=== PATIENT | female | born 1940 | race Caucasian/White ===

== ENCOUNTER → 2017-02-25 | Outpatient (CLI) | payer MEDICARE, OTHER ==
[~2017-02-25] MED LIST: ALBU0.08 NEB; DIAZ10 PO; HYDR25TA5 PO; LEVO50TA4 PO; MUCI30TA2 PO; NITR0.4S SL; POLY17S PO; PREV30CA11 PO; REGL10TA5 PO; THEO300T4 PO
[2017-02-25 09:03] LABS: AUTOMATED NEUTROPHIL # 5.3 TH/MM3 (1.8-7.7); BASOPHIL # 0.1 TH/MM3 (0-0.2); BASOPHIL % 0.9 % (0.0-2.0); EOSINOPHIL # 0.3 TH/MM3 (0-0.4); EOSINOPHIL % 4.3 % (0.0-4.0); HEMATOCRIT 33.6 % (35.0-46.0); HEMO FLAGS DIFF FINAL; LYMPH % 18.1 % (9.0-44.0); LYMPHOCYTE # 1.4 TH/MM3 (1.0-4.8); MEAN CELL VOLUME 78.2 FL (80.0-100.0); MONO % 9.4 % (0.0-8.0); NEUT % 67.3 % (16.0-70.0); PLATELET COUNT 321 TH/MM3 (150-450); RED BLOOD COUNT 4.29 MIL/MM3 (4.00-5.30); RED CELL DISTRIBUTION WIDTH 14.1 % (11.6-17.2); WHITE BLOOD COUNT 7.9 TH/MM3 (4.0-11.0)
[2017-02-25 09:06] LABS: BLOOD, URINE NEG (NEG); GLUCOSE,URINE NEG (NEG); KETONE, URINE NEG (NEG); MUCUS URINE FEW /lpf (OCC); NITRITE,URINE NEG (NEG); SQUAMOUS EPITHELIAL CELL URINE 1 /hpf (0-5); URINE COLOR YELLOW (YELLW/STRAW)
[2017-02-25 09:29] LABS: ALKALINE PHOSPHATASE 121 U/L (45-117); ALT (GPT) 20 U/L (10-53); ANION GAP 5 MEQ/L (5-15); AST (GOT) 18 U/L (15-37); BICARBONATE 30.1 MEQ/L (21.0-32.0); BLOOD UREA NITROGEN 13 MG/DL (7-18); CHLORIDE 97 MEQ/L (98-107); GLOMERULAR FILTRATION RATE 86 ML/MIN (>89); GLUCOSE,FASTING 85 MG/DL (74-99); POTASSIUM 4.2 MEQ/L (3.5-5.1); SODIUM (NA) 132 MEQ/L (136-145); TOTAL BILIRUBIN ADULT 0.2 MG/DL (0.2-1.0)
== END ==
LOC: CLAB 08:29
PROVIDERS: ATTEND Allergy & Immunology
DX: M32.13 Lung involvement in systemic lupus erythematosus (principal)
CPT/HCPCS: 36415; 80053; 81001; 85025; 86140

== ENCOUNTER → 2017-02-27 | Outpatient (CLI) | payer MEDICARE ==
[2017-02-27 14:11] LABS: HEMATOCRIT 32.8 % (35.0-46.0); REVIEW FLAG FINAL
[2017-02-27 14:36] LABS: FERRITIN 15 NG/ML (8-252); TRANSFERRIN IRON PROFILE 352 MG/DL (200-360)
== END ==
LOC: CLAB 13:48
PROVIDERS: ATTEND Allergy & Immunology
DX: E61.1 Iron deficiency (principal); Z79.899 Other long term (current) drug therapy
CPT/HCPCS: 36415; 82728; 83540; 83550; 85014; 85018

== ENCOUNTER → 2017-03-02 | Outpatient (CLI) | payer MEDICARE | LOC: CLAB 08:59 | PROVIDERS: ATTEND Allergy & Immunology | DX: E61.1 Iron deficiency (principal); Z79.899 Other long term (current) drug therapy | CPT/HCPCS: 82272 ==

== ENCOUNTER → 2017-05-29 | Outpatient (CLI) | payer MEDICARE ==
[2017-05-29 07:46] LABS: AUTOMATED NEUTROPHIL # 5.5 TH/MM3 (1.8-7.7); BASOPHIL # 0.1 TH/MM3 (0-0.2); BASOPHIL % 0.8 % (0.0-2.0); EOSINOPHIL # 0.8 TH/MM3 (0-0.4); EOSINOPHIL % 8.9 % (0.0-4.0); HEMATOCRIT 40.8 % (35.0-46.0); HEMO FLAGS DIFF FINAL; LYMPH % 19.5 % (9.0-44.0); LYMPHOCYTE # 1.7 TH/MM3 (1.0-4.8); MEAN CELL VOLUME 84.8 FL (80.0-100.0); MEAN CORPUSCULAR HEMOGLOBIN 27.5 PG (27.0-34.0); MEAN CORPUSCULAR HGB CONC 32.4 % (32.0-36.0); MONO % 6.8 % (0.0-8.0); PLATELET COUNT 275 TH/MM3 (150-450); RED BLOOD COUNT 4.81 MIL/MM3 (4.00-5.30); WHITE BLOOD COUNT 8.6 TH/MM3 (4.0-11.0)
[2017-05-29 08:05] LABS: BACTERIA, URINE FEW /hpf; BLOOD, URINE TRACE (NEG); GLUCOSE,URINE NEG (NEG); HYALINE CAST, URINE 4 /lpf (RARE); KETONE, URINE NEG (NEG); MUCUS URINE FEW /lpf (OCC); NITRITE,URINE NEG (NEG); PH, URINE 6.5 (5.0-8.5); SQUAMOUS EPITHELIAL CELL URINE 4 /hpf (0-5); URINE COLOR YELLOW (YELLW/STRAW)
[2017-05-29 08:08] LABS: WESTERGREN SEDIMENTATION RATE 9 mm/hr (0-30)
[2017-05-29 08:12] LABS: ALT (GPT) 24 U/L (10-53); ANION GAP 8 MEQ/L (5-15); AST (GOT) 17 U/L (15-37); BICARBONATE 28.4 MEQ/L (21.0-32.0); BLOOD UREA NITROGEN 12 MG/DL (7-18); CHLORIDE 99 MEQ/L (98-107); GLOMERULAR FILTRATION RATE 72 ML/MIN (>89); GLUCOSE,FASTING 130 MG/DL (74-99); SODIUM (NA) 135 MEQ/L (136-145)
[2017-05-29 08:15] LABS: ALKALINE PHOSPHATASE 132 U/L (45-117); TOTAL BILIRUBIN ADULT 0.3 MG/DL (0.2-1.0)
[2017-05-31 07:53] LABS: RHEUMATOID FACTOR 11 IU/mL (<14)
[2017-06-01 15:51] LABS: ANA SER QL POSITIVE (NEGATIVE); SJOGRENS AB SSA <1.0 NEG AI (<1.0 NEGATIVE); SJOGRENS AB SSB <1.0 NEG AI (<1.0 NEGATIVE)
[2017-06-02 13:52] LABS: ANA IFA PATTERN HOMOGENEOUS (())
[2017-06-04 03:49] LABS: DS DNA AB(CRITHIDIA) NEGATIVE (NEGATIVE); DS DNA AB(CRITHIDIA)TITER ND (<1:10)
== END ==
LOC: CLAB 07:13
PROVIDERS: ATTEND Allergy & Immunology
DX: M32.13 Lung involvement in systemic lupus erythematosus (principal)
CPT/HCPCS: 36415; 80053; 81001; 85025; 85652; 86038; 86039; 86140; 86225; 86235; 86255; 86256; 86431

== ENCOUNTER → 2017-08-24 | Outpatient (CLI) | payer MEDICARE ==
[~2017-08-24] MED LIST changes: +INFL1INJ56 IM
[2017-08-24 08:39] LABS: BACTERIA, URINE RARE /hpf; BLOOD, URINE NEG (NEG); GLUCOSE,URINE NEG (NEG); HYALINE CAST, URINE 1 /lpf (RARE); KETONE, URINE NEG (NEG); NITRITE,URINE NEG (NEG); PH, URINE 6.5 (5.0-8.5); SQUAMOUS EPITHELIAL CELL URINE 1 /hpf (0-5); TRANSITIONAL EPI CELLS, URINE <1 /hpf; URINE COLOR YELLOW (YELLW/STRAW)
[2017-08-24 08:41] LABS: AUTOMATED NEUTROPHIL # 5.2 TH/MM3 (1.8-7.7); BASOPHIL % 0.6 % (0.0-2.0); EOSINOPHIL # 0.2 TH/MM3 (0-0.4); EOSINOPHIL % 2.5 % (0.0-4.0); HEMATOCRIT 38.5 % (35.0-46.0); HEMO FLAGS DIFF FINAL; LYMPH % 16.6 % (9.0-44.0); LYMPHOCYTE # 1.2 TH/MM3 (1.0-4.8); MEAN CELL VOLUME 87.5 FL (80.0-100.0); MEAN CORPUSCULAR HEMOGLOBIN 28.5 PG (27.0-34.0); MEAN CORPUSCULAR HGB CONC 32.5 % (32.0-36.0); MONO % 9.8 % (0.0-8.0); NEUT % 70.5 % (16.0-70.0); PLATELET COUNT 306 TH/MM3 (150-450); RED CELL DISTRIBUTION WIDTH 13.2 % (11.6-17.2); WHITE BLOOD COUNT 7.4 TH/MM3 (4.0-11.0)
[2017-08-24 08:58] LABS: ANION GAP 8 MEQ/L (5-15); AST (GOT) 16 U/L (15-37); BICARBONATE 25.7 MEQ/L (21.0-32.0); BLOOD UREA NITROGEN 14 MG/DL (7-18); CHLORIDE 100 MEQ/L (98-107); GLOMERULAR FILTRATION RATE 98 ML/MIN (>89); GLUCOSE,FASTING 96 MG/DL (74-99); POTASSIUM 3.6 MEQ/L (3.5-5.1); SODIUM (NA) 134 MEQ/L (136-145)
[2017-08-24 08:59] LABS: ALT (GPT) 21 U/L (10-53)
[2017-08-24 09:09] LABS: ALKALINE PHOSPHATASE 141 U/L (45-117); TOTAL BILIRUBIN ADULT 0.3 MG/DL (0.2-1.0)
[2017-08-26 23:54] LABS: THYROGLOB ABS 32 IU/mL (< OR = 1)
== END ==
LOC: CLAB 07:55
PROVIDERS: ATTEND Internal Medicine Endocrinology, Diabetes & Metabolism
DX: M81.0 Age-related osteoporosis without current pathological fracture (principal); E04.1 Nontoxic single thyroid nodule; M06.9 Rheumatoid arthritis, unspecified; G03.9 Meningitis, unspecified; D89.89 Other specified disorders involving the immune mechanism, not elsewhere classified; E66.3 Overweight; E03.9 Hypothyroidism, unspecified
CPT/HCPCS: 36415; 80053; 81001; 84439; 84443; 84480; 85025; 86225; 86376; 86800

== ENCOUNTER 2017-11-14 12:34 | Inpatient (IN) | payer MEDICARE, OTHER ==
[~2017-11-14] VITALS: Ht 149.9 cm; Wt 47.8 kg
[~2017-11-14 12:34] MED LIST changes: +HUMIBIDDM PO; -INFL1INJ56 IM; -MUCI30TA2 PO; -PREV30CA11 PO; +PREV30CA36 PO
[2017-11-14 12:36] VITALS: BP 196/76; PULSE 84; RESP 16; TEMP 98.7; O2SAT 99
[2017-11-14] MEDS ORDERED: SODIUM CHLORIDE 0.9% FLUSH 10 ML FLUSH IVF PRN ×2 (13:00→17:15)
[2017-11-14 13:10] VITALS: BP 176/77; PULSE 88; RESP 18; O2SAT 99
--- NOTE | 2017-11-14 13:14 | PD ---
HPI Chief Complaint: Chest Pain Time Seen by Provider: 12:43 Travel History International Travel<30 days: No Contact w/Intl Traveler<30days: No Traveled to known affect area: No History of Present Illness HPI 77-year-old female states she's been having a couple week history of pain to her back and chest with chills and productive sputum. She states she went to the urgent care and was given a dose of steroids and a prescription for antibiotics but she is not feeling better. She states that the symptoms still persist. She denies any other concurrent complaints. Quality of pain is sharp. Severity is moderate. Pain is worse with deep breaths and movement. She denies other modifying factors. She states she feels similar to when she had bronchiectasis and had to have part of her lobe removed. PFSH Past Medical History Narrative Medical Past history confirmed from records and patient Hx Anticoagulant Therapy: No Anemia: Yes Asthma: Yes Heart Rhythm Problems: No Cancer: Yes (laura cell cancer) Cardiac Catheterization: Yes Cardiovascular Problems: Yes High Cholesterol: Yes Chemotherapy: No COPD: Yes Cerebrovascular Accident: No Diabetes: No Diminished Hearing: No Gastrointestinal Disorders: Yes (GASTROPARESIS) GERD: Yes (errosive gastritis) Hypertension: Yes Immune Disorder: Yes (LUPUS) Musculoskeletal: Yes (LUPUS) Respiratory: Yes (COPD) Pneumonia: Yes Renal Failure: Yes (RENAL INSUFFICENCY) Seizures: Yes PNEUMOCCOCAL Vaccine (Year): 2009 Menopausal: Yes Past Surgical History Narrative Surgical Past history confirmed from records and patient Abdominal Surgery: Yes (colectomy) Appendectomy: Yes Cholecystectomy: Yes Coronary Artery Bypass Graft: No Genitourinary Surgery: Yes (COLOECTOMY) Gynecologic Surgery: Yes Hysterectomy: Yes Thoracic Surgery: Yes (LL LUNG LOBECTOMY ) Tonsillectomy: Yes Other Surgery: Yes (left leg sx) Social History Alcohol Use: No Tobacco Use: No Substance Use: No Allergies-Medications (Allergen,Severity, Reaction): Coded Allergies: Sulfa (Sulfonamide Antibiotics) (Unverified Allergy, Severe, 11/14/17) celecoxib (Unverified Allergy, Severe, 11/14/17) cyclobenzaprine (Unverified Allergy, Severe, 11/14/17) meperidine (Unverified Allergy, Severe, 11/14/17) morphine (Unverified Allergy, Severe, 11/14/17) penicillin G (Unverified Allergy, Severe, 11/14/17) codeine (Unverified Allergy, Mild, 11/14/17) Reported Meds & Prescriptions Reported Meds & Active Scripts Active Reported Plaquenil (Hydroxychloroquine Sulfate) 200 Mg Tab 100 Mg PO Q48H Take with food Levothyroxine (Levothyroxine Sodium) 50 Mcg Tab 50 Mcg PO DAILY Valium (Diazepam) 10 Mg Tab 10 Mg PO TID PRN Albuterol Neb (Albuterol Sulfate) 2.5 Mg/3 Ml Neb 2.5 Mg NEB Q8HR Reglan (Metoclopramide HCl) 10 Mg Tab 10 Mg PO DAILY Prevacid (Lansoprazole) 30 Mg Capdr 30 Mg PO DAILY Nitrostat SL (Nitroglycerin) 0.4 Mg Subl 0.4 Mg SL DIRECTED PRN ONE TABLET UNDER THE TONGUE NEEDED FOR CHEST PAIN, MAY REPEAT EVERY FIVE MINUTES FOR A TOTAL OF 3 DOSES OR CALL 911 IF NO RELIEF Polyethylene Glycol 3350 Powder (Polyethylene Glycol) 17 Gm Pow 17 Gm PO DAILY Mucinex DM (Dextromethorphan-Guaifenesin) 30-600 Mg Tab 1 Tab PO DAILY PRN Review of Systems Except as stated in HPI: all other systems reviewed are Neg Physical Exam Exam Limitations: Other: (pain) Narrative GENERAL: Well-nourished, well-developed patient. Well-appearing SKIN: Warm and dry. HEAD: Normocephalic and atraumatic. EYES: No injection or drainage. ENT: No nasal drainage noted. NECK: Supple, trachea midline. CARDIOVASCULAR: Regular rate and rhythm RESPIRATORY: Breath sounds equal bilaterally. No accessory muscle use. GASTROINTESTINAL: Abdomen nondistended. EXTREMITIES: No edema. NEUROLOGICAL: Awake and alert. Moves all extremities and sensory grossly within normal limits. Normal speech. Data Data Last Documented VS Vital Signs Date Time Temp Pulse Resp B/P (MAP) Pulse Ox O2 Delivery O2 Flow Rate FiO2 11/14/17 13:10 88 18 176/77 (110) 99 Room Air 11/14/17 12:36 98.7 Orders Orders Electrocardiogram (11/14/17 12:50) Complete Blood Count With Diff (11/14/17 12:50) Comprehensive Metabolic Panel (11/14/17 12:50) Lactic Acid Sepsis Protocol (12/16/17 12:50) Blood Culture (11/14/17 12:50) Chest, Pa & Lat (11/14/17 12:50) Sodium Chloride 0.9% Flush (Ns Flush) (11/14/17 13:00) Ckmb (Isoenzyme) Profile (11/14/17 12:50) Magnesium (Mg) (11/14/17 12:50) Troponin I (11/14/17 12:50) Prothrombin Time / Inr (Pt) (11/14/17 12:50) Act Partial Throm Time (Ptt) (11/14/17 12:50) Ct Pulmonary Angiogram (11/14/17 ) Iohexol 350 Inj (Omnipaque 350 Inj) (11/14/17 16:30) Sodium Chloride 0.9% Flush (Ns Flush) (11/14/17 17:15) Aztreonam Inj (Azactam Inj) (11/14/17 17:45) Levofloxacin 750 Mg Premix Inj (Levaquin (11/14/17 17:15) Admit Order (Ed Use Only) (11/14/17 17:30) Labs Laboratory Tests Test 11/14/17 13:12 11/14/17 13:15 Lactic Acid Level 1.7 mmol/L White Blood Count 10.2 TH/MM3 Red Blood Count 4.32 MIL/MM3 Hemoglobin 12.4 GM/DL Hematocrit 36.7 % Mean Corpuscular Volume 85.0 FL Mean Corpuscular Hemoglobin 28.8 PG Mean Corpuscular Hemoglobin Concent 33.8 % Red Cell Distribution Width 13.6 % Platelet Count 256 TH/MM3 Mean Platelet Volume 7.5 FL Neutrophils (%) (Auto) 68.7 % Lymphocytes (%) (Auto) 16.8 % Monocytes (%) (Auto) 12.5 % Eosinophils (%) (Auto) 1.5 % Basophils (%) (Auto) 0.5 % Neutrophils # (Auto) 7.0 TH/MM3 Lymphocytes # (Auto) 1.7 TH/MM3 Monocytes # (Auto) 1.3 TH/MM3 Eosinophils # (Auto) 0.2 TH/MM3 Basophils # (Auto) 0.1 TH/MM3 CBC Comment DIFF FINAL Differential Comment Prothrombin Time 10.9 SEC Prothromb Time International Ratio 1.1 RATIO Activated Partial Thromboplast Time 31.5 SEC Blood Urea Nitrogen 14 MG/DL Creatinine 0.64 MG/DL Random Glucose 98 MG/DL Total Protein 7.6 GM/DL Albumin 3.6 GM/DL Calcium Level 9.4 MG/DL Magnesium Level 2.0 MG/DL Alkaline Phosphatase 163 U/L Aspartate Amino Transf (AST/SGOT) 17 U/L Alanine Aminotransferase (ALT/SGPT) 22 U/L Total Bilirubin 0.3 MG/DL Sodium Level 133 MEQ/L Potassium Level 3.7 MEQ/L Chloride Level 99 MEQ/L Carbon Dioxide Level 26.5 MEQ/L Anion Gap 8 MEQ/L Estimat Glomerular Filtration Rate 90 ML/MIN Total Creatine Kinase 77 U/L Troponin I LESS THAN 0.02 NG/ML MDM Medical Decision Making Medical Screen Exam Complete: Yes Emergency Medical Condition: Yes Medical Record Reviewed: Yes (past history confirmed) Interpretation(s) CBC & BMP Diagram 11/14/17 13:15 Total Protein 7.6, Albumin 3.6, Calcium Level 9.4, Magnesium Level 2.0, Alkaline Phosphatase 163 H, Aspartate Amino Transf (AST/SGOT) 17, Alanine Aminotransferase (ALT/SGPT) 22, Total Bilirubin 0.3 Last 24 hours Impressions Chest X-Ray 11/14/17 1250 Signed Impressions: Service Date/Time: Tuesday, November 14, 2017 13:40 - CONCLUSION: 1. Stable chronic changes without acute abnormality or significant interval change. Zachary Johnson MD CT Angiography 11/14/17 0000 Signed Impressions: Service Date/Time: Tuesday, November 14, 2017 16:09 - CONCLUSION: 1. Negative for pulmonary embolic disease. 2. 5.2 x 3.2 cm the wall cavitary lesion in the left lung apex. There is some associated bronchiectasis and peribronchial thickening. This is probably infectious in nature. There is also patchy left lower lobe bronchopneumonia. Keon Arriaga MD Differential Diagnosis Pneumonia, URI, pneumothorax, musculoskeletal, ulcer, PE Narrative Course Will check blood work, chest x-ray, EKG and monitor ED workup shows large lesion in left upper lobe and area of infection to left base of her remaining lung despite outpatient treatment. Discussed with resident team for admission. Patient agrees to plan, given antibiotics and culture sent. Physician Communication Physician Communication resident team agree to admit Diagnosis Primary Impression: Cavitary lesion of lung Additional Impressions: Shortness of breath Systemic lupus erythematosus Admitting Information Admitting Physician Requests: Observation Kina Burris MD Nov 14, 2017 13:14
[2017-11-14 13:55] LABS: BASOPHIL # 0.1 TH/MM3 (0-0.2); BASOPHIL % 0.5 % (0.0-2.0); EOSINOPHIL # 0.2 TH/MM3 (0-0.4); EOSINOPHIL % 1.5 % (0.0-4.0); HEMATOCRIT 36.7 % (35.0-46.0); HEMO FLAGS DIFF FINAL; LYMPH % 16.8 % (9.0-44.0); LYMPHOCYTE # 1.7 TH/MM3 (1.0-4.8); MEAN CORPUSCULAR HEMOGLOBIN 28.8 PG (27.0-34.0); MEAN CORPUSCULAR HGB CONC 33.8 % (32.0-36.0); MONO % 12.5 % (0.0-8.0); NEUT % 68.7 % (16.0-70.0); PLATELET COUNT 256 TH/MM3 (150-450); RED BLOOD COUNT 4.32 MIL/MM3 (4.00-5.30); RED CELL DISTRIBUTION WIDTH 13.6 % (11.6-17.2); WHITE BLOOD COUNT 10.2 TH/MM3 (4.0-11.0)
--- NOTE | 2017-11-14 13:55 | RADRPT ---
EXAM DATE/TIME: 11/14/2017 13:40 [facility] COMPARISON: CHEST SINGLE AP, June 03, 2016, 12:49. INDICATIONS : Chest pain. MEDICAL HISTORY : Lupus. Chronic obstructive pulmonary disease. Hypercholesterolemia. SURGICAL HISTORY : Lobectomy. Cholecystectomy. Hysterectomy. ENCOUNTER: Initial ACUITY: 1 day PAIN SCORE: 8/10 LOCATION: Bilateral chest FINDINGS: Redemonstration of chronic pleural-parenchymal scarring at the left lung base. Redemonstration of sca rring in the left lung apex. No new focal pleural or parenchymal opacities. Cardiomediastinal contour s are within normal limits. Bony thorax is intact. CONCLUSION: 1. Stable chronic changes without acute abnormality or significant interval change. Zachary Johnson MD on November 14, 2017 at 13:52 Board Certified Radiologist. This report was verified electronically.
[2017-11-14 14:07] LABS: ALT (GPT) 22 U/L (10-53); ANION GAP 8 MEQ/L (5-15); AST (GOT) 17 U/L (15-37); BICARBONATE 26.5 MEQ/L (21.0-32.0); BLOOD UREA NITROGEN 14 MG/DL (7-18); CHLORIDE 99 MEQ/L (98-107); GLOMERULAR FILTRATION RATE 90 ML/MIN (>89); POTASSIUM 3.7 MEQ/L (3.5-5.1); SODIUM (NA) 133 MEQ/L (136-145)
[2017-11-14 14:11] LABS: ALKALINE PHOSPHATASE 163 U/L (45-117); TOTAL BILIRUBIN ADULT 0.3 MG/DL (0.2-1.0)
[2017-11-14 14:12] LABS: APTT (PATIENT) 31.5 SEC (24.3-30.1); CREATINE KINASE 77 U/L (26-192); INTERNATIONAL NORMALIZED RATIO 1.1 RATIO; PROTHROMBIN TIME - PATIENT 10.9 SEC (9.8-11.6)
[2017-11-14] MEDS ORDERED: IOHEXOL 350 MG/ML 10 ML VIAL (for RAD DIAG) IVCONTRAST ONE (16:30)
--- NOTE | 2017-11-14 16:53 | RADRPT ---
EXAM DATE/TIME: 11/14/2017 16:09 [facility] COMPARISON: No previous studies available for comparison. INDICATIONS : Right sided chest pain and shortness of breath for three weeks. IV CONTRAST: 50 cc Omnipaque 350 (iohexol) IV RADIATION DOSE: 3.21 CTDIvol (mGy) MEDICAL HISTORY : Hypertension. Seizures. Cardiovascular diseasemerkle cell cancer SURGICAL HISTORY : Hysterectomy. Cholecystectomy. ENCOUNTER: Initial ACUITY: 3 weeks PAIN SCALE: 8/10 LOCATION: Right chest TECHNIQUE: Volumetric scanning of the chest was performed using a pulmonary embolism protocol MIP images were re constructed. Using automated exposure control and adjustment of the mA and/or kV according to patien t size, radiation dose was kept as low as reasonably achievable to obtain optimal diagnostic quality images. DICOM format image data is available electronically for review and comparison. Follow-up recommendations for detected pulmonary nodules are based at a minimum on nodule size and pa tient risk factors according to Fleischner Society Guidelines. FINDINGS: There is a thickwalled cavitary lesion of the left lung apex measuring up to 5.2 x 3.2 cm. There is p atchy airspace disease in the lower left lung. There is scattered scarring in the right lung without significant consolidation. There is right apical scarring. No pleural or pericardial effusion. There is no hilar, mediastinal or axillary adenopathy. No filling defects the pulmonary suggestive of embolic disease. Calcified left thyroid nodule. CONCLUSION: 1. Negative for pulmonary embolic disease. 2. 5.2 x 3.2 cm the wall cavitary lesion in the left lung apex. There is some associated bronchiectas is and peribronchial thickening. This is probably infectious in nature. There is also patchy left low er lobe bronchopneumonia. Keon Arriaga MD on November 14, 2017 at 16:42 Board Certified Radiologist. This report was verified electronically.
[2017-11-14] MEDS ORDERED: LEVOFLOXACIN 750 MG PREMIX INJ 150 ML IV ONE (17:15)
[2017-11-14] MEDS ORDERED: AZTREONAM INJ 2,000 MG in SODIUM CHLORIDE 0.9% INJ 100 ML IV ONE (17:45)
[2017-11-14] MEDS ORDERED: PLAQ200T PO (17:57)
[2017-11-14 17:58] VITALS: BP 178/74; PULSE 80; RESP 21; O2SAT 99
--- NOTE | 2017-11-14 19:17 | HHI.HP ---
[facility] Service Family Medicine Primary Care Physician Devang Mendenhall MD Admission Diagnosis cavitary lung lesion, chortness of breath Diagnoses: International Travel<30 Days: No Contact w/Intl Traveler<30days: No Known Affected Area: No History of Present Illness Mrs. Vega is a 77 y/o F presenting to the ED with R sided chest pain. She states that for the last 3 months she has had R sided anterior chest pain as well as right-sided flank pain. This pain has dramatically increased over the last 2 weeks and is currently 10/10. She describes the pain as "sharp" that is exasperated with certain movements and deep breathing. She states nothing is able to alleviate her pain at this time. She also endorses shortness of breath is increased from exertion to now at rest, subjective fevers, night sweats, episodes of dizziness, and a productive green cough. She denies any hemoptysis or weight loss at this time. She reports that she was recently seen in urgent care facility and given a prescription for steroids in a unknown antibiotic which did not alleviate any of her symptoms. She does have a history of bronchiectasis that has resulted in removal of her left lower lobe, and she does state that this episode is very similar to when she had to have her lobectomy. Review of Systems Constitutional: COMPLAINS OF: Fever, Chills Eyes: COMPLAINS OF: Blurred vision, DENIES: Double Vision Ears, nose, mouth, throat: COMPLAINS OF: Throat pain, Running Nose Respiratory: COMPLAINS OF: Cough, Sputum production, Shortness of breath, DENIES: Wheezing Cardiovascular: COMPLAINS OF: Syncope, Dyspnea on Exertion, DENIES: Chest pain Gastrointestinal: COMPLAINS OF: Abdominal pain, Nausea, DENIES: Diarrhea, Vomiting Genitourinary: COMPLAINS OF: Dysuria Musculoskeletal: COMPLAINS OF: Joint pain, Stiffness Integumentary: DENIES: Rash Hematologic/lymphatic: DENIES: Lymphadenopathy Immunologic/allergic: DENIES: Urticaria Neurologic: COMPLAINS OF: Headache Psychiatric: DENIES: Mood changes Past Family Social History Past Medical History Brittle blood glucose control- avoid sugary foods. 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 SLE * on Plaquenil 200mg every other day for past 5 years. 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 Sjgren syndrome allergic rhinitis chronic GI ulcer (severe), followed by GI Dr. Dias. [id number] vaginal Preventative care: No longer needs pap smears due to total hysterectomy. Mammogram last done in October 17, 2013, normal. * patient declines further mammograms. Colonoscopy - followed by GI. Past Surgical History Past surgical history: colectomy (only 6 inches of colon left), 2000 Lobectomy for bronchiectasis as a child total bilateral oophorectomy and hysterectomy 40yrs ago due to ectopic due to failed tubal ligation. No longer needs pap smears. cholecystectomy appendectomy multiple sinus surgeries, polypectomies Allergies: Coded Allergies: Sulfa (Sulfonamide Antibiotics) (Unverified Allergy, Severe, 11/14/17) celecoxib (Unverified Allergy, Severe, 11/14/17) cyclobenzaprine (Unverified Allergy, Severe, 11/14/17) meperidine (Unverified Allergy, Severe, 11/14/17) morphine (Unverified Allergy, Severe, 11/14/17) penicillin G (Unverified Allergy, Severe, 11/14/17) codeine (Unverified Allergy, Mild, 11/14/17) Family History Family Hx: born in [place], grew up in [place], came from a family of brick- layers brother of gall bladder cancer, and DM at 69 Father of leukemia Althea (sister) had breast cancer (in [place]) Rhonda is alive and well (borderline DM) mom had DM type II Ozzy at 60 of glioblastoma of brain Alejandro prostate cancer 83 yrs old (radiation) Strong family history of hypercholesterolemia. Son zachary is 42 and has asthma daughter Aurelia is 44 and healthy. Social History Social history: lives in a [address] yr old house in [place], [place], with her son for the last year Tobacco - No history reported Alcohol - No history reported Illicit - No history reported Physical Exam Vital Signs Vital Signs Date Time Temp Pulse Resp B/P (MAP) Pulse Ox O2 Delivery O2 Flow Rate FiO2 11/14/17 17:58 80 21 178/74 (108) 99 Room Air 11/14/17 13:10 88 18 176/77 (110) 99 Room Air 11/14/17 13:06 88 26 99 Room Air 11/14/17 12:36 98.7 84 16 196/76 (848) 99 Physical Exam GENERAL: Well-nourished, well-developed elderly female lying in bed in no acute distress. SKIN: Warm and dry. No rash. Fair skinned. HEENT: Atraumatic, normocephalic with EOMI. PERRLA. MMM. Oropharynx clear without erythema or exudate. No rhinorrhea. No LAD, JVD, or thyroid abnormality appreciated. CARDIOVASCULAR: Regular rate and rhythm without obvious murmurs, gallops, or rubs. RESPIRATORY: Distant lung sounds throughout upper to middle left lung benavides. Right lung benavides clear to auscultation with no CRW appreciated. No increased work of breathing. Patient unable to communicate in full sentences. GASTROINTESTINAL: Abdomen soft, non-tender, nondistended with positive bowel sounds. No masses appreciated. MUSCULOSKELETAL: No cyanosis or edema. Strength grossly WNL. NEURO/PSYCH: Afocal. AAO 3. Normal speech and judgment. Laboratory Laboratory Tests Test 11/14/17 13:12 11/14/17 13:15 Lactic Acid Level 1.7 White Blood Count 10.2 Red Blood Count 4.32 Hemoglobin 12.4 Hematocrit 36.7 Mean Corpuscular Volume 85.0 Mean Corpuscular Hemoglobin 28.8 Mean Corpuscular Hemoglobin Concent 33.8 Red Cell Distribution Width 13.6 Platelet Count 256 Mean Platelet Volume 7.5 Neutrophils (%) (Auto) 68.7 Lymphocytes (%) (Auto) 16.8 Monocytes (%) (Auto) 12.5 Eosinophils (%) (Auto) 1.5 Basophils (%) (Auto) 0.5 Neutrophils # (Auto) 7.0 Lymphocytes # (Auto) 1.7 Monocytes # (Auto) 1.3 Eosinophils # (Auto) 0.2 Basophils # (Auto) 0.1 CBC Comment DIFF FINAL Differential Comment Prothrombin Time 10.9 Prothromb Time International Ratio 1.1 Activated Partial Thromboplast Time 31.5 Blood Urea Nitrogen 14 Creatinine 0.64 Random Glucose 98 Total Protein 7.6 Albumin 3.6 Calcium Level 9.4 Magnesium Level 2.0 Alkaline Phosphatase 163 Aspartate Amino Transf (AST/SGOT) 17 Alanine Aminotransferase (ALT/SGPT) 22 Total Bilirubin 0.3 Sodium Level 133 Potassium Level 3.7 Chloride Level 99 Carbon Dioxide Level 26.5 Anion Gap 8 Estimat Glomerular Filtration Rate 90 Total Creatine Kinase 77 Troponin I LESS THAN 0.02 Date/Time Source Procedure Growth Status 11/14/17 13:11 Blood Peripheral Aerobic Blood Culture Pending Received 11/14/17 13:11 Blood Peripheral Anaerobic Blood Culture Pending Received Result Diagram: 11/14/17 1315 11/14/17 1315 Caprini VTE Risk Assessment Caprini VTE Risk Assessment: Mod/High Risk (score >= 2) Caprini Risk Assessment Model Point Value = 1 Point Value = 2 Point Value = 3 Point Value = 5 Age 41-60 Minor surgery BMI > 25 kg/m2 Swollen legs Varicose veins or History of unexplained or recurrent spontaneous Oral contraceptives or hormone replacement Sepsis (< 1 month) Serious lung disease, including pneumonia (< 1 month) Abnormal pulmonary function Acute myocardial infarction Congestive heart failure (< 1 month) History of inflammatory bowel disease Medical patient at bed rest Age 61-74 Arthroscopic surgery Major open surgery (> 45 min) Laparoscopic surgery (> 45 min) Malignancy Confined to bed (> 72 hours) Immobilizing plaster cast Central venous access Age >= 75 History of VTE Family history of VTE Factor V Leiden Prothrombin [id number] Lupus anticoagulant Anticardiolipin antibodies Elevated serum homocysteine Heparin-induced thrombocytopenia Other congenital or acquired thrombophilia Stroke (< 1 month) Elective arthroplasty Hip, pelvis, or leg fracture Acute spinal cord injury (< 1 month) Prophylaxis Regimen Total Risk Factor Score Risk Level Prophylaxis Regimen 0-1 Low Early ambulation 2 Moderate Order ONE of the following: *Sequential Compression Device (SCD) *Heparin 5000 units SQ BID 3-4 Higher Order ONE of the following medications: *Heparin 5000 units SQ TID *Enoxaparin/Lovenox 40 mg SQ daily (WT < 150 kg, CrCl > 30 mL/min) *Enoxaparin/Lovenox 30 mg SQ daily (WT < 150 kg, CrCl > 10-29 mL/min) *Enoxaparin/Lovenox 30 mg SQ BID (WT < 150 kg, CrCl > 30 mL/min) AND/OR *Sequential Compression Device (SCD) 5 or more Highest Order ONE of the following medications: *Heparin 5000 units SQ TID (Preferred with Epidurals) *Enoxaparin/Lovenox 40 mg SQ daily (WT < 150 kg, CrCl > 30 mL/min) *Enoxaparin/Lovenox 30 mg SQ daily (WT < 150 kg, CrCl > 10-29 mL/min) *Enoxaparin/Lovenox 30 mg SQ BID (WT < 150 kg, CrCl > 30 mL/min) AND *Sequential Compression Device (SCD) Assessment and Plan Assessment and Plan Mrs. Vega is a 77 y/o F presenting to the ED with R sided chest pain likely due to new cavitary lesion found on imaging. Code Status Full Code Discussed Condition With Dr. Burris, Problem List: (1) Cavitary lesion of lung ICD Codes: J98.4 - Other disorders of lung Status: Acute Plan: Patient presenting with chest pain found to have new cavitary lesion on imaging -Chest x-ray: Stable chronic changes without acute abnormality or significant interval change -CTA: Negative for pulmonary embolic disease. 5.2 x 3.2 cm cavitary lesion in the left lung apex. There is some associated bronchiectasis and peribronchial thickening. This is probably infectious in nature. There is also patchy left lower lobe bronchopneumonia. -CBC and CMP within normal limits -Lactic acid 1.7 -Blood cultures, sputum cultures, Legionella antigen, and pneumococcal antigen -Influenza pending -PPD tests: Pending -Patient received levofloxacin and a history in a.m. and ED, transition to aztreonam with azithromycin per up-to-date for cavitary lung lesion -Continue home Mucinex -Pulse oximetry, incentive spirometry, and a cappella ordered -Consult pulmonology, appreciate recommendations (2) Atypical chest pain ICD Codes: R07.89 - Other chest pain Status: Acute Plan: Patient with right side dominant chest pain -Please see plan as above (3) Bronchiectasis ICD Codes: J47.9 - Bronchiectasis Status: Acute Plan: Patient with history of bronchiectasis leading to lobectomy -Please see plan as above (4) Stable angina ICD Codes: I20.8 - Other forms of angina pectoris Status: Chronic Plan: Patient with reported stable angina -Continue nitroglycerin as needed for chest pain -Continue carvedilol -Troponin less than 0.02, trending 2 -EKG: Normal sinus rhythm with no acute ST elevation or depression per medical team read. (5) Lupus ICD Codes: M32.9 - Systemic lupus erythematosus, unspecified Status: Acute Plan: Patient with history of lupus, currently managed by Dr. Lama -Continue Plaquenil every other day -Continue phenobarbital for seizures related to lupus per patient (6) Anxiety ICD Codes: F41.9 - Anxiety disorder, unspecified Status: Chronic Plan: Patient with chronic anxiety -Hold Valium -Continue to monitor (7) Hypothyroid ICD Codes: E03.9 - Hypothyroidism, unspecified Status: Chronic Plan: Patient with history of hypothyroidism -Continue levothyroxine 25 g daily (8) Abdominal pain ICD Codes: R10.9 - Unspecified abdominal pain Plan: Patient with chronic abdominal pain due to prior procedures versus chronic gastritis/ulcers -Continue Reglan and lansoprazole daily -Continue MiraLAX daily -Zofran when necessary for nausea/vomiting (9) Nutrition, metabolism, and development symptoms ICD Codes: R63.8 - Other symptoms and signs concerning food and fluid intake Status: Acute Plan: -Diet: Regular diet as tolerated -Fluids: Tolerating oral fluids well and does not appear dehydrated -Electrolytes: Within normal limits, continue to monitor (10) No contraindication to deep vein thrombosis (DVT) prophylaxis ICD Codes: Z78.9 - Other specified health status Status: Acute Plan: -Heparin 5000 units every 8 hours -Gilberto Boles MD R2 Nov 14, 2017 19:17
[2017-11-14] MEDS ORDERED: LEVO50TA4 PO (19:24)
[2017-11-14] MEDS ORDERED: NON-FORMULARY DRUG (Dextromethorphan-Guaifenesin (Mucinex DM) 1 TAB) PO PRN (19:30)
[2017-11-14] MEDS: METOCLOPRAMIDE HCL 10 MG TAB PO SCH (19:30)
[2017-11-14] MEDS ORDERED: CARVEDILOL 3.125 MG TAB PO ONE (19:30)
[2017-11-14] MEDS ORDERED: NITROGLYCERIN 0.4 MG SL 25 TABS/BTL SL PRN (19:30)
[2017-11-14] MEDS ORDERED: PT:MUCINEX DM PO PRN (19:45)
[2017-11-14] MEDS: HYDROXYCHLOROQUINE SULFATE 200 MG TAB PO SCH (20:00)
[2017-11-14] MEDS ORDERED: TUBERCULIN, PPD 5 UNITS/0.1 ML SYRINGE I-DERMAL ONE ×2 (20:00→23:00)
[2017-11-14] MEDS ORDERED: CANDIDA ALBICANS 0.1 ML SYRINGE I-DERMAL ONE ×2 (20:00→23:00)
[2017-11-14] MEDS ORDERED: RESP: ALBUTEROL 2.5 MG/IPRATROPIUM 0.5 MG NEB (PRN) INH (20:00)
[2017-11-14] MEDS ORDERED: ONDANSETRON HCL 4 MG/2 ML VIAL IV PUSH PRN (20:00)
[2017-11-14] MEDS ORDERED: SODIUM CHLORIDE 0.9% FLUSH 10 ML FLUSH IV FLUSH PRN (20:00)
[2017-11-14 21:00] VITALS: BP 177/71; PULSE 79; RESP 20; TEMP 98.1; O2SAT 97
[2017-11-14] MEDS: hydrOXYzine PAMOATE 25 MG CAP PO SCH (21:00)
--- NOTE | 2017-11-14 21:11 | EKG ---
Date Performed: 11/14/2017 Time Performed: 13:04:26 PTAGE: 77 years EKG: Sinus rhythm NONSPECIFIC ST & T-WAVE ABNORMALITY ABNORMAL ECG PREVIOUS TRACING : 07/23/2016 07.09 Compared to previous tracing, inferior ST/T changes are now more pronounced. DOCTOR: Eliud Tijerina Interpretating Date/Time 11/14/2017 21:10:38
[2017-11-14 21:20] VITALS: O2SAT 95
[2017-11-14] MEDS: HEPARIN SODIUM - SQ 10,000 UNITS/ML VIAL SQ SCH (22:00)
[2017-11-14 22:04] VITALS: PULSE 75
[2017-11-14 22:51] LABS: CREATINE KINASE 58 U/L (26-192)
[2017-11-14] MEDS: AZTREONAM INJ 2,000 MG in SODIUM CHLORIDE 0.9% INJ 100 ML IV SCH (22:54)
[2017-11-14] MEDS: SODIUM CHLORIDE 0.9% FLUSH 10 ML FLUSH IV FLUSH SCH (22:55)
[2017-11-14] MEDS: POLYETHYLENE GLYCOL 17 GM PKG PO SCH (23:03)
[2017-11-14] MEDS: PANTOPRAZOLE SOD 40 MG DELAYED RELEASE TAB PO SCH (23:04)
[2017-11-14] MEDS: PHENobarbital ELIX 20 MG/5 ML CUP PO SCH (23:12)
[2017-11-15] VITALS (11 sets, daily range): BP systolic 118–158; BP diastolic 56–70; PULSE 64–77; RESP 18–22; TEMP 97.6–98.2; O2SAT 95–98
[2017-11-15] MEDS: ACETAMINOPHEN 325 MG TAB PO PRN ×3 (00:49→17:23)
[2017-11-15] MEDS: AZITHROMYCIN INJ 500 MG in SODIUM CHLOR 0.9% 250 ML INJ 250 ML IV SCH ×2 (00:58→20:08)
[2017-11-15] MEDS ORDERED: DIFL500T PO (02:34)
[2017-11-15] MEDS ORDERED: ESTR.3 PO (02:34)
[2017-11-15 04:01] LABS: AUTOMATED NEUTROPHIL # 5.7 TH/MM3 (1.8-7.7); BASOPHIL % 0.4 % (0.0-2.0); EOSINOPHIL # 0.3 TH/MM3 (0-0.4); HEMO FLAGS DIFF FINAL; LYMPH % 20.8 % (9.0-44.0); MEAN CELL VOLUME 84.9 FL (80.0-100.0); MEAN CORPUSCULAR HEMOGLOBIN 28.7 PG (27.0-34.0); MEAN CORPUSCULAR HGB CONC 33.8 % (32.0-36.0); MONO % 15.7 % (0.0-8.0); NEUT % 60.1 % (16.0-70.0); PLATELET COUNT 227 TH/MM3 (150-450); RED BLOOD COUNT 4.12 MIL/MM3 (4.00-5.30); RED CELL DISTRIBUTION WIDTH 13.5 % (11.6-17.2); WHITE BLOOD COUNT 9.5 TH/MM3 (4.0-11.0)
[2017-11-15 04:27] LABS: BICARBONATE 25.7 MEQ/L (21.0-32.0); POTASSIUM 3.9 MEQ/L (3.5-5.1)
[2017-11-15 04:35] LABS: CREATINE KINASE 53 U/L (26-192)
[2017-11-15] MEDS: HEPARIN SODIUM - SQ 10,000 UNITS/ML VIAL SQ SCH ×3 (04:59→22:00)
[2017-11-15] MEDS: LEVOTHYROXINE SODIUM 25 MCG TAB PO SCH (05:03)
[2017-11-15] MEDS: AZTREONAM INJ 2,000 MG in SODIUM CHLORIDE 0.9% INJ 100 ML IV SCH ×3 (05:58→22:39)
[2017-11-15] MEDS: METOCLOPRAMIDE HCL 10 MG TAB PO SCH (09:00)
[2017-11-15] MEDS: SODIUM CHLORIDE 0.9% FLUSH 10 ML FLUSH IV FLUSH SCH ×2 (09:00→21:29)
[2017-11-15] MEDS: POLYETHYLENE GLYCOL 17 GM PKG PO SCH (09:53)
[2017-11-15] MEDS: PHENobarbital ELIX 20 MG/5 ML CUP PO SCH ×2 (09:53→09:57)
[2017-11-15] MEDS: PANTOPRAZOLE SOD 40 MG DELAYED RELEASE TAB PO SCH (09:54)
--- NOTE | 2017-11-15 10:40 | EKG ---
Date Performed: 11/15/2017 Time Performed: 01:26:09 PTAGE: 77 years EKG: Sinus rhythm BORDERLINE RIGHT AXIS DEVIATION SEPTAL MYOCARDIAL INFARCTION ABNORMAL ECG PREVIOUS TRACING : 11/14/2017 13.04 No significant change from previous tracing noted. DOCTOR: Eliud Tijerina Interpretating Date/Time 11/15/2017 10:40:02
--- NOTE | 2017-11-15 10:54 | EKG ---
Date Performed: 11/14/2017 Time Performed: 21:58:04 PTAGE: 77 years EKG: Sinus rhythm , BORDERLINE RIGHT AXIS DEVIATION, SEPTAL MYOCARDIAL INFARCTION ABNORMAL ECG NO PREVIOUS TRACING DOCTOR: Eliud Tijerina Interpretating Date/Time 11/15/2017 10:52:53
--- NOTE | 2017-11-15 11:10 | HHI.FPPN ---
Subjective Remarks Patient seen and examined this morning. Temperature 98.2, pulse 64, respiratory 20, blood pressure 119/56, pulse ox 95 on room air. She reports that her chest pain is still persistent and that the Tylenol is only helping some. She states that in the past she has used tramadol for pain and that has worked well for her. Her renal function is within normal limits and so will provide some tramadol. She denies any knowledge of ever receiving the tuberculosis vaccine. She is unaware of any rapid weight loss. She does admit to night sweats. She has noticed some hemoptysis. Has been about 2 weeks that she has been coughing up sputum. She feels like she occasionally notices some swollen lymph nodes. She reports feeling bone pain throughout her entire body at times. Currently denying any chest pain or shortness of breath. (Luis Cox MD, R3) Objective Vitals Vital Signs Date Time Temp Pulse Resp B/P (MAP) Pulse Ox O2 Delivery O2 Flow Rate FiO2 11/15/17 08:22 98.2 64 20 119/56 (77) 95 11/15/17 04:03 65 11/15/17 03:50 97.8 65 20 118/56 (76) 97 11/15/17 00:03 77 11/15/17 00:00 97.8 75 20 158/69 (98) 96 11/14/17 22:04 75 11/14/17 21:20 95 11/14/17 21:00 98.1 79 20 177/71 (106) 97 11/14/17 20:51 11/14/17 17:58 80 21 178/74 (108) 99 Room Air 11/14/17 13:10 88 18 176/77 (110) 99 Room Air 11/14/17 13:06 88 26 99 Room Air 11/14/17 12:36 98.7 84 16 196/76 (116) 99 I/O 11/14/17 11/14/17 11/14/17 11/15/17 11/15/17 11/15/17 07:00 15:00 23:00 07:00 15:00 23:00 Intake Total 150 ml 500 ml Balance 150 ml 500 ml Intake Oral 500 ml IV Total 150 ml # Voids 3 (Luis Cox MD, R3) Result Diagram: 11/15/17 0339 11/15/17 0339 Imaging Last Impressions Chest X-Ray 11/14/17 1250 Signed Impressions: Service Date/Time: Tuesday, November 14, 2017 13:40 - CONCLUSION: 1. Stable chronic changes without acute abnormality or significant interval change. Zachary Johnson MD CT Angiography 11/14/17 0000 Signed Impressions: Service Date/Time: Tuesday, November 14, 2017 16:09 - CONCLUSION: 1. Negative for pulmonary embolic disease. 2. 5.2 x 3.2 cm the wall cavitary lesion in the left lung apex. There is some associated bronchiectasis and peribronchial thickening. This is probably infectious in nature. There is also patchy left lower lobe bronchopneumonia. Keon Arriaga MD Objective Remarks GENERAL: Well-nourished, well-developed elderly female lying in bed in no acute distress. SKIN: Warm and dry. No rash. Fair skinned. HEENT: Atraumatic, normocephalic with EOMI. PERRLA. MMM. Oropharynx clear without erythema or exudate. No rhinorrhea. No LAD, JVD, or thyroid abnormality appreciated. CARDIOVASCULAR: Regular rate and rhythm without obvious murmurs, gallops, or rubs. RESPIRATORY: Distant lung sounds throughout upper to middle left lung benavides. Right lung benavides clear to auscultation with no CRW appreciated. No increased work of breathing. Patient unable to communicate in full sentences. GASTROINTESTINAL: Abdomen soft, non-tender, nondistended with positive bowel sounds. No masses appreciated. MUSCULOSKELETAL: No cyanosis or edema. Strength grossly WNL. NEURO/PSYCH: Afocal. AAO 3. Normal speech and judgment. Medications and IVs Current Medications Medications (Trade) Dose Ordered Sig/Kelly Route Start Time Stop Time Status Last Admin (Plaquenil) 100 mg Q48H PO 11/14/17 20:00 (Reglan) 10 mg DAILY PO 11/14/17 19:30 (Nitrostat Sl) 0.4 mg TID PRN SL 11/14/17 19:30 (Miralax) 17 gm DAILY PO 11/14/17 19:30 11/15/17 09:53 (Protonix) 40 mg DAILY PO 11/14/17 20:00 11/15/17 09:54 (Synthroid) 25 mcg DAILY@0600 PO 11/15/17 06:00 11/15/17 05:03 Patient Own Medication PT OWN MED: 1 TAB PO DAILY PRN CH... DAILY PRN PO 11/14/17 19:45 Future Hold (NS Flush) 2 ml UNSCH PRN IV FLUSH 11/14/17 20:00 (NS Flush) 2 ml BID IV FLUSH 11/14/17 21:00 11/14/17 22:55 Aztreonam 2000 mg/ Sodium Chloride 100 ml @ 200 mls/hr Q8H IV 11/14/17 21:00 11/15/17 05:58 Azithromycin 500 mg/Sodium Chloride 250 ml @ 250 mls/hr Q24H IV 11/14/17 20:00 11/15/17 00:58 (Skin Test Result) 1 Q24H OTHER 11/15/17 23:00 11/18/17 22:59 (Duoneb Neb) 1 ampule Q4HR NEB PRN INH 11/14/17 20:00 (Tylenol) 650 mg Q4H PRN PO 11/14/17 20:00 11/15/17 05:04 (Zofran Inj) 4 mg Q6H PRN IV PUSH 11/14/17 20:00 (Heparin Inj) 5,000 units Q8H SQ 11/14/17 22:00 (Vistaril) 25 mg HS PRN PO 11/14/17 23:30 (PHENobarbital) 16.2 mg HS PO 11/16/17 21:00 (Luis Cox MD, R3) A/P Assessment and Plan Mrs. Vega is a 77 y/o F presenting to the ED with R sided chest pain likely due to cavitary lesion found on imaging. Discharge Planning Continuing current medical workup (Luis Cox MD, R3) Attending Attestation THIS CASE WAS DISCUSSED WITH THE RESIDENT PHYSICIAN,DR COX. I HAVE REVIEWED THE RECORD,PATIENT SEEN AND EXAMINED AND AGREE WITH THE ABOVE NOTE AND PLAN OF CARE WAS DISCUSSED. I HAVE AUTHORIZED THE ORDERS. (Amaury Wilson MD) Problem List: (1) Cavitary lesion of lung ICD Codes: J98.4 - Other disorders of lung Status: Acute Plan: Patient presenting with chest pain found to have cavitary lesion on imaging -Admitted to inpatient -Chest x-ray: Stable chronic changes without acute abnormality or significant interval change -CTA: Negative for pulmonary embolic disease. 5.2 x 3.2 cm cavitary lesion in the left lung apex. There is some associated bronchiectasis and peribronchial thickening. This is probably infectious in nature. There is also patchy left lower lobe bronchopneumonia. -CBC and CMP within normal limits -Lactic acid 1.7 -Blood cultures, sputum cultures, Legionella antigen, and pneumococcal antigen -Influenza pending -PPD tests: Pending -Patient received levofloxacin and a aztreonam in the ED, transition to aztreonam with azithromycin per up-to-date for cavitary lung lesion -Continue home Mucinex -Pulse oximetry, incentive spirometry, and a cappella ordered -Consult pulmonology, appreciate recommendations (2) Atypical chest pain ICD Codes: R07.89 - Other chest pain Status: Acute Plan: Patient with right side dominant chest pain -Please see plan as above -Troponins within normal limits (3) Bronchiectasis ICD Codes: J47.9 - Bronchiectasis Status: Acute Plan: Patient with history of bronchiectasis leading to lobectomy -Please see plan as above (4) Stable angina ICD Codes: I20.8 - Other forms of angina pectoris Status: Chronic Plan: Patient with reported stable angina -Continue nitroglycerin as needed for chest pain -Continue carvedilol -Troponin less than 0.02, trending 2 -EKG: Normal sinus rhythm with no acute ST elevation or depression per medical team read. (5) Lupus ICD Codes: M32.9 - Systemic lupus erythematosus, unspecified Status: Chronic Plan: Patient with history of lupus, currently managed by Dr. Lama -Continue Plaquenil every other day -Continue phenobarbital for seizures related to lupus per patient (6) Anxiety ICD Codes: F41.9 - Anxiety disorder, unspecified Status: Chronic Plan: Patient with chronic anxiety -Continue Valium -Continue to monitor (7) Hypothyroid ICD Codes: E03.9 - Hypothyroidism, unspecified Status: Chronic Plan: Patient with history of hypothyroidism -Continue levothyroxine 25 g daily (8) Abdominal pain ICD Codes: R10.9 - Unspecified abdominal pain Status: Chronic Plan: Patient with chronic abdominal pain due to prior procedures versus chronic gastritis/ulcers -Continue Reglan and lansoprazole daily -Continue MiraLAX daily -Zofran when necessary for nausea/vomiting (9) Nutrition, metabolism, and development symptoms ICD Codes: R63.8 - Other symptoms and signs concerning food and fluid intake Status: Acute Plan: -Diet: Regular diet as tolerated -Fluids: Tolerating oral fluids well and does not appear dehydrated -Electrolytes: Within normal limits, continue to monitor (10) No contraindication to deep vein thrombosis (DVT) prophylaxis ICD Codes: Z78.9 - Other specified health status Status: Acute Plan: -Heparin 5000 units every 8 hours -SCDs (Luis Cox MD, R3) Luis Cox MD, R3 Nov 15, 2017 11:10 Amaury Wilson MD Nov 17, 2017 21:15
[2017-11-15] MEDS ORDERED: DIAZEPAM 10 MG TAB PO PRN (11:15)
[2017-11-15] MEDS: traMADol HCL 50 MG TAB PO PRN (12:01)
--- NOTE | 2017-11-15 14:45 | MB ---
cc: XIN LAUREN M.D. DATE OF CONSULTATION: 11/15/2017. REASON FOR CONSULTATION: Cavitary pneumonia. HISTORY OF PRESENT ILLNESS: The patient is a 77-year-old female with known history of bronchiectasis of longstanding since her teenage years. The patient did have a left lower lobectomy for bronchiectasis at around age 20 because of severe destruction of that lobe. The patient has since been followed and given antibiotics as needed as well as nebulized albuterol. She had developed systemic lupus erythematosus for which she is followed by Dr. Devang Mendenhall. The patient upon presentation had severe left-sided chest pain with fever and chills and cough with yellowish mucoid secretions without hemoptysis, night sweats. Her shortness of breath had become much worse and a CT scan was done revealing a cavitation in the left upper lung. PAST MEDICAL HISTORY: Her past medical history is that of: 1. Bronchiectasis. 2. Systemic lupus erythematosus. 3. Previous left lower lobectomy age 20. 4. Colectomy in 2000. 5. Salpingo-oophorectomy in the 30s at that time. 6. Previous appendectomy. 7. Sinus surgeries. ALLERGIES: 1. SULFA. 2. CELECOXIB. 3. CYCLOBENZAPRINE. 4. MEPERIDINE. 5. MORPHINE. 6. PENICILLIN. 7. CODEINE. FAMILY HISTORY: Noncontributory. REVIEW OF SYSTEMS: A twelve-point review of systems is as per the history of present illness and past history, otherwise negative. PHYSICAL EXAMINATION: GENERAL: On exam, the patient is alert. VITAL SIGNS: Temperature 98.6, respirations 20, blood pressure 176/74, oxygen saturation 99% on room air. HEAD, EYES, EARS, NOSE, THROAT: Unremarkable. Eyes without icterus. NECK: Without adenopathy, thyroid enlargement. CHEST: Scattered rhonchi at bases. CARDIAC: PMI not appreciated. S1-S2 audible. No murmur, no rub. ABDOMEN: Lax. Bowel sounds audible. EXTREMITIES: No cyanosis, clubbing or edema. SKIN: Normal. LYMPHATIC: No lymphadenopathy. LABORATORY DATA: White count 10,000, hemoglobin 12, hematocrit 36, BUN 14, creatinine 0.6, sodium 133, potassium 3.7. IMAGING STUDIES: CT scan: Cavitation left upper lung 2 x 3 cm. Bronchiectatic change noted. IMPRESSION: 1. Cavitary lesion left upper lung. 2. Bronchiectasis. PLAN: The patient's cavitation is likely infectious in nature and antibiotic therapy would be appropriate and has already been initiated. Bronchodilator therapy and pulmonary toilet has been given as well. Once the patient is able to change to oral therapy and she is with a better appetite and overall condition, she can be discharged to be followed as an outpatient to assess resolution. If this stabilizes or improves, well and good; if not, she will need further workup including bronchoscopic examination. This has been discussed in full detail with her and the likelihood of benefits from pneumatic vest at home was discussed as well. I do thank you for asking me to partake in Mrs. Vega's care. Xin Lauren MD WWW/Natalia /2:22 PM /2:29 PM
[2017-11-15] MEDS: hydrOXYzine PAMOATE 25 MG CAP PO PRN (21:29)
[2017-11-15] MEDS: SKIN TEST RESULT OTHER SCH (23:00)
[2017-11-16] VITALS (11 sets, daily range): BP systolic 114–168; BP diastolic 59–76; PULSE 68–79; RESP 16–20; TEMP 98–98.4; O2SAT 94–98
[2017-11-16] MEDS: AZTREONAM INJ 2,000 MG in SODIUM CHLORIDE 0.9% INJ 100 ML IV SCH ×3 (05:34→21:23)
[2017-11-16] MEDS: LEVOTHYROXINE SODIUM 25 MCG TAB PO SCH (05:34)
[2017-11-16] MEDS: HEPARIN SODIUM - SQ 10,000 UNITS/ML VIAL SQ SCH ×3 (05:34→21:21)
[2017-11-16] MEDS: POLYETHYLENE GLYCOL 17 GM PKG PO SCH (09:00)
[2017-11-16] MEDS: METOCLOPRAMIDE HCL 10 MG TAB PO SCH (09:12)
[2017-11-16] MEDS: PANTOPRAZOLE SOD 40 MG DELAYED RELEASE TAB PO SCH (09:14)
[2017-11-16] MEDS: SODIUM CHLORIDE 0.9% FLUSH 10 ML FLUSH IV FLUSH SCH ×2 (09:14→21:20)
[2017-11-16] MEDS: ACETAMINOPHEN 325 MG TAB PO PRN (12:32)
--- NOTE | 2017-11-16 14:23 | HHI.FPPN ---
Subjective Remarks Sitting up in bed in no acute distress. She states, "I am feeling 70% back to normal". She continues to have a cough with thick green sputum. She reports no fevers overnight. Her vital signs have been stable. She is maintaining normal oxygen saturation on room air. She has no respiratory distress. Her white count has remained normal. PPD skin test is 2 mm this morning. (Devang Orona MD R3) Objective Vitals Vital Signs Date Time Temp Pulse Resp B/P (MAP) Pulse Ox O2 Delivery O2 Flow Rate FiO2 11/16/17 12:05 98.0 73 20 114/62 (79) 97 11/16/17 08:05 98.1 77 20 156/76 (102) 94 11/16/17 08:00 76 11/16/17 08:00 Room Air 11/16/17 03:44 68 11/16/17 00:47 73 11/16/17 00:47 73 11/16/17 00:00 98.4 77 18 168/70 (102) 98 11/16/17 00:00 Room Air 11/15/17 23:56 97.6 74 22 141/65 (90) 97 11/15/17 22:51 98 21 11/15/17 19:50 98.1 77 22 157/70 (99) 97 11/15/17 18:23 20 11/15/17 15:52 98.2 64 18 130/60 (83) 96 I/O 11/15/17 11/15/17 11/15/17 11/16/17 11/16/17 11/16/17 07:00 15:00 23:00 07:00 15:00 23:00 Intake Total 500 ml 100 ml 480 ml Balance 500 ml 100 ml 480 ml Intake Oral 500 ml 480 ml IV Total 100 ml # Voids 3 3 (Devang Orona MD R3) Result Diagram: 11/15/1733811/15/17338 Objective Remarks General: Sitting up in bed, no distress, breathing comfortable, has occasional productive cough Skin: No rashes or lesions HEENT: Normocephalic, no nasal discharge, no conjunctivitis or scleral icterus Neck: No JVD CV: RRR, no murmurs, rubs, or gallops Lungs: Left upper and middle lobes with coarse breath sounds, worse with inspiration. No wheezing. Has productive sounding cough. No respiratory distress , breathing comfortably on room air. Abdomen: Soft, nontender, nondistended, normal bowel sounds Ext: No swelling or pain (Devang Orona MD R3) A/P Assessment and Plan 77 y/o F presented to the ED with righ sided chest pain likely due to cavitary lesion found on imaging. Discharge Planning 70% back to normal, possibly in the next day or two can be discharged home. Will need close follow up with pulmonology for further workup and treatment. Has chronic bronchiectasis that will need to be followed closely. Will also need to follow up with her primary care physician. (Devang Orona MD R3) Attending Attestation Medical rounds performed with Dr Orona,Case reviewed in detail, patient seen and examined, Agree with above documentation, See Orders (Amaury Wilson MD) Problem List: (1) Cavitary lesion of lung ICD Codes: J98.4 - Other disorders of lung Status: Acute Plan: Patient presenting with chest pain found to have cavitary lesion on imaging. CTA: Negative for pulmonary embolic disease. 5.2 x 3.2 cm cavitary lesion in the left lung apex. There is some associated bronchiectasis and peribronchial thickening. This is probably infectious in nature. There is also patchy left lower lobe bronchopneumonia. Legionella and pneumococcal antigens negative. Influenza negative. PPD test with 2 mm of induration, likely negative , although response can be diminished with immunosuppression (she is on Plaquenil) and active TB infection. - Follow sputum and blood cultures. - Continue aztreonam and azithromycin (see drug allergies) - Pulse oximetry, incentive spirometry, and a cappella - Bronchodilators as needed. - Pulmonology on board, appreciate recommendations (2) Bronchiectasis ICD Codes: J47.9 - Bronchiectasis Status: Acute Plan: Patient with history of bronchiectasis leading to lobectomy -Please see plan as above - Will need to follow closely with pulmonology at discharge (3) Stable angina ICD Codes: I20.8 - Other forms of angina pectoris Status: Chronic Plan: Patient with reported stable angina. EKG's and troponins reassuring. -Continue nitroglycerin as needed for chest pain -Continue carvedilol (4) Lupus ICD Codes: M32.9 - Systemic lupus erythematosus, unspecified Status: Chronic Plan: Patient with history of lupus, currently managed by Dr. Lama -Continue Plaquenil every other day -Continue phenobarbital for seizures related to lupus per patient (5) Anxiety ICD Codes: F41.9 - Anxiety disorder, unspecified Status: Chronic Plan: Patient with chronic anxiety -Continue Valium -Continue to monitor (6) Hypothyroid ICD Codes: E03.9 - Hypothyroidism, unspecified Status: Chronic Plan: Patient with history of hypothyroidism -Continue levothyroxine 25 g daily (7) Abdominal pain ICD Codes: R10.9 - Unspecified abdominal pain Status: Chronic Plan: Patient with chronic abdominal pain due to prior procedures versus chronic gastritis/ulcers -Continue Reglan and lansoprazole daily -Continue MiraLAX daily -Zofran when necessary for nausea/vomiting (8) Nutrition, metabolism, and development symptoms ICD Codes: R63.8 - Other symptoms and signs concerning food and fluid intake Status: Acute Plan: -Diet: Regular diet as tolerated -Fluids: Tolerating oral fluids well -Electrolytes: Within normal limits, continue to monitor (9) No contraindication to deep vein thrombosis (DVT) prophylaxis ICD Codes: Z78.9 - Other specified health status Status: Acute Plan: -Heparin 5000 units every 8 hours -SCDs (Devang Orona MD R3) Devang Orona MD R3 Nov 16, 2017 14:23 Amaury Wilson MD Nov 17, 2017 21:32
--- NOTE | 2017-11-16 15:51 | HHI.PR ---
Subjective Remarks ALERT APPETITE BETTER Objective Vital Signs Date Time Temp Pulse Resp B/P (MAP) Pulse Ox O2 Delivery O2 Flow Rate FiO2 11/16/17 12:05 98.0 73 20 114/62 (79) 97 11/16/17 08:05 98.1 77 20 156/76 (102) 94 11/16/17 08:00 76 11/16/17 08:00 Room Air 11/16/17 03:44 68 11/16/17 00:47 73 11/16/17 00:47 73 11/16/17 00:00 98.4 77 18 168/70 (102) 98 11/16/17 00:00 Room Air 11/15/17 23:56 97.6 74 22 141/65 (90) 97 11/15/17 22:51 98 21 11/15/17 19:50 98.1 77 22 157/70 (99) 97 11/15/17 18:23 20 11/15/17 15:52 98.2 64 18 130/60 (83) 96 I/O 11/15/17 11/15/17 11/15/17 11/16/17 11/16/17 11/16/17 07:00 15:00 23:00 07:00 15:00 23:00 Intake Total 500 ml 100 ml 480 ml Balance 500 ml 100 ml 480 ml Intake Oral 500 ml 480 ml IV Total 100 ml # Voids 3 3 Result Diagram: 11/15/1733811/15/17338 Objective Remarks GENERAL: SKIN: Warm and dry. HEAD: Atraumatic. Normocephalic. EYES: Pupils equal and round. No scleral icterus. No injection or drainage. ENT: No nasal bleeding or discharge. Mucous membranes pink and moist. NECK: Trachea midline. No JVD. CARDIOVASCULAR: Regular rate and rhythm. RESPIRATORY: No accessory muscle use. Clear to auscultation. Breath sounds equal bilaterally. GASTROINTESTINAL: Abdomen soft, non-tender, nondistended. Hepatic and splenic margins not palpable. MUSCULOSKELETAL: Extremities without clubbing, cyanosis, or edema. No obvious deformities. NEUROLOGICAL: Awake and alert. No obvious cranial nerve deficits. Motor grossly within normal limits. Five out of 5 muscle strength in the arms and legs. Normal speech. PSYCHIATRIC: Appropriate mood and affect; insight and judgment normal. Assessment and Plan Assessment and Plan PORTILLO CAVITARY LESION BRONCHIECTASIS IMPROVING PLAN ANTIBIOTICS PULM TOILET BRONCHOSCOPY Xin Lauren MD Nov 16, 2017 15:51
[2017-11-16] MEDS: traMADol HCL 50 MG TAB PO PRN (16:31)
[2017-11-16] MEDS ORDERED: RESP: LIDOCAINE HCL 4% PF 5 ML NEB NEB SCH (17:15)
[2017-11-16] MEDS: AZITHROMYCIN INJ 500 MG in SODIUM CHLOR 0.9% 250 ML INJ 250 ML IV SCH (21:19)
[2017-11-16] MEDS: hydrOXYzine PAMOATE 25 MG CAP PO PRN (21:19)
[2017-11-16] MEDS: HYDROXYCHLOROQUINE SULFATE 200 MG TAB PO SCH (21:19)
[2017-11-16] MEDS: SKIN TEST RESULT OTHER SCH (21:21)
[2017-11-17] VITALS (12 sets, daily range): BP systolic 110–149; BP diastolic 55–66; PULSE 71–95; RESP 16–18; TEMP 97.6–98.8; O2SAT 94–97
[2017-11-17] MEDS ORDERED: LACTATED RINGER'S 1000 ML IV PRN (00:15)
[2017-11-17] MEDS ORDERED: CHLORHEXIDINE GLUCONATE 2 % 1 PACK (2 CLOTHS) TOPICAL PRN (00:15)
[2017-11-17] MEDS ORDERED: POVIDONE IODINE 5% (ANTISEPSIS KIT) 4 APPLICATIONS EACH NARE PRN (00:15)
[2017-11-17] MEDS: AZTREONAM INJ 2,000 MG in SODIUM CHLORIDE 0.9% INJ 100 ML IV SCH ×3 (05:22→21:48)
[2017-11-17] MEDS: HEPARIN SODIUM - SQ 10,000 UNITS/ML VIAL SQ SCH ×3 (05:22→21:18)
[2017-11-17] MEDS: LEVOTHYROXINE SODIUM 25 MCG TAB PO SCH (05:22)
[2017-11-17] MEDS ORDERED: DO NOT ADM ANY ANTICOAGULANT DRUGS PRN (08:38)
[2017-11-17] MEDS: SODIUM CHLORIDE 0.9% FLUSH 10 ML FLUSH IV FLUSH SCH ×2 (09:00→20:21)
[2017-11-17] MEDS: METOCLOPRAMIDE HCL 10 MG TAB PO SCH (09:43)
[2017-11-17] MEDS: PANTOPRAZOLE SOD 40 MG DELAYED RELEASE TAB PO SCH (09:43)
[2017-11-17] MEDS: POLYETHYLENE GLYCOL 17 GM PKG PO SCH (09:43)
--- NOTE | 2017-11-17 10:26 | HHI.FPPN ---
Subjective Remarks Sitting up in bed, no distress. Just got back from bronchoscopy this morning. She continues to have cough but it is improving. Continues to have thick green sputum. Continues to have some bloody streaking in sputum. No fevers or night sweats overnight. She reports normal bowel movements and urination. Has continuous chest pain since admission, especially with deep inspirations. No shortness of breath. (Devang Orona MD R3) Objective Vitals Vital Signs Date Time Temp Pulse Resp B/P (MAP) Pulse Ox O2 Delivery O2 Flow Rate FiO2 11/17/17 09:15 72 19 127/62 (83) 97 Room Air 11/17/17 09:00 74 25 124/60 (81) 99 Room Air 11/17/17 08:40 99.0 79 25 138/83 (101) 100 Nasal Cannula 3 11/17/17 05:00 98.0 93 16 133/65 (87) 96 11/17/17 04:00 75 11/17/17 00:05 98.0 74 16 110/60 (77) 97 11/17/17 00:00 74 11/16/17 22:00 Room Air 11/16/17 21:03 98.2 75 16 119/67 (84) 97 11/16/17 20:00 79 11/16/17 16:04 98.1 73 20 126/59 (81) 98 11/16/17 16:00 74 11/16/17 12:05 98.0 73 20 114/62 (79) 97 11/16/17 12:00 73 I/O 11/16/17 11/16/17 11/16/17 11/17/17 11/17/17 11/17/17 07:00 15:00 23:00 07:00 15:00 23:00 Intake Total 480 ml 600 ml 200 ml Output Total 650 ml Balance 480 ml 600 ml -450 ml Intake Oral 480 ml 600 ml 200 ml Output Urine Total 650 ml # Voids 3 17 # Bowel Movements 0 2 (Devang Orona MD R3) Result Diagram: 11/15/1733811/15/17338 Objective Remarks General: Sitting up in bed, no distress, pleasant demeanor Skin: No rashes or lesions HEENT: Normocephalic, no nasal discharge, no conjunctivitis or scleral icterus Neck: No JVD CV: RRR, no murmurs, rubs, or gallops Lungs: Left upper and middle lobes with coarse breath sounds, worse with inspiration. No wheezing. Has productive sounding cough. No respiratory distress , breathing comfortably on room air. Abdomen: Soft, nontender, nondistended, normal bowel sounds Ext: No swelling or pain (Devang Orona MD R3) A/P Assessment and Plan 77 y/o F presented to the ED with right sided chest pain likely due to cavitary lesion found on imaging. Discharge Planning 70% back to normal, possibly in the next day or two can be discharged home. Will need close follow up with pulmonology for further workup and treatment. Has chronic bronchiectasis that will need to be followed closely. Will also need to follow up with her primary care physician. (Devang Orona MD R3) Attending Attestation THIS CASE WAS DISCUSSED WITH THE RESIDENT PHYSICIANS. I HAVE REVIEWED THE RECORD , PATIENT SEEN AND EXAMINED< AND AGREE WITH THE ABOVE NOTE AND PLAN OF CARE WAS DISCUSSED. I HAVE AUTHORIZED THE ORDERS (Amaury Wilson MD) Problem List: (1) Cavitary lesion of lung ICD Codes: J98.4 - Other disorders of lung Status: Acute Plan: Patient presenting with chest pain found to have cavitary lesion on imaging. CTA: Negative for pulmonary embolic disease. 5.2 x 3.2 cm cavitary lesion in the left lung apex. There is some associated bronchiectasis and peribronchial thickening. This is probably infectious in nature. There is also patchy left lower lobe bronchopneumonia. Legionella and pneumococcal antigens negative. Influenza negative. PPD test with 2 mm of induration, likely negative , although response can be diminished with immunosuppression (she is on Plaquenil) and active TB infection. She is s/p bronchoscopy on 11/17/17. Sputum cultures negative. Blood cultures negative. - Follow bronchial washings - Continue aztreonam and azithromycin (see drug allergies) - Incentive spirometry, and a cappella - Bronchodilators as needed. - Pulmonology on board, appreciate recommendations (2) Bronchiectasis ICD Codes: J47.9 - Bronchiectasis Status: Acute Plan: Patient with history of bronchiectasis leading to lobectomy - Please see plan as above - Will need to follow closely with pulmonology at discharge (3) Lupus ICD Codes: M32.9 - Systemic lupus erythematosus, unspecified Status: Chronic Plan: Patient with history of lupus, currently managed by Dr. Lama -Continue Plaquenil every other day -Continue phenobarbital for seizures related to lupus per patient (4) Anxiety ICD Codes: F41.9 - Anxiety disorder, unspecified Status: Chronic Plan: Patient with chronic anxiety -Continue Valium -Continue to monitor (5) Hypothyroid ICD Codes: E03.9 - Hypothyroidism, unspecified Status: Chronic Plan: Patient with history of hypothyroidism -Continue levothyroxine 25 g daily (6) Abdominal pain ICD Codes: R10.9 - Unspecified abdominal pain Status: Chronic Plan: Patient with chronic abdominal pain due to prior procedures versus chronic gastritis/ulcers -Continue Reglan and lansoprazole daily -Continue MiraLAX daily -Zofran when necessary for nausea/vomiting (7) Nutrition, metabolism, and development symptoms ICD Codes: R63.8 - Other symptoms and signs concerning food and fluid intake Status: Acute Plan: -Diet: Regular diet as tolerated -Fluids: Tolerating oral fluids well -Electrolytes: Within normal limits, continue to monitor (8) No contraindication to deep vein thrombosis (DVT) prophylaxis ICD Codes: Z78.9 - Other specified health status Status: Acute Plan: -Heparin 5000 units every 8 hours -SCDs (Devang Orona MD R3) Devang Orona MD R3 Nov 17, 2017 10:26 Amaury Wilson MD Nov 18, 2017 10:23
[2017-11-17] MEDS: traMADol HCL 50 MG TAB PO PRN (14:15)
[2017-11-17 17:47] LABS: MEAN CELL VOLUME 84.9 FL (80.0-100.0); MEAN CORPUSCULAR HEMOGLOBIN 28.4 PG (27.0-34.0); MEAN CORPUSCULAR HGB CONC 33.4 % (32.0-36.0); PLATELET COUNT 282 TH/MM3 (150-450); RED BLOOD COUNT 4.13 MIL/MM3 (4.00-5.30); RED CELL DISTRIBUTION WIDTH 13.7 % (11.6-17.2); REVIEW FLAG FINAL; WHITE BLOOD COUNT 9.5 TH/MM3 (4.0-11.0)
[2017-11-17 18:11] LABS: BICARBONATE 24.3 MEQ/L (21.0-32.0); POTASSIUM 3.8 MEQ/L (3.5-5.1)
--- NOTE | 2017-11-17 18:17 | HHI.PR ---
Subjective Remarks ALERT APPETITE BETTER Objective Vital Signs Date Time Temp Pulse Resp B/P (MAP) Pulse Ox O2 Delivery O2 Flow Rate FiO2 11/17/17 16:06 97.9 81 18 136/62 (86) 97 11/17/17 12:06 98.8 89 18 116/55 (75) 94 11/17/17 11:26 97 21 11/17/17 09:15 72 19 127/62 (83) 97 Room Air 11/17/17 09:00 74 25 124/60 (81) 99 Room Air 11/17/17 08:40 99.0 79 25 138/83 (101) 100 Nasal Cannula 3 11/17/17 08:05 98.1 78 18 128/66 (86) 97 11/17/17 05:00 98.0 93 16 133/65 (87) 96 11/17/17 04:00 75 11/17/17 00:05 98.0 74 16 110/60 (77) 97 11/17/17 00:00 74 11/16/17 22:00 Room Air 11/16/17 21:03 98.2 75 16 119/67 (84) 97 11/16/17 20:00 79 I/O 11/16/17 11/16/17 11/16/17 11/17/17 11/17/17 11/17/17 07:00 15:00 23:00 07:00 15:00 23:00 Intake Total 480 ml 600 ml 200 ml Output Total 650 ml Balance 480 ml 600 ml -450 ml Intake Oral 480 ml 600 ml 200 ml Output Urine Total 650 ml # Voids 3 17 # Bowel Movements 0 2 Result Diagram: 11/17/17171411/17/171714 Objective Remarks GENERAL: SKIN: Warm and dry. HEAD: Atraumatic. Normocephalic. EYES: Pupils equal and round. No scleral icterus. No injection or drainage. ENT: No nasal bleeding or discharge. Mucous membranes pink and moist. NECK: Trachea midline. No JVD. CARDIOVASCULAR: Regular rate and rhythm. RESPIRATORY: No accessory muscle use. Clear to auscultation. Breath sounds equal bilaterally. GASTROINTESTINAL: Abdomen soft, non-tender, nondistended. Hepatic and splenic margins not palpable. MUSCULOSKELETAL: Extremities without clubbing, cyanosis, or edema. No obvious deformities. NEUROLOGICAL: Awake and alert. No obvious cranial nerve deficits. Motor grossly within normal limits. Five out of 5 muscle strength in the arms and legs. Normal speech. PSYCHIATRIC: Appropriate mood and affect; insight and judgment normal. Assessment and Plan Assessment and Plan [facility] CAVITARY LESION BRONCHIECTASIS IMPROVING PLAN ANTIBIOTICS PULM TOILET BRONCHOSCOPY today Xin Lauren MD Nov 17, 2017 18:17
--- NOTE | 2017-11-17 18:39 | MR ---
cc: JANKI SHEARER DATE 11/17/17 PROCEDURE Fiberoptic bronchoscopy flexible REASON FOR BRONCHOSCOPY Cavitary mass left upper lung lobe, rule out underlying malignancy, rule out chronic inflammatory process. PROCEDURE IN DETAIL Fiberoptic bronchoscopy performed via LMA. Vocal cords visualized, appeared intact. Trachea moderately hyperemic. Sandrine sharp. Right main stem bronchus, right upper, mid lower lobe no obstruction or mass lesion. Left main stem bronchus, left upper and lower lobes inspected. No obstructive pathology or mass lesion seen. Moderate amount of whitish mucoid secretion aspirated. Washings obtained from the left upper lung lobe for routine TB, fungal cultures and cytological exam. Cytologic brush biopsy obtained for cytologic exam. Brushing for microbiology were obtained as well using a cast brush. Procedure well tolerated. The patient transferred to recovery stable condition. IMPRESSION 1. Mild tracheobronchitis 2. No obstruction, no mass lesion. 3. Samples obtained as above 4. Procedure well tolerated. The patient transferred to recovery in stable condition. MD TORIBIO Knowles/ /6:14 PM /6:27 PM
[2017-11-17] MEDS: AZITHROMYCIN INJ 500 MG in SODIUM CHLOR 0.9% 250 ML INJ 250 ML IV SCH (19:47)
[2017-11-17] MEDS: hydrOXYzine PAMOATE 25 MG CAP PO PRN (21:17)
[2017-11-17] MEDS: SKIN TEST RESULT OTHER SCH (21:18)
[2017-11-18 00:20] VITALS: BP 115/62; PULSE 59; RESP 18; TEMP 98; O2SAT 99
[2017-11-18 03:35] VITALS: BP 121/56; PULSE 60; RESP 16; TEMP 97.9; O2SAT 98
[2017-11-18 04:00] VITALS: PULSE 67
[2017-11-18] MEDS: AZTREONAM INJ 2,000 MG in SODIUM CHLORIDE 0.9% INJ 100 ML IV SCH ×2 (05:24→13:45)
[2017-11-18] MEDS: HEPARIN SODIUM - SQ 10,000 UNITS/ML VIAL SQ SCH (05:26)
[2017-11-18] MEDS: LEVOTHYROXINE SODIUM 25 MCG TAB PO SCH (05:26)
[2017-11-18 08:00] VITALS: BP 141/63; PULSE 69; PULSE 75; RESP 20; TEMP 97.8; O2SAT 98
--- NOTE | 2017-11-18 09:13 | RADRPT ---
EXAM DATE/TIME: 11/18/2017 08:06 [facility] COMPARISON: CT PULMONARY ANGIOGRAM, November 14, 2017, 16:09. CHEST SINGLE AP, June 03, 2016, 12:49. INDICATIONS : Cough. MEDICAL HISTORY : Venous insufficiency. Hypertension. Seizures. Cardiovascular diseasemerkle cell cancer SURGICAL HISTORY : Hysterectomy. Cholecystectomy. ENCOUNTER: Subsequent ACUITY: 4 - 6 days PAIN SCORE: 7/10 LOCATION: Bilateral chest FINDINGS: No thick wall cavitary lesion is again seen involving the left apex. This is unchanged from the prior CT scan. Hyperinflation suggesting COPD. Pleural scarring blunts the left costophrenic angle. No inf iltrates or effusions observed. The heart is normal in size. CONCLUSION: 1. Hyperinflation consistent with COPD. 2. Stable thickwalled cavitary lesion involving the left apex. 3. No acute infiltrate or effusion. Kale Sweet Jr., MD on November 18, 2017 at 9:05 Board Certified Radiologist. This report was verified electronically.
[2017-11-18] MEDS: METOCLOPRAMIDE HCL 10 MG TAB PO SCH (09:24)
[2017-11-18] MEDS: PANTOPRAZOLE SOD 40 MG DELAYED RELEASE TAB PO SCH (09:24)
[2017-11-18] MEDS: POLYETHYLENE GLYCOL 17 GM PKG PO SCH (09:25)
[2017-11-18] MEDS: SODIUM CHLORIDE 0.9% FLUSH 10 ML FLUSH IV FLUSH SCH (09:25)
[2017-11-18 10:40] LABS: HEMATOCRIT 38.1 % (35.0-46.0); MEAN CELL VOLUME 85.7 FL (80.0-100.0); MEAN CORPUSCULAR HGB CONC 33.8 % (32.0-36.0); PLATELET COUNT 328 TH/MM3 (150-450); RED BLOOD COUNT 4.44 MIL/MM3 (4.00-5.30); RED CELL DISTRIBUTION WIDTH 13.4 % (11.6-17.2); REVIEW FLAG FINAL; WHITE BLOOD COUNT 14.5 TH/MM3 (4.0-11.0)
--- NOTE | 2017-11-18 10:47 | HHI.FPPN ---
Subjective Remarks Patient sitting up in bed, no distress. Not currently on oxygen. Continuing to have cough in the director religious education with thick green foul smelling sputum. Some blood streaking in sputum. Overall feels much better than admission. Continuing to have the same chest pain as described at admission, especially with deep inhalation. Has been walking up and down the halls without significant respiratory difficulty. (Devang Orona MD R3) Objective Vitals Vital Signs Date Time Temp Pulse Resp B/P (MAP) Pulse Ox O2 Delivery O2 Flow Rate FiO2 11/18/17 08:00 69 11/18/17 08:00 97.8 75 20 141/63 (89) 98 11/18/17 04:00 67 11/18/17 03:35 97.9 60 16 121/56 (77) 98 11/18/17 00:20 98.0 59 18 115/62 (79) 99 11/17/17 21:25 97.6 76 18 149/66 (93) 97 11/17/17 20:00 71 11/17/17 16:06 97.9 81 18 136/62 (86) 97 11/17/17 15:59 78 11/17/17 12:06 98.8 89 18 116/55 (75) 94 11/17/17 11:39 95 11/17/17 11:26 97 21 I/O 11/17/17 11/17/17 11/17/17 11/18/17 11/18/17 11/18/17 07:00 15:00 23:00 07:00 15:00 23:00 Intake Total 200 ml 610 ml 440 ml Output Total 650 ml Balance -450 ml 610 ml 440 ml Intake Oral 200 ml 360 ml 240 ml IV Total 250 ml 200 ml Output Urine Total 650 ml # Voids 3 4 # Bowel Movements 2 1 0 (Devang Orona MD R3) Result Diagram: 11/17/17171411/17/171714 Objective Remarks General: Sitting up in bed, no distress, pleasant demeanor Skin: No rashes or lesions HEENT: Normocephalic, no nasal discharge, no conjunctivitis or scleral icterus Neck: No JVD CV: RRR, no murmurs, rubs, or gallops Lungs: Left upper and middle lobes with coarse breath sounds, worse with inspiration. This is unchanged from before. No wheezing. No respiratory distress , breathing comfortably on room air. Intermittently productive cough. Abdomen: Soft, nontender, nondistended, normal bowel sounds Ext: No swelling or pain Procedures Bronchoscopy 11/17/17 (Devang Orona MD R3) A/P Assessment and Plan 77 y/o F presented to the ED with right sided chest pain likely due to cavitary lesion found on imaging. Discharge Planning Possibly will be discharged later today, pending recommendations from mechanical planner. Will need close follow up with pulmonology for further workup and treatment. Has chronic bronchiectasis that will need to be followed closely. Will also need to follow up with her primary care physician and body engineer for her rheumatoid arthritis. (Devang Orona MD R3) Attending Attestation ... Medical rounds were performed this morning with Dr Bimal Orona, case discussed in detail, patient seen and examined,agree with above documentation and assessment, see Orders (Amaury Wilson MD) Problem List: (1) Cavitary lesion of lung ICD Codes: J98.4 - Other disorders of lung Status: Acute Plan: Patient presented with chest pain found to have cavitary lesion on imaging. CTA: Negative for pulmonary embolic disease. 5.2 x 3.2 cm cavitary lesion in the left lung apex. There is some associated bronchiectasis and peribronchial thickening. This is probably infectious in nature. There is also patchy left lower lobe bronchopneumonia. Legionella and pneumococcal antigens negative. Influenza negative. PPD test with 2 mm of induration, likely negative , although response can be diminished with immunosuppression (she is on Plaquenil) and active TB infection. She is s/p bronchoscopy on 11/17/17. Sputum cultures negative. Blood cultures negative. - Follow bronchial washings, negative to date - Continue aztreonam and azithromycin (see drug allergies). May consider switching to Levaquin at discharge as that worked well for her in the past. 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 Will defer duration of treatment to mechanical planner. - Incentive spirometry, and a cappella - Bronchodilators as needed. - Pulmonology on board, appreciate recommendations (2) Bronchiectasis ICD Codes: J47.9 - Bronchiectasis Status: Acute Plan: Patient with history of bronchiectasis leading to lobectomy - Please see plan as above - Will need to follow closely with pulmonology at discharge (3) Lupus ICD Codes: M32.9 - Systemic lupus erythematosus, unspecified Status: Chronic Plan: Patient with history of lupus, currently managed by Dr. Lama -Continue Plaquenil every other day -Continue phenobarbital for seizures related to lupus per patient (4) Anxiety ICD Codes: F41.9 - Anxiety disorder, unspecified Status: Chronic Plan: Patient with chronic anxiety -Continue Valium -Continue to monitor (5) Hypothyroid ICD Codes: E03.9 - Hypothyroidism, unspecified Status: Chronic Plan: Patient with history of hypothyroidism -Continue levothyroxine 25 g daily (6) Abdominal pain ICD Codes: R10.9 - Unspecified abdominal pain Status: Chronic Plan: Patient with chronic abdominal pain due to prior procedures versus chronic gastritis/ulcers -Continue Reglan and lansoprazole daily -Continue MiraLAX daily -Zofran when necessary for nausea/vomiting (7) Nutrition, metabolism, and development symptoms ICD Codes: R63.8 - Other symptoms and signs concerning food and fluid intake Status: Acute Plan: -Diet: Regular diet as tolerated -Fluids: Tolerating oral fluids well -Electrolytes: Within normal limits, continue to monitor (8) No contraindication to deep vein thrombosis (DVT) prophylaxis ICD Codes: Z78.9 - Other specified health status Status: Acute Plan: -Heparin 5000 units every 8 hours -SCDs (Devang Orona MD R3) Devang Orona MD R3 Nov 18, 2017 10:47 Amaury Wilson MD Nov 19, 2017 09:19
[2017-11-18 11:07] LABS: BICARBONATE 25.8 MEQ/L (21.0-32.0); POTASSIUM 3.2 MEQ/L (3.5-5.1)
[2017-11-18 12:00] VITALS: BP 140/58; PULSE 83; RESP 18; TEMP 97.7; O2SAT 98
[2017-11-18] MEDS ORDERED: HYDR1CAP30 PO (12:02)
[2017-11-18] MEDS ORDERED: DOXY100C PO (12:02)
--- NOTE | 2017-11-18 12:03 | HHI.DCPOC ---
Discharge Care Plan Diagnosis: (1) Cavitary lesion of lung (2) Bronchiectasis (3) Systemic lupus erythematosus (4) Abdominal pain Goals to Promote Your Health * To prevent worsening of your condition and complications * To maintain your health at the optimal level Directions to Meet Your Goals Take your medications as prescribed Follow your dietary instruction Follow activity as directed Keep your appointments as scheduled Take your immunizations and boosters as scheduled If your symptoms worsen call your PCP, if no PCP go to Urgent Care Center or Emergency Room Smoking is Dangerous to Your Health. Avoid second hand smoke Call the 24-hour hour crisis hotline for domestic abuse at Devang Orona MD R3 Nov 18, 2017 12:03
--- NOTE | 2017-11-18 12:07 | HHI.FF ---
Face to Face Verification Diagnosis: (1) Cavitary lesion of lung (2) Abdominal pain (3) Atypical chest pain (4) Chest tightness (5) Systemic lupus erythematosus (6) Bronchiectasis Physical Therapy Order: Evaluate and Treat Home Health Nursing Order: Medical education Signs/symptoms of disease process I have seen patient Ronda Vega on 11/18/17. My clinical findings support the need for the requested home health care services because: Patient has SOB Deconditioned w/ increased weakness I certify that my clinical findings support that this patient is homebound because: Hx COPD- exertion dyspnea/weakness eDvang Orona MD R3 Nov 18, 2017 12:07
--- NOTE | 2017-11-18 12:16 | HHI.DS ---
Discharge Summary Admission Date Nov 15, 2017 at 10:58 Discharge Date: Nov 18, 2017 Admitting Diagnosis cavitary lung lesion, chortness of breath (1) Cavitary lesion of lung Diagnosis: Principal Plan: Patient presented with chest pain found to have cavitary lesion on imaging. CTA: Negative for pulmonary embolic disease. 5.2 x 3.2 cm cavitary lesion in the left lung apex. There is some associated bronchiectasis and peribronchial thickening. This is probably infectious in nature. There is also patchy left lower lobe bronchopneumonia. Legionella and pneumococcal antigens negative. Influenza negative. PPD test with 2 mm of induration, likely negative , although response can be diminished with immunosuppression (she is on Plaquenil) and active TB infection. She is s/p bronchoscopy on 11/17/17. Sputum cultures negative. Blood cultures negative. - Follow bronchial washings, negative to date - Continue aztreonam and azithromycin (see drug allergies). May consider switching to Levaquin at discharge as that worked well for her in the past. Will likely need long-term antibiotics, at least until lung findings are improved on imaging and symptoms improved. Will defer duration of treatment to licensed veterinary technician. - Incentive spirometry, and a cappella - Bronchodilators as needed. - Pulmonology on board, appreciate recommendations ICD Codes: J98.4 - Other disorders of lung Status: Acute (2) Bronchiectasis Diagnosis: Principal Plan: Patient with history of bronchiectasis leading to lobectomy - Please see plan as above - Will need to follow closely with pulmonology at discharge ICD Codes: J47.9 - Bronchiectasis Status: Acute (3) Lupus Diagnosis: Secondary Plan: Patient with history of lupus, currently managed by Dr. Lama -Continue Plaquenil every other day -Continue phenobarbital for seizures related to lupus per patient ICD Codes: M32.9 - Systemic lupus erythematosus, unspecified Status: Chronic (4) Anxiety Diagnosis: Secondary Plan: Patient with chronic anxiety -Continue Valium -Continue to monitor ICD Codes: F41.9 - Anxiety disorder, unspecified Status: Chronic (5) Hypothyroid Diagnosis: Secondary Plan: Patient with history of hypothyroidism -Continue levothyroxine 25 g daily ICD Codes: E03.9 - Hypothyroidism, unspecified Status: Chronic (6) Abdominal pain Diagnosis: Secondary Plan: Patient with chronic abdominal pain due to prior procedures versus chronic gastritis/ulcers -Continue Reglan and lansoprazole daily -Continue MiraLAX daily -Zofran when necessary for nausea/vomiting ICD Codes: R10.9 - Unspecified abdominal pain Status: Chronic (7) Nutrition, metabolism, and development symptoms Diagnosis: Secondary Plan: -Diet: Regular diet as tolerated -Fluids: Tolerating oral fluids well -Electrolytes: Within normal limits, continue to monitor ICD Codes: R63.8 - Other symptoms and signs concerning food and fluid intake Status: Acute (8) No contraindication to deep vein thrombosis (DVT) prophylaxis Diagnosis: Secondary Plan: -Heparin 5000 units every 8 hours -SCDs ICD Codes: Z78.9 - Other specified health status Status: Acute Consultants Pulmonology Procedures Bronchoscopy 11/17/17 Brief History Mrs. Vega is a 77 y/o F presenting to the ED with R sided chest pain. She states that for the last 3 months she has had R sided anterior chest pain as well as right-sided flank pain. This pain has dramatically increased over the last 2 weeks and is currently 10/10. She describes the pain as "sharp" that is exasperated with certain movements and deep breathing. She states nothing is able to alleviate her pain at this time. She also endorses shortness of breath is increased from exertion to now at rest, subjective fevers, night sweats, episodes of dizziness, and a productive green cough. She denies any hemoptysis or weight loss at this time. She reports that she was recently seen in urgent care facility and given a prescription for steroids in a unknown antibiotic which did not alleviate any of her symptoms. She does have a history of bronchiectasis that has resulted in removal of her left lower lobe, and she does state that this episode is very similar to when she had to have her lobectomy. CBC/BMP: 11/18/17 1002 11/18/17 1002 Significant Findings Laboratory Tests Test 11/17/17 17:15 11/18/17 10:02 Random Glucose 144 MG/DL (74-106) Sodium Level 134 MEQ/L (136-145) White Blood Count 14.5 TH/MM3 (4.0-11.0) Potassium Level 3.2 MEQ/L (3.5-5.1) Estimat Glomerular Filtration Rate 87 ML/MIN (>89) PE at Discharge General: Sitting up in bed, no distress, pleasant demeanor Skin: No rashes or lesions HEENT: Normocephalic, no nasal discharge, no conjunctivitis or scleral icterus Neck: No JVD CV: RRR, no murmurs, rubs, or gallops Lungs: Left upper and middle lobes with coarse breath sounds, worse with inspiration. This is unchanged from before. No wheezing. No respiratory distress , breathing comfortably on room air. Intermittently productive cough. Abdomen: Soft, nontender, nondistended, normal bowel sounds Ext: No swelling or pain Hospital Course 77 year old female presented on 11/15 with right sided chest pain that was present for the past 3 months and right sided flank pain. The pain was described as sharp and exasperated by deep inhalation. She also presented with shortness of breath, subjective fevers, night sweats, and a thick green sputum with blood streaks. She has a known history of bronchiectasis and left lower lung lobectomy. Initial workup showed a chest x-ray with stable chronic changes , CTA with a 5.2 x 3.2 cm cavitary lesion of her left lung apex, stable bronchiectasis, and patchy left lower lobe pneumonia. PPD test was given with 2 mm induration. She was treated with aztreonam and Azithromycin during her hospital stay (see antibiotic allergies). She was given bronchodilators, incentive spirometer, and a cappella. By the time of discharge, she feels 70% better. She continues to have an intermittent cough productive of thick green sputum. Night sweats are resolved. She's remained afebrile throughout the course of her stay. She is not requiring any oxygen and is walking the halls without much difficulty. Pulmonology followed her throughout her course. Bronchoscopy was performed on 11/17/17. Sputum and blood cultures have remained negative. Bronchial washings gram stain are negative, with cultures pending. The plan will be to send her home with a 10 day course of Doxycycline and have her follow up with Dr. Lauren (licensed veterinary technician) in his clinic in 3 weeks. She will also need to follow up with Dr. Lama, branch service associate, for her SLE. She also needs to follow up in the [facility] for management of her chronic health problems. If she worsens rather than improves, she should call her doctor right away or return to the hospital. Pt Condition on Discharge: Fair Discharge Disposition: Disch w/ Home Health Serv Discharge Instructions DIET: Follow Instructions for: As Tolerated, No Restrictions Activities you can perform: Regular-No Restrictions Follow up Referrals: PCP Follow-up - 1 Week Pulmonology - 3 Weeks with Xin Lauren MD Rheumatology - 1 Week New Medications: Doxycycline Hyclate (Doxycycline Hyclate) 100 Mg Cap 100 MG PO BID for Infection, #20 CAP 0 Refills Hydroxyzine Pamoate (Hydroxyzine Pamoate) 25 Mg Cap 25 MG PO HS PRN for INSOMNIA, #7 CAP Continued Medications: Albuterol Neb (Albuterol Neb) 2.5 Mg/3 Ml Neb 2.5 MG NEB Q8HR for Shortness Of Breath, #1 NEBULE 0 Refills Dextromethorphan-Guaifenesin (Mucinex DM) 30-600 Mg Tab 1 TAB PO DAILY PRN for CHEST CONGESTION AND/OR COUGH, #30 TAB 0 Refills Diazepam (Valium) 10 Mg Tab 10 MG PO TID PRN for ANXIETY AND/OR INSOMNIA, #90 TAB 0 Refills Diflunisal (Diflunisal) 500 Mg Tab 500 MG PO DAILY for Pain Management, #60 TAB 0 Refills Estrogens, Conjugated (Premarin) 0.3 Mg Tab 0.3 MG PO DAILY for Estrogen Supplements, #30 TAB 0 Refills Hydroxychloroquine (Plaquenil) 200 Mg Tab 100 MG PO Q48H, #30 TAB 0 Refills Take with food Lansoprazole (Prevacid) 30 Mg Capdr 30 MG PO DAILY, #30 CAP 0 Refills Levothyroxine (Levothyroxine) 50 Mcg Tab 25 MCG PO DAILY for Thyroid, #30 TAB 0 Refills Metoclopramide (Reglan) 10 Mg Tab 10 MG PO DAILY, #30 TAB 0 Refills Nitroglycerin SL (Nitrostat SL) 0.4 Mg Subl 0.4 MG SL DIRECTED PRN for CHEST PAIN, #100 TAB.SL 0 Refills ONE TABLET UNDER THE TONGUE NEEDED FOR CHEST PAIN, MAY REPEAT EVERY FIVE MINUTES FOR A TOTAL OF 3 DOSES OR CALL 911 IF NO RELIEF Polyethylene Glycol 3350 Powder (Polyethylene Glycol 3350 Powder) 17 Gm Pow 17 GM PO DAILY for Constipation, #1 BOTTLE 0 Refills Devang Orona MD R3 Nov 18, 2017 12:16
[2017-11-18] MEDS: ACETAMINOPHEN 325 MG TAB PO PRN (13:45)
== END 2017-11-18 15:36 | disposition home health service (06) | DRG 191 ==
LOC: NEPC 12:34 → NEDA 17:33 → NEPGCP 20:47 → OBSVTOIN 11-15 10:58 → N04B 11-16 00:14
PROVIDERS: ADMIT Family Medicine; ATTEND Family Medicine
PROC: 0BC88ZZ Extirpation of Matter from Left Upper Lobe Bronchus, Via Natural or Artificial Opening Endoscopic (ICD-10-PCS; principal; 2017-11-17)
PROC: 0BDG8ZX Extraction of Left Upper Lung Lobe, Via Natural or Artificial Opening Endoscopic, Diagnostic (ICD-10-PCS; 2017-11-17)
DX: J47.1 Bronchiectasis with (acute) exacerbation (principal); R04.2 Hemoptysis; J18.0 Bronchopneumonia, unspecified organism; M32.9 Systemic lupus erythematosus, unspecified; R56.9 Unspecified convulsions; K31.84 Gastroparesis; J98.4 Other disorders of lung; J47.0 Bronchiectasis with acute lower respiratory infection; R91.1 Solitary pulmonary nodule; I20.8 Other forms of angina pectoris; F41.9 Anxiety disorder, unspecified; J40 Bronchitis, not specified as acute or chronic; E03.9 Hypothyroidism, unspecified; G89.29 Other chronic pain; K21.9 Gastro-esophageal reflux disease without esophagitis; I10 Essential (primary) hypertension; M06.9 Rheumatoid arthritis, unspecified; Z90.2 Acquired absence of lung [part of]; Z88.0 Allergy status to penicillin; Z88.2 Allergy status to sulfonamides; Z88.5 Allergy status to narcotic agent
CPT/HCPCS: 31622; 31623; 71010; 71020; 71275; 80048; 80053; 82550; 83605; 83735; 84484; 85025; 85027; 85610; 85730; 87015; 87040; 87070; 87102; 87116; 87205; 87206; 87449; 87804; 88112; 88305; 93005; 94150; 94667; 94668; 96365; 96366; 96367; G0378; G8987-GP; G8988-GP; J0456; J1956; J2405; J3010; J7050; Q0177; Q9967

== ENCOUNTER → 2017-11-27 | Outpatient (CLI) | payer MEDICARE, OTHER ==
[~2017-11-27] MED LIST changes: +CARV3.12 PO; +DIFL500T PO; +DOXY100C PO; +ESTR.3 PO; +HYDR1CAP30 PO; -HYDR25TA5 PO; +PLAQ200T PO; -THEO300T4 PO
[2017-11-27 08:20] LABS: AUTOMATED NEUTROPHIL # 6.5 TH/MM3 (1.8-7.7); BASOPHIL # 0.1 TH/MM3 (0-0.2); BASOPHIL % 0.9 % (0.0-2.0); EOSINOPHIL # 0.4 TH/MM3 (0-0.4); EOSINOPHIL % 3.6 % (0.0-4.0); HEMOGLOBIN 13.1 GM/DL (11.6-15.3); LYMPH % 19.4 % (9.0-44.0); LYMPHOCYTE # 1.9 TH/MM3 (1.0-4.8); MEAN CELL VOLUME 85.1 FL (80.0-100.0); MEAN CORPUSCULAR HEMOGLOBIN 28.5 PG (27.0-34.0); MEAN CORPUSCULAR HGB CONC 33.5 % (32.0-36.0); MEAN PLATELET VOLUME 7.1 FL (7.0-11.0); MONO % 9.6 % (0.0-8.0); MONOCYTE # 0.9 TH/MM3 (0-0.9); NEUT % 66.5 % (16.0-70.0); PLATELET COUNT 445 TH/MM3 (150-450); RED BLOOD COUNT 4.59 MIL/MM3 (4.00-5.30); RED CELL DISTRIBUTION WIDTH 13.4 % (11.6-17.2); WHITE BLOOD COUNT 9.9 TH/MM3 (4.0-11.0)
[2017-11-27 08:46] LABS: ALBUMIN 3.7 GM/DL (3.4-5.0); ALT (GPT) 20 U/L (10-53); AST (GOT) 14 U/L (15-37); BLOOD UREA NITROGEN 11 MG/DL (7-18); CALCIUM 10.1 MG/DL (8.5-10.1); CHLORIDE 99 MEQ/L (98-107); CREATININE 0.62 MG/DL (0.50-1.00); GLOMERULAR FILTRATION RATE 94 ML/MIN (>89); GLUCOSE,FASTING 96 MG/DL (74-99); SODIUM (NA) 134 MEQ/L (136-145)
[2017-11-27 08:49] LABS: ALKALINE PHOSPHATASE 168 U/L (45-117); TOTAL BILIRUBIN ADULT 0.4 MG/DL (0.2-1.0)
== END ==
LOC: CLAB 07:12
PROVIDERS: ATTEND Allergy & Immunology
DX: M32.19 Other organ or system involvement in systemic lupus erythematosus (principal); Z79.899 Other long term (current) drug therapy
CPT/HCPCS: 36415; 80053; 85025; 86225

== ENCOUNTER 2018-01-28 09:18 | Inpatient (IN) | payer MEDICARE, OTHER ==
[~2018-01-28] VITALS: Ht 149.9 cm; Wt 50.0 kg
[2018-01-28] VITALS (12 sets, daily range): BP systolic 150–202; BP diastolic 66–84; PULSE 74–101; RESP 14–20; TEMP 97.5–98.5; O2SAT 92–100
[~2018-01-28 09:18] MED LIST changes: -DOXY100C PO; -HYDR1CAP30 PO
--- NOTE | 2018-01-28 10:25 | RADRPT ---
EXAM DATE/TIME: 01/28/2018 10:10 [facility] COMPARISON: CT PULMONARY ANGIOGRAM, November 14, 2017, 16:09. CHEST SINGLE AP, November 18, 2017, 8:06. INDICATIONS : Short of breath, coughing, chest pain for over 2 months MEDICAL HISTORY : Hypertension. Cardiovascular disease. SURGICAL HISTORY : Hysterectomy. Cholecystectomy. ENCOUNTER: Initial ACUITY: 2 months PAIN SCORE: 3/10 LOCATION: Bilateral chest FINDINGS: Cavitary process in the left apex is unchanged. There is some infiltrate or atelectasis developing at a slightly lower level in the left upper lobe. Patchy mild reticular parenchymal opacities present e lsewhere in both lungs. Small left effusion is again noted. Cardiac contours are grossly stable. CONCLUSION: Slight interval worsening in aeration. Larry Angeles MD on January 28, 2018 at 10:23 Board Certified Radiologist. This report was verified electronically.
[2018-01-28 10:45] LABS: AUTOMATED NEUTROPHIL # 6.4 TH/MM3 (1.8-7.7); BASOPHIL # 0.1 TH/MM3 (0-0.2); BASOPHIL % 0.7 % (0.0-2.0); EOSINOPHIL # 0.2 TH/MM3 (0-0.4); EOSINOPHIL % 2.1 % (0.0-4.0); HEMATOCRIT 38.6 % (35.0-46.0); HEMOGLOBIN 13.3 GM/DL (11.6-15.3); LYMPH % 16.4 % (9.0-44.0); LYMPHOCYTE # 1.6 TH/MM3 (1.0-4.8); MEAN CELL VOLUME 84.7 FL (80.0-100.0); MEAN CORPUSCULAR HEMOGLOBIN 29.2 PG (27.0-34.0); MEAN CORPUSCULAR HGB CONC 34.5 % (32.0-36.0); MEAN PLATELET VOLUME 7.2 FL (7.0-11.0); MONO % 14.7 % (0.0-8.0); MONOCYTE # 1.4 TH/MM3 (0-0.9); NEUT % 66.1 % (16.0-70.0); PLATELET COUNT 305 TH/MM3 (150-450); RED BLOOD COUNT 4.56 MIL/MM3 (4.00-5.30); RED CELL DISTRIBUTION WIDTH 13.9 % (11.6-17.2); WHITE BLOOD COUNT 9.7 TH/MM3 (4.0-11.0)
[2018-01-28 11:06] LABS: BICARBONATE 25.5 MEQ/L (21.0-32.0); CALCIUM 9.7 MG/DL (8.5-10.1); CREATININE 0.54 MG/DL (0.50-1.00)
--- NOTE | 2018-01-28 11:20 | PD ---
HPI Chief Complaint: Respiratory Symptoms Time Seen by Provider: 11:05 Travel History International Travel<30 days: No Contact w/Intl Traveler<30days: No Traveled to known affect area: No History of Present Illness HPI 77-year-old female presents to the emergency department stating that she is having "crushing chest pain" that started on Thursday. Patient was admitted on November 15, 2017 for cavitary lung lesion, shortness of breath. She states that she finished her antibiotics from this on Thursday. She states she was on Levaquin and doxycycline. She states that her symptoms started Thursday. She has associated shortness of breath and diaphoresis. She currently rates the pain 6/10 in her bilateral anterior chest that radiates to the left arm and states that her left arm feels "heavy". Patient states that she has been off her aspirin since Thursday due to an upcoming biopsy which has not yet been scheduled by her draw machine operator, Dr. Lauren. Patient denies any fevers. She denies any abdominal pain. She reports nausea, but no vomiting. No diarrhea. She also reports burning with urination that started on Thursday as well. Patient has history of bronchial stasis, left lower lung lobectomy, lupus, anxiety, hypothyroidism, hypertension. Patient states that chest pain is worse with exertion, coughing. Moderate severity. 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) Heparin Induced Thrombocytopen: No Hypertension: Yes Immune Disorder: Yes (LUPUS) Implanted Vascular Access Dvce: No Musculoskeletal: Yes Neurologic: No Psychiatric: No Reproductive: No Respiratory: Yes Pneumonia: Yes Radiation Therapy: No Renal Failure: Yes (RENAL INSUFFICENCY) Seizures: Yes Sleep Apnea: No Thyroid Disease: Yes PNEUMOCCOCAL Vaccine (Year): 2009 Menopausal: Yes Past Surgical History Abdominal Surgery: Yes (colectomy) Appendectomy: Yes Cholecystectomy: Yes Coronary Artery Bypass Graft: No Genitourinary Surgery: Yes (COLOECTOMY) Gynecologic Surgery: Yes (TOTAL HYSTERECTOMY) Hysterectomy: Yes Thoracic Surgery: Yes (LL LUNG LOBECTOMY ) Tonsillectomy: Yes Other Surgery: Yes (left leg sx) Family History Family Myocardial Infarction: No Social History Alcohol Use: No Tobacco Use: No Substance Use: No Allergies-Medications (Allergen,Severity, Reaction): Coded Allergies: Sulfa (Sulfonamide Antibiotics) (Unverified Allergy, Severe, 01/28/18) celecoxib (Unverified Allergy, Severe, 01/28/18) cyclobenzaprine (Unverified Allergy, Severe, 01/28/18) meperidine (Unverified Allergy, Severe, 01/28/18) morphine (Unverified Allergy, Severe, 01/28/18) penicillin G (Unverified Allergy, Severe, 01/28/18) codeine (Unverified Allergy, Mild, 01/28/18) Reported Meds & Prescriptions Reported Meds & Active Scripts Active Carvedilol 3.125 Mg Tab 3.125 Mg PO BID Premarin (Estrogens Conjugated) 0.3 Mg Tab 0.3 Mg PO EVERY OTHER DAY Valium (Diazepam) 10 Mg Tab 10 Mg PO DAILY PRN Levothyroxine (Levothyroxine Sodium) 50 Mcg Tab 25 Mcg PO DAILY Reported Diflunisal 500 Mg Tab 500 Mg PO DAILY Plaquenil (Hydroxychloroquine Sulfate) 200 Mg Tab 100 Mg PO Q48H Take with food Albuterol Neb (Albuterol Sulfate) 2.5 Mg/3 Ml Neb 2.5 Mg NEB Q8HR Reglan (Metoclopramide HCl) 10 Mg Tab 10 Mg PO DAILY Prevacid (Lansoprazole) 30 Mg Capdr 30 Mg PO DAILY Nitrostat SL (Nitroglycerin) 0.4 Mg Subl 0.4 Mg SL DIRECTED PRN ONE TABLET UNDER THE TONGUE NEEDED FOR CHEST PAIN, MAY REPEAT EVERY FIVE MINUTES FOR A TOTAL OF 3 DOSES OR CALL 911 IF NO RELIEF Polyethylene Glycol 3350 Powder (Polyethylene Glycol) 17 Gm Pow 17 Gm PO DAILY Mucinex DM (Dextromethorphan-Guaifenesin) 30-600 Mg Tab 1 Tab PO DAILY PRN Review of Systems Except as stated in HPI: all other systems reviewed are Neg Physical Exam Narrative GENERAL: Well-nourished, well-developed female patient, afebrile. SKIN: Focused skin assessment warm/dry. HEAD: Normocephalic. Atraumatic. ENT: Mucosa pink and moist. No erythema or exudates. No uvular edema. No uvular , palatal, or tonsillar deviation. Airway patent. Nasal turbinates appear normal without nasal blood, purulent drainage or septal hematoma. Bilateral tympanic membranes are clear without erythema or perforation. EYES: No scleral icterus. No injection or drainage. NECK: Supple, trachea midline. No JVD or lymphadenopathy. CARDIOVASCULAR: Regular rate and rhythm without murmurs, gallops, or rubs. Bilateral radial and pedal pulses 2+. RESPIRATORY: Breath sounds equal bilaterally. No accessory muscle use. GASTROINTESTINAL: Abdomen soft, non-tender, nondistended. MUSCULOSKELETAL: No cyanosis, or edema. BACK: Nontender without obvious deformity. No CVA tenderness. Data Data Last Documented VS Vital Signs Date Time Temp Pulse Resp B/P (MAP) Pulse Ox O2 Delivery O2 Flow Rate FiO2 01/28/18 11:49 98 Room Air 01/28/18 11:03 80 17 01/28/18 09:45 98.5 Orders Orders Complete Blood Count With Diff (01/28/18 09:55) Basic Metabolic Panel (Bmp) (01/28/18 09:55) Chest, Pa & Lat (01/28/18 09:55) Blood Culture (01/28/18 09:55) Lactic Acid (01/28/18 09:55) Electrocardiogram (01/28/18 ) Creatine Kinase (Cpk) (01/28/18 11:16) Magnesium (Mg) (01/28/18 11:16) Prothrombin Time / Inr (Pt) (01/28/18 11:16) Act Partial Throm Time (Ptt) (01/28/18 11:16) Troponin I (01/28/18 11:16) Ecg Monitoring (01/28/18 11:16) Bilateral Bp Monitoring (01/28/18 11:16) Iv Access Insert/Monitor (01/28/18 11:16) Oximetry (01/28/18 11:16) Oxygen Administration (01/28/18 11:16) Aspirin Chew (Aspirin Chew) (01/28/18 11:30) Sodium Chloride 0.9% Flush (Ns Flush) (01/28/18 11:30) Ct Pulmonary Angiogram (01/28/18 11:16) Influenzae A/B Antigen (01/28/18 11:16) Sodium Chlorid 0.9% 500 Ml Inj (Ns 500 M (01/28/18 11:30) Urinalysis - C+S If Indicated (01/28/18 11:21) Iohexol 350 Inj (Omnipaque 350 Inj) (01/28/18 12:57) Admit Order (Ed Use Only) (01/28/18 13:44) Labs Laboratory Tests Test 01/28/18 10:05 01/28/18 11:45 01/28/18 12:10 White Blood Count 9.7 TH/MM3 Red Blood Count 4.56 MIL/MM3 Hemoglobin 13.3 GM/DL Hematocrit 38.6 % Mean Corpuscular Volume 84.7 FL Mean Corpuscular Hemoglobin 29.2 PG Mean Corpuscular Hemoglobin Concent 34.5 % Red Cell Distribution Width 13.9 % Platelet Count 305 TH/MM3 Mean Platelet Volume 7.2 FL Neutrophils (%) (Auto) 66.1 % Lymphocytes (%) (Auto) 16.4 % Monocytes (%) (Auto) 14.7 % Eosinophils (%) (Auto) 2.1 % Basophils (%) (Auto) 0.7 % Neutrophils # (Auto) 6.4 TH/MM3 Lymphocytes # (Auto) 1.6 TH/MM3 Monocytes # (Auto) 1.4 TH/MM3 Eosinophils # (Auto) 0.2 TH/MM3 Basophils # (Auto) 0.1 TH/MM3 CBC Comment DIFF FINAL Differential Comment Blood Urea Nitrogen 10 MG/DL Creatinine 0.54 MG/DL Random Glucose 93 MG/DL Calcium Level 9.7 MG/DL Sodium Level 130 MEQ/L Potassium Level 4.6 MEQ/L Chloride Level 98 MEQ/L Carbon Dioxide Level 25.5 MEQ/L Anion Gap 7 MEQ/L Estimat Glomerular Filtration Rate 110 ML/MIN Lactic Acid Level 0.7 mmol/L Prothrombin Time 10.9 SEC Prothromb Time International Ratio 1.1 RATIO Activated Partial Thromboplast Time 31.5 SEC Magnesium Level 2.3 MG/DL Total Creatine Kinase 90 U/L Troponin I LESS THAN 0.02 NG/ML Urine Color LIGHT-YELLOW Urine Turbidity CLEAR Urine pH 6.5 Urine Specific [place] 1.004 Urine Protein NEG mg/dL Urine Glucose (UA) NEG mg/dL Urine Ketones NEG mg/dL Urine Occult Blood NEG Urine Nitrite NEG Urine Bilirubin NEG Urine Urobilinogen LESS THAN 2.0 MG/DL Urine Leukocyte Esterase NEG Urine RBC 1 /hpf Urine WBC 1 /hpf Urine Squamous Epithelial Cells 4 /hpf Urine Bacteria RARE /hpf Microscopic Urinalysis Comment CULT NOT INDICATED MDM Medical Decision Making Medical Screen Exam Complete: Yes Emergency Medical Condition: Yes Medical Record Reviewed: Yes Interpretation(s) Last Impressions CT Angiography 01/28/18 1116 Signed Impressions: Service Date/Time: January 12:47 - CONCLUSION: 1. 6 cm cavitary lesion in the left apex with increasing airspace disease or mass along its inferior margin. 2. New pleural-parenchymal disease in the left lung base medially. 3. Decreasing size of left lower lobe nodule 4. COPD. 5. No evidence of acute PE. 6. Intrahepatic gas which is likely in the biliary system. Venkata Mcwilliams MD Chest X-Ray 01/28/18 0955 Signed Impressions: Service Date/Time: January 10:10 - CONCLUSION: Slight interval worsening in aeration. Larry Angeles MD Differential Diagnosis Pneumonia versus cavitary lung lesion versus ACS versus electrolyte abnormality versus chest wall pain versus UTI versus dysuria Narrative Course 77-year-old female presents to the emergency department for evaluation of "crushing chest pain", burning with urination, shortness of breath. Patient just recently finished antibiotics for a cavitary lung lesion on Thursday and symptoms started on Thursday. EKG shows sinus rhythm, heart rate 84, no acute ST changes. CBC, BMP, CK, troponin, magnesium, lactic acid, PTT, PT/INR, UA are ordered and pending. Influenza is ordered and pending. Chest x-ray is ordered and pending. CT pulmonary angiogram is ordered and pending. Patient is given normal saline 500 mL bolus, aspirin 162 mg by mouth. CBC shows no acute abnormality. BMP shows hyponatremia 130. CK is 90. Troponin is less than 0.02. Magnesium is 2.3. Lactic acid is 0.7. Coags show no acute abnormality. UA is negative for acute infection. Influenza is negative. Chest x-ray shows slight interval worsening and irrigation. CT pulmonary angiogram shows 6 cm cavitary lesion in the left apex with increasing airspace disease or mass along its inferior margin, new pleural parenchymal disease the left lung base medially, decrease in size left lower lobe nodule, COPD, no evidence of acute PE. Residents accepted admission. Diagnosis Primary Impression: Chest pain Qualified Codes: R07.9 - Chest pain, unspecified Additional Impression: Cavitary lesion of lung Admitting Information Admitting Physician Requests: Krystal Peters Jan 28, 2018 11:20
[2018-01-28] MEDS ORDERED: SODIUM CHLORID 0.9% 500 ML INJ 500 ML IV ONE (11:30)
[2018-01-28] MEDS ORDERED: SODIUM CHLORIDE 0.9% FLUSH 10 ML FLUSH IVF PRN (11:30)
[2018-01-28] MEDS ORDERED: ASPIRIN 81 MG CHEW TAB PO ONE (11:30)
[2018-01-28 12:23] LABS: INTERNATIONAL NORMALIZED RATIO 1.1 RATIO; PROTHROMBIN TIME - PATIENT 10.9 SEC (9.8-11.6)
[2018-01-28 12:32] LABS: MAGNESIUM 2.3 MG/DL (1.5-2.5)
[2018-01-28 12:34] LABS: TROPONIN I LESS THAN 0.02 NG/ML (0.02-0.05)
[2018-01-28] MEDS ORDERED: IOHEXOL 350 MG/ML 10 ML VIAL (for RAD DIAG) IVCONTRAST ONE (12:57)
[2018-01-28 13:05] LABS: BACTERIA, URINE RARE /hpf; BILIRUBIN, URINE NEG (NEG); BLOOD, URINE NEG (NEG); GLUCOSE,URINE NEG (NEG); KETONE, URINE NEG (NEG); NITRITE,URINE NEG (NEG); PH, URINE 6.5 (5.0-8.5); SQUAMOUS EPITHELIAL CELL URINE 4 /hpf (0-5); URINE COLOR LIGHT-YELLOW (YELLW/STRAW); URINE LEUKOCYTE ESTERASE NEG (NEG)
--- NOTE | 2018-01-28 13:11 | RADRPT ---
EXAM DATE/TIME: 01/28/2018 12:47 [facility] COMPARISON: CT PULMONARY ANGIOGRAM, November 14, 2017, 16:09. INDICATIONS : Chest pain IV CONTRAST: 74 cc Omnipaque 350 (iohexol) IV RADIATION DOSE: 7.82 CTDIvol (mGy) MEDICAL HISTORY : Cardiovascular disease. Hypertension. Chronic obstructive pulmonary disease. SURGICAL HISTORY : Hysterectomy. ENCOUNTER: Initial ACUITY: 1 day PAIN SCALE: 6/10 LOCATION: chest TECHNIQUE: Volumetric scanning of the chest was performed using a pulmonary embolism protocol MIP images were re constructed. Using automated exposure control and adjustment of the mA and/or kV according to patien t size, radiation dose was kept as low as reasonably achievable to obtain optimal diagnostic quality images. DICOM format image data is available electronically for review and comparison. Follow-up recommendations for detected pulmonary nodules are based at a minimum on nodule size and pa tient risk factors according to Fleischner Society Guidelines. FINDINGS: PULMONARY ARTERIES: No filling defects are seen in the pulmonary arteries through the segmental level. LUNGS: A 6 cm cavitary lesion with surrounding loss of the line remains evident in the left apex. The cavity has a thickened lobulated wall. Increasing air space disease is developed along the inferior margin of the lesion. A nodular density in the left lower lobe has decreased in size and now measures 7 mm. Left basilar airspace disease with posterior pleural thickening has developed since the previous stud y. PLEURAE: Pleural changes as described above. MEDIASTINUM: There is good visualization of the great vessels of the middle mediastinum. No evidence of mediastin al or hilar adenopathy/mass. MUSCULOSKELETAL: Within normal limits for patient age. MISCELLANEOUS: Scattered gas is identified in the liver which presumably is within the biliary tree. CONCLUSION: 1. 6 cm cavitary lesion in the left apex with increasing airspace disease or mass along its inferior margin. 2. New pleural-parenchymal disease in the left lung base medially. 3. Decreasing size of left lower lobe nodule 4. COPD. 5. No evidence of acute PE. 6. Intrahepatic gas which is likely in the biliary system. Venkata Mcwilliams MD on January 28, 2018 at 13:04 Board Certified Radiologist. This report was verified electronically.
[2018-01-28] MEDS ORDERED: SODIUM CHLORIDE 0.9% FLUSH 10 ML FLUSH IV FLUSH PRN (14:00)
[2018-01-28] MEDS ORDERED: BISACODYL 10 MG SUPP RECTAL PRN (14:00)
[2018-01-28] MEDS ORDERED: MAGNESIUM HYDROXIDE SUSP 30 ML CUP PO PRN (14:00)
[2018-01-28] MEDS ORDERED: NALOXONE HCL 0.4 MG/ML AMP IV PUSH PRN (14:00)
[2018-01-28] MEDS ORDERED: hydrALAZINE HCL 20 MG/ML VIAL IV PUSH PRN (14:00)
[2018-01-28] MEDS ORDERED: ZOLPIDEM TARTRATE 5 MG TAB PO PRN (14:00)
[2018-01-28] MEDS ORDERED: LACTULOSE SYRUP 20 GM/30 ML CUP PO PRN (14:00)
[2018-01-28] MEDS: HEPARIN SODIUM - SQ 10,000 UNITS/ML VIAL SQ SCH ×2 (14:00→21:37)
[2018-01-28] MEDS ORDERED: SENNOSIDES 8.6 MG TAB PO PRN (14:00)
--- NOTE | 2018-01-28 14:12 | HHI.HP ---
HPI Service Family Medicine Primary Care Physician Unknown Admission Diagnosis chest pain, cavitary lung lesion Diagnoses: International Travel<30 Days: No Contact w/Intl Traveler<30days: No Known Affected Area: No History of Present Illness This is a 77-year-old female with an extensive past medical history significant for lupus, hypertension hypothyroidism, colectomy, cholecystectomy, and lobectomy as a child. Previous hospitalization she was found to have a cavitary lesion with pneumonia in October. She is following with [facility] operations [facility] [employer] Dr. Lauren for this lesion. She is presenting to [facility] ED at this time due to worsening chest pain. On Thursday she started to develop an upper respiratory infection consisting of worsening cough, sputum production, mild shortness of breath, and some mild chest pain. She thought that she could wait it out and would return to baseline. However her chest pain continued to worsen over the next few days and today was at its max. She also felt very dizzy today and thought that she would pass out and hit her head if her son had not caught her. She is also noticing night sweats throughout this last week or so as well. She has been having to use her albuterol inhaler more frequently and it has been helping her less. She describes the chest pain as a pressure in the center of her chest that radiates down her left arm, she calls it a heavy feeling. The chest pain is worse with any exertion as well as coughing, she feels better lying in the bed and not moving. She denies feeling feverish, denies any abdominal pain, nausea or vomiting, or diarrhea. Review of Systems Constitutional: COMPLAINS OF: Fatigue, Dizziness, Change in appetite (Decreased ), Night Sweats, DENIES: Fever, Weight gain, Weight loss, Chills Eyes: DENIES: Blurred vision, Eye pain, Double Vision Ears, nose, mouth, throat: COMPLAINS OF: Nasal discharge, Running Nose, DENIES : Tinnitus, Throat pain, Hoarseness, Sinus Pain, Toothache, Odynophagia Respiratory: COMPLAINS OF: Cough, Sputum production, Shortness of breath, DENIES: Snoring, Wheezing Cardiovascular: COMPLAINS OF: Chest pain, DENIES: Syncope, Dyspnea on Exertion , Lower Extremity Edema, Claudication Gastrointestinal: DENIES: Abdominal pain, Diarrhea, Nausea, Vomiting Genitourinary: DENIES: Urinary frequency, Hematuria Musculoskeletal: COMPLAINS OF: Joint pain, Muscle aches, Stiffness, Back pain Integumentary: DENIES: Rash Hematologic/lymphatic: DENIES: Bruising Immunologic/allergic: DENIES: Eczema Neurologic: DENIES: Abnormal gait, Headache, Seizures, Poor Balance Psychiatric: DENIES: Anxiety, Depression Past Family Social History Past Medical History Brittle blood glucose control- avoid sugary foods. 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 SLE * on Plaquenil 200mg every other day for past 5 years. 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 Sjgren syndrome allergic rhinitis chronic GI ulcer (severe), followed by GI Dr. Dias. [id number] vaginal Past Surgical History (only 6 inches of colon left) colectomy (went bad from lupus), 2000 Lobectomy for bronchiectasis as a child total bilateral oophorectomy and hysterectomy 40yrs ago due to ectopic due to failed tubal ligation. No longer needs pap smears. cholecystectomy appendectomy multiple sinus surgeries, polypectomies Reported Medications Reported Meds & Active Scripts Active Carvedilol 3.125 Mg Tab 3.125 Mg PO BID Premarin (Estrogens Conjugated) 0.3 Mg Tab 0.3 Mg PO EVERY OTHER DAY Valium (Diazepam) 10 Mg Tab 10 Mg PO DAILY PRN Levothyroxine (Levothyroxine Sodium) 50 Mcg Tab 25 Mcg PO DAILY Reported Diflunisal 500 Mg Tab 500 Mg PO DAILY Plaquenil (Hydroxychloroquine Sulfate) 200 Mg Tab 100 Mg PO Q48H Take with food Albuterol Neb (Albuterol Sulfate) 2.5 Mg/3 Ml Neb 2.5 Mg NEB Q8HR Reglan (Metoclopramide HCl) 10 Mg Tab 10 Mg PO DAILY Prevacid (Lansoprazole) 30 Mg Capdr 30 Mg PO DAILY Nitrostat SL (Nitroglycerin) 0.4 Mg Subl 0.4 Mg SL DIRECTED PRN ONE TABLET UNDER THE TONGUE NEEDED FOR CHEST PAIN, MAY REPEAT EVERY FIVE MINUTES FOR A TOTAL OF 3 DOSES OR CALL 911 IF NO RELIEF Polyethylene Glycol 3350 Powder (Polyethylene Glycol) 17 Gm Pow 17 Gm PO DAILY Mucinex DM (Dextromethorphan-Guaifenesin) 30-600 Mg Tab 1 Tab PO DAILY PRN Allergies: Coded Allergies: Sulfa (Sulfonamide Antibiotics) (Unverified Allergy, Severe, 01/28/18) celecoxib (Unverified Allergy, Severe, 01/28/18) cyclobenzaprine (Unverified Allergy, Severe, 01/28/18) meperidine (Unverified Allergy, Severe, 01/28/18) morphine (Unverified Allergy, Severe, 01/28/18) penicillin G (Unverified Allergy, Severe, 01/28/18) codeine (Unverified Allergy, Mild, 01/28/18) Active Ordered Medications Current Medications Medications (Trade) Dose Ordered Sig/Kelly Route Start Time Stop Time Status Last Admin (NS Flush) 2 ml UNSCH PRN IVF 01/28/18 11:30 (Apresoline Inj) 10 mg Q6H PRN IV PUSH 01/28/18 14:00 (NS Flush) 2 ml UNSCH PRN IV FLUSH 01/28/18 14:00 (NS Flush) 2 ml BID IV FLUSH 01/28/18 21:00 (Tylenol) 650 mg Q4H PRN PO 01/28/18 14:00 (Zofran Inj) 4 mg Q6H PRN IVP 01/28/18 14:00 (Ambien) 5 mg HS PRN PO 01/28/18 14:00 (Heparin Inj) 5,000 units Q8H SQ 01/28/18 14:00 (Narcan Inj) 0.4 mg UNSCH PRN IV PUSH 01/28/18 14:00 (Chitra-Colace) 1 tab BID PO 01/28/18 21:00 (Milk Of Magnesia Liq) 30 ml Q12H PRN PO 01/28/18 14:00 (Senokot) 17.2 mg Q12H PRN PO 01/28/18 14:00 (Dulcolax Supp) 10 mg DAILY PRN RECTAL 01/28/18 14:00 (Lactulose Liq) 30 ml DAILY PRN PO 01/28/18 14:00 (Aspirin Chew) 162 mg DAILY CHEW 01/29/18 09:00 (Albuterol Neb) 2.5 mg Q8HR NEB NEB 01/28/18 16:00 (Valium) 10 mg DAILY PRN PO 01/28/18 14:15 (Plaquenil) 100 mg Q48H PO 01/28/18 14:15 (Synthroid) 25 mcg DAILY PO 01/29/18 09:00 (Protonix) 40 mg DAILY PO 01/29/18 09:00 (Nitrostat Sl) 0.4 mg Q5M PRN SL 01/28/18 14:15 (Tylenol) 650 mg Q4H PRN PO 01/28/18 14:30 (Ultram) 50 mg Q6H PRN PO 01/28/18 14:30 UNV (Coreg) 3.125 mg BID PO 01/28/18 14:30 Family History born in [place], grew up in [place], came from a family of brick-layers brother of gall bladder cancer, and DM at 69 Father of leukemia Althea (sister) had breast cancer (in [place]) Rhonda is alive and well (borderline DM) mom had DM type II Ozzy at 60 of glioblastoma of brain Alejandro prostate cancer 85 yrs old (radiation) Strong family history of hypercholesterolemia. Son zachary is 42 and has asthma daughter Aurelia is 44 and healthy. Social History lives in a [address] yr old house in [place], [place] Tobacco - No history reported Alcohol - No history reported Illicit - No history reported Physical Exam Vital Signs Vital Signs Date Time Temp Pulse Resp B/P (MAP) Pulse Ox O2 Delivery O2 Flow Rate FiO2 01/28/18 11:49 98 Room Air 01/28/18 11:49 98 Room Air 01/28/18 11:03 98 Room Air 01/28/18 11:03 80 17 174/71 (105) 98 Room Air 01/28/18 09:45 98.5 101 20 202/84 (123) 100 Physical Exam GENERAL: This is a well-nourished, well-developed patient, in no apparent distress. SKIN: No rashes, ecchymoses or lesions. Cool and dry. HEAD: Atraumatic. Normocephalic. No temporal or scalp tenderness. EYES: Pupils equal round and reactive. Extraocular motions intact. No scleral icterus. No injection or drainage. ENT: Nose without bleeding, purulent drainage or septal hematoma. Throat without erythema, tonsillar hypertrophy or exudate. Uvula midline. Airway patent. Tympanic membranes visualized bilaterally, pearly root, nonbulging, nonerythematous, normal borders NECK: Trachea midline. No JVD or lymphadenopathy. Supple, nontender, no meningeal signs. CARDIOVASCULAR: Regular rate and rhythm without murmurs, gallops, or rubs. RESPIRATORY: Clear to auscultation. Breath sounds equal bilaterally. No wheezes , rales, or rhonchi. GASTROINTESTINAL: Abdomen soft, non-tender, nondistended. No hepato-splenomegaly , or palpable masses. No guarding. MUSCULOSKELETAL: Extremities without clubbing, cyanosis, or edema. No joint tenderness, effusion, or edema noted. No calf tenderness. Negative Homans sign bilaterally. No pain to palpation of the chest NEUROLOGICAL: Awake and alert. Cranial nerves II through XII grossly intact. Motor and sensory grossly within normal limits. Normal speech. Laboratory Laboratory Tests Test 01/28/18 10:05 01/28/18 11:45 01/28/18 12:10 White Blood Count 9.7 Red Blood Count 4.56 Hemoglobin 13.3 Hematocrit 38.6 Mean Corpuscular Volume 84.7 Mean Corpuscular Hemoglobin 29.2 Mean Corpuscular Hemoglobin Concent 34.5 Red Cell Distribution Width 13.9 Platelet Count 305 Mean Platelet Volume 7.2 Neutrophils (%) (Auto) 66.1 Lymphocytes (%) (Auto) 16.4 Monocytes (%) (Auto) 14.7 Eosinophils (%) (Auto) 2.1 Basophils (%) (Auto) 0.7 Neutrophils # (Auto) 6.4 Lymphocytes # (Auto) 1.6 Monocytes # (Auto) 1.4 Eosinophils # (Auto) 0.2 Basophils # (Auto) 0.1 CBC Comment DIFF FINAL Differential Comment Blood Urea Nitrogen 10 Creatinine 0.54 Random Glucose 93 Calcium Level 9.7 Sodium Level 130 Potassium Level 4.6 Chloride Level 98 Carbon Dioxide Level 25.5 Anion Gap 7 Estimat Glomerular Filtration Rate 110 Lactic Acid Level 0.7 Prothrombin Time 10.9 Prothromb Time International Ratio 1.1 Activated Partial Thromboplast Time 31.5 Magnesium Level 2.3 Total Creatine Kinase 90 Troponin I LESS THAN 0.02 Urine Color LIGHT-YELLOW Urine Turbidity CLEAR Urine pH 6.5 Urine Specific Burton 1.004 Urine Protein NEG Urine Glucose (UA) NEG Urine Ketones NEG Urine Occult Blood NEG Urine Nitrite NEG Urine Bilirubin NEG Urine Urobilinogen LESS THAN 2.0 Urine Leukocyte Esterase NEG Urine RBC 1 Urine WBC 1 Urine Squamous Epithelial Cells 4 Urine Bacteria RARE Microscopic Urinalysis Comment CULT NOT INDICATED Date/Time Source Procedure Growth Status 01/28/18 10:05 Blood Peripheral Aerobic Blood Culture Pending Received 01/28/18 10:05 Blood Peripheral Anaerobic Blood Culture Pending Received 01/28/18 11:45 Nasal Aspirate Influenza Types A,B Antigen ([place]) - Final NEGATIVE FOR FLU A AND B ANTIGEN.... Complete Result Diagram: 01/28/18 1005 01/28/[address] Angiography 01/28/18 1116 Signed Impressions: Service Date/Time: January 12:47 - CONCLUSION: 1. 6 cm cavitary lesion in the left apex with increasing airspace disease or mass along its inferior margin. 2. New pleural-parenchymal disease in the left lung base medially. 3. Decreasing size of left lower lobe nodule 4. COPD. 5. No evidence of acute PE. 6. Intrahepatic gas which is likely in the biliary system. Venkata Mcwilliams MD Chest X-Ray 01/28/18 0955 Signed Impressions: Service Date/Time: January 10:10 - CONCLUSION: Slight interval worsening in aeration. MD Adrian Steele VTE Risk Assessment Adrian VTE Risk Assessment: Mod/High Risk (score >= 2) Assessment and Plan Assessment and Plan This is a 77-year-old female with an extensive past medical history significant for lupus, hypertension hypothyroidism, colectomy, cholecystectomy, and lobectomy as a child. Being admitted for atypical chest pain with previously seen cavitary lesion on the left lung apex. Code Status Full code Discussed Condition With [facility] Medicine Team Problem List: (1) Atypical chest pain ICD Codes: R07.89 - Other chest pain Status: Acute Plan: Patient is currently being admitted for atypical chest pain. Troponins currently are within normal limits at less than 0.02. EKG showing normal sinus rhythm, no ST depression or elevation. Will admit the patient to rule out ACS. * Admit observation * Trending troponins * Trending EKGs * Pain control with Tylenol and tramadol * Nitroglycerin sublingual as needed chest pain * CBC, BMP ordered for the a.m. (2) Cavitary lesion of lung ICD Codes: J98.4 - Other disorders of lung Plan: Patient previously evaluated and seen for cavitary lesion left lung. At that time had pneumonia which was treated. Biopsy has been held until recovery from that pneumonia. This is a possible source for the patient's atypical chest pain. Currently the cavitary lesion is 6 cm in the left apex. * Consult pulmonology, Dr. Lauren, recommendations appreciated * Pain control as above * Anticipate biopsy (3) Hyponatremia Plan: Patient found to be mildly hyponatremic at time of admission with sodium level of 130 * Attempting rehydration at this time. * Will monitor and fluid restrict if it does not improve. * NS IV at a 4 mL's per hour (4) UTI (urinary tract infection) ICD Codes: N39.0 - Urinary tract infection Status: Acute Plan: Patient reported having some burning pain with urination over the last few days. UA is concerning for urinary tract infection. * Urine cultures pending * Ceftriaxone 1 g daily (5) Hypertension ICD Codes: I10 - Essential (primary) hypertension Plan: Patient with a history of hypertension. On admission she was originally found to be hypertensive at 202/84. After pain control her blood pressure decreased to 174/71. She reports that she has not taken her blood pressure medications today. * Continue patient's carvedilol (6) Hypothyroid ICD Codes: E03.9 - Hypothyroidism, unspecified Status: Chronic Plan: Patient with history of hypothyroidism * Continue Synthroid (7) Lupus ICD Codes: M32.9 - Systemic lupus erythematosus, unspecified Status: Chronic Plan: Patient with history of lupus. * Continue Plaquenil (8) Nutrition, metabolism, and development symptoms ICD Codes: R63.8 - Other symptoms and signs concerning food and fluid intake Status: Acute Plan: Fluids: NS IV at 84 mL's per hour Diet: Regular diet Monitor electrolytes replace accordingly Vitals every 4 Placed on telemetry Bedrest with bathroom privileges DVT prophylaxis with heparin and SCDs CODE STATUS: Full code Disposition: Pending ACS rule out and recommendations by pulmonology Problem Qualifiers (1) UTI (urinary tract infection): Luis Cox MD, R3 Jan 28, 2018 14:12
[2018-01-28] MEDS ORDERED: DIAZEPAM 10 MG TAB PO PRN (14:15)
[2018-01-28] MEDS ORDERED: HYDROXYCHLOROQUINE SULFATE 200 MG TAB PO SCH (14:15)
[2018-01-28] MEDS ORDERED: NITROGLYCERIN 0.4 MG SL 25 TABS/BTL SL PRN (14:15)
[2018-01-28] MEDS ORDERED: ACETAMINOPHEN 325 MG TAB PO PRN (14:30)
[2018-01-28] MEDS ORDERED: traMADol HCL 50 MG TAB PO PRN (14:30)
[2018-01-28] MEDS ORDERED: cefTRIAXone INJ 1,000 MG in SODIUM CHLORIDE 0.9% INJ 100 ML IV SCH (16:00)
[2018-01-28] MEDS: RESP: ALBUTEROL 2.5 MG/3 ML NEB (SCH) NEB ×2 (16:36→23:02)
[2018-01-28] MEDS ORDERED: HYDR-3133 PO (17:12)
[2018-01-28] MEDS ORDERED: PHEN-523 PO (17:12)
[2018-01-28] MEDS: cefTRIAXone INJ 1,000 MG in SODIUM CHLORIDE 0.9% INJ 100 ML IV SCH (17:22)
[2018-01-28] MEDS: CARVEDILOL 3.125 MG TAB PO SCH ×2 (17:22→21:37)
[2018-01-28] MEDS: SODIUM CHLOR 0.9% 1000 ML INJ 1,000 ML IV SCH (17:23)
[2018-01-28] MEDS ORDERED: CARVEDILOL 3.125 MG TAB PO SCH (21:00)
[2018-01-28] MEDS ORDERED: POLYETHYLENE GLYCOL 17 GM PKG PO ONE (21:30)
[2018-01-28] MEDS: DOCUSATE SODIUM 50 MG/SENNA 8.6 MG TAB PO SCH (21:37)
[2018-01-28] MEDS: SODIUM CHLORIDE 0.9% FLUSH 10 ML FLUSH IV FLUSH SCH (21:37)
[2018-01-28] MEDS: hydrOXYzine HCL 25 MG TAB PO SCH (23:16)
[2018-01-29] VITALS (9 sets, daily range): BP systolic 141–162; BP diastolic 62–70; PULSE 73–87; RESP 16–19; TEMP 97.9–98.6; O2SAT 96–99
[2018-01-29] MEDS: HEPARIN SODIUM - SQ 10,000 UNITS/ML VIAL SQ SCH ×3 (06:04→21:32)
[2018-01-29] MEDS: ONDANSETRON HCL 4 MG/2 ML VIAL IVP PRN (06:35)
[2018-01-29] MEDS: SODIUM CHLOR 0.9% 1000 ML INJ 1,000 ML IV SCH ×2 (06:36→08:14)
[2018-01-29 07:23] LABS: AUTOMATED NEUTROPHIL # 6.3 TH/MM3 (1.8-7.7); BASOPHIL # 0.1 TH/MM3 (0-0.2); BASOPHIL % 0.7 % (0.0-2.0); EOSINOPHIL # 0.4 TH/MM3 (0-0.4); EOSINOPHIL % 4.7 % (0.0-4.0); HEMATOCRIT 33.6 % (35.0-46.0); HEMOGLOBIN 11.5 GM/DL (11.6-15.3); LYMPH % 13.9 % (9.0-44.0); LYMPHOCYTE # 1.3 TH/MM3 (1.0-4.8); MEAN CELL VOLUME 84.7 FL (80.0-100.0); MEAN CORPUSCULAR HEMOGLOBIN 29.1 PG (27.0-34.0); MEAN CORPUSCULAR HGB CONC 34.3 % (32.0-36.0); MEAN PLATELET VOLUME 7.3 FL (7.0-11.0); MONO % 12.8 % (0.0-8.0); MONOCYTE # 1.2 TH/MM3 (0-0.9); NEUT % 67.9 % (16.0-70.0); PLATELET COUNT 274 TH/MM3 (150-450); RED BLOOD COUNT 3.97 MIL/MM3 (4.00-5.30); RED CELL DISTRIBUTION WIDTH 13.5 % (11.6-17.2); WHITE BLOOD COUNT 9.3 TH/MM3 (4.0-11.0)
[2018-01-29 07:28] LABS: BICARBONATE 24.4 MEQ/L (21.0-32.0); CALCIUM 9.2 MG/DL (8.5-10.1); CREATININE 0.49 MG/DL (0.50-1.00)
[2018-01-29] MEDS: RESP: ALBUTEROL 2.5 MG/3 ML NEB (SCH) NEB ×3 (07:35→22:53)
[2018-01-29] MEDS: DOCUSATE SODIUM 50 MG/SENNA 8.6 MG TAB PO SCH ×2 (08:09→21:33)
[2018-01-29] MEDS: hydrOXYzine HCL 25 MG TAB PO SCH ×2 (08:11→21:32)
[2018-01-29] MEDS: LEVOTHYROXINE SODIUM 25 MCG TAB PO SCH (08:12)
[2018-01-29] MEDS: CARVEDILOL 3.125 MG TAB PO SCH ×2 (08:13→21:33)
[2018-01-29] MEDS: SODIUM CHLORIDE 0.9% FLUSH 10 ML FLUSH IV FLUSH SCH ×2 (08:14→21:33)
[2018-01-29] MEDS: PANTOPRAZOLE SOD 40 MG DELAYED RELEASE TAB PO SCH (08:14)
[2018-01-29] MEDS: ASPIRIN 81 MG CHEW TAB CHEW SCH (08:14)
[2018-01-29] MEDS ORDERED: hydrOXYzine HCL 25 MG TAB PO SCH (09:00)
[2018-01-29] MEDS ORDERED: PHENobarbital 32.4 MG TAB PO SCH (09:00)
--- NOTE | 2018-01-29 11:57 | EKG ---
Date Performed: 01/28/2018 Time Performed: 19:33:50 PTAGE: 77 years EKG: Sinus rhythm BORDERLINE RIGHT AXIS DEVIATION BORDERLINE ECG PREVIOUS TRACING : 01/28/2018 10.57 Abnormal R-wave progression, consistent with lead misplacem ent vs. anterior myocardial infarction. Repeat EKG requested. DOCTOR: Cristela Shukla Interpretating Date/Time 01/29/2018 11:56:16
--- NOTE | 2018-01-29 11:57 | EKG ---
Date Performed: 01/28/2018 Time Performed: 10:57:01 PTAGE: 77 years EKG: Sinus rhythm NORMAL ECG PREVIOUS TRACING : 11/15/2017 01.26 Since the prior tracing, there has been no significant robles DOCTOR: Cristela Shukla Interpretating Date/Time 01/29/2018 11:55:41
--- NOTE | 2018-01-29 11:59 | EKG ---
Date Performed: 01/28/2018 Time Performed: 23:43:19 PTAGE: 77 years EKG: Normal Sinus rhythm Abnormal R-wave progression, consistent with lead misplacement. Consider repeat EKG ABNORMAL ECG PREVIOUS TRACING : 01/28/2018 19.33 DOCTOR: Cristela Shukla Interpretating Date/Time 01/29/2018 11:57:32
--- NOTE | 2018-01-29 13:16 | HHI.HP ---
[facility] Service Family Medicine Primary Care Physician Unknown Admission Diagnosis chest pain, cavitary lung lesion Diagnoses: (1) Atypical chest pain Diagnosis: Principal (2) Cavitary lesion of lung Diagnosis: Principal (3) Hyponatremia Diagnosis: Principal (4) UTI (urinary tract infection) Diagnosis: Principal (5) Hypertension Diagnosis: Principal (6) Hypothyroid Diagnosis: Principal (7) Lupus Diagnosis: Principal (8) Nutrition, metabolism, and development symptoms Diagnosis: Principal International Travel<30 Days: No Contact w/Intl Traveler<30days: No Known Affected Area: No History of Present Illness Ms Vega is a 77-year-old female with an extensive past medical history significant for lupus, hypertension, hypothyroidism, colectomy, cholecystectomy, and lobectomy of lower left lung for bronchiectasis as a child. Previous hospitalization she was found to have a cavitary lesion with pneumonia in October. She reports taking an extended course of levaquin and doxycycline without improvement. She is following with compress machine operator Dr. Lauren for this lesion. 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 She reports having a PET scan done at [facility] that "lit up all over". She is presenting to [facility] ED at this time due to worsening chest pain. On Thursday she started to develop an upper respiratory infection consisting of worsening cough, sputum production, mild shortness of breath, and some mild chest pain. She thought that she could wait it out and would return to baseline. However her chest pain continued to worsen over the next few days and today was at its max. She also felt very dizzy today and thought that she would pass out and hit her head if her son had not caught her. She is also noticing night sweats throughout this last week or so as well and severe chills for several months. She has been having to use her albuterol inhaler more frequently and it has been helping her less. She describes the chest pain as a pressure in the center of her chest that radiates down her left arm, she calls it a heavy feeling. The chest pain is worse with any exertion as well as coughing, she feels better lying in the bed and not moving. She denies feeling feverish, denies any abdominal pain, nausea or vomiting, or diarrhea. She states she follows with Dr Tijerina for "a leaky valve" once a year. She has had little appetite but is stable on her weight. She states her "bones and ribs hurt ". She has required tramadol for pain. Dr Thornton has advised a biopsy for her and he is consulted as well as ID. Review of Systems Other Constitutional: COMPLAINS OF: Fatigue, Dizziness, Change in appetite (Decreased ), Night Sweats, DENIES: Fever, Weight gain, Weight loss, Chills Eyes: DENIES: Blurred vision, Eye pain, Double Vision Ears, nose, mouth, throat: COMPLAINS OF: Nasal discharge, Running Nose, DENIES : Tinnitus, Throat pain, Hoarseness, Sinus Pain, Toothache, Odynophagia Respiratory: COMPLAINS OF: Cough, Sputum production, Shortness of breath, DENIES: Snoring, Wheezing Cardiovascular: COMPLAINS OF: Chest pain, DENIES: Syncope, Dyspnea on Exertion , Lower Extremity Edema, Claudication Gastrointestinal: DENIES: Abdominal pain, Diarrhea, Nausea, Vomiting Genitourinary: DENIES: Urinary frequency, Hematuria Musculoskeletal: COMPLAINS OF: Joint pain, Muscle aches, Stiffness, Back pain Integumentary: DENIES: Rash Hematologic/lymphatic: DENIES: Bruising Immunologic/allergic: DENIES: Eczema Neurologic: DENIES: Abnormal gait, Headache, Seizures, Poor Balance Psychiatric: DENIES: Anxiety, Depression Past Family Social History Past Medical History Brittle blood glucose control- avoid sugary foods. 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 SLE * on Plaquenil 200mg every other day for past 5 years. 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 Sjgren syndrome allergic rhinitis chronic GI ulcer (severe), followed by GI Dr. Dias. [id number] vaginal Past Surgical History (only 6 inches of colon left) colectomy (went bad from lupus), 2000 Lobectomy for bronchiectasis as a child total bilateral oophorectomy and hysterectomy 40yrs ago due to ectopic due to failed tubal ligation. No longer needs pap smears. cholecystectomy appendectomy multiple sinus surgeries, polypectomies Allergies: Coded Allergies: Sulfa (Sulfonamide Antibiotics) (Unverified Allergy, Severe, 01/28/18) celecoxib (Unverified Allergy, Severe, 01/28/18) cyclobenzaprine (Unverified Allergy, Severe, 01/28/18) meperidine (Unverified Allergy, Severe, 01/28/18) morphine (Unverified Allergy, Severe, 01/28/18) penicillin G (Unverified Allergy, Severe, 01/28/18) codeine (Unverified Allergy, Mild, 01/28/18) Family History born in [place], grew up in [place], came from a family of brick-layers brother of gall bladder cancer, and DM at 69 Father of leukemia Althea (sister) had breast cancer (in [place]) Rhonda is alive and well (borderline DM) mom had DM type II Ozzy at 60 of glioblastoma of brain Alejandro prostate cancer 83 yrs old (radiation) Strong family history of hypercholesterolemia. Son zachary is 42 and has asthma daughter Aurelia is 44 and healthy. Social History lives in a [address] old house in [place], [place] Tobacco - No history reported Alcohol - No history reported Illicit - No history reported Physical Exam Vital Signs Vital Signs Date Time Temp Pulse Resp B/P (MAP) Pulse Ox O2 Delivery O2 Flow Rate FiO2 01/29/18 12:12 98.1 73 18 144/64 (90) 96 01/29/18 07:44 98.4 87 16 141/65 (90) 96 01/29/18 07:36 99 21 01/29/18 04:30 79 01/29/18 03:44 98.6 79 19 162/70 (100) 98 01/28/18 23:48 74 01/28/18 23:46 97.5 76 15 150/66 (94) 98 01/28/18 20:15 78 01/28/18 19:11 98 01/28/18 19:01 97.9 78 14 163/74 (103) 96 01/28/18 16:33 82 18 164/72 (102) 92 01/28/18 16:32 85 18 169/74 (105) 94 01/28/18 16:30 98.0 77 18 189/74 (112) 98 01/28/18 15:27 77 17 176/77 (110) 99 Room Air Physical Exam GENERAL: This is a frail elderly patient, in no apparent distress except for her pain. SKIN: No rashes, ecchymoses or lesions. Cool and dry. HEAD: Atraumatic. Normocephalic. EYES: Pupils equal round and reactive. Extraocular motions intact. No scleral icterus. No injection or drainage. ENT: Nose without bleeding, purulent drainage or septal hematoma. Airway patent. Tympanic membranes visualized bilaterally, pearly root, nonbulging, nonerythematous, normal borders -seen by Dr Cox NECK: Trachea midline. No JVD or lymphadenopathy. Supple, nontender, no meningeal signs. CARDIOVASCULAR: Regular rate and rhythm without murmurs, gallops, or rubs. RESPIRATORY: Clear to auscultation. Breath sounds equal bilaterally. No wheezes , rales, or rhonchi. GASTROINTESTINAL: Abdomen soft, non-tender, nondistended. No hepato-splenomegaly , or palpable masses. No guarding. MUSCULOSKELETAL: Extremities without clubbing, cyanosis, or edema. No joint tenderness, effusion, or edema noted. No calf tenderness. Negative Homans sign bilaterally. No pain to palpation of the chest NEUROLOGICAL: Awake and alert. Cranial nerves II through XII grossly intact. Motor and sensory grossly within normal limits. Normal speech. Laboratory Laboratory Tests Test 01/28/18 20:10 01/28/18 23:57 01/29/18 06:43 Troponin I LESS THAN 0.02 LESS THAN 0.02 White Blood Count 9.3 Red Blood Count 3.97 Hemoglobin 11.5 Hematocrit 33.6 Mean Corpuscular Volume 84.7 Mean Corpuscular Hemoglobin 29.1 Mean Corpuscular Hemoglobin Concent 34.3 Red Cell Distribution Width 13.5 Platelet Count 274 Mean Platelet Volume 7.3 Neutrophils (%) (Auto) 67.9 Lymphocytes (%) (Auto) 13.9 Monocytes (%) (Auto) 12.8 Eosinophils (%) (Auto) 4.7 Basophils (%) (Auto) 0.7 Neutrophils # (Auto) 6.3 Lymphocytes # (Auto) 1.3 Monocytes # (Auto) 1.2 Eosinophils # (Auto) 0.4 Basophils # (Auto) 0.1 CBC Comment DIFF FINAL Differential Comment Blood Urea Nitrogen 7 Creatinine 0.49 Random Glucose 86 Calcium Level 9.2 Sodium Level 134 Potassium Level 3.9 Chloride Level 100 Carbon Dioxide Level 24.4 Anion Gap 10 Estimat Glomerular Filtration Rate 123 Date/Time Source Procedure Growth Status 01/28/18 10:05 Blood Peripheral Aerobic Blood Culture - Preliminary NO GROWTH IN 1 DAY Resulted 01/28/18 10:05 Blood Peripheral Anaerobic Blood Culture - Preliminary NO GROWTH IN 1 DAY Resulted 01/28/18 11:45 Nasal Aspirate Influenza Types A,B Antigen ([place]) - Final NEGATIVE FOR FLU A AND B ANTIGEN.... Complete Result Diagram: 01/29/18 0643 01/29/18 [address] Angiography 01/28/18 1116 Signed Impressions: Service Date/Time: January 12:47 - CONCLUSION: 1. 6 cm cavitary lesion in the left apex with increasing airspace disease or mass along its inferior margin. 2. New pleural-parenchymal disease in the left lung base medially. 3. Decreasing size of left lower lobe nodule 4. COPD. 5. No evidence of acute PE. 6. Intrahepatic gas which is likely in the biliary system. Venkata Mcwilliams MD Chest X-Ray 01/28/18 0992 Signed Impressions: Service Date/Time: January 10:10 - CONCLUSION: Slight interval worsening in aeration. Larry Angeles MD Capjosei VTE Risk Assessment Caprini VTE Risk Assessment: Mod/High Risk (score >= 2) Caprini Risk Assessment Model Point Value = 1 Point Value = 2 Point Value = 3 Point Value = 5 Age 41-60 Minor surgery BMI > 25 kg/m2 Swollen legs Varicose veins or History of unexplained or recurrent spontaneous Oral contraceptives or hormone replacement Sepsis (< 1 month) Serious lung disease, including pneumonia (< 1 month) Abnormal pulmonary function Acute myocardial infarction Congestive heart failure (< 1 month) History of inflammatory bowel disease Medical patient at bed rest Age 61-74 Arthroscopic surgery Major open surgery (> 45 min) Laparoscopic surgery (> 45 min) Malignancy Confined to bed (> 72 hours) Immobilizing plaster cast Central venous access Age >= 75 History of VTE Family history of VTE Factor V Leiden Prothrombin [id number] Lupus anticoagulant Anticardiolipin antibodies Elevated serum homocysteine Heparin-induced thrombocytopenia Other congenital or acquired thrombophilia Stroke (< 1 month) Elective arthroplasty Hip, pelvis, or leg fracture Acute spinal cord injury (< 1 month) Prophylaxis Regimen Total Risk Factor Score Risk Level Prophylaxis Regimen 0-1 Low Early ambulation 2 Moderate Order ONE of the following: *Sequential Compression Device (SCD) *Heparin 5000 units SQ BID 3-4 Higher Order ONE of the following medications: *Heparin 5000 units SQ TID *Enoxaparin/Lovenox 40 mg SQ daily (WT < 150 kg, CrCl > 30 mL/min) *Enoxaparin/Lovenox 30 mg SQ daily (WT < 150 kg, CrCl > 10-29 mL/min) *Enoxaparin/Lovenox 30 mg SQ BID (WT < 150 kg, CrCl > 30 mL/min) AND/OR *Sequential Compression Device (SCD) 5 or more Highest Order ONE of the following medications: *Heparin 5000 units SQ TID (Preferred with Epidurals) *Enoxaparin/Lovenox 40 mg SQ daily (WT < 150 kg, CrCl > 30 mL/min) *Enoxaparin/Lovenox 30 mg SQ daily (WT < 150 kg, CrCl > 10-29 mL/min) *Enoxaparin/Lovenox 30 mg SQ BID (WT < 150 kg, CrCl > 30 mL/min) AND *Sequential Compression Device (SCD) Assessment and Plan Assessment and Plan This is a 77-year-old female with an extensive past medical history significant for lupus, hypertension, hypothyroidism, colectomy, cholecystectomy , and lobectomy as a child. Being admitted for atypical chest pain with previously seen cavitary lesion on the left lung apex. Hopefully she can have a biopsy or another culture taken to confirm her atypical TB and she will need very half-way treatment Problem List: (1) Atypical chest pain ICD Codes: R07.89 - Other chest pain Status: Acute Plan: Patient is currently being admitted for atypical chest pain. Troponins currently are within normal limits at less than 0.02. EKG showing normal sinus rhythm, no ST depression or elevation. Will admit the patient to rule out ACS. * Admit observation * Trending troponins * Trending EKGs * Pain control with Tylenol and tramadol * Nitroglycerin sublingual as needed chest pain * CBC, BMP ordered for the a.m. * suspect her lung infection is giving her the pain (2) Cavitary lesion of lung ICD Codes: J98.4 - Other disorders of lung Plan: Patient previously evaluated and seen for cavitary lesion left lung. At that time had pneumonia which was treated with levaquin and doxy. Biopsy has been held until recovery from that pneumonia but she is worsening. This is a possible source for the patient's atypical chest pain. Currently the cavitary lesion is 6 cm in the left apex. * Consulted pulmonology, Dr. Lauren, recommendations appreciated. Dr Rudd of [place] has spoken to him * Pain control as above * Anticipate biopsy * appreciate help Dr Rudd (3) Hyponatremia Plan: Patient found to be mildly hyponatremic at time of admission with sodium level of 130 * Attempting rehydration at this time. * Will monitor and fluid restrict if it does not improve. * NS IV at a 4 mL's per hour * will see if any meds could be contributing (4) UTI (urinary tract infection) ICD Codes: N39.0 - Urinary tract infection Status: Acute Plan: Patient reported having some burning pain with urination over the last few days. UA is concerning for urinary tract infection. * Urine cultures pending * Ceftriaxone 1 g daily (5) Hypertension ICD Codes: I10 - Essential (primary) hypertension Plan: Patient with a history of hypertension. On admission she was originally found to be hypertensive at 202/84. After pain control her blood pressure decreased to 174/71. She reports that she has not taken her blood pressure medications today. * Continue patient's carvedilol (6) Hypothyroid ICD Codes: E03.9 - Hypothyroidism, unspecified Status: Chronic Plan: Patient with history of hypothyroidism * Continue Synthroid (7) Lupus ICD Codes: M32.9 - Systemic lupus erythematosus, unspecified Status: Chronic Plan: Patient with history of lupus. * Continue Plaquenil (8) Nutrition, metabolism, and development symptoms ICD Codes: R63.8 - Other symptoms and signs concerning food and fluid intake Status: Acute Plan: Fluids: NS IV at 84 mL's per hour Diet: Regular diet Monitor electrolytes replace accordingly Vitals every 4 Placed on telemetry Bedrest with bathroom privileges DVT prophylaxis with heparin and SCDs CODE STATUS: Full code Disposition: Pending ACS rule out and recommendations by pulmonology.she needs a diagnosis or at least the workup as she keeps worsening Problem Qualifiers (1) UTI (urinary tract infection): (2) Hypertension: Qualified Codes: I10 - Essential (primary) hypertension (3) Hypothyroid: Qualified Codes: E03.9 - Hypothyroidism, unspecified (4) Lupus: Qualified Codes: 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
[2018-01-29] MEDS: traMADol HCL 50 MG TAB PO PRN (14:47)
[2018-01-29] MEDS: cefTRIAXone INJ 1,000 MG in SODIUM CHLORIDE 0.9% INJ 100 ML IV SCH (15:44)
--- NOTE | 2018-01-29 17:05 | PD.ID.CON ---
History of Present Illness Service ID Consult Requested By Dr Lawson Reason for Consult pulmonary [facility]NA Primary Care Physician Unknown Diagnoses: History of Present Illness 77 yo female non smoker developped productive cough with purulent sputum She has BAL in october and clx grew M. avium intracellulare She was on Levaquin+ doxycycline for 1 month Pt is c/o of fever, chills, night sweat Her sputum however cleared up No noble hemoptysis, but sees specks of blood She came with sharp chest pain, L sided , radiating to L shoulder and arm She had CTA that showed 6 cm cavitary lesion in the left apex with increasing airspace disease or mass . Last time lesion was 5 cm On presentation pt is afebrile and with normal WBC Review of Systems Constitutional: COMPLAINS OF: Fever, Weight loss (minimal, may be 1 lbs), Chills Respiratory: COMPLAINS OF: Cough, Hemoptysis, Sputum production Cardiovascular: COMPLAINS OF: Chest pain Except as stated in HPI: all other systems reviewed are Neg Past Family Social History Allergies: Coded Allergies: Sulfa (Sulfonamide Antibiotics) (Unverified Allergy, Severe, 01/28/18) celecoxib (Unverified Allergy, Severe, 01/28/18) cyclobenzaprine (Unverified Allergy, Severe, 01/28/18) meperidine (Unverified Allergy, Severe, 01/28/18) morphine (Unverified Allergy, Severe, 01/28/18) penicillin G (Unverified Allergy, Severe, 01/28/18) codeine (Unverified Allergy, Mild, 01/28/18) Past Medical History Brittle blood glucose control- avoid sugary foods. 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 SLE * on Plaquenil 200mg every other day for past 5 years. 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 Sjgren syndrome allergic rhinitis chronic GI ulcer (severe), followed by GI Dr. Dias. [id number] vaginal Past Surgical History (only 6 inches of colon left) colectomy (went bad from lupus), 2000 Lobectomy for bronchiectasis as a child total bilateral oophorectomy and hysterectomy 40yrs ago due to ectopic due to failed tubal ligation. No longer needs pap smears. cholecystectomy appendectomy multiple sinus surgeries, polypectomies Active Ordered Medications Medications where reviewed in EMR Antibiotics Include: CFTX Family History [place], grew up in [place], came from a family of brick-layers brother of gall bladder cancer, and DM at 69 Father of leukemia Althea (sister) had breast cancer (in [place]) Rhonda is alive and well (borderline DM) mom had DM type II at 60 of glioblastoma of brain prostate cancer 83 yrs old (radiation) Strong family history of hypercholesterolemia. Son asthma Social History life time non smoker no ETOH no DOA Physical Exam Vital Signs Vital Signs Date Time Temp Pulse Resp B/P (MAP) Pulse Ox O2 Delivery O2 Flow Rate FiO2 01/29/18 15:44 18 01/29/18 15:35 98.5 80 18 141/63 (89) 98 01/29/18 12:12 98.1 73 18 144/64 (90) 96 01/29/18 07:44 98.4 87 16 141/65 (90) 96 01/29/18 07:36 99 21 01/29/18 04:30 79 01/29/18 03:44 98.6 79 19 162/70 (100) 98 01/28/18 23:48 74 01/28/18 23:46 97.5 76 15 150/66 (94) 98 01/28/18 20:15 78 01/28/18 19:11 98 01/28/18 19:01 97.9 78 14 163/74 (103) 96 01/28/18 16:33 82 18 164/72 (102) 92 Physical Exam CONSTITUTIONAL/GENERAL: This is a frail elderly patient, in no apparent distress. TUBES/LINES/DRAINS: SKIN: No jaundice, rashes, or lesions. Skin temperature appropriate. Not diaphoretic. HEAD: Atraumatic. Normocephalic. EYES: Pupils equal and round and reactive. Extraocular motions intact. No scleral icterus. No injection or drainage. Fundi not examined. ENT: Hearing grossly normal. Nose without bleeding or purulent drainage. Throat without visible erythema, exudates, masses, or lesions. NECK: Trachea midline. Supple, nontender. CARDIOVASCULAR: Regular rate and rhythm without murmurs, gallops, or rubs. No JVD. Peripheral pulses symmetric. RESPIRATORY/CHEST: Symmetric, unlabored respirations. R sided coarse BS to auscultation. GASTROINTESTINAL: Abdomen soft, non-tender, nondistended. No hepato-splenomegaly , or palpable masses. No guarding. Bowel sounds present. GENITOURINARY: Without palpable bladder distension. MUSCULOSKELETAL: Extremities without clubbing, cyanosis, or edema. No joint tenderness or effusion noted. No calf tenderness. No mottling or clubbing. LYMPHATICS: No palpable cervical or supraclavicular adenopathy. NEUROLOGICAL: Awake and alert. Motor and sensory grossly within normal limits. Follows commands. Clear speech Moves all extremities. PSYCHIATRIC: No obvious anxiety/depression. no apparent hallucinations or other psychotic thought process. Laboratory Laboratory Tests Test 01/28/18 20:10 01/28/18 23:57 01/29/18 06:43 Troponin I LESS THAN 0.02 LESS THAN 0.02 White Blood Count 9.3 Red Blood Count 3.97 Hemoglobin 11.5 Hematocrit 33.6 Mean Corpuscular Volume 84.7 Mean Corpuscular Hemoglobin 29.1 Mean Corpuscular Hemoglobin Concent 34.3 Red Cell Distribution Width 13.5 Platelet Count 274 Mean Platelet Volume 7.3 Neutrophils (%) (Auto) 67.9 Lymphocytes (%) (Auto) 13.9 Monocytes (%) (Auto) 12.8 Eosinophils (%) (Auto) 4.7 Basophils (%) (Auto) 0.7 Neutrophils # (Auto) 6.3 Lymphocytes # (Auto) 1.3 Monocytes # (Auto) 1.2 Eosinophils # (Auto) 0.4 Basophils # (Auto) 0.1 CBC Comment DIFF FINAL Differential Comment Blood Urea Nitrogen 7 Creatinine 0.49 Random Glucose 86 Calcium Level 9.2 Sodium Level 134 Potassium Level 3.9 Chloride Level 100 Carbon Dioxide Level 24.4 Anion Gap 10 Estimat Glomerular Filtration Rate 123 Date/Time Source Procedure Growth Status 01/28/18 10:05 Blood Peripheral Aerobic Blood Culture - Preliminary NO GROWTH IN 1 DAY Resulted 01/28/18 10:05 Blood Peripheral Anaerobic Blood Culture - Preliminary NO GROWTH IN 1 DAY Resulted 01/28/18 11:45 Nasal Aspirate Influenza Types A,B Antigen ([place]) - Final NEGATIVE FOR FLU A AND B ANTIGEN.... Complete Result Diagram: 01/29/1843 01/29/18 [address] Angiography 01/28/18 1116 Signed Impressions: Service Date/Time: January 12:47 - CONCLUSION: 1. 6 cm cavitary lesion in the left apex with increasing airspace disease or mass along its inferior margin. 2. New pleural-parenchymal disease in the left lung base medially. 3. Decreasing size of left lower lobe nodule 4. COPD. 5. No evidence of acute PE. 6. Intrahepatic gas which is likely in the biliary system. Venkata Mcwilliams MD Chest X-Ray 01/28/18 0955 Signed Impressions: Service Date/Time: January 10:10 - CONCLUSION: Slight interval worsening in aeration. 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 MD Jan 29, 2018 17:05
--- NOTE | 2018-01-29 20:07 | MB ---
cc: Xin Lauren MD DATE OF CONSULT: 01/29/2018 REASON FOR CONSULTATION: Cavitary pneumonia. HISTORY OF PRESENT ILLNESS: Mrs. Vega is a 77-year-old female, who has a known cavitary lesion in the left upper lung as well as underlying COPD and bronchiectasis. She did have surgery for bronchiectasis of left lower lung years ago, presents to the emergency room with chest pain, persistent cough and congestion for several days. She had been using antibiotic therapy at home for a lung abscess; felt dizzy and weak, at which time, she decided to come to the emergency room. CT angiogram was undertaken revealing the cavitary density in the left upper lung, which measures about 1.6 cm. A pleural parenchymal infiltrate in the left lung base is noted as well and the lesion in the left lower lung seems to be decreasing in size. The patient was hospitalized for same. 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 PAST MEDICAL HISTORY: COPD and bronchiectasis, systemic lupus erythematosus on Raynaud's disease, status post left lower lobectomy for bronchiectasis, Sjogren's syndrome, hypertension, hypothyroidism. FAMILY HISTORY: Noncontributory. SOCIAL HISTORY: Does not smoke, does not drink, does not use drugs. MEDICATIONS: Currently review JAN. ALLERGIES: SULFA DRUGS, CYCLOBENZAPRINE, CELECOXIB, MEPERIDINE, MORPHINE, PENICILLIN, CODEINE. SYSTEMS REVIEW: Twelve-point review of systems as per HPI and past history, otherwise negative. PHYSICAL EXAMINATION: VITAL SIGNS: Temperature 98, pulse 70, respirations 18, blood pressure 146/60. HEENT: Unremarkable. Eyes without icterus. NECK: Without adenopathy or thyroid enlargement. Central trachea. CHEST: Scattered rhonchi bilaterally. CARDIAC: PMI distant. S1, S2 audible. No murmur, no rub. ABDOMEN: Lax, audible bowel sounds. EXTREMITIES: No clubbing, cyanosis, edema. LABORATORY DATA: White count 9000, hemoglobin 11, hematocrit 33, platelets 274,000. Sodium 134, potassium 3.9, BUN 7, creatinine 0.4. IMAGING: CT chest as above. IMPRESSION: 1. Cavitary lesion left lung with other multiple changes as outlined. 2. Chest pain, atypical. 3. Hypertension. 4. Hypothyroidism. 5. Systemic lupus erythematosus. 6. Sjogren's syndrome. 7. Raynaud's disease. PLAN: The patient did have a PET CT with increased uptake in the left upper lung, left lower lung, and multiple other areas, likely infectious malignancy obviously not excluded. 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 At this point, it would be most appropriate to initiate therapy for AMNA and since the cavitary lesion in the left lung seems enlarged proceed with needle biopsy of the left upper lung density as well to assure the absence of underlying malignancy. Meanwhile, continue bronchodilator therapy. I do thank you for asking me to participate in Mrs. Vega's care. Xin Lauren MD WWW/ , 04:02 PM , 08:06 PM
[2018-01-29] MEDS ORDERED: POLYETHYLENE GLYCOL 17 GM PKG PO ONE (21:00)
[2018-01-29] MEDS: HYDROXYCHLOROQUINE SULFATE 200 MG TAB PO SCH (21:32)
[2018-01-30] VITALS (7 sets, daily range): BP systolic 133–166; BP diastolic 60–72; PULSE 71–100; RESP 17–20; TEMP 98–98.4; O2SAT 96–98
[2018-01-30] MEDS: SODIUM CHLOR 0.9% 1000 ML INJ 1,000 ML IV SCH ×2 (02:45→15:38)
[2018-01-30 05:48] LABS: AUTOMATED NEUTROPHIL # 7.4 TH/MM3 (1.8-7.7); BASOPHIL # 0.1 TH/MM3 (0-0.2); BASOPHIL % 0.7 % (0.0-2.0); EOSINOPHIL # 0.5 TH/MM3 (0-0.4); EOSINOPHIL % 4.5 % (0.0-4.0); HEMATOCRIT 36.4 % (35.0-46.0); HEMOGLOBIN 12.3 GM/DL (11.6-15.3); LYMPH % 15.9 % (9.0-44.0); LYMPHOCYTE # 1.8 TH/MM3 (1.0-4.8); MEAN CELL VOLUME 85.7 FL (80.0-100.0); MEAN CORPUSCULAR HEMOGLOBIN 28.9 PG (27.0-34.0); MEAN CORPUSCULAR HGB CONC 33.8 % (32.0-36.0); MEAN PLATELET VOLUME 7.2 FL (7.0-11.0); MONO % 13.2 % (0.0-8.0); MONOCYTE # 1.5 TH/MM3 (0-0.9); NEUT % 65.7 % (16.0-70.0); PLATELET COUNT 296 TH/MM3 (150-450); RED BLOOD COUNT 4.25 MIL/MM3 (4.00-5.30); RED CELL DISTRIBUTION WIDTH 13.6 % (11.6-17.2); WHITE BLOOD COUNT 11.3 TH/MM3 (4.0-11.0)
[2018-01-30 06:08] LABS: BICARBONATE 21.8 MEQ/L (21.0-32.0); CALCIUM 9.2 MG/DL (8.5-10.1); CREATININE 0.5 MG/DL (0.50-1.00)
[2018-01-30] MEDS: HEPARIN SODIUM - SQ 10,000 UNITS/ML VIAL SQ SCH ×3 (06:10→23:55)
[2018-01-30] MEDS: RESP: ALBUTEROL 2.5 MG/3 ML NEB (SCH) NEB ×3 (07:36→23:46)
[2018-01-30] MEDS: DOCUSATE SODIUM 50 MG/SENNA 8.6 MG TAB PO SCH (09:00)
[2018-01-30] MEDS: hydrOXYzine HCL 25 MG TAB PO SCH ×2 (09:00→23:55)
[2018-01-30] MEDS: SODIUM CHLORIDE 0.9% FLUSH 10 ML FLUSH IV FLUSH SCH ×2 (09:00→21:00)
[2018-01-30] MEDS: LEVOTHYROXINE SODIUM 25 MCG TAB PO SCH (09:51)
[2018-01-30] MEDS: ASPIRIN 81 MG CHEW TAB CHEW SCH (09:51)
[2018-01-30] MEDS: PANTOPRAZOLE SOD 40 MG DELAYED RELEASE TAB PO SCH (09:52)
[2018-01-30] MEDS: CARVEDILOL 3.125 MG TAB PO SCH (09:54)
--- NOTE | 2018-01-30 11:44 | HHI.FPPN ---
Subjective Remarks NAEON. Ms Vega complains of left sided CP that is stable and most likely 2/2 her AMNA infection. She is concerned this morning about dosing and interval of several medications and we will correct those. Dr Lauren, pulmonology, has seen and plans lung bx on Thursday; Dr Rudd, ID, plans to begin treating AMNA which will likely be an 18 month treatment course. Denies SOB, N/V/D, DVT pain. (Carmine Jang MD R1) Objective Vitals Vital Signs Date Time Temp Pulse Resp B/P (MAP) Pulse Ox O2 Delivery O2 Flow Rate FiO2 01/30/18 08:39 98.4 100 20 160/72 (101) 96 01/30/18 06:15 83 01/30/18 04:13 98.0 78 17 140/60 (86) 97 01/29/18 23:19 98.1 80 17 141/62 (88) 97 01/29/18 20:34 97.9 82 17 149/69 (95) 97 01/29/18 20:22 96 01/29/18 15:44 18 01/29/18 15:35 98.5 80 18 141/63 (89) 98 01/29/18 12:12 98.1 73 18 144/64 (90) 96 I/O 01/29/18 01/29/18 01/29/18 01/30/18 01/30/18 01/30/18 07:00 15:00 23:00 07:00 15:00 23:00 # Voids 2 2 (Carmine Jang MD R1) Result Diagram: 01/30/18 0515 01/30/18 0515 Objective Remarks GENERAL: This is a thin, elderly female in no apparent distress. SKIN: No rashes, ecchymoses or lesions. Cool and dry. HEAD: Atraumatic. Normocephalic. EYES: Pupils equal round and reactive. Extraocular motions intact. No scleral icterus. No injection or drainage. ENT: Nose without drainage. Uvula midline. Airway patent. NECK: Trachea midline. No JVD or lymphadenopathy. Supple, nontender, no meningeal signs. CARDIOVASCULAR: Regular rate and rhythm without murmurs, gallops, or rubs. RESPIRATORY: Clear to auscultation. Breath sounds equal bilaterally. No wheezes , rales, or rhonchi. GASTROINTESTINAL: Abdomen soft, non-tender, nondistended. No hepato-splenomegaly , or palpable masses. No guarding. MUSCULOSKELETAL: Extremities without clubbing, cyanosis, or edema. No joint tenderness, effusion, or edema noted. No calf tenderness. NEUROLOGICAL: Awake and alert. Cranial nerves II through XII grossly intact. Motor and sensory grossly within normal limits. Normal speech. Medications and IVs Current Medications Medications (Trade) Dose Ordered Sig/Kelly Route Start Time Stop Time Status Last Admin (Apresoline Inj) 10 mg Q6H PRN IV PUSH 01/28/18 14:00 (NS Flush) 2 ml UNSCH PRN IV FLUSH 01/28/18 14:00 01/29/18 06:35 (NS Flush) 2 ml BID IV FLUSH 01/28/18 21:00 (Tylenol) 650 mg Q4H PRN PO 01/28/18 14:00 (Zofran Inj) 4 mg Q6H PRN IVP 01/28/18 14:00 01/29/18 06:35 (Ambien) 5 mg HS PRN PO 01/28/18 14:00 (Heparin Inj) 5,000 units Q8H SQ 01/28/18 14:00 (Narcan Inj) 0.4 mg UNSCH PRN IV PUSH 01/28/18 14:00 (Chitra-Colace) 1 tab BID PO 01/28/18 21:00 (Milk Of Magnesia Liq) 30 ml Q12H PRN PO 01/28/18 14:00 (Senokot) 17.2 mg Q12H PRN PO 01/28/18 14:00 (Dulcolax Supp) 10 mg DAILY PRN RECTAL 01/28/18 14:00 (Lactulose Liq) 30 ml DAILY PRN PO 01/28/18 14:00 (Aspirin Chew) 162 mg DAILY CHEW 01/29/18 09:00 01/30/18 09:51 (Albuterol Neb) 2.5 mg Q8HR NEB NEB 01/28/18 16:00 01/30/18 07:36 (Valium) 10 mg DAILY PRN PO 01/28/18 14:15 (Synthroid) 25 mcg DAILY PO 01/29/18 09:00 01/30/18 09:51 (Protonix) 40 mg DAILY PO 01/29/18 09:00 01/30/18 09:52 (Nitrostat Sl) 0.4 mg Q5M PRN SL 01/28/18 14:15 (Tylenol) 650 mg Q4H PRN PO 01/28/18 14:30 Sodium Chloride 1,000 ml @ 84 mls/hr [id number] IV 01/28/18 15:00 01/30/18 02:45 Ceftriaxone Sodium 1000 mg/ Sodium Chloride 100 ml @ 200 mls/hr Q24H IV 01/28/18 16:00 01/29/18 15:44 (Ultram) 50 mg Q4H PRN PO 01/29/18 13:15 01/29/18 14:47 (Plaquenil) 100 mg Q48H PO 01/29/18 21:00 01/29/18 21:32 (Coreg) 3.125 mg DAILY PO 01/31/18 09:00 (Atarax) 25 mg HS PO 01/30/18 21:00 (PHENobarbital) 30 mg HS PO 01/30/18 21:00 (Carmine Jang MD R1) Urinary Catheter: No (Carmine Jang MD R1) Vascular Central Line Catheter: No (Carmine Jang MD R1) A/P Assessment and Plan This is a 77-year-old female with an extensive past medical history significant for lupus, hypertension, hypothyroidism, colectomy, cholecystectomy , and lobectomy as a child. Being admitted for atypical chest pain with previously seen cavitary lesion on the left lung apex. 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 Case reviewed and discussed with the resident team. Agree with plan of care as discussed with me and documented in the resident note. she has worsened slowly over time and needs to get a definitive diagnosis and get started on treatment (Deb Ryder MD) Problem List: (1) Atypical chest pain ICD Codes: R07.89 - Other chest pain Status: Chronic Plan: Patient is currently being admitted for atypical chest pain. Troponins currently are within normal limits at less than 0.02. EKG showing normal sinus rhythm, no ST depression or elevation. Will admit the patient to rule out ACS. * Admit observation * Trending troponins * Trending EKGs * Pain control with Tylenol and tramadol * Nitroglycerin sublingual as needed chest pain * CBC, BMP ordered for the a.m. * suspect her lung infection is giving her the pain * ACS r/o essentially negative (2) Cavitary lesion of lung ICD Codes: J98.4 - Other disorders of lung Plan: Patient previously evaluated and seen for cavitary lesion left lung. At that time had pneumonia which was treated with levaquin and doxy. Biopsy has been held until recovery from that pneumonia but she is worsening. This is a possible source for the patient's atypical chest pain. Currently the cavitary lesion is 6 cm in the left apex. * Consulted pulmonology, Dr. Lauren, recommendations appreciated. Dr Rudd of ID has spoken to him * Pain control as above * Anticipate biopsy * appreciate help Dr Rudd * ZE/Tobin will plan to start 18 month course of treatment likely as outpt * Dr Lauren plans to perform lung bx on Thursday, 02/02 (3) Hyponatremia Status: Acute Plan: Patient found to be mildly hyponatremic at time of admission with sodium level of 130; today 132 * Attempting rehydration at this time. * Will monitor and fluid restrict if it does not improve. * NS IV at a 4 mL's per hour * will see if any meds could be contributing (4) UTI (urinary tract infection) ICD Codes: N39.0 - Urinary tract infection Status: Resolved Plan: Patient reported having some burning pain with urination over the last few days. UA negative * Ceftriaxone 1 g daily; discontinued 3/3 with UA negative (5) Hypertension ICD Codes: I10 - Essential (primary) hypertension Status: Chronic Plan: Patient with a history of hypertension. On admission she was originally found to be hypertensive at 202/84. After pain control her blood pressure decreased to 174/71. She reports that she has not taken her blood pressure medications today. * Continue patient's carvedilol daily (6) Hypothyroid ICD Codes: E03.9 - Hypothyroidism, unspecified Status: Chronic Plan: Patient with history of hypothyroidism * Continue Synthroid (7) Lupus ICD Codes: M32.9 - Systemic lupus erythematosus, unspecified Status: Chronic Plan: Patient with history of lupus. * Continue Plaquenil (8) Nutrition, metabolism, and development symptoms ICD Codes: R63.8 - Other symptoms and signs concerning food and fluid intake Status: Acute Plan: Fluids: NS IV at 84 mL's per hour Diet: Regular diet Monitor electrolytes replace accordingly Vitals every 4 Placed on telemetry Bedrest with bathroom privileges DVT prophylaxis with heparin and SCDs Sleep: pt home dose phenobarbital and atarax dosed for qhs CODE STATUS: Full code Disposition:admitted for lung bx and ID (Carmine Jang MD R1) Problem Qualifiers (1) UTI (urinary tract infection): (2) Hypertension: Qualified Codes: I10 - Essential (primary) hypertension (3) Hypothyroid: Qualified Codes: E03.9 - Hypothyroidism, unspecified (4) Lupus: Qualified Codes: L93.0 - Discoid lupus erythematosus Carmine Jang MD R1 Jan 30, 2018 11:44 Deb Ryder MD Jan 31, 2018 12:03
--- NOTE | 2018-01-30 16:46 | HHI.PR ---
Subjective Remarks 77 YO female with Lupus, Sjogren synd,raynaud's dis has Cavitary lesion lung Cough, difficult to expactorate No Fever Objective Vital Signs Vital Signs Date Time Temp Pulse Resp B/P (MAP) Pulse Ox O2 Delivery O2 Flow Rate FiO2 01/30/18 16:11 98.2 71 18 166/72 (103) 98 01/30/18 12:21 98.3 74 18 133/61 (85) 96 01/30/18 08:39 98.4 100 20 160/72 (101) 96 01/30/18 06:15 83 01/30/18 04:13 98.0 78 17 140/60 (86) 97 01/29/18 23:19 98.1 80 17 141/62 (88) 97 01/29/18 20:34 97.9 82 17 149/69 (95) 97 01/29/18 20:22 96 I/O 01/29/18 01/29/18 01/29/18 01/30/18 01/30/18 01/30/18 07:00 15:00 23:00 07:00 15:00 23:00 # Voids 2 2 Result Diagram: 01/30/18 0515 01/30/18 0515 Objective Remarks GENERAL: Thin built WF,NAD SKIN: Warm and dry. HEAD: Normocephalic. EYES: No scleral icterus. No injection or drainage. NECK: Supple, trachea midline. No JVD or lymphadenopathy. CARDIOVASCULAR: Regular rate and rhythm without murmurs, gallops, or rubs. RESPIRATORY: Breath sounds equal bilaterally. No accessory muscle use. GASTROINTESTINAL: Abdomen soft, non-tender, nondistended. MUSCULOSKELETAL: No cyanosis, or edema. BACK: Nontender without obvious deformity. No CVA tenderness. A/P Assessment and Plan Bronchiecresis Cavitary lesion lung Lupus Sjogren synd Raynauds dis PLAN: Aerosol nebs Acapella Cont Abx plans for lung bx DW pt and her son NiravGerard MD Jan 30, 2018 16:46
--- NOTE | 2018-01-30 18:18 | HHI.IDPN ---
Subjective Subjective Remarks having cough, not much expectoratinf no fever scheduled for bx EKG reviewed: QTc 378 pt deverlopped new onset diarrhea, had 4 BMs Antibiotics CFTX Allergies: Coded Allergies: Sulfa (Sulfonamide Antibiotics) (Unverified Allergy, Severe, 01/28/18) celecoxib (Unverified Allergy, Severe, 01/28/18) cyclobenzaprine (Unverified Allergy, Severe, 01/28/18) meperidine (Unverified Allergy, Severe, 01/28/18) morphine (Unverified Allergy, Severe, 01/28/18) penicillin G (Unverified Allergy, Severe, 01/28/18) codeine (Unverified Allergy, Mild, 01/28/18) Objective . Vital Signs Date Time Temp Pulse Resp B/P (MAP) Pulse Ox O2 Delivery O2 Flow Rate FiO2 01/30/18 16:11 98.2 71 18 166/72 (103) 98 01/30/18 12:21 98.3 74 18 133/61 (85) 96 01/30/18 08:39 98.4 100 20 160/72 (101) 96 01/30/18 06:15 83 01/30/18 04:13 98.0 78 17 140/60 (86) 97 01/29/18 23:19 98.1 80 17 141/62 (88) 97 01/29/18 20:34 97.9 82 17 149/69 (95) 97 01/29/18 20:22 96 01/30/18 01/30/18 01/31/18 15:00 23:00 07:00 Intake Total 1000 ml Balance 1000 ml Intake IV Total 1000 ml . Laboratory Tests Test 01/29/18 06:43 01/30/18 05:15 White Blood Count 9.3 TH/MM3 11.3 TH/MM3 Red Blood Count 3.97 MIL/MM3 4.25 MIL/MM3 Hemoglobin 11.5 GM/DL 12.3 GM/DL Hematocrit 33.6 % 36.4 % Mean Corpuscular Volume 84.7 FL 85.7 FL Mean Corpuscular Hemoglobin 29.1 PG 28.9 PG Mean Corpuscular Hemoglobin Concent 34.3 % 33.8 % Red Cell Distribution Width 13.5 % 13.6 % Platelet Count 274 TH/MM3 296 TH/MM3 Mean Platelet Volume 7.3 FL 7.2 FL Neutrophils (%) (Auto) 67.9 % 65.7 % Lymphocytes (%) (Auto) 13.9 % 15.9 % Monocytes (%) (Auto) 12.8 % 13.2 % Eosinophils (%) (Auto) 4.7 % 4.5 % Basophils (%) (Auto) 0.7 % 0.7 % Neutrophils # (Auto) 6.3 TH/MM3 7.4 TH/MM3 Lymphocytes # (Auto) 1.3 TH/MM3 1.8 TH/MM3 Monocytes # (Auto) 1.2 TH/MM3 1.5 TH/MM3 Eosinophils # (Auto) 0.4 TH/MM3 0.5 TH/MM3 Basophils # (Auto) 0.1 TH/MM3 0.1 TH/MM3 CBC Comment DIFF FINAL DIFF FINAL Differential Comment Laboratory Tests Test 01/28/18 20:10 01/28/18 23:57 01/29/18 06:43 01/30/18 05:15 Troponin I LESS THAN 0.02 NG/ML LESS THAN 0.02 NG/ML Blood Urea Nitrogen 7 MG/DL 8 MG/DL Creatinine 0.49 MG/DL 0.50 MG/DL Random Glucose 86 MG/DL 98 MG/DL Calcium Level 9.2 MG/DL 9.2 MG/DL Sodium Level 134 MEQ/L 132 MEQ/L Potassium Level 3.9 MEQ/L 3.7 MEQ/L Chloride Level 100 MEQ/L 100 MEQ/L Carbon Dioxide Level 24.4 MEQ/L 21.8 MEQ/L Anion Gap 10 MEQ/L 10 MEQ/L Estimat Glomerular Filtration Rate 123 ML/MIN 120 ML/MIN Microbiology Date/Time Source Procedure Growth Status 01/28/18 10:05 Blood Peripheral Aerobic Blood Culture - Preliminary NO GROWTH IN 2 DAYS Resulted 01/28/18 10:05 Blood Peripheral Anaerobic Blood Culture - Preliminary NO GROWTH IN 2 DAYS Resulted 01/28/18 10:00 Blood Peripheral Aerobic Blood Culture - Preliminary NO GROWTH IN 2 DAYS Resulted 01/28/18 10:00 Blood Peripheral Anaerobic Blood Culture - Preliminary NO GROWTH IN 2 DAYS Resulted 01/28/18 11:45 Nasal Aspirate Influenza Types A,B Antigen ([place]) - Final NEGATIVE FOR FLU A AND B ANTIGEN.... Complete Imaging Last Impressions CT Angiography 01/28/18 1116 Signed Impressions: Service Date/Time: January 12:47 - CONCLUSION: 1. 6 cm cavitary lesion in the left apex with increasing airspace disease or mass along its inferior margin. 2. New pleural-parenchymal disease in the left lung base medially. 3. Decreasing size of left lower lobe nodule 4. COPD. 5. No evidence of acute PE. 6. Intrahepatic gas which is likely in the biliary system. Venkata Mcwilliams MD Chest X-Ray 01/28/18 0955 Signed Impressions: Service Date/Time: January 10:10 - CONCLUSION: Slight interval worsening in aeration. Larry Angeles MD Physical Exam CONSTITUTIONAL/GENERAL: This is a frail elderly patient, in no apparent distress. TUBES/LINES/DRAINS: SKIN: No jaundice, rashes, or lesions. Skin temperature appropriate. Not diaphoretic. EYES: Pupils equal and round and reactive. . No injection or drainage. Fundi not examined. ENT: Hearing grossly normal. Nose without bleeding or purulent drainage. Throat without visible erythema, exudates, masses, or lesions. CARDIOVASCULAR: Regular rate and rhythm without murmurs, gallops, or rubs. No JVD. Peripheral pulses symmetric. RESPIRATORY/CHEST: Symmetric, unlabored respirations. R sided coarse BS to auscultation. GASTROINTESTINAL: Abdomen soft, non-tender, nondistended. No hepato-splenomegaly , or palpable masses. No guarding. Bowel sounds present. MUSCULOSKELETAL: Extremities without clubbing, cyanosis, or edema. No joint tenderness or effusion noted. No calf tenderness. No mottling or clubbing. NEUROLOGICAL: Awake and alert. Motor and sensory grossly within normal limits. Follows commands. Clear speech Moves all extremities. PSYCHIATRIC: No obvious anxiety/depression. no apparent hallucinations or other psychotic thought process. Laboratory Assessment & Plan Remarks A: Pulmonary AMNA infection established by radiografical, microbiological and clinical criteria + clinical and radiological progression Fibrocavitary disaease New prob: abx -associated diarrhea PLAN: Clarithromycin ( 500 mg bid)+Rifampin (600 mg daily)+Ethambutol 15 mg/kg daily MOnitoring parameters: CBC Creatinine LFTs EKGs Avoid QT prlonging agents concommitant use Visual acquity, colour vision baseline and monthly Sputum testing to document conversion dc CFTX r/o c.diff Xiomara Rudd MD Jan 30, 2018 18:18
[2018-01-31] VITALS (11 sets, daily range): BP systolic 126–150; BP diastolic 58–68; PULSE 75–92; RESP 14–20; TEMP 98.3–100; O2SAT 95–98
[2018-01-31] MEDS: SODIUM CHLOR 0.9% 1000 ML INJ 1,000 ML IV SCH ×2 (02:35→14:41)
[2018-01-31] MEDS: HEPARIN SODIUM - SQ 10,000 UNITS/ML VIAL SQ SCH ×3 (06:00→21:42)
[2018-01-31] MEDS: RESP: ALBUTEROL 2.5 MG/3 ML NEB (SCH) NEB ×3 (07:42→23:47)
[2018-01-31] MEDS: ONDANSETRON HCL 4 MG/2 ML VIAL IVP PRN ×3 (07:53→20:00)
[2018-01-31] MEDS: SODIUM CHLORIDE 0.9% FLUSH 10 ML FLUSH IV FLUSH SCH ×2 (08:00→21:00)
[2018-01-31] MEDS: ETHAMBUTOL HCL 400 MG TAB PO SCH (09:22)
[2018-01-31] MEDS: CLARITHROMYCIN 500 MG TAB PO SCH ×2 (09:23→21:40)
[2018-01-31] MEDS: RIFAMPIN 150 MG CAP PO SCH (09:23)
[2018-01-31] MEDS: ASPIRIN 81 MG CHEW TAB CHEW SCH (09:24)
[2018-01-31] MEDS: PANTOPRAZOLE SOD 40 MG DELAYED RELEASE TAB PO SCH (09:25)
[2018-01-31] MEDS: LEVOTHYROXINE SODIUM 25 MCG TAB PO SCH (09:25)
[2018-01-31] MEDS: CARVEDILOL 3.125 MG TAB PO SCH (09:25)
--- NOTE | 2018-01-31 10:20 | HHI.FPPN ---
Subjective Remarks She is doing well this morning. She reports normal bowel movements. She continues to have chest discomfort which is typical for her. She is asking for ibuprofen which she takes at home for this. She denies fever, chills, nausea, vomiting. (Chandler Lawson MD, R3) Objective Vitals Vital Signs Date Time Temp Pulse Resp B/P (MAP) Pulse Ox O2 Delivery O2 Flow Rate FiO2 01/31/18 09:15 98.3 91 20 150/68 (95) 98 01/31/18 07:43 95 21 01/31/18 03:25 98.4 84 17 142/62 (88) 95 01/31/18 00:07 98.8 76 18 143/65 (91) 97 01/30/18 20:45 98 01/30/18 19:25 98.4 79 18 159/68 (98) 98 01/30/18 16:11 98.2 71 18 166/72 (103) 98 01/30/18 12:21 98.3 74 18 133/61 (85) 96 I/O 01/30/18 01/30/18 01/30/18 01/31/18 01/31/18 01/31/18 07:00 15:00 23:00 07:00 15:00 23:00 Intake Total 1000 ml 300 ml Balance 1000 ml 300 ml Intake Oral 300 ml IV Total 1000 ml (Chandler Lawson MD, R3) Result Diagram: 01/30/18 0515 01/30/18 0515 Objective Remarks GENERAL: This is a thin, elderly female in no apparent distress. SKIN: No rashes, ecchymoses or lesions. Cool and dry. HEAD: Atraumatic. Normocephalic. EYES: Pupils equal round and reactive. Extraocular motions intact. No scleral icterus. No injection or drainage. ENT: Nose without drainage. Uvula midline. Airway patent. NECK: Trachea midline. No JVD or lymphadenopathy. Supple, nontender, no meningeal signs. CARDIOVASCULAR: Regular rate and rhythm without murmurs, gallops, or rubs. RESPIRATORY: Clear to auscultation. Breath sounds equal bilaterally. No wheezes , rales, or rhonchi. GASTROINTESTINAL: Abdomen soft, non-tender, nondistended. No hepato-splenomegaly , or palpable masses. No guarding. MUSCULOSKELETAL: Extremities without clubbing, cyanosis, or edema. No joint tenderness, effusion, or edema noted. No calf tenderness. NEUROLOGICAL: Awake and alert. Cranial nerves II through XII grossly intact. Motor and sensory grossly within normal limits. Normal speech. (Chandler Lawson MD, R3) A/P Assessment and Plan This is a 77-year-old female with an extensive past medical history significant for lupus, hypertension, hypothyroidism, colectomy, cholecystectomy , and lobectomy as a child. Patient has a known cavitary lesion. Patient admitted for lung biopsy and infectious disease consultation. Discharge Planning Pending cavitary lesion biopsy (Chandler Lawson MD, R3) Attending Attestation Patient seen and examined. Case reviewed and discussed with the resident team. Agree with plan of care as discussed with me and documented in the resident note. she will be getting her biopsy and then should be able to follow with ID as an outpt (Deb Ryder MD) Problem List: (1) Cavitary lesion of lung ICD Codes: J98.4 - Other disorders of lung Plan: Consulted pulmonology, Dr. Lauren Consult infectious disease. Pain control with tramadol and ibuprofen Dr Lauren plans to perform lung bx on Thursday, 02/02 Continue antibiotics per infectious disease: Clarithromycin 500 mg by mouth every 12 hours, rifampin 600 mg by mouth daily, ethambutol 800 mg daily (2) Atypical chest pain ICD Codes: R07.89 - Other chest pain Status: Chronic Plan: Due to AMNA infection. Tramadol pain 6-10 Ibuprofen when necessary pain 1-5 Chest pain workup on admission negative. (3) Hyponatremia Status: Acute Plan: acute vs chronic Possible medication related versus from cavitary lesion Continue to monitor (4) UTI (urinary tract infection) ICD Codes: N39.0 - Urinary tract infection Status: Resolved Plan: Patient reported having some burning pain with urination over the last few days. UA negative * Ceftriaxone 1 g daily; discontinued 3/3 with UA negative (5) Hypertension ICD Codes: I10 - Essential (primary) hypertension Status: Chronic Plan: Patient with a history of hypertension. * Continue patient's carvedilol daily (6) Hypothyroid ICD Codes: E03.9 - Hypothyroidism, unspecified Status: Chronic Plan: Patient with history of hypothyroidism * Continue Synthroid (7) Lupus ICD Codes: M32.9 - Systemic lupus erythematosus, unspecified Status: Chronic Plan: * Continue Plaquenil (8) Nutrition, metabolism, and development symptoms ICD Codes: R63.8 - Other symptoms and signs concerning food and fluid intake Status: Acute Plan: Fluids: NS IV at 84 mL's per hour Diet: Regular diet Monitor electrolytes replace accordingly Vitals every 4 Placed on telemetry Bedrest with bathroom privileges DVT prophylaxis with heparin and SCDs Sleep: pt home dose phenobarbital and atarax dosed for qhs CODE STATUS: Full code Disposition:admitted for lung bx and ID (Chandler Lawson MD, R3) Problem Qualifiers (1) UTI (urinary tract infection): (2) Hypertension: Qualified Codes: I10 - Essential (primary) hypertension (3) Hypothyroid: Qualified Codes: E03.9 - Hypothyroidism, unspecified (4) Lupus: Qualified Codes: L93.0 - Discoid lupus erythematosus Chandler Lawson MD, R3 Jan 31, 2018 10:20 Deb Ryder MD Jan 31, 2018 12:04
[2018-01-31 14:10] LABS: HEMATOCRIT 32.9 % (35.0-46.0); HEMOGLOBIN 11.2 GM/DL (11.6-15.3); MEAN CELL VOLUME 83.9 FL (80.0-100.0); MEAN CORPUSCULAR HEMOGLOBIN 28.6 PG (27.0-34.0); MEAN CORPUSCULAR HGB CONC 34.1 % (32.0-36.0); MEAN PLATELET VOLUME 7.3 FL (7.0-11.0); PLATELET COUNT 307 TH/MM3 (150-450); RED BLOOD COUNT 3.92 MIL/MM3 (4.00-5.30); RED CELL DISTRIBUTION WIDTH 13.4 % (11.6-17.2); WHITE BLOOD COUNT 9.8 TH/MM3 (4.0-11.0)
[2018-01-31 14:35] LABS: TOTAL BILIRUBIN ADULT 0.6 MG/DL (0.2-1.0); TOTAL PROTEIN 6.6 GM/DL (6.4-8.2)
[2018-01-31 14:42] LABS: ALBUMIN 2.8 GM/DL (3.4-5.0); BICARBONATE 24.1 MEQ/L (21.0-32.0); CALCIUM 8.7 MG/DL (8.5-10.1); CREATININE 0.46 MG/DL (0.50-1.00); DIRECT BILIRUBIN ADULT 0.2 MG/DL (0.0-0.2); INDIRECT BILIRUBIN 0.4 MG/DL (0.0-0.8)
[2018-01-31] MEDS: traMADol HCL 50 MG TAB PO PRN (14:44)
[2018-01-31] MEDS: IBUPROFEN 400 MG TAB PO PRN (15:46)
[2018-01-31] MEDS ORDERED: METOCLOPRAMIDE HCL 10 MG/2 ML VIAL IV PUSH ONE (17:00)
[2018-01-31] MEDS: LOPERAMIDE HCL 2 MG CAP PO PRN (17:08)
--- NOTE | 2018-01-31 18:00 | HHI.PR ---
Subjective Remarks 77 YO female with Lupus, Sjogren synd,raynaud's dis has Cavitary lesion lung Cough, difficult to expactorate No Fever Has N,V and diarrhoea, better now Objective Vital Signs Vital Signs Date Time Temp Pulse Resp B/P (MAP) Pulse Ox O2 Delivery O2 Flow Rate FiO2 01/31/18 15:30 86 01/31/18 12:00 81 01/31/18 10:33 75 18 126/58 (80) 95 01/31/18 09:15 98.3 91 20 150/68 (95) 98 01/31/18 07:43 95 21 01/31/18 07:15 87 01/31/18 03:25 98.4 84 17 142/62 (88) 95 01/31/18 00:07 98.8 76 18 143/65 (91) 97 01/30/18 20:45 98 01/30/18 19:25 98.4 79 18 159/68 (98) 98 I/O 01/30/18 01/30/18 01/30/18 01/31/18 01/31/18 01/31/18 07:00 15:00 23:00 07:00 15:00 23:00 Intake Total 1000 ml 300 ml Balance 1000 ml 300 ml Intake Oral 300 ml IV Total 1000 ml Result Diagram: 01/31/18 1310 01/31/18 1310 Objective Remarks GENERAL: Thin built WF,NAD SKIN: Warm and dry. HEAD: Normocephalic. EYES: No scleral icterus. No injection or drainage. NECK: Supple, trachea midline. No JVD or lymphadenopathy. CARDIOVASCULAR: Regular rate and rhythm without murmurs, gallops, or rubs. RESPIRATORY: Breath sounds equal bilaterally. No accessory muscle use. GASTROINTESTINAL: Abdomen soft, non-tender, nondistended. MUSCULOSKELETAL: No cyanosis, or edema. BACK: Nontender without obvious deformity. No CVA tenderness. A/P Assessment and Plan Bronchiecresis Cavitary lesion lung Lupus Sjogren synd Raynauds dis PLAN: Aerosol nebs Acapella Cont Abx plans for lung bx DW pt and her son will FU in AM. Gerard Gastelum MD Jan 31, 2018 18:00
[2018-01-31] MEDS: hydrOXYzine HCL 25 MG TAB PO SCH (21:40)
[2018-01-31] MEDS: HYDROXYCHLOROQUINE SULFATE 200 MG TAB PO SCH (21:41)
[2018-02-01] MEDS: SODIUM CHLOR 0.9% 1000 ML INJ 1,000 ML IV SCH ×2 (02:25→14:20)
[2018-02-01 03:39] VITALS: BP 158/70; PULSE 92; RESP 17; TEMP 98.7; O2SAT 97
[2018-02-01] MEDS: HEPARIN SODIUM - SQ 10,000 UNITS/ML VIAL SQ SCH ×3 (05:15→22:00)
[2018-02-01] MEDS: LOPERAMIDE HCL 2 MG CAP PO PRN (05:16)
[2018-02-01 05:58] LABS: AUTOMATED NEUTROPHIL # 5.3 TH/MM3 (1.8-7.7); BASOPHIL % 0.5 % (0.0-2.0); EOSINOPHIL % 0.6 % (0.0-4.0); HEMATOCRIT 36.1 % (35.0-46.0); HEMOGLOBIN 12.3 GM/DL (11.6-15.3); LYMPH % 7.4 % (9.0-44.0); LYMPHOCYTE # 0.5 TH/MM3 (1.0-4.8); MEAN CELL VOLUME 84.2 FL (80.0-100.0); MEAN CORPUSCULAR HEMOGLOBIN 28.7 PG (27.0-34.0); MEAN CORPUSCULAR HGB CONC 34.1 % (32.0-36.0); MEAN PLATELET VOLUME 7.1 FL (7.0-11.0); MONO % 10.8 % (0.0-8.0); MONOCYTE # 0.7 TH/MM3 (0-0.9); NEUT % 80.7 % (16.0-70.0); PLATELET COUNT 327 TH/MM3 (150-450); RED BLOOD COUNT 4.28 MIL/MM3 (4.00-5.30); RED CELL DISTRIBUTION WIDTH 13.5 % (11.6-17.2); WHITE BLOOD COUNT 6.5 TH/MM3 (4.0-11.0)
[2018-02-01 06:26] LABS: ALBUMIN 2.7 GM/DL (3.4-5.0); AST (GOT) 35 U/L (15-37); BLOOD UREA NITROGEN 14 MG/DL (7-18); CALCIUM 8.6 MG/DL (8.5-10.1); CHLORIDE 103 MEQ/L (98-107); CREATININE 0.61 MG/DL (0.50-1.00); GLOMERULAR FILTRATION RATE 96 ML/MIN (>89); GLUCOSE,RANDOM 118 MG/DL (74-106); SODIUM (NA) 135 MEQ/L (136-145)
[2018-02-01 06:29] LABS: ALKALINE PHOSPHATASE 309 U/L (45-117); ALT (GPT) 30 U/L (10-53); TOTAL BILIRUBIN ADULT 0.4 MG/DL (0.2-1.0); TOTAL PROTEIN 6.8 GM/DL (6.4-8.2)
[2018-02-01] MEDS: RESP: ALBUTEROL 2.5 MG/3 ML NEB (SCH) NEB (07:06)
[2018-02-01] MEDS ORDERED: POTASSIUM CHLORIDE 10 MEQ CONTROLLED RELEASE TAB PO ONE (08:00)
[2018-02-01] MEDS: SODIUM CHLORIDE 0.9% FLUSH 10 ML FLUSH IV FLUSH SCH ×2 (09:00→22:43)
[2018-02-01] MEDS: CARVEDILOL 3.125 MG TAB PO SCH (09:00)
[2018-02-01] MEDS ORDERED: BISMUTH SUBSALICYLATE 240 ML BTL PO PRN (10:00)
[2018-02-01] MEDS: RIFAMPIN 150 MG CAP PO SCH (10:38)
[2018-02-01] MEDS: PANTOPRAZOLE SOD 40 MG DELAYED RELEASE TAB PO SCH (10:39)
[2018-02-01] MEDS: ETHAMBUTOL HCL 400 MG TAB PO SCH (10:39)
[2018-02-01] MEDS: LEVOTHYROXINE SODIUM 25 MCG TAB PO SCH (10:40)
[2018-02-01] MEDS: CLARITHROMYCIN 500 MG TAB PO SCH ×2 (10:40→22:42)
[2018-02-01] MEDS: ASPIRIN 81 MG CHEW TAB CHEW SCH (10:41)
[2018-02-01] MEDS: METOCLOPRAMIDE HCL 10 MG TAB PO SCH ×2 (12:00→17:00)
--- NOTE | 2018-02-01 12:07 | HHI.FPPN ---
Subjective Remarks Ms Vega had emesis yesterday following start of antibiotics for AMNA infection. She feels nauseous this morning but is tolerating her yogurt. She tells us this morning that she normally takes erythromycin or reglan with meals for gastroparesis but has not been taking during her hospitalization. Still has CP from lung infection, but not SOB. (Carmine Jang MD R1) Objective Vitals Vital Signs Date Time Temp Pulse Resp B/P (MAP) Pulse Ox O2 Delivery O2 Flow Rate FiO2 02/01/18 03:39 98.7 92 17 158/70 (99) 97 01/31/18 23:44 100.0 92 15 127/58 (81) 96 01/31/18 20:01 95 21 01/31/18 19:33 99.1 85 14 149/65 (93) 95 01/31/18 15:30 86 01/31/18 12:00 81 I/O 01/31/18 01/31/18 01/31/18 02/01/18 02/01/18 02/01/18 07:00 15:00 23:00 07:00 15:00 23:00 Intake Total 300 ml Balance 300 ml Intake Oral 300 ml (Carmine Jang MD R1) Result Diagram: 02/01/18 0529 02/01/18 05 Objective Remarks GENERAL: This is a thin, elderly female in no apparent distress. SKIN: No rashes, ecchymoses or lesions. Cool and dry. HEAD: Atraumatic. Normocephalic. EYES: Pupils equal round and reactive. Extraocular motions intact. No scleral icterus. No injection or drainage. ENT: Nose without drainage. Uvula midline. Airway patent. NECK: Trachea midline. No JVD or lymphadenopathy. Supple, nontender, no meningeal signs. CARDIOVASCULAR: Regular rate and rhythm without murmurs, gallops, or rubs. RESPIRATORY: Clear to auscultation. Breath sounds equal bilaterally. No wheezes , rales, or rhonchi. GASTROINTESTINAL: Abdomen soft, non-tender, nondistended. No hepato-splenomegaly , or palpable masses. No guarding. MUSCULOSKELETAL: Extremities without clubbing, cyanosis, or edema. No joint tenderness, effusion, or edema noted. No calf tenderness. NEUROLOGICAL: Awake and alert. Cranial nerves II through XII grossly intact. Motor and sensory grossly within normal limits. Normal speech. Medications and IVs Current Medications Medications (Trade) Dose Ordered Sig/Kelly Route Start Time Stop Time Status Last Admin (Apresoline Inj) 10 mg Q6H PRN IV PUSH 01/28/18 14:00 (NS Flush) 2 ml UNSCH PRN IV FLUSH 01/28/18 14:00 01/29/18 06:35 (NS Flush) 2 ml BID IV FLUSH 01/28/18 21:00 (Tylenol) 650 mg Q4H PRN PO 01/28/18 14:00 (Zofran Inj) 4 mg Q6H PRN IVP 01/28/18 14:00 01/31/18 20:00 (Ambien) 5 mg HS PRN PO 01/28/18 14:00 01/30/18 23:55 (Heparin Inj) 5,000 units Q8H SQ 01/28/18 14:00 01/30/18 23:55 (Narcan Inj) 0.4 mg UNSCH PRN IV PUSH 01/28/18 14:00 (Chitra-Colace) 1 tab BID PO 01/28/18 21:00 Future Hold (Milk Of Magnesia Liq) 30 ml Q12H PRN PO 01/28/18 14:00 Future Hold (Senokot) 17.2 mg Q12H PRN PO 01/28/18 14:00 Future Hold (Dulcolax Supp) 10 mg DAILY PRN RECTAL 01/28/18 14:00 Future Hold (Lactulose Liq) 30 ml DAILY PRN PO 01/28/18 14:00 Future Hold (Aspirin Chew) 162 mg DAILY CHEW 01/29/18 09:00 02/01/18 10:41 (Albuterol Neb) 2.5 mg Q8HR NEB NEB 01/28/18 16:00 02/01/18 07:06 (Valium) 10 mg DAILY PRN PO 01/28/18 14:15 (Synthroid) 25 mcg DAILY PO 01/29/18 09:00 02/01/18 10:40 (Protonix) 40 mg DAILY PO 01/29/18 09:00 02/01/18 10:39 (Nitrostat Sl) 0.4 mg Q5M PRN SL 01/28/18 14:15 Sodium Chloride 1,000 ml @ 84 mls/hr [id number] IV 01/28/18 15:00 01/31/18 14:41 (Ultram) 50 mg Q4H PRN PO 01/29/18 13:15 01/31/18 14:44 (Plaquenil) 100 mg Q48H PO 01/29/18 21:00 01/31/18 21:41 (Coreg) 3.125 mg DAILY PO 01/31/18 09:00 01/31/18 09:25 (Atarax) 25 mg HS PO 01/30/18 21:00 01/31/18 21:40 (PHENobarbital) 30 mg HS PO 01/30/18 21:00 01/31/18 21:41 (Biaxin) 500 mg Q12HR PO 01/31/18 09:00 02/01/18 10:40 (Myambutol) 800 mg DAILY PO 01/31/18 09:00 02/01/18 10:39 (Rifampin) 600 mg DAILY PO 01/31/18 09:00 02/01/18 10:38 (Motrin) 400 mg Q6H PRN PO 01/31/18 10:15 01/31/18 15:46 (Reglan) 5 mg TIDAC PO 02/01/18 12:00 (Pepto-Bismol Liq) 15 ml Q6HR PRN PO 02/01/18 10:00 (Carmine Jang MD R1) Urinary Catheter: No (Carmine Jang MD R1) A/P Assessment and Plan This is a 77-year-old female with an extensive past medical history significant for lupus, hypertension, hypothyroidism, colectomy, cholecystectomy , and lobectomy as a child. Patient has a known cavitary lesion. Patient admitted for lung biopsy and infectious disease consultation for AMNA infection. Dr Lauren plans lung bx tomorrow. Discharge Planning Pending cavitary lesion biopsy (Carmine Jang MD R1) Attending Attestation Patient seen and examined. Case reviewed and discussed with the resident team. Agree with plan of care as discussed with me and documented in the resident note. she has gastroparesis at baseline and has trouble with nausea and vomiting chronically. her biaxin can take the place of her erythromycin (Deb Ryder MD) Problem List: (1) Cavitary lesion of lung ICD Codes: J98.4 - Other disorders of lung Plan: Consulted pulmonology, Dr. Lauren Consult infectious disease. Pain control with tramadol and ibuprofen Dr Lauren plans to perform lung bx on Thursday, 02/02 Continue antibiotics per infectious disease: Clarithromycin 500 mg by mouth every 12 hours, rifampin 600 mg by mouth daily, ethambutol 800 mg daily -Dosing for Clarithromycin changed to q12h after meals to reduce chance of nausea and vomiting (2) Gastroparesis ICD Codes: K31.84 - Gastroparesis Status: Chronic Plan: Pt describes how she takes erythromycin or reglan with meals for gastroparesis; however, this is not in med recs; pt with nausea, vomiting and diarrhea overnight and describes vomiting approx 2 hours after eating; restart reglan to aid in motility and DC anti-motility meds -Start reglan 5mg PO prior to meals for motility -Stop Imodium -Start kaopectate q6h PRN for diarrhea -EKG to check QTc due to pt taking multiple QT prolonging meds (3) Atypical chest pain ICD Codes: R07.89 - Other chest pain Status: Chronic Plan: Due to AMNA infection. Tramadol pain 6-10 Ibuprofen when necessary pain 1-5 Chest pain workup on admission negative. (4) Hyponatremia Status: Acute Plan: acute vs chronic; resolved today at 135 Possible medication related versus from cavitary lesion Continue to monitor (5) UTI (urinary tract infection) ICD Codes: N39.0 - Urinary tract infection Status: Resolved Plan: Patient reported having some burning pain with urination over the last few days. UA negative * Ceftriaxone 1 g daily; discontinued 3/3 with UA negative (6) Hypertension ICD Codes: I10 - Essential (primary) hypertension Status: Chronic Plan: Patient with a history of hypertension. * Continue patient's carvedilol daily (7) Hypothyroid ICD Codes: E03.9 - Hypothyroidism, unspecified Status: Chronic Plan: Patient with history of hypothyroidism * Continue Synthroid (8) Lupus ICD Codes: M32.9 - Systemic lupus erythematosus, unspecified Status: Chronic Plan: * Continue Plaquenil (9) Nutrition, metabolism, and development symptoms ICD Codes: R63.8 - Other symptoms and signs concerning food and fluid intake Status: Acute Plan: Fluids: NS IV at 84 mL's per hour Diet: Regular diet Monitor electrolytes replace accordingly; mild hypokalemia this morning likely 2 /2 emesis; repleting with KCl 30meq PO once Vitals every 4 Placed on telemetry Bedrest with bathroom privileges DVT prophylaxis with heparin and SCDs Sleep: pt home dose phenobarbital and atarax dosed for qhs CODE STATUS: Full code Disposition:admitted for lung bx and ID (Carmine Jang MD R1) Problem Qualifiers (1) UTI (urinary tract infection): (2) Hypertension: Qualified Codes: I10 - Essential (primary) hypertension (3) Hypothyroid: Qualified Codes: E03.9 - Hypothyroidism, unspecified (4) Lupus: Qualified Codes: L93.0 - Discoid lupus erythematosus Carmine Jang MD R1 Feb 01, 2018 12:07 Deb Ryder MD Feb 04, 2018 16:40
[2018-02-01] MEDS: ACETAMINOPHEN 325 MG TAB PO PRN (13:01)
[2018-02-01 13:18] VITALS: BP 151/69; PULSE 90; RESP 18; TEMP 97.8; O2SAT 98
[2018-02-01 15:38] VITALS: BP 151/67; PULSE 88; RESP 16; TEMP 98.7; O2SAT 96
--- NOTE | 2018-02-01 16:59 | HHI.PR ---
Subjective Remarks alert no sob at rest C/O N/V ? MED RELATED Objective Vital Signs Date Time Temp Pulse Resp B/P (MAP) Pulse Ox O2 Delivery O2 Flow Rate FiO2 02/01/18 15:38 98.7 88 16 151/67 (95) 96 02/01/18 13:18 97.8 90 18 151/69 (96) 98 02/01/18 03:39 98.7 92 17 158/70 (99) 97 01/31/18 23:44 100.0 92 15 127/58 (81) 96 01/31/18 20:01 95 21 01/31/18 19:33 99.1 85 14 149/65 (93) 95 I/O 01/31/18 01/31/18 01/31/18 02/01/18 02/01/18 02/01/18 07:00 15:00 23:00 07:00 15:00 23:00 Intake Total 300 ml Balance 300 ml Intake Oral 300 ml Result Diagram: 02/01/18 0529 02/01/18 0529 Assessment and Plan Assessment and Plan COPD AMNA ENLARGING CAVITARY MASS PORTILLO PLAN ANTI TB MEDS PER ID NEEDLE BX PORTILLO MASS O2 NEEDED BRONCHODILATOR THERAPY Xin Lauren MD Feb 01, 2018 16:59
[2018-02-01 19:43] VITALS: BP 151/70; PULSE 84; RESP 20; TEMP 98.8; O2SAT 96
[2018-02-01 20:24] LABS: AUTOMATED NEUTROPHIL # 4.7 TH/MM3 (1.8-7.7); BASOPHIL % 0.7 % (0.0-2.0); EOSINOPHIL # 0.1 TH/MM3 (0-0.4); EOSINOPHIL % 1.9 % (0.0-4.0); HEMATOCRIT 31.7 % (35.0-46.0); LYMPH % 9.5 % (9.0-44.0); LYMPHOCYTE # 0.6 TH/MM3 (1.0-4.8); MEAN CELL VOLUME 83.5 FL (80.0-100.0); MEAN CORPUSCULAR HGB CONC 34.7 % (32.0-36.0); MONO % 9.9 % (0.0-8.0); MONOCYTE # 0.6 TH/MM3 (0-0.9); PLATELET COUNT 297 TH/MM3 (150-450); RED CELL DISTRIBUTION WIDTH 13.1 % (11.6-17.2)
[2018-02-01 20:30] VITALS: BP 158/68; PULSE 85; RESP 20; TEMP 97.8; O2SAT 95
[2018-02-01 21:12] LABS: INTERNATIONAL NORMALIZED RATIO 1.1 RATIO; PROTHROMBIN TIME - PATIENT 11.1 SEC (9.8-11.6)
[2018-02-01] MEDS ORDERED: PHENobarbital 32.4 MG TAB PO SCH (22:30)
[2018-02-01] MEDS: ONDANSETRON HCL 4 MG/2 ML VIAL IVP PRN (22:41)
[2018-02-01] MEDS: hydrOXYzine HCL 25 MG TAB PO SCH (22:42)
[2018-02-01] MEDS: IBUPROFEN 400 MG TAB PO PRN (22:43)
[2018-02-02] VITALS: BP 112/57; PULSE 75; PULSE 77; RESP 20; TEMP 98.6; O2SAT 96
[2018-02-02 03:50] VITALS: BP 121/58; PULSE 71; RESP 18; TEMP 98.2; O2SAT 96
[2018-02-02 04:00] VITALS: PULSE 70
[2018-02-02] MEDS: HEPARIN SODIUM - SQ 10,000 UNITS/ML VIAL SQ SCH ×3 (04:40→13:09)
[2018-02-02] MEDS: SODIUM CHLOR 0.9% 1000 ML INJ 1,000 ML IV SCH (04:40)
[2018-02-02 08:00] VITALS: BP 136/63; PULSE 65; PULSE 69; RESP 18; TEMP 97.2; O2SAT 98
[2018-02-02] MEDS: METOCLOPRAMIDE HCL 10 MG TAB PO SCH ×2 (08:00→11:30)
[2018-02-02] MEDS: ASPIRIN 81 MG CHEW TAB CHEW SCH (09:00)
[2018-02-02] MEDS: SODIUM CHLORIDE 0.9% FLUSH 10 ML FLUSH IV FLUSH SCH (09:00)
[2018-02-02] MEDS: CARVEDILOL 3.125 MG TAB PO SCH (09:00)
[2018-02-02] MEDS: ONDANSETRON HCL 4 MG/2 ML VIAL IVP PRN (09:03)
[2018-02-02] MEDS: PANTOPRAZOLE SOD 40 MG DELAYED RELEASE TAB PO SCH (09:03)
[2018-02-02] MEDS: LEVOTHYROXINE SODIUM 25 MCG TAB PO SCH (09:03)
[2018-02-02] MEDS: CLARITHROMYCIN 500 MG TAB PO SCH (09:03)
[2018-02-02] MEDS: RIFAMPIN 150 MG CAP PO SCH (09:11)
[2018-02-02] MEDS: ACETAMINOPHEN 325 MG TAB PO PRN (09:12)
[2018-02-02] MEDS: ETHAMBUTOL HCL 400 MG TAB PO SCH (09:29)
--- NOTE | 2018-02-02 09:51 | HHI.FPPN ---
Subjective Remarks Patient feeling a little better this morning. She is unsure whether or not she is going for a lung biopsy today. Nursing reports the patient needs to be off aspirin for 5 total days before consideration for biopsy. She continues to have chest discomfort which usual for her. She denies headache, fever, chills. (Chandler Lawson MD, R3) Objective Vitals Vital Signs Date Time Temp Pulse Resp B/P (MAP) Pulse Ox O2 Delivery O2 Flow Rate FiO2 02/02/18 09:39 Room Air 02/02/18 08:00 97.2 69 18 136/63 (87) 98 02/02/18 04:00 70 02/02/18 03:50 98.2 71 18 121/58 (79) 96 02/02/18 00:00 98.6 75 20 112/57 (75) 96 02/02/18 00:00 77 02/01/18 20:30 97.8 85 20 158/68 (98) 95 02/01/18 20:30 Room Air 02/01/18 19:43 98.8 84 20 151/70 (97) 96 02/01/18 15:38 98.7 88 16 151/67 (95) 96 02/01/18 14:01 20 02/01/18 13:18 97.8 90 18 151/69 (96) 98 (Chandler Lawson MD, R3) Result Diagram: 02/01/18195502/01/18528 Objective Remarks GENERAL: This is a thin, elderly female in no apparent distress. SKIN: No rashes, ecchymoses or lesions. Cool and dry. HEAD: Atraumatic. Normocephalic. EYES: Pupils equal round and reactive. Extraocular motions intact. No scleral icterus. No injection or drainage. ENT: Nose without drainage. Uvula midline. Airway patent. NECK: Trachea midline. No JVD or lymphadenopathy. Supple, nontender, no meningeal signs. CARDIOVASCULAR: Regular rate and rhythm without murmurs, gallops, or rubs. RESPIRATORY: Clear to auscultation. Breath sounds equal bilaterally. No wheezes , rales, or rhonchi. GASTROINTESTINAL: Abdomen soft, non-tender, nondistended. No hepato-splenomegaly , or palpable masses. No guarding. MUSCULOSKELETAL: Extremities without clubbing, cyanosis, or edema. No joint tenderness, effusion, or edema noted. No calf tenderness. NEUROLOGICAL: Awake and alert. Cranial nerves II through XII grossly intact. Motor and sensory grossly within normal limits. Normal speech. (Chandler Lawson MD, R3) A/P Assessment and Plan This is a 77-year-old female with an extensive past medical history significant for lupus, hypertension, hypothyroidism, colectomy, cholecystectomy , and lobectomy as a child. Patient has a known cavitary lesion. Patient admitted for lung biopsy and infectious disease consultation for AMNA infection. Discharge Planning Initially, patient hospitalized for lung biopsy. However, patient may need to be off of aspirin for 5 total days in order to have the biopsy. Interventional radiology consulted. If the patient needs to be off aspirin for 5 total days, may consider discharging to have outpatient biopsy. (Chandler Lawson MD, R3) Attending Attestation Patient seen and examined. Case reviewed and discussed with the resident team. Agree with plan of care as discussed with me and documented in the resident note. she prefers to establish with an outpt ID Dr as she will need a very long course of abx (Deb Ryder MD) Problem List: (1) Cavitary lesion of lung ICD Codes: J98.4 - Other disorders of lung Plan: Consulted pulmonology, Dr. Lauren Consult infectious disease. Pain control with tramadol and ibuprofen Initially, Dr Lauren planned to perform lung bx on Thursday, 02/02; however, interventional radiology now consulted for procedure. Patient may need to be off aspirin for 5 total days. Consideration for outpatient procedure at this time Continue antibiotics per infectious disease: Clarithromycin 500 mg by mouth every 12 hours-(Dosing Clarithromycin after meals to reduce chance of nausea and vomiting), rifampin 600 mg by mouth daily, ethambutol 800 mg daily (2) Gastroparesis ICD Codes: K31.84 - Gastroparesis Status: Chronic Plan: Pt describes how she takes erythromycin or reglan with meals for gastroparesis -reglan 5mg PO prior to meals for motility -Stop Imodium -Start kaopectate q6h PRN for diarrhea -EKG to check QTc due to pt taking multiple QT prolonging meds (3) Atypical chest pain ICD Codes: R07.89 - Other chest pain Status: Chronic Plan: Due to AMNA infection. Tramadol pain 6-10 Ibuprofen when necessary pain 1-5 Chest pain workup on admission negative. (4) Hyponatremia Status: Acute Plan: Possible medication related versus from cavitary lesion Continue to monitor (5) UTI (urinary tract infection) ICD Codes: N39.0 - Urinary tract infection Status: Resolved Plan: Patient reported having some burning pain with urination over the last few days. UA negative * Ceftriaxone 1 g daily; discontinued 3/3 with UA negative (6) Hypertension ICD Codes: I10 - Essential (primary) hypertension Status: Chronic Plan: Patient with a history of hypertension. * Continue patient's carvedilol daily (7) Hypothyroid ICD Codes: E03.9 - Hypothyroidism, unspecified Status: Chronic Plan: Patient with history of hypothyroidism * Continue Synthroid (8) Lupus ICD Codes: M32.9 - Systemic lupus erythematosus, unspecified Status: Chronic Plan: * Continue Plaquenil (9) Nutrition, metabolism, and development symptoms ICD Codes: R63.8 - Other symptoms and signs concerning food and fluid intake Status: Acute Plan: Fluids: NS IV at 84 mL's per hour Diet: Regular diet Monitor electrolytes replace accordingly; mild hypokalemia this morning likely 2 /2 emesis; repleting with KCl 30meq PO once Vitals every 4 Placed on telemetry Bedrest with bathroom privileges DVT prophylaxis with heparin and SCDs Sleep: pt home dose phenobarbital and atarax dosed for qhs CODE STATUS: Full code Disposition:admitted for lung bx and ID (Chandler Lawson MD, R3) Problem Qualifiers (1) UTI (urinary tract infection): (2) Hypertension: Qualified Codes: I10 - Essential (primary) hypertension (3) Hypothyroid: Qualified Codes: E03.9 - Hypothyroidism, unspecified (4) Lupus: Qualified Codes: L93.0 - Discoid lupus erythematosus Chandler Lawson MD, R3 Feb 02, 2018 09:51 Deb Ryder MD Feb 04, 2018 16:45
--- NOTE | 2018-02-02 09:57 | HHI.PR ---
Subjective Remarks alert no sob at rest Objective Vital Signs Date Time Temp Pulse Resp B/P (MAP) Pulse Ox O2 Delivery O2 Flow Rate FiO2 02/02/18 09:39 Room Air 02/02/18 08:00 97.2 69 18 136/63 (87) 98 02/02/18 04:00 70 02/02/18 03:50 98.2 71 18 121/58 (79) 96 02/02/18 00:00 98.6 75 20 112/57 (75) 96 02/02/18 00:00 77 02/01/18 20:30 97.8 85 20 158/68 (98) 95 02/01/18 20:30 Room Air 02/01/18 19:43 98.8 84 20 151/70 (97) 96 02/01/18 15:38 98.7 88 16 151/67 (95) 96 02/01/18 14:01 20 02/01/18 13:18 97.8 90 18 151/69 (96) 98 Result Diagram: 02/01/18195502/01/18 0529 Assessment and Plan Assessment and Plan COPD AMNA ENLARGING CAVITARY MASS PORTILLO PLAN ANTI TB MEDS PER ID needle biopsy today BRONCHODILATOR THERAPY increase activity Xin Lauren MD Feb 02, 2018 09:57
[2018-02-02] MEDS ORDERED: Ethambutol PO (10:14)
[2018-02-02] MEDS ORDERED: RIFA150C2 PO (10:16)
[2018-02-02] MEDS ORDERED: CLAR500T PO (10:16)
[2018-02-02 10:49] LABS: AUTOMATED NEUTROPHIL # 3.7 TH/MM3 (1.8-7.7); BASOPHIL # 0.1 TH/MM3 (0-0.2); BASOPHIL % 0.9 % (0.0-2.0); EOSINOPHIL # 0.2 TH/MM3 (0-0.4); EOSINOPHIL % 3.7 % (0.0-4.0); HEMATOCRIT 31.8 % (35.0-46.0); LYMPH % 15.8 % (9.0-44.0); LYMPHOCYTE # 0.9 TH/MM3 (1.0-4.8); MEAN CELL VOLUME 83.7 FL (80.0-100.0); MEAN CORPUSCULAR HGB CONC 34.6 % (32.0-36.0); MEAN PLATELET VOLUME 7.1 FL (7.0-11.0); MONOCYTE # 0.7 TH/MM3 (0-0.9); NEUT % 66.6 % (16.0-70.0); PLATELET COUNT 305 TH/MM3 (150-450); RED CELL DISTRIBUTION WIDTH 13.4 % (11.6-17.2); WHITE BLOOD COUNT 5.6 TH/MM3 (4.0-11.0)
[2018-02-02 11:03] LABS: CALCIUM 8.1 MG/DL (8.5-10.1); CREATININE 0.47 MG/DL (0.50-1.00)
[2018-02-02] MEDS ORDERED: TRAM50TA PO ×3 (11:04→11:19)
[2018-02-02] MEDS ORDERED: METO10TA PO (11:04)
--- NOTE | 2018-02-02 11:05 | HHI.DCPOC ---
Discharge Care Plan Diagnosis: (1) Cavitary lesion of lung (2) Gastroparesis (3) Mycobacteria, atypical Goals to Promote Your Health * To prevent worsening of your condition and complications * To maintain your health at the optimal level Directions to Meet Your Goals Take your medications as prescribed Follow your dietary instruction Follow activity as directed Keep your appointments as scheduled Take your immunizations and boosters as scheduled If your symptoms worsen call your PCP, if no PCP go to Urgent Care Center or Emergency Room Smoking is Dangerous to Your Health. Avoid second hand smoke Call the 24-hour hour crisis hotline for domestic abuse at Chandler Lawson MD, R3 Feb 02, 2018 11:05
[2018-02-02 12:00] VITALS: BP 169/74; PULSE 74; PULSE 82; RESP 20; TEMP 97.7; O2SAT 98
[2018-02-02] MEDS: traMADol HCL 50 MG TAB PO PRN (12:21)
--- NOTE | 2018-02-02 15:23 | HHI.DS ---
Discharge Summary Admission Date Jan 29, 2018 at 13:04 Discharge Date: Feb 02, 2018 Admitting Diagnosis chest pain, cavitary lung lesion (1) Cavitary lesion of lung Diagnosis: Principal Plan: Consulted pulmonology, Dr. Lauren Consult infectious disease. Pain control with tramadol and ibuprofen Initially, Dr Lauren planned to perform lung bx on Thursday, 02/02; however, interventional radiology now consulted for procedure. Patient may need to be off aspirin for 5 total days. Consideration for outpatient procedure at this time Continue antibiotics per infectious disease: Clarithromycin 500 mg by mouth every 12 hours-(Dosing Clarithromycin after meals to reduce chance of nausea and vomiting), rifampin 600 mg by mouth daily, ethambutol 800 mg daily ICD Codes: J98.4 - Other disorders of lung (2) Gastroparesis Diagnosis: Secondary Plan: Pt describes how she takes erythromycin or reglan with meals for gastroparesis -reglan 5mg PO prior to meals for motility -Stop Imodium -Start kaopectate q6h PRN for diarrhea -EKG to check QTc due to pt taking multiple QT prolonging meds ICD Codes: K31.84 - Gastroparesis Status: Chronic (3) Atypical chest pain Diagnosis: Principal Plan: Due to [facility]NA infection. Tramadol pain 6-10 Ibuprofen when necessary pain 1-5 Chest pain workup on admission negative. ICD Codes: R07.89 - Other chest pain Status: Chronic (4) Hyponatremia Diagnosis: Secondary Plan: Possible medication related versus from cavitary lesion Continue to monitor Status: Acute (5) UTI (urinary tract infection) Diagnosis: Secondary Plan: Patient reported having some burning pain with urination over the last few days. UA negative * Ceftriaxone 1 g daily; discontinued / with UA negative ICD Codes: N39.0 - Urinary tract infection Status: Resolved (6) Hypertension Diagnosis: Secondary Plan: Patient with a history of hypertension. * Continue patient's carvedilol daily ICD Codes: I10 - Essential (primary) hypertension Status: Chronic (7) Hypothyroid Diagnosis: Secondary Plan: Patient with history of hypothyroidism * Continue Synthroid ICD Codes: E03.9 - Hypothyroidism, unspecified Status: Chronic (8) Lupus Diagnosis: Secondary Plan: * Continue Plaquenil ICD Codes: M32.9 - Systemic lupus erythematosus, unspecified Status: Chronic (9) Nutrition, metabolism, and development symptoms Plan: Fluids: NS IV at 84 mL's per hour Diet: Regular diet Monitor electrolytes replace accordingly; mild hypokalemia this morning likely 2 /2 emesis; repleting with KCl 30meq PO once Vitals every 4 Placed on telemetry Bedrest with bathroom privileges DVT prophylaxis with heparin and SCDs Sleep: pt home dose phenobarbital and atarax dosed for qhs CODE STATUS: Full code Disposition:admitted for lung bx and ID ICD Codes: R63.8 - Other symptoms and signs concerning food and fluid intake Status: Acute Consultants Pulmonology Infectious disease Brief History Ms Vega is a 77-year-old female with an extensive past medical history significant for lupus, hypertension, hypothyroidism, colectomy, cholecystectomy, and lobectomy of lower left lung for bronchiectasis as a child. Previous hospitalization she was found to have a cavitary lesion with pneumonia in October. She reports taking an extended course of levaquin and doxycycline without improvement. She is following with field checker Dr. Lauren for this lesion. 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 She reports having a PET scan done at [facility] that "lit up all over". She is presenting to [facility] at this time due to worsening chest pain. On Thursday she started to develop an upper respiratory infection consisting of worsening cough, sputum production, mild shortness of breath, and some mild chest pain. She thought that she could wait it out and would return to baseline. However her chest pain continued to worsen over the next few days and today was at its max. She also felt very dizzy today and thought that she would pass out and hit her head if her son had not caught her. She is also noticing night sweats throughout this last week or so as well and severe chills for several months. She has been having to use her albuterol inhaler more frequently and it has been helping her less. She describes the chest pain as a pressure in the center of her chest that radiates down her left arm, she calls it a heavy feeling. The chest pain is worse with any exertion as well as coughing, she feels better lying in the bed and not moving. She denies feeling feverish, denies any abdominal pain, nausea or vomiting, or diarrhea. She states she follows with Dr Tijerina for "a leaky valve" once a year. She has had little appetite but is stable on her weight. She states her "bones and ribs hurt ". She has required tramadol for pain. Dr Thornton has advised a biopsy for her and he is consulted as well as ID. CBC/BMP: 02/02/18 1025 02/02/18 1025 Significant Findings Laboratory Tests Test 01/31/18 11:29 01/31/18 13:10 02/01/18 05:29 02/01/18 19:56 Red Blood Count 3.92 MIL/MM3 (4.00-5.30) 3.80 MIL/MM3 (4.00-5.30) Hemoglobin 11.2 GM/DL (11.6-15.3) 11.0 GM/DL (11.6-15.3) Hematocrit 32.9 % (35.0-46.0) 31.7 % (35.0-46.0) Creatinine 0.46 MG/DL (0.50-1.00) Random Glucose 131 MG/DL (74-106) 118 MG/DL (74-106) Albumin 2.8 GM/DL (3.4-5.0) 2.7 GM/DL (3.4-5.0) Alkaline Phosphatase 287 U/L (45-117) 309 U/L (45-117) Aspartate Amino Transf (AST/SGOT) 43 U/L (15-37) Sodium Level 132 MEQ/L (136-145) 135 MEQ/L (136-145) Neutrophils (%) (Auto) 80.7 % (16.0-70.0) 78.0 % (16.0-70.0) Lymphocytes (%) (Auto) 7.4 % (9.0-44.0) Monocytes (%) (Auto) 10.8 % (0.0-8.0) 9.9 % (0.0-8.0) Lymphocytes # (Auto) 0.5 TH/MM3 (1.0-4.8) 0.6 TH/MM3 (1.0-4.8) Potassium Level 3.4 MEQ/L (3.5-5.1) Test 02/02/18 10:25 Red Blood Count 3.80 MIL/MM3 (4.00-5.30) Hemoglobin 11.0 GM/DL (11.6-15.3) Hematocrit 31.8 % (35.0-46.0) Monocytes (%) (Auto) 13.0 % (0.0-8.0) Lymphocytes # (Auto) 0.9 TH/MM3 (1.0-4.8) Creatinine 0.47 MG/DL (0.50-1.00) Calcium Level 8.1 MG/DL (8.5-10.1) Potassium Level 3.4 MEQ/L (3.5-5.1) Imaging Last Impressions CT Angiography 01/28/18 1116 Signed Impressions: Service Date/Time: January 12:47 - CONCLUSION: 1. 6 cm cavitary lesion in the left apex with increasing airspace disease or mass along its inferior margin. 2. New pleural-parenchymal disease in the left lung base medially. 3. Decreasing size of left lower lobe nodule 4. COPD. 5. No evidence of acute PE. 6. Intrahepatic gas which is likely in the biliary system. Venkata Mcwilliams MD Chest X-Ray 01/28/18 0955 Signed Impressions: Service Date/Time: January 10:10 - CONCLUSION: Slight interval worsening in aeration. Larry Angeles MD PE at Discharge GENERAL: This is a thin, elderly female in no apparent distress. SKIN: No rashes, ecchymoses or lesions. Cool and dry. HEAD: Atraumatic. Normocephalic. EYES: Pupils equal round and reactive. Extraocular motions intact. No scleral icterus. No injection or drainage. ENT: Nose without drainage. Uvula midline. Airway patent. NECK: Trachea midline. No JVD or lymphadenopathy. Supple, nontender, no meningeal signs. CARDIOVASCULAR: Regular rate and rhythm without murmurs, gallops, or rubs. RESPIRATORY: Clear to auscultation. Breath sounds equal bilaterally. No wheezes , rales, or rhonchi. GASTROINTESTINAL: Abdomen soft, non-tender, nondistended. No hepato-splenomegaly , or palpable masses. No guarding. MUSCULOSKELETAL: Extremities without clubbing, cyanosis, or edema. No joint tenderness, effusion, or edema noted. No calf tenderness. NEUROLOGICAL: Awake and alert. Cranial nerves II through XII grossly intact. Motor and sensory grossly within normal limits. Normal speech. Hospital Course ACS was ruled out with troponins and EKGs. Pulmonology and infectious disease were consulted due to the known cavitary lesion on imaging. 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 Infectious disease determined the patient will need to be on long-term antibiotics, and instructions were provided and are in the EMR. Pulmonology was consulted 01/29 for a lung biopsy to rule out underlying malignancy versus other. The plan was for the patient to have a lung biopsy on 02/02. However, 02/02 pulmonology decided interventional radiology was to perform the biopsy and because the patient had been on aspirin the day prior, they would wait for 5 total days without aspirin for proceeding with a biopsy in a nonemergent condition. Therefore, the decision was made to discharge the patient home with follow-up with her infectious disease doctor, Birgit Mccoy MD. if needed, the patient can have an outpatient biopsy of this cavitary lesion. Nursing sent records including this hospital course and previous bronchial washing showing Mycobacterium intracellulare. Pt Condition on Discharge: Stable Discharge Disposition: Discharge Home Discharge Instructions DIET: Follow Instructions for: As Tolerated, No Restrictions Activities you can perform: Regular-No Restrictions Follow up Referrals: Appointment for Follow Up @ [facility] Disease - [address] Birgit Velarde New Medications: Tramadol (Tramadol) 50 Mg Tab 50 MG PO Q8H PRN for PAIN, #30 TAB 0 Refills Clarithromycin (Clarithromycin) 500 Mg Tab 500 MG PO Q12HR for Infection, #62 TAB Metoclopramide (Metoclopramide) 10 Mg Tab 5 MG PO TIDAC, #45 TAB Rifampin (Rifampin) 150 Mg Cap 600 MG PO DAILY for Infection, #31 CAP 0 Refills [Ethambutol] () 400 MG TAB 800 MG PO DAILY for Infection, #31 TAB 0 Refills Continued Medications: Albuterol Neb (Albuterol Neb) 2.5 Mg/3 Ml Neb 2.5 MG NEB Q8HR for Shortness Of Breath, #1 NEBULE 0 Refills Carvedilol (Carvedilol) 3.125 Mg Tab 3.125 MG PO BID, #60 TAB 5 Refills Dextromethorphan-Guaifenesin (Mucinex DM) 30-600 Mg Tab 1 TAB PO DAILY PRN for CHEST CONGESTION AND/OR COUGH, #30 TAB 0 Refills Diazepam (Valium) 10 Mg Tab 10 MG PO DAILY PRN for ANXIETY AND/OR INSOMNIA, #90 TAB 0 Refills Diflunisal (Diflunisal) 500 Mg Tab 500 MG PO DAILY for Pain Management, #60 TAB 0 Refills Estrogens, Conjugated (Premarin) 0.3 Mg Tab 0.3 MG PO EVERY OTHER DAY for Estrogen Supplements, #30 TAB 0 Refills Hydroxychloroquine (Plaquenil) 200 Mg Tab 100 MG PO Q48H, #30 TAB 0 Refills Take with food Hydroxyzine HCl (Hydroxyzine HCl) 25 Mg Tab 25 MG PO DAILY, TAB 0 Refills Lansoprazole (Prevacid) 30 Mg Capdr 30 MG PO DAILY, #30 CAP 0 Refills Levothyroxine (Levothyroxine) 50 Mcg Tab 25 MCG PO DAILY for Thyroid, #30 TAB 0 Refills Nitroglycerin SL (Nitrostat SL) 0.4 Mg Subl 0.4 MG SL DIRECTED PRN for CHEST PAIN, #100 TAB.SL 0 Refills ONE TABLET UNDER THE TONGUE NEEDED FOR CHEST PAIN, MAY REPEAT EVERY FIVE MINUTES FOR A TOTAL OF 3 DOSES OR CALL 911 IF NO RELIEF Phenobarbital (Phenobarbital) 30 Mg Tab 30 MG PO HS for Control Seizures, #30 TAB 0 Refills Polyethylene Glycol 3350 Powder (Polyethylene Glycol 3350 Powder) 17 Gm Pow 17 GM PO DAILY for Constipation, #1 BOTTLE 0 Refills Discontinued Medications: Metoclopramide (Reglan) 10 Mg Tab 10 MG PO DAILY, #30 TAB 0 Refills Chandler Lawson MD, R3 Feb 02, 2018 15:23
[2018-02-02 16:10] VITALS: BP 140/72; PULSE 112; RESP 24; TEMP 97.7; O2SAT 91
--- NOTE | 2018-02-02 18:57 | EKG ---
Date Performed: 02/01/2018 Time Performed: 21:42:22 PTAGE: 77 years EKG: Sinus rhythm NONSPECIFIC T-WAVE ABNORMALITY BORDERLINE ECG Since the prior tracing, there has been no significant change PREVIOUS TRACING : 01/28/2018 23.43 DOCTOR: Luis Robertson Interpretating Date/Time 02/02/2018 18:55:47
== END 2018-02-02 14:07 | disposition home or self-care (01) | DRG 178 ==
LOC: NEPC 09:18 → NEDA 13:45 → NEPHCDU 15:35 → OBSVTOIN 01-29 13:04 → NEPGCP 01-31 02:42 → N04A 02-01 20:15
PROVIDERS: ADMIT Family Medicine; ATTEND Family Medicine
DX: A31.0 Pulmonary mycobacterial infection (principal); J44.0 Chronic obstructive pulmonary disease with (acute) lower respiratory infection; M32.9 Systemic lupus erythematosus, unspecified; J98.4 Other disorders of lung; E87.1 Hypo-osmolality and hyponatremia; N39.0 Urinary tract infection, site not specified; K31.84 Gastroparesis; R91.1 Solitary pulmonary nodule; I10 Essential (primary) hypertension; J98.09 Other diseases of bronchus, not elsewhere classified; E03.9 Hypothyroidism, unspecified; E87.6 Hypokalemia; K21.9 Gastro-esophageal reflux disease without esophagitis; R19.7 Diarrhea, unspecified; E07.9 Disorder of thyroid, unspecified; F41.9 Anxiety disorder, unspecified; M35.00 Sjogren syndrome, unspecified; R42 Dizziness and giddiness; R61 Generalized hyperhidrosis; R63.8 Other symptoms and signs concerning food and fluid intake; E78.00 Pure hypercholesterolemia, unspecified; M19.90 Unspecified osteoarthritis, unspecified site; I73.00 Raynaud's syndrome without gangrene; Z90.2 Acquired absence of lung [part of]
CPT/HCPCS: 71046; 71275; 80048; 80053; 80076; 81001; 82550; 83605; 83735; 84484; 85025; 85027; 85610; 85730; 87040; 87493; 87804; 93005; 94640; 94664; 94667; 94668; 96365; 96366; G0378; G8987-GP; G8988-GP; J0696; J1644; J2405; J2765; J7030; J7040; J7613; Q9967

== ENCOUNTER → 2018-02-08 | Outpatient (CLI) | payer MEDICARE, OTHER ==
[~2018-02-08] MED LIST changes: +CLAR500T PO; +Ethambutol PO; +HYDR-3133 PO; +METO10TA PO; +PHEN-523 PO; -REGL10TA5 PO; +RIFA150C2 PO; +TRAM50TA PO
[2018-02-08 09:41] LABS: FREE T3 2.57 PG/ML (2.18-3.98); FREE T4 1.19 NG/DL (0.76-1.46)
== END ==
LOC: CLAB 08:40
DX: E03.9 Hypothyroidism, unspecified (principal)
CPT/HCPCS: 36415; 84439; 84443; 84481

== ENCOUNTER 2018-02-24 06:33 | Day surgery (SDC) | payer MEDICARE, OTHER ==
[2018-02-24] VITALS (7 sets, daily range): BP systolic 122–156; BP diastolic 67–83; PULSE 68–88; RESP 16–19; TEMP 97.7–98; O2SAT 94–98
[~2018-02-24] VITALS: Ht 149.9 cm; Wt 45.9 kg
[2018-02-24] MEDS ORDERED: THEO400T2 PO (06:57)
[2018-02-24] MEDS ORDERED: SODIUM CHLOR 0.9% 1000 ML INJ 1,000 ML IV SCH (07:00)
[2018-02-24] MEDS ORDERED: LIDOCAINE 1%/EPINEPHrine 1:100,000 SOLN 50 ML VIAL ONE (07:49)
[2018-02-24] MEDS ORDERED: MIDAZOLAM HCL 2 MG/2 ML VIAL ONE ×2 (07:58→08:30)
--- NOTE | 2018-02-24 09:26 | RADRPT ---
EXAM DATE/TIME: 02/24/2018 09:14 [facility] COMPARISON: CHEST PA & LAT, January 28, 2018, 10:10. INDICATIONS : Post left lung biopsy. MEDICAL HISTORY : Cardiovascular disease. Hypertension. Chronic obstructive pulmonary disease. SURGICAL HISTORY : Hysterectomy. ENCOUNTER: Subsequent ACUITY: 1 day PAIN SCORE: 0/10 LOCATION: Left chest FINDINGS: Status post left lung biopsy. No pneumothorax. The right lung remains grossly clear. No significant c hange in the pleural-parenchymal changes in the left upper lung. CONCLUSION: No evidence of pneumothorax. Sharath Okeefe MD on February 24, 2018 at 9:23 Board Certified Radiologist. This report was verified electronically.
--- NOTE | 2018-02-24 10:57 | RADRPT ---
EXAM DATE/TIME: 02/24/2018 08:17 This report includes an Addendum and supersedes previous reports for this exam. [facility] COMPARISON: No previous studies available for comparison. INDICATIONS : Left lung mass. SEDATION TIME: 30 minutes BIOPSY SITE: Left lung MEDICATION(S): 1.) 4 mg midazolam (Versed) IV 2.) 200 mcg fentanyl (Sublimaze) IV DEVICE(S): 1.) 19 gauge 6cm coaxial 2.) 20 gauge Temno core biopsy needle 11cm 3.) 20 gauge 9cm [place] MEDICAL HISTORY : Hypertension. Cardiovascular disease. SURGICAL HISTORY : Appendectomy. Cholecystectomy. Hysterectomy. ENCOUNTER: Initial ACUITY: 1 day PAIN SCORE: 0/10 LOCATION: Left chest A total of two core specimen(s) were obtained and sent to the laboratory for pathologic evaluation. PROCEDURE: 1. CT guided lung biopsy. 2. Conscious sedation with continuous EKG and oximetry monitoring. Prior to the procedure informed consent was obtained. Any appropriate prior imaging studies were rev iewed. Using automated exposure control and adjustment of the mA and/or kV according to patient size, radiation dose was kept as low as reasonably achievable to obtain optimal diagnostic quality images. DICOM format image data is available electronically for review and comparison. The site was prepped in a sterile fashion. Full sterile technique was used, including cap, mask, joselin rile gloves and gown and a large sterile sheet. Hand hygiene and 2% chlorhexidine and/or betadine/al cohol prep was utilized per protocol for cutaneous antisepsis. The skin and subcutaneous tissues wer e infiltrated with local anesthetic solution. With CT guidance the previously identified target was localized. Biopsy was performed using the presc ribed needle as above. Adequate hemostasis was obtained with compression at the puncture site. Follow-up CT scan reveals no pneumothorax. Conscious sedation was performed with the prescribed dosages and duration as above in the presence of an independent trained radiology nurse to assist in the monitoring of the patient. EKG and oximetry remained stable throughout the procedure. The patient tolerated the procedure well and there were no complications. The patient was sent to Radiology Outpatient Unit in stable condition. CONCLUSION: Uncomplicated CT guided biopsy. Specimen sent for both cytology and culture and sensitivity. Venkata Mcwililams MD on February 24, 2018 at 10:55 Board Certified Radiologist. This report was verified electronically. ADDENDUM: CT-guided needle biopsy of pleural thickening in the left apex which was hyper metabolic head CT reve aled fibrosis and mixed chronic and granulomatous inflammation. The CT scan also revealed decreasing parenchymal opacity which is concordant with an inflammatory process. There is no mention of malignancy Venkata Mcwilliams MD on February 26, 2018 at 7:35 Board Certified Radiologist. This report was verified electronically.
== END 2018-02-24 13:43 | disposition home or self-care (01) ==
LOC: HRAD 06:33 → HRIP 06:35 → HRAD 13:43
PROVIDERS: ATTEND Internal Medicine Sleep Medicine
DX: R91.8 Other nonspecific abnormal finding of lung field (principal); I10 Essential (primary) hypertension; I25.10 Atherosclerotic heart disease of native coronary artery without angina pectoris; B96.89 Other specified bacterial agents as the cause of diseases classified elsewhere; J44.9 Chronic obstructive pulmonary disease, unspecified
CPT/HCPCS: 32405; 71045; 77012; 87015; 87070; 87102; 87116; 87205; 87206; 88305; 88312; 99152; 99153; J2250; J3010; J7030

== ENCOUNTER → 2018-03-19 | Outpatient (CLI) | payer MEDICARE, OTHER ==
[~2018-03-19] MED LIST changes: -CARV3.12 PO; -DIAZ10 PO; -DIFL500T PO; -PLAQ200T PO; +THEO400T2 PO
[2018-03-19 09:48] LABS: HEMATOCRIT 36.5 % (35.0-46.0); HEMOGLOBIN 12.3 GM/DL (11.6-15.3); MEAN CELL VOLUME 82.6 FL (80.0-100.0); MEAN CORPUSCULAR HEMOGLOBIN 27.9 PG (27.0-34.0); MEAN CORPUSCULAR HGB CONC 33.8 % (32.0-36.0); MEAN PLATELET VOLUME 6.8 FL (7.0-11.0); PLATELET COUNT 327 TH/MM3 (150-450); RED BLOOD COUNT 4.42 MIL/MM3 (4.00-5.30); WHITE BLOOD COUNT 8.4 TH/MM3 (4.0-11.0)
[2018-03-19 10:18] LABS: ALKALINE PHOSPHATASE 144 U/L (45-117); TOTAL BILIRUBIN ADULT 0.3 MG/DL (0.2-1.0); TOTAL PROTEIN 7.8 GM/DL (6.4-8.2)
[2018-03-19 10:24] LABS: ALBUMIN 3.5 GM/DL (3.4-5.0); ALT (GPT) 21 U/L (10-53); AST (GOT) 32 U/L (15-37); BLOOD UREA NITROGEN 13 MG/DL (7-18); C-REACTIVE PROTEIN 0.99 MG/DL (0.00-0.30); CALCIUM 9.3 MG/DL (8.5-10.1); CHLORIDE 100 MEQ/L (98-107); CREATININE 0.73 MG/DL (0.50-1.00); GLOMERULAR FILTRATION RATE 78 ML/MIN (>89); GLUCOSE,FASTING 86 MG/DL (74-99); SODIUM (NA) 133 MEQ/L (136-145)
[2018-03-19 12:18] LABS: WESTERGREN SEDIMENTATION RATE 17 mm/hr (0-30)
== END ==
LOC: CLAB 09:26
PROVIDERS: ATTEND Allergy & Immunology
DX: M35.3 Polymyalgia rheumatica (principal)
CPT/HCPCS: 36415; 80053; 85027; 85652; 86140

== ENCOUNTER 2018-07-18 08:54 | Inpatient (IN) ==
[2018-07-18] MEDS ORDERED: RESP: Lidocaine 4% 4 ML Neb Kit NEB ONE (09:30)
--- NOTE | 2018-07-18 09:36 | ED ---
HPI General Chief complaint: Respiratory Symptoms Stated complaint: Respiratory Time Seen by Provider: 07/18/18 09:17 Source: patient Mode of arrival: ambulatory Limitations: no limitations History of Present Illness HPI narrative: Patient while she was watching TV last night she thought she was just to cough up a little sputum when she noted relatively good size glob of blood/clot that she coughed up. 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 sp? with family practice. patient states that she was told, she has "tb that is not contagious" and was initially upset that she was placed in negative pressure room. ajit denies noncompliance and has not had any weight loss or night sweats Related Data Home Medications Medication Instructions Recorded Confirmed albuterol sulfate 0.63 mg INHALATION Q4-6H PRN 07/18/18 07/18/18 clarithromycin 500 mg PO Q12H 07/18/18 07/18/18 conjugated estrogens [Premarin] 0.3 mg PO DAILY 07/18/18 07/18/18 diflunisal 500 mg PO DAILY 07/18/18 07/18/18 ethambutol 800 mg PO QPM 07/18/18 07/18/18 hydroxychloroquine [Plaquenil] 100 mg PO EVERY OTHER DAY 07/18/18 07/18/18 hydroxyzine HCl 25 mg PO QPM 07/18/18 07/18/18 phenobarbital 30 mg PO QPM 07/18/18 07/18/18 rifampin 600 mg PO DAILY 07/18/18 07/18/18 theophylline 200 mg PO DAILY 07/18/18 07/18/18 tramadol 50 mg PO QID 07/18/18 07/18/18 Previous Rx's Medication Instructions Recorded clonidine HCl [Catapres] 0.1 mg PO DAILY #30 tab 07/22/18 levothyroxine 25 mcg PO DAILY@0600 tab 07/22/18 nystatin 5 ml SWISH-SWAL QID #120 ml 07/22/18 Allergies Allergy/AdvReac Type Severity Reaction Status Date / Time celecoxib Allergy Severe Hives Verified 07/18/18 12:52 cyclobenzaprine Allergy Severe unknown Verified 07/18/18 12:52 morphine Allergy Severe Cardiac Verified 07/18/18 12:52 Arrest penicillin G Allergy Severe Cardiac Verified 07/18/18 12:52 Arrest Sulfa (Sulfonamide Allergy Severe Swelling Verified 07/18/18 12:52 Antibiotics) of Lip/Tongue/Throat meperidine AdvReac Severe Hallucinati Verified 07/18/18 12:52 ons codeine AdvReac Mild Hallucinati Verified 07/18/18 12:52 ons Review of Systems ROS: all other systems reviewed are negative PMFSH History History Provided By: Patient Social History Social History Substance History: No History of Abuse Second Hand Smoke Exposure: No Smoking Status: Never smoker How Often Do You Have a Drink Containing Alcohol: Never Exam Narrative Exam Narrative: GENERAL: Well-nourished, well-developed patient in no apparent distress. SKIN: Warm and dry. HEAD: Atraumatic. Normocephalic. EYES: Pupils equal and round. No scleral icterus. No injection or drainage. ENT: No nasal bleeding or discharge. Mucous membranes pink and moist. NECK: Trachea midline. No JVD. CARDIOVASCULAR: Regular rate and rhythm. no rubs or gallops RESPIRATORY: No accessory muscle use. Clear to auscultation. Breath sounds equal bilaterally. GASTROINTESTINAL: Abdomen soft, non-tender, nondistended. No rebound or guarding MUSCULOSKELETAL: Extremities without clubbing, cyanosis, or edema. No obvious deformities. NEUROLOGICAL: Awake and alert. No obvious cranial nerve deficits. Motor grossly within normal limits. Five out of 5 muscle strength in the arms and legs. Normal speech. PSYCHIATRIC: Appropriate mood and affect; insight and judgment normal. Course Initial Documented Vital Signs Temperature 98.1 F 07/18/18 08:57 Pulse Rate 93 H 07/18/18 08:57 Respiratory Rate 20 07/18/18 08:57 Blood Pressure 219/97 H 07/18/18 08:57 Pulse Oximetry 99 07/18/18 08:57 Last Documented Vital Signs Temperature 98.1 F 07/22/18 12:00 Pulse Rate 79 07/22/18 12:00 Respiratory Rate 16 07/22/18 09:45 Blood Pressure 157/70 H 07/22/18 12:00 Pulse Oximetry 98 07/22/18 14:35 Medical Decision Making MDM Narrative Medical decision making narrative: CBC shows no leukocytosis slight neutrophilia 75% slight monocytosis of 10% no evidence of any anemia or abnormal platelet count Relation profiles within normal limits First set of cardiac enzymes negative Normal liver and kidney functions Electrolytes are all within normal limits CT chest read by radiologist as no pulmonary embolus identified. Chronic cavitary lesion is present in the left upper lobe demonstrates a new air-fluid level suggesting possible superinfection. Multiple bilateral pulmonary nodules most numerous in the left lower lobe are stable however suggest attention to follow-up imaging. Called to family medicine residents for admission Medical Screen Exam Complete: Yes Emergency Medical Condition: Yes Differential Diagnosis Differential Diagnosis: Pulmonary embolus versus pneumonia versus Mycobacterium tuberculosis versus flare of Mycobacterium avium intracellulare Medical Records Medical records reviewed: Yes I reviewed the patient's medical records. Review of chart showed the patient has been treated for AMNA, as well as having a cavitary lesion that has been treated with Biaxin rifampin and ethambutol onset started back in October no as of January and also patient denies any outside travel since October. 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 Patient also has a history of bronchiectasis, and hypothyroidism. Lab Data Result diagrams: 07/22/18 05:15 07/20/18 06:17 Lab Results 07/18/18 07/18/18 07/18/18 Range/Units 10:00 10:15 10:15 WBC 8.4 (4.0-11.0) th/mm3 RBC 4.71 (4.00-5.30) mil/mm3 Hgb 13.6 (11.6-15.3) gm/dL Hct 40.8 (35.0-46.0) % MCV 86.5 (80.0-100.0) fL MCH 28.9 (27.0-34.0) pg MCHC 33.4 (32.0-36.0) % RDW 14.7 (11.6-17.2) % Plt Count 305 (150-450) th/mm3 MPV 7.2 (7.0-11.0) fL Neut % (Auto) 75.5 H (16.0-70.0) % Lymph % (Auto) 10.8 (9.0-44.0) % [place] % (Auto) 10.0 H (0.0-8.0) % Eos % (Auto) 3.1 (0.0-4.0) % Baso % (Auto) 0.6 (0.0-2.0) % Neut # (Auto) 6.4 (1.8-7.7) th/mm3 Lymph # (Auto) 0.9 L (1.0-4.8) th/mm3 [place] # (Auto) 0.8 (0.0-0.9) th/mm3 Eos # (Auto) 0.3 (0.0-0.4) th/mm3 Baso # (Auto) 0.0 (0.0-0.2) th/mm3 WBC Differential . Differential Comment Auto diff final PT (9.8-11.6) sec INR Ratio APTT (24.3-30.1) sec Sodium (136-145) meq/L Potassium (3.5-5.1) meq/L Chloride (98-107) meq/L Carbon Dioxide (21.0-32.0) meq/L Anion Gap (5-15) meq/L BUN (7-18) mg/dL Creatinine (0.50-1.00) mg/dL Estimated GFR (>89) mL/min POC Glucose (68-110) mg/dl Random Glucose (74-106) mg/dL Calcium (8.5-10.1) mg/dL Magnesium (1.5-2.5) mg/dL Total Bilirubin (0.2-1.0) mg/dL AST (15-37) U/L ALT (10-53) U/L Alkaline Phosphatase (45-117) U/L Total Creatine Kinase (26-192) U/L CK-MB (CK-2) (0.5-3.6) ng/mL Troponin I (0.02-0.05) ng/mL B-Natriuretic Peptide 52 (0-100) pg/mL Total Protein (6.4-8.2) g/dL Albumin (3.4-5.0) g/dL TSH (0.358-3.740) uIU/mL Urine Color (Yellw/Straw) Urine Clarity (Clear) Urine pH (5.0-8.5) Ur Specific [place] (1.002-1.035) Urine Protein (Neg-Trace) mg/dL Urine Glucose (UA) (Negative) mg/dL Urine Ketones (Negative) mg/dL Urine Occult Blood (Negative) Urine Nitrate (Negative) Urine Bilirubin (Negative) Urine Urobilinogen (Less than 2) mg/dL Ur Leukocyte Esterase (Negative) Urine WBC (0-5) /hpf Ur Squamous Epith Cells (0-5) /hpf Micro UA Comment Ur Microscopic Review Urine Culture Comments M.tuberculosis DNA (PCR) Not detected (Not Detect) 07/18/18 07/18/18 07/18/18 Range/Units 10:15 10:15 11:31 WBC (4.0-11.0) th/mm3 RBC (4.00-5.30) mil/mm3 Hgb (11.6-15.3) gm/dL Hct (35.0-46.0) % MCV (80.0-100.0) fL MCH (27.0-34.0) pg MCHC (32.0-36.0) % RDW (11.6-17.2) % Plt Count (150-450) th/mm3 MPV (7.0-11.0) fL Neut % (Auto) (16.0-70.0) % Lymph % (Auto) (9.0-44.0) % [place] % (Auto) (0.0-8.0) % Eos % (Auto) (0.0-4.0) % Baso % (Auto) (0.0-2.0) % Neut # (Auto) (1.8-7.7) th/mm3 Lymph # (Auto) (1.0-4.8) th/mm3 [place] # (Auto) (0.0-0.9) th/mm3 Eos # (Auto) (0.0-0.4) th/mm3 Baso # (Auto) (0.0-0.2) th/mm3 WBC Differential Differential Comment PT 10.6 (9.8-11.6) sec INR 1.0 Ratio APTT 28.2 (24.3-30.1) sec Sodium 133 L (136-145) meq/L Potassium 4.1 (3.5-5.1) meq/L Chloride 100 (98-107) meq/L Carbon Dioxide 26.5 (21.0-32.0) meq/L Anion Gap 7 (5-15) meq/L BUN 15 (7-18) mg/dL Creatinine 0.57 (0.50-1.00) mg/dL Estimated GFR Greater than 89 (>89) mL/min POC Glucose 84 (68-110) mg/dl Random Glucose 73 L (74-106) mg/dL Calcium 9.1 (8.5-10.1) mg/dL Magnesium (1.5-2.5) mg/dL Total Bilirubin 0.3 (0.2-1.0) mg/dL AST 16 (15-37) U/L ALT 22 (10-53) U/L Alkaline Phosphatase 136 H (45-117) U/L Total Creatine Kinase 108 (26-192) U/L CK-MB (CK-2) 1.9 (0.5-3.6) ng/mL Troponin I Less than 0.02 L (0.02-0.05) ng/mL B-Natriuretic Peptide (0-100) pg/mL Total Protein 7.7 D (6.4-8.2) g/dL Albumin 3.8 (3.4-5.0) g/dL TSH (0.358-3.740) uIU/mL Urine Color (Yellw/Straw) Urine Clarity (Clear) Urine pH (5.0-8.5) Ur Specific [place] (1.002-1.035) Urine Protein (Neg-Trace) mg/dL Urine Glucose (UA) (Negative) mg/dL Urine Ketones (Negative) mg/dL Urine Occult Blood (Negative) Urine Nitrate (Negative) Urine Bilirubin (Negative) Urine Urobilinogen (Less than 2) mg/dL Ur Leukocyte Esterase (Negative) Urine WBC (0-5) /hpf Ur Squamous Epith Cells (0-5) /hpf Micro UA Comment Ur Microscopic Review Urine Culture Comments M.tuberculosis DNA (PCR) (Not Detect) 07/19/18 07/19/18 07/19/18 Range/Units 01:13 01:57 01:57 WBC 6.9 (4.0-11.0) th/mm3 RBC 4.36 (4.00-5.30) mil/mm3 Hgb 12.6 (11.6-15.3) gm/dL Hct 37.1 (35.0-46.0) % MCV 85.2 (80.0-100.0) fL MCH 28.8 (27.0-34.0) pg MCHC 33.8 (32.0-36.0) % RDW 14.1 (11.6-17.2) % Plt Count 265 (150-450) th/mm3 MPV 6.9 L (7.0-11.0) fL Neut % (Auto) 58.9 (16.0-70.0) % Lymph % (Auto) 23.6 (9.0-44.0) % [place] % (Auto) 10.0 H (0.0-8.0) % Eos % (Auto) 6.5 H (0.0-4.0) % Baso % (Auto) 1.0 (0.0-2.0) % Neut # (Auto) 4.1 (1.8-7.7) th/mm3 Lymph # (Auto) 1.6 (1.0-4.8) th/mm3 [place] # (Auto) 0.7 (0.0-0.9) th/mm3 Eos # (Auto) 0.4 (0.0-0.4) th/mm3 Baso # (Auto) 0.1 (0.0-0.2) th/mm3 WBC Differential . Differential Comment Auto diff final PT (9.8-11.6) sec INR Ratio APTT (24.3-30.1) sec Sodium 134 L (136-145) meq/L Potassium 3.8 (3.5-5.1) meq/L Chloride 100 (98-107) meq/L Carbon Dioxide 27.2 (21.0-32.0) meq/L Anion Gap 7 (5-15) meq/L BUN 16 (7-18) mg/dL Creatinine 0.71 (0.50-1.00) mg/dL Estimated GFR 80 L (>89) mL/min POC Glucose 123 H (68-110) mg/dl Random Glucose 96 (74-106) mg/dL Calcium 9.2 (8.5-10.1) mg/dL Magnesium (1.5-2.5) mg/dL Total Bilirubin 0.4 (0.2-1.0) mg/dL AST 16 (15-37) U/L ALT 20 (10-53) U/L Alkaline Phosphatase 118 H (45-117) U/L Total Creatine Kinase (26-192) U/L CK-MB (CK-2) (0.5-3.6) ng/mL Troponin I (0.02-0.05) ng/mL B-Natriuretic Peptide (0-100) pg/mL Total Protein 7.0 D (6.4-8.2) g/dL Albumin 3.5 (3.4-5.0) g/dL TSH 3.120 (0.358-3.740) uIU/mL Urine Color (Yellw/Straw) Urine Clarity (Clear) Urine pH (5.0-8.5) Ur Specific [place] (1.002-1.035) Urine Protein (Neg-Trace) mg/dL Urine Glucose (UA) (Negative) mg/dL Urine Ketones (Negative) mg/dL Urine Occult Blood (Negative) Urine Nitrate (Negative) Urine Bilirubin (Negative) Urine Urobilinogen (Less than 2) mg/dL Ur Leukocyte Esterase (Negative) Urine WBC (0-5) /hpf Ur Squamous Epith Cells (0-5) /hpf Micro UA Comment Ur Microscopic Review Urine Culture Comments M.tuberculosis DNA (PCR) (Not Detect) 07/19/18 07/19/18 07/19/18 Range/Units 01:57 01:57 11:20 WBC (4.0-11.0) th/mm3 RBC (4.00-5.30) mil/mm3 Hgb (11.6-15.3) gm/dL Hct (35.0-46.0) % MCV (80.0-100.0) fL MCH (27.0-34.0) pg MCHC (32.0-36.0) % RDW (11.6-17.2) % Plt Count (150-450) th/mm3 MPV (7.0-11.0) fL Neut % (Auto) (16.0-70.0) % Lymph % (Auto) (9.0-44.0) % [place] % (Auto) (0.0-8.0) % Eos % (Auto) (0.0-4.0) % Baso % (Auto) (0.0-2.0) % Neut # (Auto) (1.8-7.7) th/mm3 Lymph # (Auto) (1.0-4.8) th/mm3 [place] # (Auto) (0.0-0.9) th/mm3 Eos # (Auto) (0.0-0.4) th/mm3 Baso # (Auto) (0.0-0.2) th/mm3 WBC Differential Differential Comment PT (9.8-11.6) sec INR Ratio APTT (24.3-30.1) sec Sodium (136-145) meq/L Potassium (3.5-5.1) meq/L Chloride (98-107) meq/L Carbon Dioxide (21.0-32.0) meq/L Anion Gap (5-15) meq/L BUN (7-18) mg/dL Creatinine (0.50-1.00) mg/dL Estimated GFR (>89) mL/min POC Glucose (68-110) mg/dl Random Glucose (74-106) mg/dL Calcium (8.5-10.1) mg/dL Magnesium 2.1 (1.5-2.5) mg/dL Total Bilirubin (0.2-1.0) mg/dL AST (15-37) U/L ALT (10-53) U/L Alkaline Phosphatase (45-117) U/L Total Creatine Kinase (26-192) U/L CK-MB (CK-2) (0.5-3.6) ng/mL Troponin I Less than 0.02 L Less than 0.02 L (0.02-0.05) ng/mL B-Natriuretic Peptide (0-100) pg/mL Total Protein (6.4-8.2) g/dL Albumin (3.4-5.0) g/dL TSH (0.358-3.740) uIU/mL Urine Color (Yellw/Straw) Urine Clarity (Clear) Urine pH (5.0-8.5) Ur Specific [place] (1.002-1.035) Urine Protein (Neg-Trace) mg/dL Urine Glucose (UA) (Negative) mg/dL Urine Ketones (Negative) mg/dL Urine Occult Blood (Negative) Urine Nitrate (Negative) Urine Bilirubin (Negative) Urine Urobilinogen (Less than 2) mg/dL Ur Leukocyte Esterase (Negative) Urine WBC (0-5) /hpf Ur Squamous Epith Cells (0-5) /hpf Micro UA Comment Ur Microscopic Review Urine Culture Comments M.tuberculosis DNA (PCR) (Not Detect) 07/19/18 07/20/18 07/20/18 Range/Units 11:20 06:17 06:17 WBC 5.5 (4.0-11.0) th/mm3 RBC 4.20 (4.00-5.30) mil/mm3 Hgb 12.0 (11.6-15.3) gm/dL Hct 36.0 (35.0-46.0) % MCV 85.8 (80.0-100.0) fL MCH 28.7 (27.0-34.0) pg MCHC 33.4 (32.0-36.0) % RDW 14.4 (11.6-17.2) % Plt Count 251 (150-450) th/mm3 MPV 7.3 (7.0-11.0) fL Neut % (Auto) 60.6 (16.0-70.0) % Lymph % (Auto) 21.3 (9.0-44.0) % [place] % (Auto) 10.5 H (0.0-8.0) % Eos % (Auto) 6.5 H (0.0-4.0) % Baso % (Auto) 1.1 (0.0-2.0) % Neut # (Auto) 3.3 (1.8-7.7) th/mm3 Lymph # (Auto) 1.2 (1.0-4.8) th/mm3 [place] # (Auto) 0.6 (0.0-0.9) th/mm3 Eos # (Auto) 0.4 (0.0-0.4) th/mm3 Baso # (Auto) 0.1 (0.0-0.2) th/mm3 WBC Differential . Differential Comment Auto diff final PT (9.8-11.6) sec INR Ratio APTT (24.3-30.1) sec Sodium 135 L (136-145) meq/L Potassium 3.8 (3.5-5.1) meq/L Chloride 100 (98-107) meq/L Carbon Dioxide 29.6 (21.0-32.0) meq/L Anion Gap 5 (5-15) meq/L BUN 9 (7-18) mg/dL Creatinine 0.52 (0.50-1.00) mg/dL Estimated GFR Greater than 89 (>89) mL/min POC Glucose (68-110) mg/dl Random Glucose 82 (74-106) mg/dL Calcium 8.6 (8.5-10.1) mg/dL Magnesium (1.5-2.5) mg/dL Total Bilirubin (0.2-1.0) mg/dL AST (15-37) U/L ALT (10-53) U/L Alkaline Phosphatase (45-117) U/L Total Creatine Kinase 78 (26-192) U/L CK-MB (CK-2) (0.5-3.6) ng/mL Troponin I (0.02-0.05) ng/mL B-Natriuretic Peptide (0-100) pg/mL Total Protein (6.4-8.2) g/dL Albumin (3.4-5.0) g/dL TSH (0.358-3.740) uIU/mL Urine Color (Yellw/Straw) Urine Clarity (Clear) Urine pH (5.0-8.5) Ur Specific [place] (1.002-1.035) Urine Protein (Neg-Trace) mg/dL Urine Glucose (UA) (Negative) mg/dL Urine Ketones (Negative) mg/dL Urine Occult Blood (Negative) Urine Nitrate (Negative) Urine Bilirubin (Negative) Urine Urobilinogen (Less than 2) mg/dL Ur Leukocyte Esterase (Negative) Urine WBC (0-5) /hpf Ur Squamous Epith Cells (0-5) /hpf Micro UA Comment Ur Microscopic Review Urine Culture Comments M.tuberculosis DNA (PCR) (Not Detect) 07/21/18 07/21/18 07/21/18 Range/Units 05:04 10:34 10:34 WBC 6.7 6.7 (4.0-11.0) th/mm3 RBC 4.16 4.14 (4.00-5.30) mil/mm3 Hgb 12.2 12.1 (11.6-15.3) gm/dL Hct 34.9 L 35.5 (35.0-46.0) % MCV 84.0 85.7 (80.0-100.0) fL MCH 29.3 29.3 (27.0-34.0) pg MCHC 34.9 34.2 (32.0-36.0) % RDW 14.0 14.2 (11.6-17.2) % Plt Count 241 237 (150-450) th/mm3 MPV 7.3 7.0 (7.0-11.0) fL Neut % (Auto) 68.6 (16.0-70.0) % Lymph % (Auto) 15.5 (9.0-44.0) % [place] % (Auto) 9.4 H (0.0-8.0) % Eos % (Auto) 5.7 H (0.0-4.0) % Baso % (Auto) 0.8 (0.0-2.0) % Neut # (Auto) 4.6 (1.8-7.7) th/mm3 Lymph # (Auto) 1.0 (1.0-4.8) th/mm3 [place] # (Auto) 0.6 (0.0-0.9) th/mm3 Eos # (Auto) 0.4 (0.0-0.4) th/mm3 Baso # (Auto) 0.1 (0.0-0.2) th/mm3 WBC Differential . Differential Comment Auto diff final PT 10.9 (9.8-11.6) sec INR 1.1 Ratio APTT (24.3-30.1) sec Sodium (136-145) meq/L Potassium (3.5-5.1) meq/L Chloride (98-107) meq/L Carbon Dioxide (21.0-32.0) meq/L Anion Gap (5-15) meq/L BUN (7-18) mg/dL Creatinine (0.50-1.00) mg/dL Estimated GFR (>89) mL/min POC Glucose (68-110) mg/dl Random Glucose (74-106) mg/dL Calcium (8.5-10.1) mg/dL Magnesium (1.5-2.5) mg/dL Total Bilirubin (0.2-1.0) mg/dL AST (15-37) U/L ALT (10-53) U/L Alkaline Phosphatase (45-117) U/L Total Creatine Kinase (26-192) U/L CK-MB (CK-2) (0.5-3.6) ng/mL Troponin I (0.02-0.05) ng/mL B-Natriuretic Peptide (0-100) pg/mL Total Protein (6.4-8.2) g/dL Albumin (3.4-5.0) g/dL TSH (0.358-3.740) uIU/mL Urine Color (Yellw/Straw) Urine Clarity (Clear) Urine pH (5.0-8.5) Ur Specific [place] (1.002-1.035) Urine Protein (Neg-Trace) mg/dL Urine Glucose (UA) (Negative) mg/dL Urine Ketones (Negative) mg/dL Urine Occult Blood (Negative) Urine Nitrate (Negative) Urine Bilirubin (Negative) Urine Urobilinogen (Less than 2) mg/dL Ur Leukocyte Esterase (Negative) Urine WBC (0-5) /hpf Ur Squamous Epith Cells (0-5) /hpf Micro UA Comment Ur Microscopic Review Urine Culture Comments M.tuberculosis DNA (PCR) (Not Detect) 07/21/18 07/22/18 Range/Units 11:00 05:15 WBC 5.6 (4.0-11.0) th/mm3 RBC 4.08 (4.00-5.30) mil/mm3 Hgb 11.9 (11.6-15.3) gm/dL Hct 34.6 L (35.0-46.0) % MCV 84.8 (80.0-100.0) fL MCH 29.1 (27.0-34.0) pg MCHC 34.3 (32.0-36.0) % RDW 14.2 (11.6-17.2) % Plt Count 237 (150-450) th/mm3 MPV 7.4 (7.0-11.0) fL Neut % (Auto) 61.1 (16.0-70.0) % Lymph % (Auto) 19.8 (9.0-44.0) % [place] % (Auto) 11.2 H (0.0-8.0) % Eos % (Auto) 6.7 H (0.0-4.0) % Baso % (Auto) 1.2 (0.0-2.0) % Neut # (Auto) 3.4 (1.8-7.7) th/mm3 Lymph # (Auto) 1.1 (1.0-4.8) th/mm3 [place] # (Auto) 0.6 (0.0-0.9) th/mm3 Eos # (Auto) 0.4 (0.0-0.4) th/mm3 Baso # (Auto) 0.1 (0.0-0.2) th/mm3 WBC Differential . Differential Comment Auto diff final PT (9.8-11.6) sec INR Ratio APTT (24.3-30.1) sec Sodium (136-145) meq/L Potassium (3.5-5.1) meq/L Chloride (98-107) meq/L Carbon Dioxide (21.0-32.0) meq/L Anion Gap (5-15) meq/L BUN (7-18) mg/dL Creatinine (0.50-1.00) mg/dL Estimated GFR (>89) mL/min POC Glucose (68-110) mg/dl Random Glucose (74-106) mg/dL Calcium (8.5-10.1) mg/dL Magnesium (1.5-2.5) mg/dL Total Bilirubin (0.2-1.0) mg/dL AST (15-37) U/L ALT (10-53) U/L Alkaline Phosphatase (45-117) U/L Total Creatine Kinase (26-192) U/L CK-MB (CK-2) (0.5-3.6) ng/mL Troponin I (0.02-0.05) ng/mL B-Natriuretic Peptide (0-100) pg/mL Total Protein (6.4-8.2) g/dL Albumin (3.4-5.0) g/dL TSH (0.358-3.740) uIU/mL Urine Color [place] (Yellw/Straw) Urine Clarity Clear (Clear) Urine pH 7.0 (5.0-8.5) Ur Specific [place] 1.003 (1.002-1.035) Urine Protein Negative (Neg-Trace) mg/dL Urine Glucose (UA) Negative (Negative) mg/dL Urine Ketones Negative (Negative) mg/dL Urine Occult Blood Negative (Negative) Urine Nitrate Negative (Negative) Urine Bilirubin Negative (Negative) Urine Urobilinogen Less than 2 (Less than 2) mg/dL Ur Leukocyte Esterase Negative (Negative) Urine WBC 1 (0-5) /hpf Ur Squamous Epith Cells <1 (0-5) /hpf Micro UA Comment Culture not ind Ur Microscopic Review Not Reportable Urine Culture Comments Culture not ind M.tuberculosis DNA (PCR) (Not Detect) Imaging Data Radiologist's impression: Chest CTA 07/18/18 09:17 CONCLUSION: 1. No PE is identified. 2. Chronic cavitary lesion is present in the left upper lobe and demonstrates a new air-fluid level suggesting possible superinfection. The adjacent parenchymal changes are stable. 3. The multiple bilateral pulmonary nodules, most numerous in the left lower lobe, are stable. Suggest attention to these at follow-up imaging. Discharge Plan Discharge Disposition Patient Disposition: 30 Still Patient Discharge Condition Condition: Stable Discharge Order Discharge Orders: Discharge Order (Routine); Ordered 07/22/18 Ordered By: Gilberto Benson Discharge Details Anticipated Discharge Date: 07/22/18 Discharge Comment: Patient to follow up with PCP, Pulmonology, and ID within one week. Diagnosis: Pneumonia Physicians Team ED Provider: Fuentes Brower Primary Care Provider: Gisella Meléndez Attending Provider: Sharath Suarez Other Providers: Xiomara Rudd ; Xin Lauren ; Eliud Tijerina Status ED Status: Left Department Discharge Information Discharge Date/Time: 07/18/18 16:33
[2018-07-18 10:56] LABS: Baso % (Auto) 0.6 % (0.0-2.0); Eos # (Auto) 0.3 th/mm3 (0.0-0.4); Eos % (Auto) 3.1 % (0.0-4.0); Hematocrit 40.8 % (35.0-46.0); Hemoglobin 13.6 gm/dL (11.6-15.3); Lymph # (Auto) 0.9 th/mm3 (1.0-4.8); Lymph % (Auto) 10.8 % (9.0-44.0); Mean Corpuscular HGB Conc 33.4 % (32.0-36.0); Mean Corpuscular Hemoglobin 28.9 pg (27.0-34.0); Mean Corpuscular Volume 86.5 fL (80.0-100.0); Mean Platelet Volume 7.2 fL (7.0-11.0); Mono # (Auto) 0.8 th/mm3 (0.0-0.9); Neut # (Auto) 6.4 th/mm3 (1.8-7.7); Neut % (Auto) 75.5 % (16.0-70.0); Platelet Count 305 th/mm3 (150-450); Red Blood Count 4.71 mil/mm3 (4.00-5.30); Red Cell Distribution Width 14.7 % (11.6-17.2); White Blood Count 8.4 th/mm3 (4.0-11.0)
[2018-07-18 11:06] LABS: Activated Partial Thrombo Time 28.2 sec (24.3-30.1); Prothrombin Time 10.6 sec (9.8-11.6)
[2018-07-18 11:15] LABS: Alanine Aminotransferase 22 U/L (10-53); Albumin 3.8 g/dL (3.4-5.0); Anion Gap 7 meq/L (5-15); Aspartate Aminotransferase 16 U/L (15-37); Blood Urea Nitrogen 15 mg/dL (7-18); Calcium 9.1 mg/dL (8.5-10.1); Carbon Dioxide 26.5 meq/L (21.0-32.0); Chloride 100 meq/L (98-107); Glomerular Filtration Rate Greater Than 89 mL/min (>89); Glucose,Random 73 mg/dL (74-106); Potassium 4.1 meq/L (3.5-5.1); Sodium 133 meq/L (136-145)
[2018-07-18 11:19] LABS: Alkaline Phosphatase 136 U/L (45-117); Creatine Kinase 108 U/L (26-192); Total Protein 7.7 g/dL (6.4-8.2)
[2018-07-18 11:31] LABS: Creatine Kinase MB 1.9 ng/mL (0.5-3.6)
[2018-07-18] MEDS ORDERED: Acetaminophen 325 MG Tablet PO ONE (12:33)
--- NOTE | 2018-07-18 12:51 | CT ---
EXAM DATE: 07/18/2018 12:25 PM EDT AGE/SEX: 77 years / Female INDICATIONS: Hemoptysis, burning in throat and chest, history of non infectious Tuberculosis CLINICAL DATA: This is the patient's initial encounter. Patient reports that signs and symptoms have been present for 1 day and indicates a pain score of 7/10. MEDICAL/SURGICAL HISTORY: . non infectious Tuberculosis None. RADIATION DOSE: 4.61 CTDI (mGy) COMPARISON: [facility], CT CHEST W/ CONTRAST, 06/09/2018. . TECHNIQUE: Volumetric scanning was performed using a multi-row detector CT scanner during bolus infu cori of 76ML ml Omnipaque 350 (iohexol) nonionic water-soluble contrast as a single exam dose. The data was post processed with a variety of visualization algorithms including full volume maximum inte nsity projection and sliding thin slab reformation. Using automated exposure control and adjustment of the mA and/or kV according to patient size, radiation dose was kept as low as reasonably achievabl e to obtain optimal diagnostic quality images. DICOM format image data is available electronically f or review and comparison. FINDINGS: Pulmonary Arteries: No filling defect is identified through the segmental and some of the subsegmenta l level pulmonary arteries. Lungs: There is a chronic cavitary lesion at the left lung apex measuring approximately 5.2 x 4.1 cm . There is a new air-fluid level within the lesion. The adjacent pleural thickening and subpleural op acity is stable. Multiple pulmonary nodules are identified in the left lower lobe numbering at least 6 in total with the largest measuring 1.5 cm. A stable 3 mm right upper lobe pulmonary nodule on imag e 26 is also documented. No pneumothorax. There is decreased volume of aerated left lung compared to the right. Mediastinum: The heart and great vessels demonstrate no acute abnormality. No lymphadenopathy is vis ualized. There is a potential lymph node tissue in the left anterior mediastinum that is stable. Athe rosclerotic changes are present within the aorta. Pleurae: There is stable left pleural thickening. No pleural fluid is present. Axillae: No lymphadenopathy. Musculoskeletal: No acute osseous abnormality is identified. There are degenerative changes of the t horacic spine. Other: Visualized upper abdominal structures demonstrate no acute abnormality. Stable pneumobilia. CONCLUSION: 1. No PE is identified. 2. Chronic cavitary lesion is present in the left upper lobe and demonstrates a new air-fluid level suggesting possible superinfection. The adjacent parenchymal changes are stable. 3. The multiple bilateral pulmonary nodules, most numerous in the left lower lobe, are stable. Jenifer alan attention to these at follow-up imaging. Electronically signed by: Larry Pollock MD 07/18/2018 12:49 PM EDT
--- NOTE | 2018-07-18 15:31 | P.HPFP ---
History of Present Illness Primary Care Physician: Gisella Willson MD, R2 History of Present Illness: Pt is a 77 yr old female with a PMH of cavitary lesions on her lung, RLL lobectomy, lupus, HTN, COPD, Prescott skin carcinoma,IBD, GERD, hx of stroke, anemia, presenting to the ED with two episodes of hemoptysis. Pt states Thursday night she was watching tv and had an urge to cough, and a large blood clot w/ fresh blood came up. This morning she had another episode of coughing blood, and decided to come in. Both episodes stopped on their own. Pt is currently being treated by ID outpatient for an atypical mycobacteria infection with Biaxim (clarithromycin), ethambutol, and rifampin. She states during the last few months she has been feeling short of breath, and a lot of pressure, specially in her rib cage. The SOB is worse when laying down sometimes. She had a complete cardiac workup as an outpatient that was negative. She follow up with pulmonology outpatient, her last CT scan this last May showed no progression on the cavitary lesions. PT denies any fevers, but has been having chills, and night sweats (however this is not new to her), she is also having diarrhea since starting TB antibiotics, as well as nausea. She has unintentional weight loss, and chronic headaches. She denies vomiting or CP. - Diagnosis (1) Cough with hemoptysis (2) Cavitary lesion of lung (3) Mycobacterial infection, atypical (4) Hypertension (5) Lupus (systemic lupus erythematosus) (6) COPD (chronic obstructive pulmonary disease) (7) Hypothyroidism (8) Nutrition, metabolism, and development symptoms (9) DVT prophylaxis Inpatient Certification: I certify that the inpatient services were ordered in accordance with Medicare regulations governing the order. This includes certification that hospital inpatient services are reasonable and necessary and in the case of services not specified as inpatient-only under 42 CFR 419.22(n), that they are appropriately provided as inpatient services in accordance to with the 2-midnight benchmark under 43 CFR 412.3(e) Estimated Total Length of Stay (Days): 4 Plans for Post Hospital Care: Home Review of Systems Constitutional: Reports chills, Reports headache(s), Reports malaise, Reports night sweats, Reports weight loss, Denies fever(s) Eyes: Denies blurry vision, Denies change in vision Ears, Nose, Mouth, and Throat: Reports difficulty swallowing, Reports headache(s ) Cardiovascular: Reports shortness of breath with activity, Reports shortness of breath when lying down, Denies chest pain Respiratory: Reports change in phlegm color, Reports coughing up blood Gastrointestinal: Reports abdominal pain, Reports loose stools Neurologic: Reports dizziness, Denies fainting, Denies frequent falls PMFSH - History History Provided By: Patient - Medical History Medical History: Medical History (Last Updated 07/18/18 @ 15:17 by Padma Fish MD, R1) COPD (chronic obstructive pulmonary disease) Chronic headache History of Prescott cell carcinoma Hypertension Hypothyroidism Lupus (systemic lupus erythematosus) Mycobacterial infection, atypical - Surgical History Surgical History: Surgical History (Last Updated 07/18/18 @ 15:19 by Padma Fish MD, R1 ) H/O hysterectomy with oophorectomy H/O nasal polypectomy History of colectomy History of lobectomy of lung Hx of appendectomy Hx of cholecystectomy - Tobacco History Second Hand Smoke Exposure: No Tobacco Use In Past 30 Days: No Smoking Status: Never smoker - Alcohol History How Often Do You Have a Drink Containing Alcohol: Never - Substance Use History Substance History: No History of Abuse - Immunization History Tetanus Immunization: Unable to Assess Hx Influenza Vaccine This Season: Unable to Assess Medications and Allergies Active Medications: Active Medications Acetaminophen (Tylenol) 650 mg PO Q4H PRN PRN Reason: Temp > 100.4 Ondansetron HCl (Zofran Inj) 4 mg IV.PUSH Q6H PRN PRN Reason: NAUSEA OR VOMITING Sodium Chloride (Ns Flush) 2 ml IV.FLUSH UNSCH PRN PRN Reason: FLUSH AFTER USING IV ACCESS Allergies Allergy/AdvReac Type Severity Reaction Status Date / Time celecoxib Allergy Severe Hives Verified 07/18/18 12:52 cyclobenzaprine Allergy Severe unknown Verified 07/18/18 12:52 morphine Allergy Severe Cardiac Verified 07/18/18 12:52 Arrest penicillin G Allergy Severe Cardiac Verified 07/18/18 12:52 Arrest Sulfa (Sulfonamide Allergy Severe Swelling Verified 07/18/18 12:52 Antibiotics) of Lip/Tongue/Throat meperidine AdvReac Severe Hallucinati Verified 07/18/18 12:52 ons codeine AdvReac Mild Hallucinati Verified 07/18/18 12:52 ons Home Medications Medication Instructions Recorded Confirmed Type albuterol sulfate 0.63 mg INHALATION Q4-6H PRN 07/18/18 07/18/18 History carvedilol 3.125 mg PO DAILY 07/18/18 07/18/18 History clarithromycin 500 mg PO Q12H 07/18/18 07/18/18 History conjugated estrogens [Premarin] 0.3 mg PO DAILY 07/18/18 07/18/18 History diflunisal 500 mg PO DAILY 07/18/18 07/18/18 History ethambutol 800 mg PO QPM 07/18/18 07/18/18 History hydroxychloroquine [Plaquenil] 100 mg PO EVERY OTHER DAY 07/18/18 07/18/18 History hydroxyzine HCl 25 mg PO QPM 07/18/18 07/18/18 History phenobarbital 30 mg PO QPM 07/18/18 07/18/18 History rifampin 600 mg PO DAILY 07/18/18 07/18/18 History theophylline 200 mg PO DAILY 07/18/18 07/18/18 History tramadol 50 mg PO QID 07/18/18 07/18/18 History Exam Vital signs: Vital Signs 07/18/18 08:57 07/18/18 09:42 07/18/18 09:56 Temperature 98.1 F Pulse Rate 93 H 83 Respiratory Rate 20 16 Blood Pressure 219/97 H Pulse Oximetry 99 99 99 07/18/18 11:51 07/18/18 13:38 Temperature Pulse Rate 82 76 Respiratory Rate 15 18 Blood Pressure 160/73 H Pulse Oximetry 99 Intake & Output 07/17/18 07/18/18 07/18/18 18:59 06:59 18:59 Weight 44.906 kg Narrative: GENERAL: underweight, older lady, in NAD. SKIN: Warm and dry. HEAD: Normocephalic and atraumatic. EYES: No scleral icterus. No injection or drainage. ENT: No nasal drainage noted. Airway patent. CARDIOVASCULAR: Regular rate and rhythm without murmurs, gallops, or rubs. RESPIRATORY: decreased breath sounds on left side. No accessory muscle use. Old scar below L scapula from lobectomy. ABDOMEN/GI: Abdomen soft, non-tender, bowel sounds present, no rebound, no guarding EXTREMITIES: No cyanosis or edema. 4-5 cm old scar on LLE from Alexis's cancer surgery BACK: Nontender without obvious deformity. No CVA tenderness. NEUROLOGICAL: Awake and alert. Motor and sensory grossly within normal limits. Normal speech. Results - Labs Result diagrams: 07/18/18 10:15 07/18/18 10:15 Abnormal lab results 07/18/18 07/18/18 Range/Units 10:15 10:15 Neut % (Auto) 75.5 H (16.0-70.0) % [place] % (Auto) 10.0 H (0.0-8.0) % Lymph # (Auto) 0.9 L (1.0-4.8) th/mm3 Sodium 133 L (136-145) meq/L Random Glucose 73 L (74-106) mg/dL Alkaline Phosphatase 136 H (45-117) U/L Troponin I Less than 0.02 L (0.02-0.05) ng/mL Short CBC 07/18/18 Range/Units 10:15 WBC 8.4 (4.0-11.0) th/mm3 Hgb 13.6 (11.6-15.3) gm/dL Hct 40.8 (35.0-46.0) % Plt Count 305 (150-450) th/mm3 BMP 07/18/18 10:15 Sodium 133 L Potassium 4.1 Chloride 100 Carbon Dioxide 26.5 BUN 15 Creatinine 0.57 Calcium 9.1 Cardiac Enzymes 07/18/18 Range/Units 10:15 Total Creatine Kinase 108 (26-192) U/L CK-MB (CK-2) 1.9 (0.5-3.6) ng/mL Troponin I Less than 0.02 L (0.02-0.05) ng/mL Liver Function 07/18/18 Range/Units 10:15 Total Bilirubin 0.3 (0.2-1.0) mg/dL AST 16 (15-37) U/L ALT 22 (10-53) U/L Alkaline Phosphatase 136 H (45-117) U/L Albumin 3.8 (3.4-5.0) g/dL - Imaging Impressions Chest CTA 07/18/18 09:17 CONCLUSION: 1. No PE is identified. 2. Chronic cavitary lesion is present in the left upper lobe and demonstrates a new air-fluid level suggesting possible superinfection. The adjacent parenchymal changes are stable. 3. The multiple bilateral pulmonary nodules, most numerous in the left lower lobe, are stable. Suggest attention to these at follow-up imaging. Caprini VTE Risk Assessment Caprini VTE Risk Assessment: Moderate/High Risk (score >= 2) Caprini Risk Assessment Model: Point Value = 1 Point Value = 2 Point Value = 3 Point Value = 5 Age 41-60 Minor surgery BMI > 25 kg/m2 Swollen legs Varicose veins or History of unexplained or recurrent spontaneous Oral contraceptives or hormone replacement Sepsis (< 1 month) Serious lung disease, including pneumonia (< 1 month) Abnormal pulmonary function Acute myocardial infarction Congestive heart failure (< 1 month) History of inflammatory bowel disease Medical patient at bed rest Age 61-74 Arthroscopic surgery Major open surgery (> 45 min) Laparoscopic surgery (> 45 min) Malignancy Confined to bed (> 72 hours) Immobilizing plaster cast Central venous access Age >= 75 History of VTE Family history of VTE Factor V Leiden Prothrombin [id number] Lupus anticoagulant Anticardiolipin antibodies Elevated serum homocysteine Heparin-induced thrombocytopenia Other congenital or acquired thrombophilia Stroke (< 1 month) Elective arthroplasty Hip, pelvis, or leg fracture Acute spinal cord injury (< 1 month) Prophylaxis Regimen: Total Risk Factor Score Risk Level Prophylaxis Regimen 0-1 Low Early ambulation 2 Moderate Order ONE of the following: *Sequential Compression Device (SCD) *Heparin 5000 units SQ BID 3-4 Higher Order ONE of the following medications: *Heparin 5000 units SQ TID *Enoxaparin/Lovenox 40 mg SQ daily (WT < 150 kg, CrCl > 30 mL/min) *Enoxaparin/Lovenox 30 mg SQ daily (WT < 150 kg, CrCl > 10-29 mL/min) *Enoxaparin/Lovenox 30 mg SQ BID (WT < 150 kg, CrCl > 30 mL/min) AND/OR *Sequential Compression Device (SCD) 5 or more Highest Order ONE of the following medications: *Heparin 5000 units SQ TID (Preferred with Epidurals) *Enoxaparin/Lovenox 40 mg SQ daily (WT < 150 kg, CrCl > 30 mL/min) *Enoxaparin/Lovenox 30 mg SQ daily (WT < 150 kg, CrCl > 10-29 mL/min) *Enoxaparin/Lovenox 30 mg SQ BID (WT < 150 kg, CrCl > 30 mL/min) AND *Sequential Compression Device (SCD) Assessment and Plan - Assessment (1) Cough with hemoptysis Code(s): R04.2 - Hemoptysis Status: Acute Plan: Pt with new symptoms of hemoptysis, likely due to possible enlargement of chronic cavitary lesion with superinfection. See plan below. (2) Cavitary lesion of lung Code(s): J98.4 - Other disorders of lung Status: Chronic Plan: Pt with Cavitary lesion of the lung since October 2017. Pt has been admitted a few time for this issue. Last CT scan as outpatient in May was stable. Now with new onset of hemoptysis and CTA scan w/ new air fluid levels suggestive of superinfection. - Continue Ethambutol 800mg po q HS - Continue Rifampin 600 mg po daily - Continue clarithromycin 500mg po q12hrs - ID consulted, will await for recommendations - Pulmonology consulted (Dr. Lauren has been involved in her last two hospitalizations) (3) Mycobacterial infection, atypical Code(s): A31.9 - Mycobacterial infection, unspecified Status: Chronic Plan: See plan above (4) Hypertension Code(s): I10 - Essential (primary) hypertension Status: Chronic Plan: Chronic in nature. Pt had medication adjusted in May by Dr. Willson. - Continue taking Carvedilol 3.125 mg q HS (5) Lupus (systemic lupus erythematosus) Code(s): M32.9 - Systemic lupus erythematosus, unspecified Status: Chronic Plan: Pt follows up with Dr. Lama as an outpatient. Hx of cerebritis - Continue taking hydroxychloroquine 100 mg every other day - Continue taking phenobarbital 30mg po qHS (6) COPD (chronic obstructive pulmonary disease) Code(s): J44.9 - Chronic obstructive pulmonary disease, unspecified Status: Chronic Plan: Chronic. Pt stable on medications. - Duonebs q 6hrs PRN while awake - Continue taking Theophylline ER 200mg po daily (7) Hypothyroidism Code(s): E03.9 - Hypothyroidism, unspecified Status: Acute Plan: Chronic for patient. PCP ordered TSH and T4 as outpatient. - Continue Levothyroxine 25mcg q day (8) Nutrition, metabolism, and development symptoms Code(s): R63.8 - Other symptoms and signs concerning food and fluid intake Status: Acute Plan: - Diet: cardiac - Fluids: none - Electrolytes: monitor and replace as needed - Pain management: Continue home Tramadol 50 PO QID BERTRAM (9) DVT prophylaxis Status: Acute Plan: SCDs bilaterally - Assessment and Plan Ms Vega is a 77 yr old female with a complicated PMH including cavitary lesions of the lung, RLL lobectomy, lupus, HTN, COPD, Alexis skin carcinoma,IBD , GERD, and hypothyroidism, presenting to the ED with two episodes of hemoptysis. On chronic medications for atypical mycoplasma infection, managed outpatient with ID, and pulmonology. Pt stable on exam, will admit to inpatient services.
--- NOTE | 2018-07-18 15:32 | ECG ---
Date Performed: 07/18/2018 Time Performed: 10:44:16 PTAGE: 77 years EKG: Sinus rhythm BORDERLINE RIGHT AXIS DEVIATION BORDERLINE ECG Compared to PREVIOUS TRACING , axis slightly more rightward, ST-T changes have improved. PREVIOUS TRA CIN02/01/2018 21.42 DOCTOR: Shane Nix Interpretating Date/Time 07/18/2018 15:30:39
[2018-07-19] MEDS ORDERED: Atropine Inj 1 MG/10 ML Syringe ONE (01:07)
--- NOTE | 2018-07-19 01:51 | P.PNADD ---
Addendum to Inpatient Note Reason for Addendum: Additional Documentation Additional information: Residents paged at [phone] for a Code Blue. Upon arrival to the patient's room, the code team and Dr. Calhoun were present. Pt was awake and talking. Pt had gotten up to go to the bathroom when she became dizzy. Pt stated that she did not remember what happened after that. Her nurse stated that she came into her room and found her seated on the floor by her bed. She did not fall. Nurse conducted vitals and found her HR to be in the low 40s. They also stated that she seemed to become obtunded so they called the code blue. O: VS upon entering the room: HR 90s, VSS General: elderly white female laying in bed, in no acute distress Cardiac: RRR Extremities: no cyanosis, no edema A&O x 3 BS 120 A/P: Most likely dizziness/bradycardia due to medication. Lowest HR recorded was 14. Pt given 1 amp of atropine at 0108. Pt had taken her HS dose of Coreg at 2154 and later became dizzy. She states that this is usual for her. At her last appt with Dr. Billings her dose was decreased. -Will hold Coreg -Will conduct AM labs at this time per Dr. Calhoun's advice along with a TSH -Will start LR @ maintenance 84 mls/hr (pt states that she has an allergy to NS) -EKG appears relatively unchanged from previous EKG in ED -Troponin pending SDW Dr. Calhoun
[2018-07-19 02:07] LABS: Baso # (Auto) 0.1 th/mm3 (0.0-0.2); Eos # (Auto) 0.4 th/mm3 (0.0-0.4); Eos % (Auto) 6.5 % (0.0-4.0); Hematocrit 37.1 % (35.0-46.0); Hemoglobin 12.6 gm/dL (11.6-15.3); Lymph # (Auto) 1.6 th/mm3 (1.0-4.8); Lymph % (Auto) 23.6 % (9.0-44.0); Mean Corpuscular HGB Conc 33.8 % (32.0-36.0); Mean Corpuscular Hemoglobin 28.8 pg (27.0-34.0); Mean Corpuscular Volume 85.2 fL (80.0-100.0); Mean Platelet Volume 6.9 fL (7.0-11.0); Mono # (Auto) 0.7 th/mm3 (0.0-0.9); Neut # (Auto) 4.1 th/mm3 (1.8-7.7); Neut % (Auto) 58.9 % (16.0-70.0); Platelet Count 265 th/mm3 (150-450); Red Blood Count 4.36 mil/mm3 (4.00-5.30); Red Cell Distribution Width 14.1 % (11.6-17.2); White Blood Count 6.9 th/mm3 (4.0-11.0)
[2018-07-19 02:25] LABS: Albumin 3.5 g/dL (3.4-5.0); Anion Gap 7 meq/L (5-15); Aspartate Aminotransferase 16 U/L (15-37); Blood Urea Nitrogen 16 mg/dL (7-18); Calcium 9.2 mg/dL (8.5-10.1); Carbon Dioxide 27.2 meq/L (21.0-32.0); Chloride 100 meq/L (98-107); Glomerular Filtration Rate 80 mL/min (>89); Glucose,Random 96 mg/dL (74-106); Potassium 3.8 meq/L (3.5-5.1); Sodium 134 meq/L (136-145)
[2018-07-19 02:36] LABS: Alanine Aminotransferase 20 U/L (10-53); Alkaline Phosphatase 118 U/L (45-117)
--- NOTE | 2018-07-19 09:15 | P.PNFP ---
Subjective Interval history: Pt. examined in the afternoon after resident evaluation. She is sitting in bed without complaint at this time. She had a code blue called overnight for bradycardia, however she states that she feels fine at this time. She continues to have some left sided chest discomfort but this has not changed for some time. Her hemoptysis has significantly slowed but she still is coughing up some small clots. She denies fevers or chills, denies palpitations, denies any new episodes of dizziness or lightheadedness today. <Sharath Suarez - 07/19/18 21:03> Patient seen and examined this morning. Overnight DARA DUBOIS called for bradycardia. Patient administer atropine with appropriate response and has maintained a heart rate of greater than 60 bpm since the episode. We briefly discussed her recent history as well as her past medical history. Patient states she has been compliant with her medications since starting them earlier this year. She is on to state that her infectious disease physician, Dr. Mccoy , recommended possible lobectomy however she adamantly refused and states that "she cannot handle another lobectomy, I would ." She continues to have intermittent hemoptysis with one episode over the last 24 hours. She also endorses night sweats, subjective fevers, and continued chest pressure/pain she relates to her cavitary lesion. We also discussed her bradycardic event overnight. Patient states that she was walking back from the bathroom when she became very lightheaded, sweaty, and felt like she was going to "pass out." She states her nurse helped her to the ground and then the next thing that she remembered was "a bunch of people standing around me." She goes on to state that she believes it is her carvedilol as it "makes her feel this way every night." She has been evaluated by cardiology, Dr. Tijerina, as well as her PCP, Dr. Grande, for these episodes. She reports that she was previously on the other blood pressure medications in the past, but were discontinued for reasons she cannot report. Otherwise she has no acute complaints and denies any NVD, abdominal pain, or calf tenderness. <Gilberto Benson - 07/19/18 11:36> Results - Labs Result diagrams: 07/19/18 01:57 07/19/18 01:57 <Sharath Suarez - 07/19/18 21:03> Abnormal lab results 07/19/18 07/19/18 07/19/18 Range/Units 01:13 01:57 01:57 MPV 6.9 L (7.0-11.0) fL [place] % (Auto) 10.0 H (0.0-8.0) % Eos % (Auto) 6.5 H (0.0-4.0) % Sodium 134 L (136-145) meq/L Estimated GFR 80 L (>89) mL/min POC Glucose 123 H (68-110) mg/dl Alkaline Phosphatase 118 H (45-117) U/L Troponin I (0.02-0.05) ng/mL 07/19/18 07/19/18 Range/Units 01:57 11:20 MPV (7.0-11.0) fL [place] % (Auto) (0.0-8.0) % Eos % (Auto) (0.0-4.0) % Sodium (136-145) meq/L Estimated GFR (>89) mL/min POC Glucose (68-110) mg/dl Alkaline Phosphatase (45-117) U/L Troponin I Less than 0.02 L Less than 0.02 L (0.02-0.05) ng/mL Short CBC 07/19/18 Range/Units 01:57 WBC 6.9 (4.0-11.0) th/mm3 Hgb 12.6 (11.6-15.3) gm/dL Hct 37.1 (35.0-46.0) % Plt Count 265 (150-450) th/mm3 BMP 07/19/18 01:57 Sodium 134 L Potassium 3.8 Chloride 100 Carbon Dioxide 27.2 BUN 16 Creatinine 0.71 Calcium 9.2 Cardiac Enzymes 07/19/18 07/19/18 07/19/18 Range/Units 01:57 11:20 11:20 Total Creatine Kinase 78 (26-192) U/L Troponin I Less than 0.02 L Less than 0.02 L (0.02-0.05) ng/mL Liver Function 07/19/18 Range/Units 01:57 Total Bilirubin 0.4 (0.2-1.0) mg/dL AST 16 (15-37) U/L ALT 20 (10-53) U/L Alkaline Phosphatase 118 H (45-117) U/L Albumin 3.5 (3.4-5.0) g/dL <Sharath Suarez - 07/19/18 21:03> Abnormal lab results 07/18/18 07/18/18 07/19/18 Range/Units 10:15 10:15 01:13 MPV (7.0-11.0) fL Neut % (Auto) 75.5 H (16.0-70.0) % [place] % (Auto) 10.0 H (0.0-8.0) % Eos % (Auto) (0.0-4.0) % Lymph # (Auto) 0.9 L (1.0-4.8) th/mm3 Sodium 133 L (136-145) meq/L Estimated GFR (>89) mL/min POC Glucose 123 H (68-110) mg/dl Random Glucose 73 L (74-106) mg/dL Alkaline Phosphatase 136 H (45-117) U/L Troponin I Less than 0.02 L (0.02-0.05) ng/mL 07/19/18 07/19/18 07/19/18 Range/Units 01:57 01:57 01:57 MPV 6.9 L (7.0-11.0) fL Neut % (Auto) (16.0-70.0) % [place] % (Auto) 10.0 H (0.0-8.0) % Eos % (Auto) 6.5 H (0.0-4.0) % Lymph # (Auto) (1.0-4.8) th/mm3 Sodium 134 L (136-145) meq/L Estimated GFR 80 L (>89) mL/min POC Glucose (68-110) mg/dl Random Glucose (74-106) mg/dL Alkaline Phosphatase 118 H (45-117) U/L Troponin I Less than 0.02 L (0.02-0.05) ng/mL Short CBC 07/18/18 07/19/18 Range/Units 10:15 01:57 WBC 8.4 6.9 (4.0-11.0) th/mm3 Hgb 13.6 12.6 (11.6-15.3) gm/dL Hct 40.8 37.1 (35.0-46.0) % Plt Count 305 265 (150-450) th/mm3 BMP 07/18/18 07/19/18 10:15 01:57 Sodium 133 L 134 L Potassium 4.1 3.8 Chloride 100 100 Carbon Dioxide 26.5 27.2 BUN 15 16 Creatinine 0.57 0.71 Calcium 9.1 9.2 Cardiac Enzymes 07/18/18 07/19/18 Range/Units 10:15 01:57 Total Creatine Kinase 108 (26-192) U/L CK-MB (CK-2) 1.9 (0.5-3.6) ng/mL Troponin I Less than 0.02 L Less than 0.02 L (0.02-0.05) ng/mL Liver Function 07/18/18 07/19/18 Range/Units 10:15 01:57 Total Bilirubin 0.3 0.4 (0.2-1.0) mg/dL AST 16 16 (15-37) U/L ALT 22 20 (10-53) U/L Alkaline Phosphatase 136 H 118 H (45-117) U/L Albumin 3.8 3.5 (3.4-5.0) g/dL <Gilberto Benson H - 07/19/18 09:14> - Imaging Impressions Chest CTA 07/18/18 09:17 CONCLUSION: 1. No PE is identified. 2. Chronic cavitary lesion is present in the left upper lobe and demonstrates a new air-fluid level suggesting possible superinfection. The adjacent parenchymal changes are stable. 3. The multiple bilateral pulmonary nodules, most numerous in the left lower lobe, are stable. Suggest attention to these at follow-up imaging. <Gilberto Benson H - 07/19/18 09:14> Physical Exam Vital signs: Vital Signs 07/19/18 00:00 07/19/18 01:22 07/19/18 04:00 Temperature Pulse Rate 84 60 Respiratory Rate 18 Blood Pressure 111/60 Pulse Oximetry 99 99 07/19/18 04:55 07/19/18 05:00 07/19/18 06:00 Temperature Pulse Rate 62 58 L 58 L Respiratory Rate Blood Pressure Pulse Oximetry 07/19/18 07:00 07/19/18 08:00 07/19/18 09:00 Temperature 97.5 F L Pulse Rate 74 75 73 Respiratory Rate 20 Blood Pressure 155/63 H Pulse Oximetry 100 100 07/19/18 10:00 07/19/18 11:00 07/19/18 12:00 Temperature 97.9 F Pulse Rate 69 67 65 Respiratory Rate 18 Blood Pressure 144/69 H Pulse Oximetry 100 07/19/18 13:00 07/19/18 14:00 07/19/18 14:19 Temperature Pulse Rate 69 74 Respiratory Rate Blood Pressure Pulse Oximetry 99 07/19/18 15:00 07/19/18 16:00 07/19/18 17:00 Temperature 98 F Pulse Rate 59 L 52 L 68 Respiratory Rate 18 Blood Pressure 147/55 H Pulse Oximetry 100 07/19/18 18:00 07/19/18 19:54 Temperature Pulse Rate 68 Respiratory Rate Blood Pressure Pulse Oximetry 97 Intake & Output 07/19/18 07/19/18 07/20/18 06:59 18:59 06:59 Intake Total 480 / 480 1720 / 1720 Output Total 1 / 1 500 / 500 Balance 479 / 479 1220 / 1220 Weight 45.1 kg Intake: IV 1000 / 1000 LR 1000 mL Inj 1,000 ML @ 84 1000 / 1000 mls/hr IV.CONT .[id number] [facility] Rx# :[id number] Oral 480 / 480 720 / 720 Output: Urine 1 / 1 500 / 500 Other: # Voids 1 <Sharath Suarez - 07/19/18 21:03> Vital Signs 07/18/18 08:57 07/18/18 09:42 07/18/18 09:56 Temperature 98.1 F Pulse Rate 93 H 83 Respiratory Rate 20 16 Blood Pressure 219/97 H Pulse Oximetry 99 99 99 07/18/18 11:51 07/18/18 13:38 07/18/18 16:28 Temperature Pulse Rate 82 76 77 Respiratory Rate 15 18 16 Blood Pressure 160/73 H 166/71 H Pulse Oximetry 99 100 07/18/18 16:29 07/18/18 17:00 07/18/18 17:02 Temperature 98.4 F Pulse Rate 70 75 Respiratory Rate 18 18 Blood Pressure 178/83 H Pulse Oximetry 99 07/18/18 18:00 07/18/18 20:00 07/19/18 00:00 Temperature 97.7 F Pulse Rate 68 85 84 Respiratory Rate 20 18 Blood Pressure 166/80 H 111/60 Pulse Oximetry 98 99 07/19/18 01:22 07/19/18 04:00 07/19/18 04:55 Temperature Pulse Rate 60 62 Respiratory Rate Blood Pressure Pulse Oximetry 99 07/19/18 05:00 07/19/18 06:00 Temperature Pulse Rate 58 L 58 L Respiratory Rate Blood Pressure Pulse Oximetry Intake & Output 07/18/18 07/19/18 07/19/18 18:59 06:59 18:59 Intake Total 240 / 240 480 / 480 Output Total Balance 240 / 240 479 / 479 Weight 44.906 kg 45.1 kg Intake: Oral 240 / 240 480 / 480 Output: Urine Other: # Voids 1 Date of Last Bowel Movement 07/18/18 <Gilberto Benson - 07/19/18 09:14> Narrative: GEN: thin and elderly appearing female lying in bed comfortably and eating dinner CV: bradycardic but regular rhythm PULM: CTA bilaterally ABD: soft, NT, ND <Sharath Suarez - 07/19/18 21:03> GENERAL: Thin appearing elderly female lying in bed in no acute distress. SKIN: Cool and dry. No rash. Pale appearing. Scar below left scapula from previous lobectomy. HEENT: Atraumatic, normocephalic with extraocular motions intact. No rhinorrhea. Oropharynx clear without visible signs of possible hemorrhage. No visible lymphadenopathy or jugulovenous distension appreciated. CARDIOVASCULAR: Regular rate and rhythm without obvious murmurs, gallops, or rubs. 2+ pulses in all four extremities. RESPIRATORY: Clear to auscultation bilaterally with no crackles, wheezes, or rhonchi. No increased work of breathing. GASTROINTESTINAL: Abdomen soft, non-tender, nondistended with positive bowel sounds. No masses appreciated. MUSCULOSKELETAL: No cyanosis or edema. No calf tenderness. Ambulating well per report. NEURO/PSYCH: Afocal. Awake, alert, and oriented x3. Normal speech and judgement. <Gilberto Benson - 07/19/18 11:36> Assessment and Plan - Assessment (1) Bradycardia Code(s): R00.1 - Bradycardia, unspecified Status: Acute Plan: Hold beta anai from here on out Cardiology consulted and agrees to hold paula blockers - consider pacer if bradycardia persists Troponins negative Monitor on telemetry Atropine for symptomatic bradycardia vs. external pacers. (2) Cough with hemoptysis Code(s): R04.2 - Hemoptysis Status: Acute Plan: Pulmonology and ID consulted ID recommends continued abx with Clarithro/Rifampin/Ethambutol Sputum culture pending AFB sputum pending (3) Cavitary lesion of lung Code(s): J98.4 - Other disorders of lung Status: Chronic (4) Mycobacterial infection, atypical Code(s): A31.9 - Mycobacterial infection, unspecified Status: Chronic (5) Hypertension Code(s): I10 - Essential (primary) hypertension Status: Chronic (6) Lupus (systemic lupus erythematosus) Code(s): M32.9 - Systemic lupus erythematosus, unspecified Status: Chronic (7) COPD (chronic obstructive pulmonary disease) Code(s): J44.9 - Chronic obstructive pulmonary disease, unspecified Status: Chronic (8) Hypothyroidism Code(s): E03.9 - Hypothyroidism, unspecified Status: Chronic (9) Nutrition, metabolism, and development symptoms Code(s): R63.8 - Other symptoms and signs concerning food and fluid intake Status: Acute (10) DVT prophylaxis Status: Acute <Sharath Suarez - 07/19/18 21:03> (1) Bradycardia Code(s): R00.1 - Bradycardia, unspecified Status: Acute Plan: Patient with bradycardic episode on 07/18/18. Patient administered atropine and has maintained heart rate since that time. -EKG overnight with Sinus Rhythm. T wave slurring in leads II, III, avF, V5 and V5. No acute ST abnormality. (Per medical team read) -Troponin negative; repeat ordered with CKMB -CMP without acute abnormality -Mg added to morning labs -DC home Coreg -Clonidine PRN for BP >180/110 -Consult Cardiology, appreciate recommendations (2) Cough with hemoptysis Code(s): R04.2 - Hemoptysis Status: Acute Plan: Pt with new symptoms of hemoptysis, likely due to possible enlargement of chronic cavitary lesion with superinfection. -H/H stable -Continue to monitor (3) Cavitary lesion of lung Code(s): J98.4 - Other disorders of lung Status: Chronic Plan: Pt with Cavitary lesion of the lung since October 2017. Pt has been admitted a few time for this issue. Last CT scan as outpatient in May was stable. Patient with new onset of hemoptysis. - CTA scan w/ new air fluid levels suggestive of superinfection. - TB PCR: Negative - Sputum cultures: Pending - ID consulted, will await for recommendations - Pulmonology consulted, appreciate recommendations Medications: - Continue Ethambutol 800mg po q HS - Continue Rifampin 600 mg po daily - Continue clarithromycin 500mg po q12hrs (4) Mycobacterial infection, atypical Code(s): A31.9 - Mycobacterial infection, unspecified Status: Chronic Plan: See plan above (5) Hypertension Code(s): I10 - Essential (primary) hypertension Status: Chronic Plan: Chronic in nature. Pt had medication adjusted in May by Dr. Grande. Medications: - DC Cavedilol due to bradycardic episode - Clonidine PRN for BP >180/110 (6) Lupus (systemic lupus erythematosus) Code(s): M32.9 - Systemic lupus erythematosus, unspecified Status: Chronic Plan: Pt follows up with Dr. Lama as an outpatient. Medications: - Continue taking hydroxychloroquine 100 mg every other day - Continue taking phenobarbital 30mg po qHS (7) COPD (chronic obstructive pulmonary disease) Code(s): J44.9 - Chronic obstructive pulmonary disease, unspecified Status: Chronic Plan: Chronic. Pt stable on medications. -Incentive spirometry Medications: - Duonebs q 6hrs PRN while awake - Continue taking Theophylline ER 200mg po daily (8) Hypothyroidism Code(s): E03.9 - Hypothyroidism, unspecified Status: Chronic Plan: Chronic for patient. PCP ordered TSH and T4 as outpatient. -TSH WNL at 3.1 Medications: - Continue Levothyroxine 25mcg q day (9) Nutrition, metabolism, and development symptoms Code(s): R63.8 - Other symptoms and signs concerning food and fluid intake Status: Acute Plan: - Diet: Cardiac - Fluids: LR at 84 ml/hr - Electrolytes: Monitor and replace as needed - Pain management: Continue home Tramadol 50 PO QID BERTRAM - Incentive spirometry - Prophylaxis: Zofran PRN for N/V, Clonidine PRN for BP >180/110, Albuterol PRN for SOB, Tylenol PRN for fever, Calcium carbonate PRN for reflux (10) DVT prophylaxis Status: Acute Plan: - SCDs bilaterally - Avoid pharmacological prophylaxis due to hemoptysis <Benson,Gilberto H - 07/19/18 11:30> - Assessment and Plan Ms. Vega is a 77 yr old female with a complicated PMH including cavitary lesions of the lung, RLL lobectomy, lupus, HTN, COPD, [place] skin carcinoma,IBD , GERD, and hypothyroidism, presenting to the ED with two episodes of hemoptysis. On chronic medications for atypical mycoplasma infection, managed outpatient with ID, and pulmonology. Pt stable on exam, will admit to inpatient services. <Gilberto Benson - 07/19/18 09:14> <Gilberto Benson - Last Filed: 07/19/18 11:30> (5) Hypertension Qualifiers: Hypertension type: essential hypertension Qualified Code(s): I10 - Essential (primary) hypertension (6) Lupus (systemic lupus erythematosus) Qualifiers: Systemic lupus erythematosus type: unspecified Systemic lupus erythematosus organ involvement: unspecified Qualified Code(s): M32.9 - Systemic lupus erythematosus, unspecified (7) COPD (chronic obstructive pulmonary disease) Qualifiers: COPD type: unspecified COPD Qualified Code(s): J44.9 - Chronic obstructive pulmonary disease, unspecified (8) Hypothyroidism Qualifiers: Hypothyroidism type: unspecified Qualified Code(s): E03.9 - Hypothyroidism, unspecified <Sharath Suarez - Last Filed: 07/19/18 21:03> (5) Hypertension Qualifiers: Hypertension type: essential hypertension Qualified Code(s): I10 - Essential (primary) hypertension (6) Lupus (systemic lupus erythematosus) Qualifiers: Systemic lupus erythematosus type: unspecified Systemic lupus erythematosus organ involvement: unspecified Qualified Code(s): M32.9 - Systemic lupus erythematosus, unspecified (7) COPD (chronic obstructive pulmonary disease) Qualifiers: COPD type: unspecified COPD Qualified Code(s): J44.9 - Chronic obstructive pulmonary disease, unspecified (8) Hypothyroidism Qualifiers: Hypothyroidism type: unspecified Qualified Code(s): E03.9 - Hypothyroidism, unspecified <Gilberto Benson - Last Filed: 07/19/18 11:30> (5) Hypertension Qualifiers: Hypertension type: essential hypertension Qualified Code(s): I10 - Essential (primary) hypertension (6) Lupus (systemic lupus erythematosus) Qualifiers: Systemic lupus erythematosus type: unspecified Systemic lupus erythematosus organ involvement: unspecified Qualified Code(s): M32.9 - Systemic lupus erythematosus, unspecified (7) COPD (chronic obstructive pulmonary disease) Qualifiers: COPD type: unspecified COPD Qualified Code(s): J44.9 - Chronic obstructive pulmonary disease, unspecified (8) Hypothyroidism Qualifiers: Hypothyroidism type: unspecified Qualified Code(s): E03.9 - Hypothyroidism, unspecified <Sharath Suarez - Last Filed: 07/19/18 21:03> (5) Hypertension Qualifiers: Hypertension type: essential hypertension Qualified Code(s): I10 - Essential (primary) hypertension (6) Lupus (systemic lupus erythematosus) Qualifiers: Systemic lupus erythematosus type: unspecified Systemic lupus erythematosus organ involvement: unspecified Qualified Code(s): M32.9 - Systemic lupus erythematosus, unspecified (7) COPD (chronic obstructive pulmonary disease) Qualifiers: COPD type: unspecified COPD Qualified Code(s): J44.9 - Chronic obstructive pulmonary disease, unspecified (8) Hypothyroidism Qualifiers: Hypothyroidism type: unspecified Qualified Code(s): E03.9 - Hypothyroidism, unspecified
[2018-07-19] MEDS: Theophylline ER 24 HR 200 MG Capsule PO SCH (10:33)
--- NOTE | 2018-07-19 14:16 | P.CONID ---
History of Present Illness Service: ID Consult date: 07/19/18 Requesting Physician: Padma Fish Reason for Consult: AMNA infection Primary Care Provider: Gisella Willson MD, R2 Family Provider: Devang Mendenhall MD History of Present Illness: 77 yo female known to me from previous hospitalisation has culture confirmed pulmonary AMNA witht he following sensitivity profile a sper January 2018 clx: AFB CULTURE Final 05/25/18-1518 CULTURE GROWING MYCOBACTERIUM INTRACELLULARE RIFAMPIN/ETHAMBUTOL DRUG COMBO: DRUG COMBO EFFECT: IN THE COMBINATION OF RIFAMPIN AND ETHAMBUTOL, THE EFFECT IS SYNERGISTIC, AND THE MICS ARE: RIFAMPIN: 0.5 mcg/mL Tentitive Interpretation "SUSCEPTIBLE" ETHAMBUTOL: 2.5 mcg/mL Tentitive Interpretation "SUSCEPTIBLE" Susceptibilities performed by: [facility] RX --------- --- AMIKACIN 8 R CLARITHROMYCIN 2 S CIPROFLOXACIN >16 R MOXIFLOXACIN 4 R LINEZOLID 64 R RIFAMPIN 4 I RIFABUTIN 1 I STREPTOMYCIN 16 R ETHAMBUTOL 20 R CLOFAZIMINE <=0.12 S She has been on treatment with CLA+ ETM+ RIF under supervision of Dr Crespo Apparently Dr. Mccoy, recommended possible lobectomy however she adamantly refused She presented with 1 day of hemoptysis coughin g up large clots of blood CT showed Chronic cavitary lesion is present in the left upper lobe and demonstrates a new air-fluid level suggesting possible superinfection. The CT was dw Dr Peguero. 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 Hypertension Hypothyroidism Lupus (systemic lupus erythematosus) Mycobacterial infection, atypical - Surgical History Surgical History: Surgical History (Last Reviewed 07/19/18 @ 14:22 by Xiomara Rudd MD) H/O hysterectomy with oophorectomy H/O nasal polypectomy History of colectomy History of lobectomy of lung Hx of appendectomy Hx of cholecystectomy - Social History I have reviewed the patient's Social History: Yes - Tobacco History Second Hand Smoke Exposure: No Tobacco Use In Past 30 Days: No Smoking Status: Never smoker - Alcohol History How Often Do You Have a Drink Containing Alcohol: Never - Substance Use History Substance History: No History of Abuse - Immunization History Tetanus Immunization: Unable to Assess Hx Influenza Vaccine This Season: Unable to Assess Medications and Allergies Active Medications: Active Medications Acetaminophen (Tylenol) 650 mg PO Q4H PRN PRN Reason: Temp > 100.4 Albuterol (Duoneb Neb (Prn)) 1 ampul NEB Q6HR NEB PRN PRN Reason: Shortness of breath Clarithromycin (Biaxin) 500 mg PO Q12H [facility] Last Admin: 07/19/18 06:22 Dose: 500 mg Clonidine HCl (Catapres) 0.1 mg PO Q6H PRN PRN Reason: BP > 180/110 Estrogens Conjugated (Premarin) 0.3 mg PO DAILY [facility] Last Admin: 07/19/18 10:33 Dose: 0.3 mg Ethambutol HCl (Myambutol) 800 mg PO QPM [facility] Last Admin: 07/18/18 17:38 Dose: 800 mg Hydroxychloroquine Sulfate (Plaquenil) 100 mg PO EVERY OTHER DAY [facility] Hydroxyzine HCl (Atarax) 25 mg PO QPM [facility] Last Admin: 07/18/18 17:39 Dose: 25 mg Lactated Ringer's (Lr 1000 Ml Inj) 1,000 mls @ 84 mls/hr IV.CONT .[id number] [facility] Last Admin: 07/19/18 13:48 Dose: 84 mls/hr Levothyroxine Sodium (Synthroid) 25 mcg PO DAILY@0600 [facility] Last Admin: 07/19/18 06:22 Dose: 25 mcg Miscellaneous (Pill Splitter) 1 each [facility] Ondansetron HCl (Zofran Inj) 4 mg IV.PUSH Q6H PRN PRN Reason: NAUSEA OR VOMITING Last Admin: 07/19/18 10:37 Dose: 4 mg Phenobarbital (Phenobarbital) 30 mg PO QPM [facility] Last Admin: 07/18/18 17:37 Dose: 30 mg Rifampin (Rifampin) 600 mg PO DAILY [facility] Last Admin: 07/19/18 10:33 Dose: 600 mg Sodium Chloride (Ns Flush) 2 ml IV.FLUSH UNSCH PRN PRN Reason: FLUSH AFTER USING IV ACCESS Theophylline (To-24) 200 mg PO DAILY [facility] Last Admin: 07/19/18 10:33 Dose: 200 mg Tramadol HCl (Ultram) 50 mg PO QID [facility] Last Admin: 07/19/18 13:46 Dose: 50 mg Allergies Allergy/AdvReac Type Severity Reaction Status Date / Time celecoxib Allergy Severe Hives Verified 07/18/18 12:52 cyclobenzaprine Allergy Severe unknown Verified 07/18/18 12:52 morphine Allergy Severe Cardiac Verified 07/18/18 12:52 Arrest penicillin G Allergy Severe Cardiac Verified 07/18/18 12:52 Arrest Sulfa (Sulfonamide Allergy Severe Swelling Verified 07/18/18 12:52 Antibiotics) of Lip/Tongue/Throat meperidine AdvReac Severe Hallucinati Verified 07/18/18 12:52 ons codeine AdvReac Mild Hallucinati Verified 07/18/18 12:52 ons Home Medications Medication Instructions Recorded Confirmed Type albuterol sulfate 0.63 mg INHALATION Q4-6H PRN 07/18/18 07/18/18 History clarithromycin 500 mg PO Q12H 07/18/18 07/18/18 History conjugated estrogens [Premarin] 0.3 mg PO DAILY 07/18/18 07/18/18 History diflunisal 500 mg PO DAILY 07/18/18 07/18/18 History ethambutol 800 mg PO QPM 07/18/18 07/18/18 History hydroxychloroquine [Plaquenil] 100 mg PO EVERY OTHER DAY 07/18/18 07/18/18 History hydroxyzine HCl 25 mg PO QPM 07/18/18 07/18/18 History phenobarbital 30 mg PO QPM 07/18/18 07/18/18 History rifampin 600 mg PO DAILY 07/18/18 07/18/18 History theophylline 200 mg PO DAILY 07/18/18 07/18/18 History tramadol 50 mg PO QID 07/18/18 07/18/18 History Exam Vital signs: Vital Signs 07/18/18 16:28 07/18/18 16:29 07/18/18 17:00 Temperature 98.4 F Pulse Rate 77 70 75 Respiratory Rate 16 18 Blood Pressure 166/71 H 178/83 H Pulse Oximetry 100 99 07/18/18 17:02 07/18/18 18:00 07/18/18 20:00 Temperature 97.7 F Pulse Rate 68 85 Respiratory Rate 18 20 Blood Pressure 166/80 H Pulse Oximetry 98 07/19/18 00:00 07/19/18 01:22 07/19/18 04:00 Temperature Pulse Rate 84 60 Respiratory Rate 18 Blood Pressure 111/60 Pulse Oximetry 99 99 07/19/18 04:55 07/19/18 05:00 07/19/18 06:00 Temperature Pulse Rate 62 58 L 58 L Respiratory Rate Blood Pressure Pulse Oximetry 07/19/18 07:00 07/19/18 08:00 07/19/18 09:00 Temperature 97.5 F L Pulse Rate 74 75 73 Respiratory Rate 20 Blood Pressure 155/63 H Pulse Oximetry 100 100 07/19/18 10:00 07/19/18 11:00 07/19/18 12:00 Temperature 97.9 F Pulse Rate 69 67 65 Respiratory Rate 18 Blood Pressure 144/69 H Pulse Oximetry 100 07/19/18 13:00 Temperature Pulse Rate 69 Respiratory Rate Blood Pressure Pulse Oximetry Intake & Output 07/18/18 07/19/18 07/19/18 18:59 06:59 18:59 Intake Total 240 / 240 480 / 480 1000 / 1000 Output Total Balance 240 / 240 479 / 479 1000 / 1000 Weight 44.906 kg 45.1 kg Intake: IV 1000 / 1000 LR 1000 mL Inj 1,000 ML @ 84 1000 / 1000 mls/hr IV.CONT .[id number] [facility] Rx# :[id number] Oral 240 / 240 480 / 480 Output: Urine Other: # Voids 1 Date of Last Bowel Movement 07/18/18 - Constitutional no acute distress, thin - Routine HEENT Exam Head: Present: normocephalic, atraumatic Eye: Present: EOMI, PERRL ENT: Present: mucous membranes moist Comments: + oral thrush - Routine Neck Exam Present: supple, full ROM - Routine Respiratory Exam Present: rales (L), rhonchi (L ) Comments: good effort - Routine Cardiovascular Exam Present: RRR, S1, S2 Comments: no murmurs rubs gallops - Routine Abdominal Exam Present: soft, normoactive bowel sounds Comments: not tendernt distended no heap[tosplenomegaly or masses - Routine Extremities Exam Comments: no cyanosis no clubbing no edema - Routine Skin Exam Present: intact, dry, warm Comments: no rash - Routine Neurological Exam Present: alert, oriented X3, CN II-XII intact, moving all extremities, vision grossly intact, hearing grossly intact, normal speech - Routine Psychiatric Exam Present: normal affect, normal thought process, cooperative Results - Labs CBC & Chem 7: 07/22/18 05:15 07/20/18 06:17 Labs: Laboratory Results - last 24 hr 07/18/18 07/18/18 07/19/18 10:00 11:31 01:13 WBC RBC Hgb Hct MCV MCH MCHC RDW Plt Count MPV Neut % (Auto) Lymph % (Auto) [place] % (Auto) Eos % (Auto) Baso % (Auto) Neut # (Auto) Lymph # (Auto) Deuel # (Auto) Eos # (Auto) Baso # (Auto) WBC Differential Differential Comment Sodium Potassium Chloride Carbon Dioxide Anion Gap BUN Creatinine Estimated GFR POC Glucose 84 123 H Random Glucose Calcium Magnesium Total Bilirubin AST ALT Alkaline Phosphatase Total Creatine Kinase Troponin I Total Protein Albumin TSH M.tuberculosis DNA (PCR) Not detected 07/19/18 07/19/18 07/19/18 01:57 01:57 01:57 WBC 6.9 RBC 4.36 Hgb 12.6 Hct 37.1 MCV 85.2 MCH 28.8 MCHC 33.8 RDW 14.1 Plt Count 265 MPV 6.9 L Neut % (Auto) 58.9 Lymph % (Auto) 23.6 Deuel % (Auto) 10.0 H Eos % (Auto) 6.5 H Baso % (Auto) 1.0 Neut # (Auto) 4.1 Lymph # (Auto) 1.6 Deuel # (Auto) 0.7 Eos # (Auto) 0.4 Baso # (Auto) 0.1 WBC Differential . Differential Comment Auto diff final Sodium 134 L Potassium 3.8 Chloride 100 Carbon Dioxide 27.2 Anion Gap 7 BUN 16 Creatinine 0.71 Estimated GFR 80 L POC Glucose Random Glucose 96 Calcium 9.2 Magnesium Total Bilirubin 0.4 AST 16 ALT 20 Alkaline Phosphatase 118 H Total Creatine Kinase Troponin I Less than 0.02 L Total Protein 7.0 D Albumin 3.5 TSH 3.120 M.tuberculosis DNA (PCR) 07/19/18 07/19/18 07/19/18 01:57 11:20 11:20 WBC RBC Hgb Hct MCV MCH MCHC RDW Plt Count MPV Neut % (Auto) Lymph % (Auto) Deuel % (Auto) Eos % (Auto) Baso % (Auto) Neut # (Auto) Lymph # (Auto) Deuel # (Auto) Eos # (Auto) Baso # (Auto) WBC Differential Differential Comment Sodium Potassium Chloride Carbon Dioxide Anion Gap BUN Creatinine Estimated GFR POC Glucose Random Glucose Calcium Magnesium 2.1 Total Bilirubin AST ALT Alkaline Phosphatase Total Creatine Kinase 78 Troponin I Less than 0.02 L Total Protein Albumin TSH M.tuberculosis DNA (PCR) - Imaging ITS Impressions Chest CTA 07/18/18 09:17 CONCLUSION: 1. No PE is identified. 2. Chronic cavitary lesion is present in the left upper lobe and demonstrates a new air-fluid level suggesting possible superinfection. The adjacent parenchymal changes are stable. 3. The multiple bilateral pulmonary nodules, most numerous in the left lower lobe, are stable. Suggest attention to these at follow-up imaging. Assessment and Plan - Plan Non tuberculos pulmonary infectio Pulmonary AMNA with limited sensitivities Hemoptysis ? Superinfection + oral thrush Bradycardia ? medication induced cont current abx for NTM SPutum clx routine and AFB Consult pulmonaruy for hemoptysis Consult cardiologuy to w/u life threatening bradicardia Dc TB isolation: pt has confirmed pulmonary AMNA, no TB Rx thrush with l nistatin swishes
--- NOTE | 2018-07-19 15:10 | MB ---
cc: Eliud Tijerina MD DATE: 07/19/2018 REASON FOR THE CONSULTATION: syncope, bradycardia HISTORY OF THE PRESENT ILLNESS: The patient is a 77 year old white female with a history of aortic insufficiency, COPD, gastroparesis, [place] disease, [place] cell carcinoma, mycobacterial lung infection, peptic ulcer disease, systemic lupus erythematosus, who initially was admitted to the hospital with hemoptysis. Last night, shortly after urinating at about 1 a.m., she developed diaphoresis, clamminess, severe lightheadedness to the point of losing consciousness possibly for a few seconds. On the monitor, she demonstrated severe bradycardia, probably sinus bradycardia, with prolonged pauses. The patient does have a long history of intermittent lightheadedness without syncope or near syncope. In the last 6 weeks, she has had a constant, mostly left-sided though diffuse chest pressure, somewhat worse with deep inspiration. She has continued to have episodic hemoptysis. The patient denies palpitations, pedal edema, paroxysmal nocturnal dyspnea, fevers, nausea. Chronically, she has mild to moderate dyspnea with mild exertion. PAST MEDICAL HISTORY: 1. 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 2. Moderate aortic insufficiency demonstrated on echo, 2011, with no change on echo on 04/28/2018. 3. COPD with also a history of left partial lung resection at age 20 for severe bronchiectasis. 4. Gastritis. 5. Gastroparesis. 6. [place] disease. 7. Alexis cell carcinoma. 8. Mycobacterial pulmonary infection. 9. Peptic ulcer disease. 10. Systemic lupus erythematosus. CARDIAC MEDICATIONS: Amlodipine 2.5 mg daily, aspirin 325 mg daily ALLERGIES: SHE HAS NUMEROUS ALLERGIES DOCUMENTED IN THE ELECTRONIC MEDICAL RECORDS. THESE ALLERGIES DO INCLUDE CARVEDILOL AND DIOVAN. FAMILY HISTORY: Noncontributory. SOCIAL HISTORY: The patient denies alcohol or tobacco abuse. REVIEW OF SYSTEMS: As in the history of present illness, otherwise negative or noncontributory. She also denies abdominal pain, melena, dyspepsia, bright red blood per rectum. The patient has noted a mild to moderate constant headache for the last 3 weeks. PHYSICAL EXAMINATION: VITAL SIGNS: Her blood pressure 144/69 with a pulse of 69, respirations 18. GENERAL: She is a well-developed, thin white female in no acute distress. NECK: Jugular venous pressure is normal. Carotid pulses are 2+ bilaterally and without bruits. CHEST: Reveals clear lung benavides. CARDIAC: She has a regular rhythm and rate with a grade 2/6 systolic murmur heard throughout the precordium. The S2 heart sound is normal. No gallop is audible. There is no definite diastolic murmur. ABDOMEN: She has a soft, nontender abdomen. Bowel sounds are present. There is no definite hepatosplenomegaly. EXTREMITIES: Reveals no clubbing, cyanosis or edema. DIAGNOSTIC DATA: EKG from 07/19/2018 at 1:14 a.m. shows normal sinus rhythm, nonspecific ST and T-wave abnormalities. Laboratory data includes normal CBC. Potassium 3.8, BUN 16, creatinine 0.71. Negative cardiac enzymes. Sodium 134. CT angiogram of the chest shows no pulmonary embolism as well as a chronic cavitary lesion in the left upper lobe, although with a new air-fluid level suggesting possible superinfection. IMPRESSION: Severe sinus bradycardia, syncope last night in this 77-year-old white female with a history of multiple medical problems including chronic stable moderate aortic insufficiency, chronic obstructive pulmonary disease, gastroparesis, mycobacterial pulmonary infection, systemic lupus erythematosus. I suspect some of her bradycardic event and syncope were vasovagal mediated. She was diaphoretic and clammy prior to losing consciousness and developing bradycardia. She has demonstrated no other episodes of bradycardia. Administration of carvedilol yesterday evening may have also exacerbated the episode. With respect to her chest discomforts for the past few weeks, they are atypical for myocardial ischemia. Despite prolonged chest discomfort, cardiac enzymes are negative for myocardial infarction. A nuclear stress test in our office earlier this month was normal. Echocardiogram, 04/28/2018, showed normal left ventricular function with unchanged chronic moderate aortic insufficiency. CT angiogram of the chest reportedly shows no evidence for pulmonary embolism. RECOMMENDATIONS: Continue to monitor off AV paula suppressing drugs. Should she have recurrent symptomatic bradycardia, would recommend permanent pacemaker implantation. This has been discussed with the patient and her son, who agree with this approach. MD LIZZIE Hampton/alysia/noé , 01:51 PM , 02:03 PM [facility]
--- NOTE | 2018-07-19 17:18 | ECG ---
Date Performed: 07/19/2018 Time Performed: 11:17:22 PTAGE: 77 years EKG: Sinus rhythm Possible anteroseptal infarct - age undetermined Abnormal ECG PREVIOUS TRACING : 07/19/2018 01.14 Since the previous tracing, no significant change noted DOCTOR: Luis Tarango Interpretating Date/Time 07/19/2018 17:17:21
--- NOTE | 2018-07-19 17:18 | ECG ---
Date Performed: 07/19/2018 Time Performed: 01:14:54 PTAGE: 77 years EKG: Sinus rhythm Rightward axis Possible anterior infarct - age undetermined Inferior/lateral ST-T changes are nonspe cific Abnormal ECG PREVIOUS TRACING : 07/18/2018 10.44 Since the previous tracing, no significant change noted DOCTOR: Luis Tarango Interpretating Date/Time 07/19/2018 17:17:12
[2018-07-19] MEDS: Nystatin Liq 500,000 UNIT/5 ML UDC SWISH-SWAL SCH ×2 (17:56→22:04)
[2018-07-19] MEDS ORDERED: Atropine Inj 1 MG/10 ML Syringe IV.PUSH ONE (18:21)
[2018-07-20] MEDS: Acetaminophen 325 MG Tablet PO PRN (05:03)
--- NOTE | 2018-07-20 07:57 | P.PNCA ---
Subjective Interval history: No dyspnea at rest. No dizziness, near syncope. Unchanged, constant left lower chest pressure, worse with deep inspiration. Physical Exam Vital signs: Vital Signs 07/19/18 08:00 07/19/18 09:00 07/19/18 10:00 Temperature Pulse Rate 75 73 69 Respiratory Rate Blood Pressure Pulse Oximetry 100 07/19/18 11:00 07/19/18 12:00 07/19/18 13:00 Temperature 97.9 F Pulse Rate 67 65 69 Respiratory Rate 18 Blood Pressure 144/69 H Pulse Oximetry 100 07/19/18 14:00 07/19/18 14:19 07/19/18 15:00 Temperature 98 F Pulse Rate 74 59 L Respiratory Rate 18 Blood Pressure 147/55 H Pulse Oximetry 99 100 07/19/18 16:00 07/19/18 17:00 07/19/18 18:00 Temperature Pulse Rate 52 L 68 68 Respiratory Rate Blood Pressure Pulse Oximetry 07/19/18 19:00 07/19/18 19:54 07/19/18 20:00 Temperature 97.9 F Pulse Rate 61 70 Respiratory Rate 20 Blood Pressure 122/56 L Pulse Oximetry 99 97 99 07/19/18 23:00 07/20/18 00:00 07/20/18 03:00 Temperature 98 F 98.8 F Pulse Rate 70 60 58 L Respiratory Rate 20 16 Blood Pressure 129/60 130/59 L Pulse Oximetry 98 98 07/20/18 04:00 07/20/18 05:00 07/20/18 06:00 Temperature Pulse Rate 56 L 68 58 L Respiratory Rate Blood Pressure Pulse Oximetry 07/20/18 07:00 Temperature 97.8 F Pulse Rate 70 Respiratory Rate 16 Blood Pressure 146/58 H Pulse Oximetry 100 Intake & Output 07/19/18 07/20/18 07/20/18 18:59 06:59 18:59 Intake Total 1720 / 1720 1400 / 1400 Output Total 500 / 500 400 / 400 Balance 1220 / 1220 1000 / 1000 Weight 45.7 kg Intake: IV 1000 / 1000 1000 / 1000 LR 1000 mL Inj 1,000 ML @ 84 1000 / 1000 1000 / 1000 mls/hr IV.CONT .[id number] [facility] Rx# :[id number] Oral 720 / 720 400 / 400 Output: Urine 500 / 500 400 / 400 Other: # Voids 1 1 Date of Last Bowel Movement 07/18/18 - Constitutional no acute distress - Routine Neck Exam Absent: JVD - Routine Respiratory Exam Present: CTA bilaterally - Routine Cardiovascular Exam Present: RRR, S1, S2, murmur. Absent: gallop Comments: II/ diffuse systolic murmur, normal S2 - Routine Abdominal Exam Present: soft, normoactive bowel sounds. Absent: tenderness, organomegaly - Routine Extremities Exam Absent: cyanosis, clubbing, edema Assessment and Plan - Assessment (1) Bradycardia Code(s): R00.1 - Bradycardia, unspecified Status: Acute Plan: Stable overnight. No recurrent severe bradycardia. Suspect her episode of severe bradycardia was vasovagal mediated, worsened by administration of carvedilol. Recommend continued monitoring. No pacemaker at this time. (2) Hypertension Code(s): I10 - Essential (primary) hypertension Status: Chronic Plan: Mildly elevated BP. Recommend resume scheduled clonidine 0.1 mg qd. (3) Chest pain Code(s): R07.9 - Chest pain, unspecified Status: Acute Plan: Atypical, constant chest discomfort past few weeks, suspect more pulmonary in origin. Normal nuclear stress test earlier this month in our office. (4) Aortic valve insufficiency Code(s): I35.1 - Nonrheumatic aortic (valve) insufficiency Status: Chronic Plan: Chronic, stable aortic regurgitation, no change on 04/28/18 echo. LV function and size normal. - Plan Code Status: alternative code Discussed Condition With: patient (2) Hypertension Qualifiers: Hypertension type: essential hypertension Qualified Code(s): I10 - Essential (primary) hypertension (3) Chest pain Qualifiers: Chest pain type: unspecified Qualified Code(s): R07.9 - Chest pain, unspecified (4) Aortic valve insufficiency Qualifiers: Cardiac valve disease etiology: etiology unspecified Qualified Code(s): I35.1 - Nonrheumatic aortic (valve) insufficiency
[2018-07-20 08:21] LABS: Baso # (Auto) 0.1 th/mm3 (0.0-0.2); Baso % (Auto) 1.1 % (0.0-2.0); Eos # (Auto) 0.4 th/mm3 (0.0-0.4); Eos % (Auto) 6.5 % (0.0-4.0); Lymph # (Auto) 1.2 th/mm3 (1.0-4.8); Lymph % (Auto) 21.3 % (9.0-44.0); Mean Corpuscular HGB Conc 33.4 % (32.0-36.0); Mean Corpuscular Hemoglobin 28.7 pg (27.0-34.0); Mean Corpuscular Volume 85.8 fL (80.0-100.0); Mean Platelet Volume 7.3 fL (7.0-11.0); Mono # (Auto) 0.6 th/mm3 (0.0-0.9); Mono % (Auto) 10.5 % (0.0-8.0); Neut # (Auto) 3.3 th/mm3 (1.8-7.7); Neut % (Auto) 60.6 % (16.0-70.0); Platelet Count 251 th/mm3 (150-450); Red Cell Distribution Width 14.4 % (11.6-17.2); White Blood Count 5.5 th/mm3 (4.0-11.0)
[2018-07-20 08:36] LABS: Anion Gap 5 meq/L (5-15); Blood Urea Nitrogen 9 mg/dL (7-18); Calcium 8.6 mg/dL (8.5-10.1); Carbon Dioxide 29.6 meq/L (21.0-32.0); Chloride 100 meq/L (98-107); Glomerular Filtration Rate Greater Than 89 mL/min (>89); Glucose,Random 82 mg/dL (74-106); Potassium 3.8 meq/L (3.5-5.1); Sodium 135 meq/L (136-145)
--- NOTE | 2018-07-20 09:53 | P.PNFP ---
Subjective Interval history: Patient seen and examined this morning. No acute events overnight per nursing staff. Patient states that she feels approximately 10% better, but continues to have left-sided chest pain she scores at a 8/10 with a sharp light quality. She also reports 2 episodes of hemoptysis with dark blood that were much smaller than her original episodes. She denies any new episodes of dizziness, chest palpitations, shortness of breath, or diaphoresis. Otherwise she has no complaints. Patient states that her operations research group manager, Dr. Lauren, evaluated her this morning and recommended a bronchoscopy procedure with a possible drain placement, per her report, that is planned for . <Gilberto Benson H - 07/20/18 10:45> Results - Labs Result diagrams: 07/20/18 06:17 07/20/18 06:17 <Sharath Suarez - 07/20/18 21:03> Abnormal lab results 07/20/18 07/20/18 Range/Units 06:17 06:17 [place] % (Auto) 10.5 H (0.0-8.0) % Eos % (Auto) 6.5 H (0.0-4.0) % Sodium 135 L (136-145) meq/L Short CBC 07/20/18 Range/Units 06:17 WBC 5.5 (4.0-11.0) th/mm3 Hgb 12.0 (11.6-15.3) gm/dL Hct 36.0 (35.0-46.0) % Plt Count 251 (150-450) th/mm3 BMP 07/20/18 06:17 Sodium 135 L Potassium 3.8 Chloride 100 Carbon Dioxide 29.6 BUN 9 Creatinine 0.52 Calcium 8.6 <Sharath Suarez - 07/20/18 21:03> Abnormal lab results 07/19/18 07/20/18 07/20/18 Range/Units 11:20 06:17 06:17 [place] % (Auto) 10.5 H (0.0-8.0) % Eos % (Auto) 6.5 H (0.0-4.0) % Sodium 135 L (136-145) meq/L Troponin I Less than 0.02 L (0.02-0.05) ng/mL Short CBC 07/20/18 Range/Units 06:17 WBC 5.5 (4.0-11.0) th/mm3 Hgb 12.0 (11.6-15.3) gm/dL Hct 36.0 (35.0-46.0) % Plt Count 251 (150-450) th/mm3 BMP 07/20/18 06:17 Sodium 135 L Potassium 3.8 Chloride 100 Carbon Dioxide 29.6 BUN 9 Creatinine 0.52 Calcium 8.6 Cardiac Enzymes 07/19/18 07/19/18 Range/Units 11:20 11:20 Total Creatine Kinase 78 (26-192) U/L Troponin I Less than 0.02 L (0.02-0.05) ng/mL <Gilberto Benson H - 07/20/18 09:52> Physical Exam Vital signs: Vital Signs 07/19/18 23:00 07/20/18 00:00 07/20/18 03:00 Temperature 98 F 98.8 F Pulse Rate 70 60 58 L Respiratory Rate 20 16 Blood Pressure 129/60 130/59 L Pulse Oximetry 98 98 07/20/18 04:00 07/20/18 05:00 07/20/18 06:00 Temperature Pulse Rate 56 L 68 58 L Respiratory Rate Blood Pressure Pulse Oximetry 07/20/18 07:00 07/20/18 08:00 07/20/18 09:00 Temperature 97.8 F Pulse Rate 70 94 H 84 Respiratory Rate 16 Blood Pressure 146/58 H Pulse Oximetry 100 99 07/20/18 10:00 07/20/18 11:00 07/20/18 12:00 Temperature 97.5 F L Pulse Rate 88 60 80 Respiratory Rate 18 Blood Pressure 150/67 H Pulse Oximetry 100 07/20/18 13:00 07/20/18 14:00 07/20/18 15:00 Temperature 97.8 F Pulse Rate 90 78 60 Respiratory Rate 18 Blood Pressure 173/70 H Pulse Oximetry 99 07/20/18 16:00 07/20/18 17:00 07/20/18 17:13 Temperature Pulse Rate 92 H 87 Respiratory Rate Blood Pressure Pulse Oximetry 99 07/20/18 18:00 Temperature Pulse Rate 67 Respiratory Rate Blood Pressure Pulse Oximetry Intake & Output 07/20/18 07/20/18 07/21/18 06:59 18:59 06:59 Intake Total 1400 / 1400 1480 / 1480 Output Total 400 / 400 Balance 1000 / 1000 1480 / 1480 Weight 45.7 kg Intake: IV 1000 / 1000 1000 / 1000 LR 1000 mL Inj 1,000 ML @ 84 1000 / 1000 1000 / 1000 mls/hr IV.CONT .[id number] [facility], [facility] Rx# :[id number] Oral 400 / 400 480 / 480 Output: Urine 400 / 400 Other: # Voids 1 3 Date of Last Bowel Movement 07/18/18 07/18/18 <ErickMehnazy - 07/20/18 21:03> Vital Signs 07/19/18 10:00 07/19/18 11:00 07/19/18 12:00 Temperature 97.9 F Pulse Rate 69 67 65 Respiratory Rate 18 Blood Pressure 144/69 H Pulse Oximetry 100 07/19/18 13:00 07/19/18 14:00 07/19/18 14:19 Temperature Pulse Rate 69 74 Respiratory Rate Blood Pressure Pulse Oximetry 99 07/19/18 15:00 07/19/18 16:00 07/19/18 17:00 Temperature 98 F Pulse Rate 59 L 52 L 68 Respiratory Rate 18 Blood Pressure 147/55 H Pulse Oximetry 100 07/19/18 18:00 07/19/18 19:00 07/19/18 19:54 Temperature 97.9 F Pulse Rate 68 61 Respiratory Rate 20 Blood Pressure 122/56 L Pulse Oximetry 99 97 07/19/18 20:00 07/19/18 23:00 07/20/18 00:00 Temperature 98 F Pulse Rate 70 70 60 Respiratory Rate 20 Blood Pressure 129/60 Pulse Oximetry 99 98 07/20/18 03:00 07/20/18 04:00 07/20/18 05:00 Temperature 98.8 F Pulse Rate 58 L 56 L 68 Respiratory Rate 16 Blood Pressure 130/59 L Pulse Oximetry 98 07/20/18 06:00 07/20/18 07:00 Temperature 97.8 F Pulse Rate 58 L 70 Respiratory Rate 16 Blood Pressure 146/58 H Pulse Oximetry 100 Intake & Output 07/19/18 07/20/18 07/20/18 18:59 06:59 18:59 Intake Total 1720 / 1720 1400 / 1400 Output Total 500 / 500 400 / 400 Balance 1220 / 1220 1000 / 1000 Weight 45.7 kg Intake: IV 1000 / 1000 1000 / 1000 LR 1000 mL Inj 1,000 ML @ 84 1000 / 1000 1000 / 1000 mls/hr IV.CONT .[id number] [facility] Rx# :[id number] Oral 720 / 720 400 / 400 Output: Urine 500 / 500 400 / 400 Other: # Voids 1 1 Date of Last Bowel Movement 07/18/18 <Gilberto Benson H - 07/20/18 09:52> Narrative: GENERAL: Thin appearing elderly female lying in bed in no acute distress. SKIN: Cool and dry. No rash. Pale appearing. Scar below left scapula from previous lobectomy. 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 HEENT: Atraumatic, normocephalic with extraocular motions intact. No rhinorrhea. Oropharynx clear without visible signs of possible hemorrhage. No visible lymphadenopathy or jugulovenous distension appreciated. CARDIOVASCULAR: Regular rate and rhythm without obvious murmurs, gallops, or rubs. 2+ pulses in all four extremities. RESPIRATORY: Clear to auscultation bilaterally with no crackles, wheezes, or rhonchi. No increased work of breathing. GASTROINTESTINAL: Abdomen soft, non-tender, nondistended with positive bowel sounds. No masses appreciated. MUSCULOSKELETAL: No cyanosis or edema. No calf tenderness. Ambulating well per report. NEURO/PSYCH: Afocal. Awake, alert, and oriented x3. Normal speech and judgement. <Gilberto Benson H - 07/20/18 10:45> Assessment and Plan - Assessment (1) Cough with hemoptysis Code(s): R04.2 - Hemoptysis Status: Acute (2) Cavitary lesion of lung Code(s): J98.4 - Other disorders of lung Status: Chronic (3) Mycobacterial infection, atypical Code(s): A31.9 - Mycobacterial infection, unspecified Status: Chronic (4) Bradycardia Code(s): R00.1 - Bradycardia, unspecified Status: Acute (5) Hypertension Code(s): I10 - Essential (primary) hypertension Status: Chronic (6) Lupus (systemic lupus erythematosus) Code(s): M32.9 - Systemic lupus erythematosus, unspecified Status: Chronic (7) COPD (chronic obstructive pulmonary disease) Code(s): J44.9 - Chronic obstructive pulmonary disease, unspecified Status: Chronic (8) Hypothyroidism Code(s): E03.9 - Hypothyroidism, unspecified Status: Chronic (9) Hyponatremia Code(s): E87.1 - Hypo-osmolality and hyponatremia Status: Chronic (10) GERD without esophagitis Code(s): K21.9 - Gastro-esophageal reflux disease without esophagitis Status: Chronic (11) Nutrition, metabolism, and development symptoms Code(s): R63.8 - Other symptoms and signs concerning food and fluid intake Status: Acute (12) DVT prophylaxis Status: Acute <ErickSharath - 07/20/18 21:03> (1) Cough with hemoptysis Code(s): R04.2 - Hemoptysis Status: Acute Plan: Pt with new symptoms of hemoptysis, likely due to possible enlargement of chronic cavitary lesion with superinfection. -H/H stable -Continue to monitor (2) Cavitary lesion of lung Code(s): J98.4 - Other disorders of lung Status: Chronic Plan: Pt with Cavitary lesion of the lung since October 2017. Pt has been admitted a few time for this issue. Last CT scan as outpatient in May was stable. Patient with new onset of hemoptysis. - CTA scan w/ new air fluid levels suggestive of superinfection. - TB PCR: Negative - Sputum cultures: Heavy growth normal respiratory memo -AFP: Pending -Mycobacterium culture: Pending - ID consulted, appreciate recommendations -Continue with current regimen - Pulmonology consulted, appreciate recommendations -Per patient, plan for bronchoscopy on Medications: - Continue Ethambutol 800mg po q HS - Continue Rifampin 600 mg po daily - Continue clarithromycin 500mg po q12hrs -Nystatin swish and swallow (3) Mycobacterial infection, atypical Code(s): A31.9 - Mycobacterial infection, unspecified Status: Chronic Plan: See plan above (4) Bradycardia Code(s): R00.1 - Bradycardia, unspecified Status: Acute Plan: Patient with bradycardic episode on 07/18/18. Patient administered atropine and has maintained heart rate since that time. -EKG overnight with Sinus Rhythm. T wave slurring in leads II, III, avF, V5 and V5. No acute ST abnormality. (Per medical team read) -Troponin negative; repeat negative -CMP without acute abnormality -Mg WNL -DC home Coreg -Consult Cardiology, appreciate recommendations (5) Hypertension Code(s): I10 - Essential (primary) hypertension Status: Chronic Plan: Chronic in nature. Pt had medication adjusted in May by Dr. Grande. Medications: - DC Cavedilol due to bradycardic episode - Schedule clonidine 0.1 mg daily for blood pressure control - Clonidine PRN for BP >180/110 (6) Lupus (systemic lupus erythematosus) Code(s): M32.9 - Systemic lupus erythematosus, unspecified Status: Chronic Plan: Pt follows up with Dr. Lama as an outpatient. Medications: - Continue taking hydroxychloroquine 100 mg every other day - Continue taking phenobarbital 30mg po qHS (7) COPD (chronic obstructive pulmonary disease) Code(s): J44.9 - Chronic obstructive pulmonary disease, unspecified Status: Chronic Plan: Chronic. Pt stable on medications. -Incentive spirometry Medications: - Duonebs q 6hrs PRN while awake - Continue taking Theophylline ER 200mg po daily (8) Hypothyroidism Code(s): E03.9 - Hypothyroidism, unspecified Status: Chronic Plan: Chronic for patient. PCP ordered TSH and T4 as outpatient. -TSH WNL at 3.1 Medications: - Continue Levothyroxine 25mcg q day (9) Hyponatremia Code(s): E87.1 - Hypo-osmolality and hyponatremia Status: Chronic Plan: Per chart review, patient with history of hyponatremia. Patient currently asymptomatic. -Continue to monitor (10) GERD without esophagitis Code(s): K21.9 - Gastro-esophageal reflux disease without esophagitis Status: Chronic Plan: Patient with history of GERD without esophagitis. Per patient report, patient on home lansoprazole daily. -Protonix 40mg daily -Calcium carbonate as needed for reflux symptoms (11) Nutrition, metabolism, and development symptoms Code(s): R63.8 - Other symptoms and signs concerning food and fluid intake Status: Acute Plan: - Diet: Cardiac - Fluids: LR at 84 ml/hr - Electrolytes: Monitor and replace as needed - Pain management: Continue home Tramadol 50 PO QID PRN for pain - Incentive spirometry - Prophylaxis: Zofran PRN for N/V, Clonidine PRN for BP >180/110, Albuterol PRN for SOB, Tylenol PRN for fever, Calcium carbonate PRN for reflux (12) DVT prophylaxis Status: Acute Plan: - SCDs bilaterally - Avoid pharmacological prophylaxis due to hemoptysis <Benson,Gilberto H - 07/20/18 10:27> - Assessment and Plan Ms. Vega is a 77 yr old female with a complicated PMH including cavitary lesions of the lung, RLL lobectomy, lupus, HTN, COPD, [place] skin carcinoma,IBD , GERD, and hypothyroidism, presenting to the ED with two episodes of hemoptysis. On chronic medications for atypical mycoplasma infection, managed outpatient with ID, and pulmonology. Pt stable on exam, will admit to inpatient services. <Gilberto Benson - 07/20/18 09:52> - Attending Attestation Pt. examined and case discussed with resident physicians. I have read the above note and agree with the assessment and plan as discussed with me. I was involved in all medical decision making for this patient. Sharath Suarez MD <Sharath Suarez - 07/20/18 21:03> <Gilberto Benson - Last Filed: 07/20/18 10:27> (5) Hypertension Qualifiers: Hypertension type: essential hypertension Qualified Code(s): I10 - Essential (primary) hypertension (6) Lupus (systemic lupus erythematosus) Qualifiers: Systemic lupus erythematosus type: unspecified Systemic lupus erythematosus organ involvement: unspecified Qualified Code(s): M32.9 - Systemic lupus erythematosus, unspecified (7) COPD (chronic obstructive pulmonary disease) Qualifiers: COPD type: unspecified COPD Qualified Code(s): J44.9 - Chronic obstructive pulmonary disease, unspecified (8) Hypothyroidism Qualifiers: Hypothyroidism type: unspecified Qualified Code(s): E03.9 - Hypothyroidism, unspecified <Sharath Suarez - Last Filed: 07/20/18 21:03> (5) Hypertension Qualifiers: Hypertension type: essential hypertension Qualified Code(s): I10 - Essential (primary) hypertension (6) Lupus (systemic lupus erythematosus) Qualifiers: Systemic lupus erythematosus type: unspecified Systemic lupus erythematosus organ involvement: unspecified Qualified Code(s): M32.9 - Systemic lupus erythematosus, unspecified (7) COPD (chronic obstructive pulmonary disease) Qualifiers: COPD type: unspecified COPD Qualified Code(s): J44.9 - Chronic obstructive pulmonary disease, unspecified (8) Hypothyroidism Qualifiers: Hypothyroidism type: unspecified Qualified Code(s): E03.9 - Hypothyroidism, unspecified <Gilberto Benson - Last Filed: 07/20/18 10:27> (5) Hypertension Qualifiers: Hypertension type: essential hypertension Qualified Code(s): I10 - Essential (primary) hypertension (6) Lupus (systemic lupus erythematosus) Qualifiers: Systemic lupus erythematosus type: unspecified Systemic lupus erythematosus organ involvement: unspecified Qualified Code(s): M32.9 - Systemic lupus erythematosus, unspecified (7) COPD (chronic obstructive pulmonary disease) Qualifiers: COPD type: unspecified COPD Qualified Code(s): J44.9 - Chronic obstructive pulmonary disease, unspecified (8) Hypothyroidism Qualifiers: Hypothyroidism type: unspecified Qualified Code(s): E03.9 - Hypothyroidism, unspecified <Sharath Suarez - Last Filed: 07/20/18 21:03> (5) Hypertension Qualifiers: Hypertension type: essential hypertension Qualified Code(s): I10 - Essential (primary) hypertension (6) Lupus (systemic lupus erythematosus) Qualifiers: Systemic lupus erythematosus type: unspecified Systemic lupus erythematosus organ involvement: unspecified Qualified Code(s): M32.9 - Systemic lupus erythematosus, unspecified (7) COPD (chronic obstructive pulmonary disease) Qualifiers: COPD type: unspecified COPD Qualified Code(s): J44.9 - Chronic obstructive pulmonary disease, unspecified (8) Hypothyroidism Qualifiers: Hypothyroidism type: unspecified Qualified Code(s): E03.9 - Hypothyroidism, unspecified
[2018-07-20] MEDS: Nystatin Liq 500,000 UNIT/5 ML UDC SWISH-SWAL SCH ×4 (10:07→21:41)
[2018-07-20] MEDS: Theophylline ER 24 HR 200 MG Capsule PO SCH (10:07)
[2018-07-20] MEDS: Hydroxychloroquine 200 MG Tablet PO SCH (10:07)
--- NOTE | 2018-07-20 19:07 | MB ---
cc: Xin Lauren MD DATE: 07/20/2018 REASON FOR CONSULTATION: Hemoptysis. HISTORY OF PRESENT ILLNESS: Mrs. Vega is a 77-year-old female with a known history of Mycobacterium avium intracellulare infection, who is followed by infectious disease as outpatient. The patient had developed an episode of hemoptysis with bright red blood, which recurred on several occasions. Hemoptysis is minor, about a teaspoon to a tablespoon in size. The patient described the blood as bright red. She denies history of shortness of breath, fever, chills, or hemoptysis. PAST MEDICAL HISTORY: Atypical TB, hypertension, systemic lupus erythematosus, COPD, hypothyroidism. FAMILY HISTORY: Noncontributory. CURRENT MEDICATIONS: Include: 1. Clonidine. 2. Clarithromycin. 3. Estrogen. 4. Ethambutol. 5. HCTZ. 6. Levothyroxine. 7. Nystatin mouthwash. 8. Pantoprazole. 9. Phenobarbital. 10. Rifampin. 11. Theophylline 200 mg p.o. daily. 12. Tramadol p.r.n. ALLERGIES: 1. CYCLOBENZAPRINE 2. MORPHINE. 3. PENICILLIN. 4. CELECOXIB. REVIEW OF SYSTEMS: A 12-point review of systems as per HPI and past history, otherwise negative. PHYSICAL EXAMINATION: GENERAL: The patient is alert. VITAL SIGNS: Temperature 97.8, pulse 62, respiration 18, blood pressure 170/70, oxygen saturation 99% on 2 liters oxygen. HEENT: Unremarkable. Eyes without icterus. NECK: Without adenopathy, thyroid enlargement. Central trachea. CHEST: Few scattered rhonchi at bases. CARDIAC: PMI distant. S1, S2 audible. No murmur. No rub. ABDOMEN: Lax, audible bowel sounds. PSYCHIATRIC: No clubbing, cyanosis, or edema. LABORATORY DATA: White count 5.5, hemoglobin 12, hematocrit 36, platelets 251,000. Sodium 135, potassium 3.8, BUN 9, creatinine 0.5. INR 1.0, MTB PCR nondetected. DIAGNOSTIC DATA: CT angiogram of the chest without evidence of pulmonary embolism, chronic cavitary change in the left upper lung, new air fluid level is identified question superinfection. Bilateral pulmonary nodules are noted mostly left lower lung. IMPRESSION: 1. Hemoptysis. 2. History of Mycobacterium avium intracellulare infection. 3. Air fluid level in the left upper lobe, which is new. 4. Hypothyroidism. 5. Systemic lupus erythematosus. 6. Hypertension. PLAN: The patient is on therapy for AMNA. At present, would treat for community-acquired pneumonia. A new infection may be present at this time. A bronchoscopic examination to identify source of bleeding and absence of underlying malignancy, and obtaining a bronchoscopy would be appropriate. This has been discussed and explained to the patient in detail. I do thank you for asking me to partake in Ms. Vega's care. MD TORIBIO Knowles/dulgas , 06:22 PM , 06:33 PM
[2018-07-21 06:25] LABS: Hematocrit 34.9 % (35.0-46.0); Hemoglobin 12.2 gm/dL (11.6-15.3); Mean Corpuscular HGB Conc 34.9 % (32.0-36.0); Mean Corpuscular Hemoglobin 29.3 pg (27.0-34.0); Mean Platelet Volume 7.3 fL (7.0-11.0); Platelet Count 241 th/mm3 (150-450); Red Blood Count 4.16 mil/mm3 (4.00-5.30); White Blood Count 6.7 th/mm3 (4.0-11.0)
--- NOTE | 2018-07-21 08:25 | P.PNCA ---
Subjective Interval history: Feeling "better". Mild lightheadedness upon standing. No near syncope, recurrent syncope, CP, dyspnea. Hemoptysis improving. Physical Exam Vital signs: Vital Signs 07/20/18 09:00 07/20/18 10:00 07/20/18 11:00 Temperature 97.5 F L Pulse Rate 84 88 60 Respiratory Rate 18 Blood Pressure 150/67 H Pulse Oximetry 100 07/20/18 12:00 07/20/18 13:00 07/20/18 14:00 Temperature Pulse Rate 80 90 78 Respiratory Rate Blood Pressure Pulse Oximetry 07/20/18 15:00 07/20/18 16:00 07/20/18 17:00 Temperature 97.8 F Pulse Rate 60 92 H 87 Respiratory Rate 18 Blood Pressure 173/70 H Pulse Oximetry 99 07/20/18 17:13 07/20/18 18:00 07/20/18 19:00 Temperature 98.5 F Pulse Rate 67 68 Respiratory Rate 16 Blood Pressure 163/70 H Pulse Oximetry 99 98 07/20/18 20:00 07/20/18 21:00 07/20/18 22:00 Temperature Pulse Rate 61 62 76 Respiratory Rate Blood Pressure Pulse Oximetry 07/20/18 23:00 07/21/18 00:00 07/21/18 01:00 Temperature 98.5 F Pulse Rate 62 56 L 58 L Respiratory Rate 18 Blood Pressure 113/55 L Pulse Oximetry 98 07/21/18 02:00 07/21/18 03:00 07/21/18 04:00 Temperature 98.6 F Pulse Rate 56 L 62 56 L Respiratory Rate 16 Blood Pressure 119/51 L Pulse Oximetry 98 07/21/18 04:57 07/21/18 06:00 Temperature Pulse Rate 68 64 Respiratory Rate Blood Pressure Pulse Oximetry Intake & Output 07/20/18 07/21/18 07/21/18 18:59 06:59 18:59 Intake Total 1480 / 1480 1240 / 1240 Output Total 700 / 700 Balance 1480 / 1480 540 / 540 Weight 45.7 kg Intake: IV 1000 / 1000 1000 / 1000 LR 1000 mL Inj 1,000 ML @ 84 1000 / 1000 1000 / 1000 mls/hr IV.CONT .[id number] [facility] Rx# :[id number] Oral 480 / 480 240 / 240 Output: Urine 700 / 700 Other: # Voids 3 Date of Last Bowel Movement 07/18/18 07/20/18 - Constitutional no acute distress - Routine Neck Exam Absent: JVD - Routine Respiratory Exam Present: CTA bilaterally - Routine Cardiovascular Exam Present: RRR, S1, S2, murmur. Absent: gallop Comments: I-II/ diffuse systolic murmur, normal S2 - Routine Abdominal Exam Present: soft, normoactive bowel sounds. Absent: tenderness, organomegaly - Routine Extremities Exam Absent: cyanosis, clubbing, edema Assessment and Plan - Assessment (1) Bradycardia Code(s): R00.1 - Bradycardia, unspecified Status: Acute Plan: Stable overnight. No recurrent severe bradycardia. Suspect her episode of severe bradycardia was vasovagal mediated, worsened by administration of carvedilol. Recommend continued monitoring. No pacemaker at this time. Will f /u as needed. Patient cleared for bronchoscopy from a cardiac standpoint. (2) Hypertension Code(s): I10 - Essential (primary) hypertension Status: Chronic Plan: BP's better. Normotensive today. Continue clonidine 0.1 mg qd. (3) Chest pain Code(s): R07.9 - Chest pain, unspecified Status: Acute Plan: Atypical, constant chest discomfort past few weeks, suspect more pulmonary in origin. Normal nuclear stress test earlier this month in our office. (4) Aortic valve insufficiency Code(s): I35.1 - Nonrheumatic aortic (valve) insufficiency Status: Chronic Plan: Chronic, stable aortic regurgitation, no change on 04/28/18 echo. LV function and size normal. - Plan Code Status: full code Discussed Condition With: patient (2) Hypertension Qualifiers: Hypertension type: essential hypertension Qualified Code(s): I10 - Essential (primary) hypertension (3) Chest pain Qualifiers: Chest pain type: unspecified Qualified Code(s): R07.9 - Chest pain, unspecified (4) Aortic valve insufficiency Qualifiers: Cardiac valve disease etiology: etiology unspecified Qualified Code(s): I35.1 - Nonrheumatic aortic (valve) insufficiency
--- NOTE | 2018-07-21 09:07 | P.PN ---
Subjective Interval history: ALERT SITTING IN BED C/O HEMOPTYSIS,SPECKS OF BLOOD Physical Exam Vital signs: Vital Signs 07/20/18 10:00 07/20/18 11:00 07/20/18 12:00 Temperature 97.5 F L Pulse Rate 88 60 80 Respiratory Rate 18 Blood Pressure 150/67 H Pulse Oximetry 100 07/20/18 13:00 07/20/18 14:00 07/20/18 15:00 Temperature 97.8 F Pulse Rate 90 78 60 Respiratory Rate 18 Blood Pressure 173/70 H Pulse Oximetry 99 07/20/18 16:00 07/20/18 17:00 07/20/18 17:13 Temperature Pulse Rate 92 H 87 Respiratory Rate Blood Pressure Pulse Oximetry 99 07/20/18 18:00 07/20/18 19:00 07/20/18 20:00 Temperature 98.5 F Pulse Rate 67 68 61 Respiratory Rate 16 Blood Pressure 163/70 H Pulse Oximetry 98 07/20/18 21:00 07/20/18 22:00 07/20/18 23:00 Temperature 98.5 F Pulse Rate 62 76 62 Respiratory Rate 18 Blood Pressure 113/55 L Pulse Oximetry 98 07/21/18 00:00 07/21/18 01:00 07/21/18 02:00 Temperature Pulse Rate 56 L 58 L 56 L Respiratory Rate Blood Pressure Pulse Oximetry 07/21/18 03:00 07/21/18 04:00 07/21/18 04:57 Temperature 98.6 F Pulse Rate 62 56 L 68 Respiratory Rate 16 Blood Pressure 119/51 L Pulse Oximetry 98 07/21/18 06:00 07/21/18 07:00 07/21/18 08:00 Temperature 97.6 F Pulse Rate 64 72 Respiratory Rate 18 Blood Pressure 158/64 H Pulse Oximetry 100 100 Intake & Output 07/20/18 07/21/18 07/21/18 18:59 06:59 18:59 Intake Total 1480 / 1480 1240 / 1240 Output Total 700 / 700 Balance 1480 / 1480 540 / 540 Weight 45.7 kg Intake: IV 1000 / 1000 1000 / 1000 LR 1000 mL Inj 1,000 ML @ 84 1000 / 1000 1000 / 1000 mls/hr IV.CONT .[id number] [facility] Rx# :[id number] Oral 480 / 480 240 / 240 Output: Urine 700 / 700 Other: # Voids 3 Date of Last Bowel Movement 07/18/18 07/20/18 07/20/18 Narrative: GENERAL: ALERT,NAD SKIN: Cool and dry. No rash. Pale appearing. Scar below left scapula from previous lobectomy. 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 HEENT: Atraumatic, normocephalic with extraocular motions intact. No rhinorrhea. Oropharynx clear without visible signs of possible hemorrhage. No visible lymphadenopathy or jugulovenous distension appreciated. CARDIOVASCULAR: Regular rate and rhythm without obvious murmurs, gallops, or rubs. 2+ pulses in all four extremities. RESPIRATORY: Clear to auscultation bilaterally with no crackles, wheezes, or rhonchi. No increased work of breathing. GASTROINTESTINAL: Abdomen soft, non-tender, nondistended with positive bowel sounds. No masses appreciated. MUSCULOSKELETAL: No cyanosis or edema. No calf tenderness. Ambulating well per report. NEURO/PSYCH: Afocal. Awake, alert, and oriented x3. Normal speech and judgement. Results - Labs CBC & Chem 7: 07/21/18 05:04 07/20/18 06:17 Laboratory Results - last 24 hr 07/21/18 05:04 WBC 6.7 RBC 4.16 Hgb 12.2 Hct 34.9 L MCV 84.0 MCH 29.3 MCHC 34.9 RDW 14.0 Plt Count 241 MPV 7.3 Microbiology 07/18/18 10:00 Sputum - Expectorated Sputum Gram Stain - Final 07/18/18 10:00 Sputum - Expectorated Sputum Sputum Culture - Final Heavy growth normal respiratory memo Assessment and Plan - Plan AMNA HEMOPTYSIS COPD PLAN O2 ANTIBX BRONCHOSCOPY AM
[2018-07-21] MEDS: Theophylline ER 24 HR 200 MG Capsule PO SCH (09:25)
[2018-07-21] MEDS: Nystatin Liq 500,000 UNIT/5 ML UDC SWISH-SWAL SCH ×4 (09:26→21:59)
[2018-07-21 10:55] LABS: Baso # (Auto) 0.1 th/mm3 (0.0-0.2); Baso % (Auto) 0.8 % (0.0-2.0); Eos # (Auto) 0.4 th/mm3 (0.0-0.4); Eos % (Auto) 5.7 % (0.0-4.0); Hematocrit 35.5 % (35.0-46.0); Hemoglobin 12.1 gm/dL (11.6-15.3); Lymph % (Auto) 15.5 % (9.0-44.0); Mean Corpuscular HGB Conc 34.2 % (32.0-36.0); Mean Corpuscular Hemoglobin 29.3 pg (27.0-34.0); Mean Corpuscular Volume 85.7 fL (80.0-100.0); Mono # (Auto) 0.6 th/mm3 (0.0-0.9); Mono % (Auto) 9.4 % (0.0-8.0); Neut # (Auto) 4.6 th/mm3 (1.8-7.7); Neut % (Auto) 68.6 % (16.0-70.0); Platelet Count 237 th/mm3 (150-450); Red Blood Count 4.14 mil/mm3 (4.00-5.30); Red Cell Distribution Width 14.2 % (11.6-17.2); White Blood Count 6.7 th/mm3 (4.0-11.0)
--- NOTE | 2018-07-21 11:00 | P.PNFP ---
Subjective Interval history: Patient seen and examined this morning. No acute acute events overnight per nursing staff. Patient states that she is doing well and discussed her bronchoscopy planned for tomorrow with pulmonology. She reports no new episodes of hemoptysis, however her main complaint this morning is new dysuria. She does report a history of multiple UTIs and believes she has one again. Her chest pain has continued on the left side which is at her baseline from previous reports. Otherwise she has no acute complaints denies a complete review of systems including but not limited to any fevers, chills, shortness of breath, NVD, abdominal pain, or calf tenderness. <Gilberto Benson H - 07/21/18 11:30> Results - Labs Result diagrams: 07/21/18 10:34 07/20/18 06:17 <Sharath Suarez - 07/21/18 13:23> Abnormal lab results 07/21/18 07/21/18 Range/Units 05:04 10:34 Hct 34.9 L (35.0-46.0) % [place] % (Auto) 9.4 H (0.0-8.0) % Eos % (Auto) 5.7 H (0.0-4.0) % Short CBC 07/21/18 07/21/18 Range/Units 05:04 10:34 WBC 6.7 6.7 (4.0-11.0) th/mm3 Hgb 12.2 12.1 (11.6-15.3) gm/dL Hct 34.9 L 35.5 (35.0-46.0) % Plt Count 241 237 (150-450) th/mm3 Urine 07/21/18 Range/Units 11:00 Urine Color Angelica (Yellw/Straw) Urine Clarity Clear (Clear) Urine pH 7.0 (5.0-8.5) Ur Specific [place] 1.003 (1.002-1.035) Urine Protein Negative (Neg-Trace) mg/dL Urine Glucose (UA) Negative (Negative) mg/dL <Sharath Suarez - 07/21/18 13:23> Abnormal lab results 07/21/18 Range/Units 05:04 Hct 34.9 L (35.0-46.0) % Short CBC 07/21/18 Range/Units 05:04 WBC 6.7 (4.0-11.0) th/mm3 Hgb 12.2 (11.6-15.3) gm/dL Hct 34.9 L (35.0-46.0) % Plt Count 241 (150-450) th/mm3 <Benson,Gilberto H - 07/21/18 11:00> Physical Exam Vital signs: Vital Signs 07/20/18 14:00 07/20/18 15:00 07/20/18 16:00 Temperature 97.8 F Pulse Rate 78 60 92 H Respiratory Rate 18 Blood Pressure 173/70 H Pulse Oximetry 99 07/20/18 17:00 07/20/18 17:13 07/20/18 18:00 Temperature Pulse Rate 87 67 Respiratory Rate Blood Pressure Pulse Oximetry 99 07/20/18 19:00 07/20/18 20:00 07/20/18 21:00 Temperature 98.5 F Pulse Rate 68 61 62 Respiratory Rate 16 Blood Pressure 163/70 H Pulse Oximetry 98 07/20/18 22:00 07/20/18 23:00 07/21/18 00:00 Temperature 98.5 F Pulse Rate 76 62 56 L Respiratory Rate 18 Blood Pressure 113/55 L Pulse Oximetry 98 07/21/18 01:00 07/21/18 02:00 07/21/18 03:00 Temperature 98.6 F Pulse Rate 58 L 56 L 62 Respiratory Rate 16 Blood Pressure 119/51 L Pulse Oximetry 98 07/21/18 04:00 07/21/18 04:57 07/21/18 06:00 Temperature Pulse Rate 56 L 68 64 Respiratory Rate Blood Pressure Pulse Oximetry 07/21/18 07:00 07/21/18 08:00 07/21/18 09:00 Temperature 97.6 F Pulse Rate 61 68 76 Respiratory Rate 18 Blood Pressure 158/64 H Pulse Oximetry 100 100 07/21/18 10:00 07/21/18 10:12 07/21/18 11:00 Temperature Pulse Rate 71 70 Respiratory Rate 17 Blood Pressure Pulse Oximetry 07/21/18 11:45 Temperature Pulse Rate Respiratory Rate Blood Pressure Pulse Oximetry 98 Intake & Output 07/20/18 07/21/18 07/21/18 18:59 06:59 18:59 Intake Total 1480 / 1480 1240 / 1240 Output Total 700 / 700 Balance 1480 / 1480 540 / 540 Weight 45.7 kg Intake: IV 1000 / 1000 1000 / 1000 LR 1000 mL Inj 1,000 ML @ 84 1000 / 1000 1000 / 1000 mls/hr IV.CONT .[id number] [facility] Rx# :[id number] Oral 480 / 480 240 / 240 Output: Urine 700 / 700 Other: # Voids 3 Date of Last Bowel Movement 07/18/18 07/20/18 07/20/18 <Erick,Sharath - 07/21/18 13:23> Vital Signs 07/20/18 11:00 07/20/18 12:00 07/20/18 13:00 Temperature 97.5 F L Pulse Rate 60 80 90 Respiratory Rate 18 Blood Pressure 150/67 H Pulse Oximetry 100 07/20/18 14:00 07/20/18 15:00 07/20/18 16:00 Temperature 97.8 F Pulse Rate 78 60 92 H Respiratory Rate 18 Blood Pressure 173/70 H Pulse Oximetry 99 07/20/18 17:00 07/20/18 17:13 07/20/18 18:00 Temperature Pulse Rate 87 67 Respiratory Rate Blood Pressure Pulse Oximetry 99 07/20/18 19:00 07/20/18 20:00 07/20/18 21:00 Temperature 98.5 F Pulse Rate 68 61 62 Respiratory Rate 16 Blood Pressure 163/70 H Pulse Oximetry 98 07/20/18 22:00 07/20/18 23:00 07/21/18 00:00 Temperature 98.5 F Pulse Rate 76 62 56 L Respiratory Rate 18 Blood Pressure 113/55 L Pulse Oximetry 98 07/21/18 01:00 07/21/18 02:00 07/21/18 03:00 Temperature 98.6 F Pulse Rate 58 L 56 L 62 Respiratory Rate 16 Blood Pressure 119/51 L Pulse Oximetry 98 07/21/18 04:00 07/21/18 04:57 07/21/18 06:00 Temperature Pulse Rate 56 L 68 64 Respiratory Rate Blood Pressure Pulse Oximetry 07/21/18 07:00 07/21/18 08:00 07/21/18 09:00 Temperature 97.6 F Pulse Rate 61 68 76 Respiratory Rate 18 Blood Pressure 158/64 H Pulse Oximetry 100 100 07/21/18 10:00 07/21/18 10:12 Temperature Pulse Rate 71 Respiratory Rate 17 Blood Pressure Pulse Oximetry Intake & Output 07/20/18 07/21/18 07/21/18 18:59 06:59 18:59 Intake Total 1480 / 1480 1240 / 1240 Output Total 700 / 700 Balance 1480 / 1480 540 / 540 Weight 45.7 kg Intake: IV 1000 / 1000 1000 / 1000 LR 1000 mL Inj 1,000 ML @ 84 1000 / 1000 1000 / 1000 mls/hr IV.CONT .[id number] [facility] Rx# :[id number] Oral 480 / 480 240 / 240 Output: Urine 700 / 700 Other: # Voids 3 Date of Last Bowel Movement 07/18/18 07/20/18 07/20/18 <Gilberto Benson - 07/21/18 11:00> Narrative: ENERAL: Thin appearing elderly female lying in bed in no acute distress. SKIN: Cool and dry. No rash. Pale appearing. Scar below left scapula from previous lobectomy. 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 HEENT: Atraumatic, normocephalic with extraocular motions intact. No rhinorrhea. No visible lymphadenopathy or jugulovenous distension appreciated. CARDIOVASCULAR: Regular rate and rhythm without obvious murmurs, gallops, or rubs. 2+ pulses in all four extremities. RESPIRATORY: Clear to auscultation bilaterally with no crackles, wheezes, or rhonchi. No increased work of breathing. GASTROINTESTINAL: Abdomen soft, non-tender, nondistended with positive bowel sounds. No masses appreciated. Mild suprapubic tenderness. MUSCULOSKELETAL: No cyanosis or edema. No calf tenderness. Ambulating well per report. NEURO/PSYCH: Afocal. Awake, alert, and oriented x3. Normal speech and judgement. <Gilberto Benson - 07/21/18 11:30> Assessment and Plan - Assessment (1) Dysuria Code(s): R30.0 - Dysuria Status: Acute (2) Cough with hemoptysis Code(s): R04.2 - Hemoptysis Status: Acute (3) Cavitary lesion of lung Code(s): J98.4 - Other disorders of lung Status: Chronic (4) Mycobacterial infection, atypical Code(s): A31.9 - Mycobacterial infection, unspecified Status: Chronic (5) Bradycardia Code(s): R00.1 - Bradycardia, unspecified Status: Acute (6) Hypertension Code(s): I10 - Essential (primary) hypertension Status: Chronic (7) Lupus (systemic lupus erythematosus) Code(s): M32.9 - Systemic lupus erythematosus, unspecified Status: Chronic (8) COPD (chronic obstructive pulmonary disease) Code(s): J44.9 - Chronic obstructive pulmonary disease, unspecified Status: Chronic (9) Hypothyroidism Code(s): E03.9 - Hypothyroidism, unspecified Status: Chronic (10) Hyponatremia Code(s): E87.1 - Hypo-osmolality and hyponatremia Status: Chronic (11) GERD without esophagitis Code(s): K21.9 - Gastro-esophageal reflux disease without esophagitis Status: Chronic (12) Nutrition, metabolism, and development symptoms Code(s): R63.8 - Other symptoms and signs concerning food and fluid intake Status: Acute (13) DVT prophylaxis Status: Acute <Sharath Suarez - 07/21/18 13:23> (1) Dysuria Code(s): R30.0 - Dysuria Status: Acute Plan: Patient reports chronic history of UTI with new dysuria over the last 24 hours. -UA with culture if indicated ordered (2) Cough with hemoptysis Code(s): R04.2 - Hemoptysis Status: Acute Plan: Pt with new symptoms of hemoptysis, likely due to possible enlargement of chronic cavitary lesion with superinfection. -H/H stable -Continue to monitor (3) Cavitary lesion of lung Code(s): J98.4 - Other disorders of lung Status: Chronic Plan: Pt with Cavitary lesion of the lung since October 2017. Pt has been admitted a few time for this issue. Last CT scan as outpatient in May was stable. Patient with new onset of hemoptysis. - CTA scan w/ new air fluid levels suggestive of superinfection. - TB PCR: Negative - Sputum cultures: Heavy growth normal respiratory memo - AFP: Pending - Mycobacterium culture: Pending - ID consulted, appreciate recommendations -Continue with current regimen - Pulmonology consulted, appreciate recommendations -Per patient, plan for bronchoscopy on Medications: - Continue Ethambutol 800mg po q HS - Continue Rifampin 600 mg po daily - Continue clarithromycin 500mg po q12hrs - Nystatin swish and swallow (4) Mycobacterial infection, atypical Code(s): A31.9 - Mycobacterial infection, unspecified Status: Chronic Plan: See plan above (5) Bradycardia Code(s): R00.1 - Bradycardia, unspecified Status: Acute Plan: Patient with bradycardic episode on 07/18/18. Patient administered atropine and has maintained heart rate since that time. -EKG overnight with Sinus Rhythm. T wave slurring in leads II, III, avF, V5 and V5. No acute ST abnormality. (Per medical team read) -Troponin negative; repeat negative -CMP without acute abnormality -Mg WNL -DC home Coreg -Consult Cardiology, appreciate recommendations (6) Hypertension Code(s): I10 - Essential (primary) hypertension Status: Chronic Plan: Chronic in nature. Pt had medication adjusted in May by Dr. Grande. Medications: - DC Cavedilol due to bradycardic episode - Schedule clonidine 0.1 mg daily for blood pressure control - Clonidine PRN for BP >180/110 (7) Lupus (systemic lupus erythematosus) Code(s): M32.9 - Systemic lupus erythematosus, unspecified Status: Chronic Plan: Pt follows up with Dr. Lama as an outpatient. Medications: - Continue taking hydroxychloroquine 100 mg every other day - Continue taking phenobarbital 30mg po qHS (8) COPD (chronic obstructive pulmonary disease) Code(s): J44.9 - Chronic obstructive pulmonary disease, unspecified Status: Chronic Plan: Chronic. Pt stable on medications. -Incentive spirometry Medications: - Duonebs q 6hrs PRN while awake - Continue taking Theophylline ER 200mg po daily (9) Hypothyroidism Code(s): E03.9 - Hypothyroidism, unspecified Status: Chronic Plan: Chronic for patient. PCP ordered TSH and T4 as outpatient. -TSH WNL at 3.1 Medications: - Continue Levothyroxine 25mcg q day (10) Hyponatremia Code(s): E87.1 - Hypo-osmolality and hyponatremia Status: Chronic Plan: Per chart review, patient with history of hyponatremia. Patient currently asymptomatic. -Continue to monitor (11) GERD without esophagitis Code(s): K21.9 - Gastro-esophageal reflux disease without esophagitis Status: Chronic Plan: Patient with history of GERD without esophagitis. Per patient report, patient on home lansoprazole daily. -Protonix 40mg daily -Calcium carbonate as needed for reflux symptoms (12) Nutrition, metabolism, and development symptoms Code(s): R63.8 - Other symptoms and signs concerning food and fluid intake Status: Acute Plan: - Diet: Cardiac, NPO at midnight for bronchoscopy - Fluids: LR at 84 ml/hr - Electrolytes: Monitor and replace as needed - Pain management: Continue home Tramadol 50 PO QID PRN for pain - Incentive spirometry - Prophylaxis: Zofran PRN for N/V, Clonidine PRN for BP >180/110, Albuterol PRN for SOB, Tylenol PRN for fever, Calcium carbonate PRN for reflux (13) DVT prophylaxis Status: Acute Plan: - SCDs bilaterally - Avoid pharmacological prophylaxis due to hemoptysis <Gilberto Benson - 07/21/18 11:13> - Assessment and Plan Ms. Vega is a 77 yr old female with a complicated PMH including cavitary lesions of the lung, RLL lobectomy, lupus, HTN, COPD, Alexis skin carcinoma,IBD , GERD, and hypothyroidism, presenting to the ED with two episodes of hemoptysis. On chronic medications for atypical mycoplasma infection, managed outpatient with ID, and pulmonology. Pt stable on exam, will admit to inpatient services. <Gilberto Benson - 07/21/18 11:00> - Attending Attestation Patient examined independently and case discussed with resident physicians I have read the above note and agree with the assessment/plan as discussed with me I was involved in all medical decision making for this patient Sharath Suarez MD <Sharath Suarez - 07/21/18 13:23> <Gilberto Benson - Last Filed: 07/21/18 11:13> (6) Hypertension Qualifiers: Hypertension type: essential hypertension Qualified Code(s): I10 - Essential (primary) hypertension (7) Lupus (systemic lupus erythematosus) Qualifiers: Systemic lupus erythematosus type: unspecified Systemic lupus erythematosus organ involvement: unspecified Qualified Code(s): M32.9 - Systemic lupus erythematosus, unspecified (8) COPD (chronic obstructive pulmonary disease) Qualifiers: COPD type: unspecified COPD Qualified Code(s): J44.9 - Chronic obstructive pulmonary disease, unspecified (9) Hypothyroidism Qualifiers: Hypothyroidism type: unspecified Qualified Code(s): E03.9 - Hypothyroidism, unspecified <Sharath Suarez - Last Filed: 07/21/18 13:23> (6) Hypertension Qualifiers: Hypertension type: essential hypertension Qualified Code(s): I10 - Essential (primary) hypertension (7) Lupus (systemic lupus erythematosus) Qualifiers: Systemic lupus erythematosus type: unspecified Systemic lupus erythematosus organ involvement: unspecified Qualified Code(s): M32.9 - Systemic lupus erythematosus, unspecified (8) COPD (chronic obstructive pulmonary disease) Qualifiers: COPD type: unspecified COPD Qualified Code(s): J44.9 - Chronic obstructive pulmonary disease, unspecified (9) Hypothyroidism Qualifiers: Hypothyroidism type: unspecified Qualified Code(s): E03.9 - Hypothyroidism, unspecified <Gilberto Benson - Last Filed: 07/21/18 11:13> (6) Hypertension Qualifiers: Hypertension type: essential hypertension Qualified Code(s): I10 - Essential (primary) hypertension (7) Lupus (systemic lupus erythematosus) Qualifiers: Systemic lupus erythematosus type: unspecified Systemic lupus erythematosus organ involvement: unspecified Qualified Code(s): M32.9 - Systemic lupus erythematosus, unspecified (8) COPD (chronic obstructive pulmonary disease) Qualifiers: COPD type: unspecified COPD Qualified Code(s): J44.9 - Chronic obstructive pulmonary disease, unspecified (9) Hypothyroidism Qualifiers: Hypothyroidism type: unspecified Qualified Code(s): E03.9 - Hypothyroidism, unspecified <Sharath Suarez - Last Filed: 07/21/18 13:23> (6) Hypertension Qualifiers: Hypertension type: essential hypertension Qualified Code(s): I10 - Essential (primary) hypertension (7) Lupus (systemic lupus erythematosus) Qualifiers: Systemic lupus erythematosus type: unspecified Systemic lupus erythematosus organ involvement: unspecified Qualified Code(s): M32.9 - Systemic lupus erythematosus, unspecified (8) COPD (chronic obstructive pulmonary disease) Qualifiers: COPD type: unspecified COPD Qualified Code(s): J44.9 - Chronic obstructive pulmonary disease, unspecified (9) Hypothyroidism Qualifiers: Hypothyroidism type: unspecified Qualified Code(s): E03.9 - Hypothyroidism, unspecified
[2018-07-21 11:02] LABS: INR 1.1 Ratio; Prothrombin Time 10.9 sec (9.8-11.6)
[2018-07-21 12:53] LABS: Bilirubin,Urine Negative (Negative); Clarity,Urine Clear (Clear); Color,Urine Amber (Yellw/Straw); Glucose,Urine (UA) Negative (Negative); Leukocyte Esterase,Urine Negative (Negative); Nitrite,Urine Negative (Negative); Specific Gravity,Urine 1.003 (1.002-1.035); Squamous Epithelial Cell,Urine <1 /hpf (0-5)
[2018-07-21] MEDS: Acetaminophen 325 MG Tablet PO PRN (13:39)
--- NOTE | 2018-07-21 16:47 | P.PNID ---
Subjective Remarks: pt is afebrile normal WBC less hemoptisys on RA Antibiotics: Clarithromycin rifampin Ethambutol Allergies/Adverse Reactions: Allergies celecoxib Allergy (Severe, Verified 07/18/18 12:52) Hives cyclobenzaprine Allergy (Severe, Verified 07/18/18 12:52) unknown morphine Allergy (Severe, Verified 07/18/18 12:52) Cardiac Arrest penicillin G Allergy (Severe, Verified 07/18/18 12:52) Cardiac Arrest Sulfa (Sulfonamide Antibiotics) Allergy (Severe, Verified 07/18/18 12:52) Swelling of Lip/Tongue/Throat meperidine Adverse Reaction (Severe, Verified 07/18/18 12:52) Hallucinations codeine Adverse Reaction (Mild, Verified 07/18/18 12:52) Hallucinations Objective Vital Signs 07/20/18 17:00 07/20/18 17:13 07/20/18 18:00 Temperature Pulse Rate 87 67 Respiratory Rate Blood Pressure Pulse Oximetry 99 07/20/18 19:00 07/20/18 20:00 07/20/18 21:00 Temperature 98.5 F Pulse Rate 68 61 62 Respiratory Rate 16 Blood Pressure 163/70 H Pulse Oximetry 98 07/20/18 22:00 07/20/18 23:00 07/21/18 00:00 Temperature 98.5 F Pulse Rate 76 62 56 L Respiratory Rate 18 Blood Pressure 113/55 L Pulse Oximetry 98 07/21/18 01:00 07/21/18 02:00 07/21/18 03:00 Temperature 98.6 F Pulse Rate 58 L 56 L 62 Respiratory Rate 16 Blood Pressure 119/51 L Pulse Oximetry 98 07/21/18 04:00 07/21/18 04:57 07/21/18 06:00 Temperature Pulse Rate 56 L 68 64 Respiratory Rate Blood Pressure Pulse Oximetry 07/21/18 07:00 07/21/18 08:00 07/21/18 09:00 Temperature 97.6 F Pulse Rate 61 68 76 Respiratory Rate 18 Blood Pressure 158/64 H Pulse Oximetry 100 100 07/21/18 10:00 07/21/18 10:12 07/21/18 11:00 Temperature 98.0 F Pulse Rate 71 65 Respiratory Rate 17 16 Blood Pressure 142/62 H Pulse Oximetry 99 07/21/18 11:45 07/21/18 12:00 07/21/18 13:00 Temperature Pulse Rate 64 65 Respiratory Rate Blood Pressure Pulse Oximetry 98 07/21/18 14:00 07/21/18 15:00 07/21/18 16:00 Temperature 97.8 F Pulse Rate 79 65 74 Respiratory Rate 16 Blood Pressure 136/67 Pulse Oximetry 98 Intake & Output 07/20/18 07/21/18 07/21/18 18:59 06:59 18:59 Intake Total 1480 / 1480 1240 / 1240 900 / 900 Output Total 700 / 700 Balance 1480 / 1480 540 / 540 900 / 900 Weight 45.7 kg Intake: IV 1000 / 1000 1000 / 1000 900 / 900 LR 1000 mL Inj 1,000 ML @ 84 1000 / 1000 1000 / 1000 900 / 900 mls/hr IV.CONT .[id number] [facility] Rx# :[id number] Oral 480 / 480 240 / 240 Output: Urine 700 / 700 Other: # Voids 3 Date of Last Bowel Movement 07/18/18 07/20/18 07/20/18 07/18/18 10:00 Sputum - Expectorated Sputum Acid Fast Bacilli Smear - Final Acid Fast Bacilli Seen 07/18/18 10:00 Sputum - Expectorated Sputum Mycobacterial Culture - Pending 07/18/18 10:00 Sputum - Expectorated Sputum Gram Stain - Final 07/18/18 10:00 Sputum - Expectorated Sputum Sputum Culture - Final Heavy growth normal respiratory memo Lab - Hematology Results 07/20/18 07/21/18 07/21/18 06:17 05:04 10:34 WBC 5.5 6.7 6.7 RBC 4.20 4.16 4.14 Hgb 12.0 12.2 12.1 Hct 36.0 34.9 L 35.5 MCV 85.8 84.0 85.7 MCH 28.7 29.3 29.3 MCHC 33.4 34.9 34.2 RDW 14.4 14.0 14.2 Plt Count 251 241 237 MPV 7.3 7.3 7.0 Neut % (Auto) 60.6 68.6 Lymph % (Auto) 21.3 15.5 Armstrong % (Auto) 10.5 H 9.4 H Eos % (Auto) 6.5 H 5.7 H Baso % (Auto) 1.1 0.8 Neut # (Auto) 3.3 4.6 Lymph # (Auto) 1.2 1.0 Armstrong # (Auto) 0.6 0.6 Eos # (Auto) 0.4 0.4 Baso # (Auto) 0.1 0.1 WBC Differential . . Differential Comment Auto diff final Auto diff final Lab - Chemistry Results 07/20/18 06:17 Sodium 135 L Potassium 3.8 Chloride 100 Carbon Dioxide 29.6 Anion Gap 5 BUN 9 Creatinine 0.52 Estimated GFR Greater than 89 Random Glucose 82 Calcium 8.6 Imaging: ITS Impressions Chest CTA 07/18/18 09:17 CONCLUSION: 1. No PE is identified. 2. Chronic cavitary lesion is present in the left upper lobe and demonstrates a new air-fluid level suggesting possible superinfection. The adjacent parenchymal changes are stable. 3. The multiple bilateral pulmonary nodules, most numerous in the left lower lobe, are stable. Suggest attention to these at follow-up imaging. Physical Exam: GENERAL: NAD SKIN: Warm and dry. HEAD: Atraumatic. Normocephalic. EYES: Pupils equal and round. No scleral icterus. No injection or drainage. ENT: No nasal bleeding or discharge. Mucous membranes pink and moist. NECK: Trachea midline. No JVD. CARDIOVASCULAR: Regular rate and rhythm. RESPIRATORY: No accessory muscle use. Clear to auscultation. Breath sounds equal bilaterally. GASTROINTESTINAL: Abdomen soft, non-tender, nondistended. Hepatic and splenic margins not palpable. MUSCULOSKELETAL: Extremities without clubbing, cyanosis, or edema. No obvious deformities. NEUROLOGICAL: Awake and alert. No obvious cranial nerve deficits. Motor grossly within normal limits. Five out of 5 muscle strength in the arms and legs. Normal speech. PSYCHIATRIC: Appropriate mood and affect; insight and judgment normal. 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 medication induced cont current abx for NTM SPutum clx routine and AFB nistatin swishes BAL plannned by Dr Chaparro - will follow results will not start additional abx at this point (cardiac arrest on PCN, avoid levaquin+ clarithro combo) case was dw Archie Chaparro and Marcelino
[2018-07-22 06:20] LABS: Baso # (Auto) 0.1 th/mm3 (0.0-0.2); Baso % (Auto) 1.2 % (0.0-2.0); Eos # (Auto) 0.4 th/mm3 (0.0-0.4); Eos % (Auto) 6.7 % (0.0-4.0); Hematocrit 34.6 % (35.0-46.0); Hemoglobin 11.9 gm/dL (11.6-15.3); Lymph # (Auto) 1.1 th/mm3 (1.0-4.8); Lymph % (Auto) 19.8 % (9.0-44.0); Mean Corpuscular HGB Conc 34.3 % (32.0-36.0); Mean Corpuscular Hemoglobin 29.1 pg (27.0-34.0); Mean Corpuscular Volume 84.8 fL (80.0-100.0); Mean Platelet Volume 7.4 fL (7.0-11.0); Mono # (Auto) 0.6 th/mm3 (0.0-0.9); Mono % (Auto) 11.2 % (0.0-8.0); Neut # (Auto) 3.4 th/mm3 (1.8-7.7); Neut % (Auto) 61.1 % (16.0-70.0); Platelet Count 237 th/mm3 (150-450); Red Blood Count 4.08 mil/mm3 (4.00-5.30); Red Cell Distribution Width 14.2 % (11.6-17.2); White Blood Count 5.6 th/mm3 (4.0-11.0)
--- NOTE | 2018-07-22 07:59 | P.PN ---
Subjective Interval history: ALER6 NAD STILL WITH HEMOPTYSIS Physical Exam Vital signs: Vital Signs 07/21/18 08:00 07/21/18 09:00 07/21/18 10:00 Temperature Pulse Rate 68 76 71 Respiratory Rate Blood Pressure Pulse Oximetry 100 07/21/18 10:12 07/21/18 11:00 07/21/18 11:45 Temperature 98.0 F Pulse Rate 65 Respiratory Rate 17 16 Blood Pressure 142/62 H Pulse Oximetry 99 98 07/21/18 12:00 07/21/18 13:00 07/21/18 14:00 Temperature Pulse Rate 64 65 79 Respiratory Rate Blood Pressure Pulse Oximetry 07/21/18 15:00 07/21/18 16:00 07/21/18 17:00 Temperature 97.8 F Pulse Rate 65 74 72 Respiratory Rate 16 Blood Pressure 136/67 Pulse Oximetry 98 07/21/18 18:00 07/21/18 18:02 07/21/18 19:00 Temperature 97.9 F Pulse Rate 74 79 Respiratory Rate 16 16 Blood Pressure 164/73 H Pulse Oximetry 98 07/21/18 20:00 07/21/18 21:00 07/21/18 22:00 Temperature Pulse Rate 72 64 62 Respiratory Rate Blood Pressure Pulse Oximetry 98 07/22/18 00:00 07/22/18 03:00 07/22/18 04:00 Temperature 97.3 F L 98.1 F Pulse Rate 64 68 67 Respiratory Rate 16 16 Blood Pressure 159/68 H 125/59 L Pulse Oximetry 98 98 Intake & Output 07/21/18 07/22/18 07/22/18 18:59 06:59 18:59 Intake Total 1860 / 1860 1000 / 1000 Balance 1860 / 1860 1000 / 1000 Weight 45.5 kg Intake: IV 900 / 900 1000 / 1000 LR 1000 mL Inj 1,000 ML @ 84 900 / 900 1000 / 1000 mls/hr IV.CONT .[id number] [facility] Rx# :[id number] Oral 960 / 960 Other: # Voids 4 3 Date of Last Bowel Movement 07/20/18 07/20/18 Narrative: ENERAL: Thin appearing elderly female lying in bed in no acute distress. SKIN: Cool and dry. No rash. Pale appearing. Scar below left scapula from previous lobectomy. 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 HEENT: Atraumatic, normocephalic with extraocular motions intact. No rhinorrhea. No visible lymphadenopathy or jugulovenous distension appreciated. CARDIOVASCULAR: Regular rate and rhythm without obvious murmurs, gallops, or rubs. 2+ pulses in all four extremities. RESPIRATORY: Clear to auscultation bilaterally with no crackles, wheezes, or rhonchi. No increased work of breathing. GASTROINTESTINAL: Abdomen soft, non-tender, nondistended with positive bowel sounds. No masses appreciated. Mild suprapubic tenderness. MUSCULOSKELETAL: No cyanosis or edema. No calf tenderness. Ambulating well per report. NEURO/PSYCH: Afocal. Awake, alert, and oriented x3. Normal speech and judgement. Results - Labs CBC & Chem 7: 07/22/18 05:15 07/20/18 06:17 Laboratory Results - last 24 hr 07/21/18 07/21/18 07/21/18 10:34 10:34 11:00 WBC 6.7 RBC 4.14 Hgb 12.1 Hct 35.5 MCV 85.7 MCH 29.3 MCHC 34.2 RDW 14.2 Plt Count 237 MPV 7.0 Neut % (Auto) 68.6 Lymph % (Auto) 15.5 Nelson % (Auto) 9.4 H Eos % (Auto) 5.7 H Baso % (Auto) 0.8 Neut # (Auto) 4.6 Lymph # (Auto) 1.0 Nelson # (Auto) 0.6 Eos # (Auto) 0.4 Baso # (Auto) 0.1 WBC Differential . Differential Comment Auto diff final PT 10.9 INR 1.1 Urine Color Angelica Urine Clarity Clear Urine pH 7.0 Ur Specific Ellsworth 1.003 Urine Protein Negative Urine Glucose (UA) Negative Urine Ketones Negative Urine Occult Blood Negative Urine Nitrate Negative Urine Bilirubin Negative Urine Urobilinogen Less than 2 Ur Leukocyte Esterase Negative Urine WBC 1 Ur Squamous Epith Cells <1 Micro UA Comment Culture not ind Ur Microscopic Review Not Reportable Urine Culture Comments Culture not ind 07/22/18 05:15 WBC 5.6 RBC 4.08 Hgb 11.9 Hct 34.6 L MCV 84.8 MCH 29.1 MCHC 34.3 RDW 14.2 Plt Count 237 MPV 7.4 Neut % (Auto) 61.1 Lymph % (Auto) 19.8 Nelson % (Auto) 11.2 H Eos % (Auto) 6.7 H Baso % (Auto) 1.2 Neut # (Auto) 3.4 Lymph # (Auto) 1.1 Nelson # (Auto) 0.6 Eos # (Auto) 0.4 Baso # (Auto) 0.1 WBC Differential . Differential Comment Auto diff final PT INR Urine Color Urine Clarity Urine pH Ur Specific Ellsworth Urine Protein Urine Glucose (UA) Urine Ketones Urine Occult Blood Urine Nitrate Urine Bilirubin Urine Urobilinogen Ur Leukocyte Esterase Urine WBC Ur Squamous Epith Cells Micro UA Comment Ur Microscopic Review Urine Culture Comments Microbiology 07/18/18 10:00 Sputum - Expectorated Sputum Acid Fast Bacilli Smear - Final Acid Fast Bacilli Seen Assessment and Plan - Plan AMNA HEMOPTYSIS COPD PLAN O2 ANTIBX BRONCHOSCOPY TODAY
[2018-07-22] MEDS: Theophylline ER 24 HR 200 MG Capsule PO SCH (09:00)
[2018-07-22] MEDS: Nystatin Liq 500,000 UNIT/5 ML UDC SWISH-SWAL SCH ×3 (09:00→17:32)
[2018-07-22] MEDS: Hydroxychloroquine 200 MG Tablet PO SCH (09:00)
--- NOTE | 2018-07-22 10:51 | P.PNFP ---
Subjective Interval history: Patient seen and examined this morning after bronchoscopy. No acute events overnight per staff. Patient states that procedure went well, but she unaware of the findings. She states that she would like to go home as "nothing is being done here that can be done at home." She does request a prescription for the swish and swallow for thrush. She has no acute complaints at this time and denies any fevers, chills, shortness of breath, chest pain, NVD, abdominal pain , or calf tenderness. <Gilberto Benson H - 07/22/18 10:51> Results - Labs Result diagrams: 07/22/18 05:15 07/20/18 06:17 <Sharath Suarez - 07/22/18 16:08> Abnormal lab results 07/22/18 Range/Units 05:15 Hct 34.6 L (35.0-46.0) % Aiken % (Auto) 11.2 H (0.0-8.0) % Eos % (Auto) 6.7 H (0.0-4.0) % Short CBC 07/22/18 Range/Units 05:15 WBC 5.6 (4.0-11.0) th/mm3 Hgb 11.9 (11.6-15.3) gm/dL Hct 34.6 L (35.0-46.0) % Plt Count 237 (150-450) th/mm3 <Sharath Suarez - 07/22/18 16:08> Abnormal lab results 07/21/18 07/22/18 Range/Units 10:34 05:15 Hct 34.6 L (35.0-46.0) % Aiken % (Auto) 9.4 H 11.2 H (0.0-8.0) % Eos % (Auto) 5.7 H 6.7 H (0.0-4.0) % Short CBC 07/21/18 07/22/18 Range/Units 10:34 05:15 WBC 6.7 5.6 (4.0-11.0) th/mm3 Hgb 12.1 11.9 (11.6-15.3) gm/dL Hct 35.5 34.6 L (35.0-46.0) % Plt Count 237 237 (150-450) th/mm3 Urine 07/21/18 Range/Units 11:00 Urine Color Angelica (Yellw/Straw) Urine Clarity Clear (Clear) Urine pH 7.0 (5.0-8.5) Ur Specific Stewart 1.003 (1.002-1.035) Urine Protein Negative (Neg-Trace) mg/dL Urine Glucose (UA) Negative (Negative) mg/dL <Gilberto Benson H - 07/22/18 10:51> Physical Exam Vital signs: Vital Signs 07/21/18 17:00 07/21/18 18:00 07/21/18 18:02 Temperature Pulse Rate 72 74 Respiratory Rate 16 Blood Pressure Pulse Oximetry 07/21/18 19:00 07/21/18 20:00 07/21/18 21:00 Temperature 97.9 F Pulse Rate 79 72 64 Respiratory Rate 16 Blood Pressure 164/73 H Pulse Oximetry 98 98 07/21/18 22:00 07/22/18 00:00 07/22/18 03:00 Temperature 97.3 F L 98.1 F Pulse Rate 62 64 68 Respiratory Rate 16 16 Blood Pressure 159/68 H 125/59 L Pulse Oximetry 98 98 07/22/18 04:00 07/22/18 09:26 07/22/18 09:30 Temperature 97.9 F Pulse Rate 67 75 74 Respiratory Rate 21 16 Blood Pressure 173/75 H 158/74 H Pulse Oximetry 100 98 07/22/18 09:45 07/22/18 14:35 Temperature 97.9 F Pulse Rate 75 Respiratory Rate 16 Blood Pressure 152/72 H Pulse Oximetry 95 98 Intake & Output 07/21/18 07/22/18 07/22/18 18:59 06:59 18:59 Intake Total 1860 / 1860 1000 / 1000 Balance 1860 / 1860 1000 / 1000 Weight 45.5 kg Intake: IV 900 / 900 1000 / 1000 LR 1000 mL Inj 1,000 ML @ 84 900 / 900 1000 / 1000 mls/hr IV.CONT .[id number] [facility] Rx# :[id number] Oral 960 / 960 Other: # Voids 4 3 1 Date of Last Bowel Movement 07/20/18 07/20/18 <Sharath Suarez - 07/22/18 16:08> Vital Signs 07/21/18 11:00 07/21/18 11:45 07/21/18 12:00 Temperature 98.0 F Pulse Rate 65 64 Respiratory Rate 16 Blood Pressure 142/62 H Pulse Oximetry 99 98 07/21/18 13:00 07/21/18 14:00 07/21/18 15:00 Temperature 97.8 F Pulse Rate 65 79 65 Respiratory Rate 16 Blood Pressure 136/67 Pulse Oximetry 98 07/21/18 16:00 07/21/18 17:00 07/21/18 18:00 Temperature Pulse Rate 74 72 74 Respiratory Rate Blood Pressure Pulse Oximetry 07/21/18 18:02 07/21/18 19:00 07/21/18 20:00 Temperature 97.9 F Pulse Rate 79 72 Respiratory Rate 16 16 Blood Pressure 164/73 H Pulse Oximetry 98 98 07/21/18 21:00 07/21/18 22:00 07/22/18 00:00 Temperature 97.3 F L Pulse Rate 64 62 64 Respiratory Rate 16 Blood Pressure 159/68 H Pulse Oximetry 98 07/22/18 03:00 07/22/18 04:00 07/22/18 09:26 Temperature 98.1 F 97.9 F Pulse Rate 68 67 75 Respiratory Rate 16 21 Blood Pressure 125/59 L 173/75 H Pulse Oximetry 98 100 07/22/18 09:30 07/22/18 09:45 Temperature 97.9 F Pulse Rate 74 75 Respiratory Rate 16 16 Blood Pressure 158/74 H 152/72 H Pulse Oximetry 98 95 Intake & Output 07/21/18 07/22/18 07/22/18 18:59 06:59 18:59 Intake Total 1860 / 1860 1000 / 1000 Balance 1860 / 1860 1000 / 1000 Weight 45.5 kg Intake: IV 900 / 900 1000 / 1000 LR 1000 mL Inj 1,000 ML @ 84 900 / 900 1000 / 1000 mls/hr IV.CONT .[id number] [facility] Rx# :[id number] Oral 960 / 960 Other: # Voids 4 3 1 Date of Last Bowel Movement 07/20/18 07/20/18 <Gilberto Benson - 07/22/18 10:51> Narrative: GENERAL: Thin appearing elderly female lying in bed in no acute distress. SKIN: Cool and dry. No rash. Pale appearing. Scar below left scapula from previous lobectomy. 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 Area of ecchymosis on right lateral degroot from fall that appears to be healing. HEENT: Atraumatic, normocephalic with extraocular motions intact. No rhinorrhea. No visible lymphadenopathy or jugulovenous distension appreciated. CARDIOVASCULAR: Regular rate and rhythm without obvious murmurs, gallops, or rubs. 2+ pulses in all four extremities. RESPIRATORY: Clear to auscultation bilaterally with no crackles, wheezes, or rhonchi. No increased work of breathing. GASTROINTESTINAL: Abdomen soft, non-tender, nondistended with positive bowel sounds. No masses appreciated. Mild suprapubic tenderness. MUSCULOSKELETAL: No cyanosis or edema. No calf tenderness. Ambulating well per report. NEURO/PSYCH: Afocal. Awake, alert, and oriented x3. Normal speech and judgement. <Gilberto Benson - 07/22/18 10:51> Assessment and Plan - Assessment (1) Cough with hemoptysis Code(s): R04.2 - Hemoptysis Status: Acute (2) Cavitary lesion of lung Code(s): J98.4 - Other disorders of lung Status: Chronic (3) Mycobacterial infection, atypical Code(s): A31.9 - Mycobacterial infection, unspecified Status: Chronic (4) Bradycardia Code(s): R00.1 - Bradycardia, unspecified Status: Acute (5) Hypertension Code(s): I10 - Essential (primary) hypertension Status: Chronic (6) Lupus (systemic lupus erythematosus) Code(s): M32.9 - Systemic lupus erythematosus, unspecified Status: Chronic (7) COPD (chronic obstructive pulmonary disease) Code(s): J44.9 - Chronic obstructive pulmonary disease, unspecified Status: Chronic (8) Hypothyroidism Code(s): E03.9 - Hypothyroidism, unspecified Status: Chronic (9) Hyponatremia Code(s): E87.1 - Hypo-osmolality and hyponatremia Status: Chronic (10) GERD without esophagitis Code(s): K21.9 - Gastro-esophageal reflux disease without esophagitis Status: Chronic (11) Dysuria Code(s): R30.0 - Dysuria Status: Resolved (12) Nutrition, metabolism, and development symptoms Code(s): R63.8 - Other symptoms and signs concerning food and fluid intake Status: Acute (13) DVT prophylaxis Status: Acute <Sharath Suarez - 07/22/18 16:08> (1) Cough with hemoptysis Code(s): R04.2 - Hemoptysis Status: Acute Plan: Pt with new symptoms of hemoptysis, likely due to possible enlargement of chronic cavitary lesion with superinfection. -H/H stable -Continue to monitor (2) Cavitary lesion of lung Code(s): J98.4 - Other disorders of lung Status: Chronic Plan: Pt with Cavitary lesion of the lung since October 2017. Pt has been admitted a few time for this issue. Last CT scan as outpatient in May was stable. Patient with new onset of hemoptysis. - CTA scan w/ new air fluid levels suggestive of superinfection. - TB PCR: Negative - Sputum cultures: Heavy growth normal respiratory memo - AFB: Positive, refer to 06/13/18 smear for further testing results - Bronchial washings: Pending - ID consulted, appreciate recommendations -Continue with current regimen - Pulmonology consulted, appreciate recommendations -Uncomplicated bronchoscopy performed 07/22/18 Medications: - Continue Ethambutol 800mg po q HS - Continue Rifampin 600 mg po daily - Continue clarithromycin 500mg po q12hrs - Nystatin swish and swallow (3) Mycobacterial infection, atypical Code(s): A31.9 - Mycobacterial infection, unspecified Status: Chronic Plan: See plan above (4) Bradycardia Code(s): R00.1 - Bradycardia, unspecified Status: Acute Plan: Patient with bradycardic episode on 07/18/18. Patient administered atropine and has maintained heart rate since that time. -EKG overnight with Sinus Rhythm. T wave slurring in leads II, III, avF, V5 and V5. No acute ST abnormality. (Per medical team read) -Troponin negative; repeat negative -CMP without acute abnormality -Mg WNL -DC home Coreg -Consult Cardiology, appreciate recommendations (5) Hypertension Code(s): I10 - Essential (primary) hypertension Status: Chronic Plan: Chronic in nature. Pt had medication adjusted in May by Dr. Grande. Medications: - DC Cavedilol due to bradycardic episode - Schedule clonidine 0.1 mg daily for blood pressure control - Clonidine PRN for BP >180/110 (6) Lupus (systemic lupus erythematosus) Code(s): M32.9 - Systemic lupus erythematosus, unspecified Status: Chronic Plan: Pt follows up with Dr. Lama as an outpatient. Medications: - Continue taking hydroxychloroquine 100 mg every other day - Continue taking phenobarbital 30mg po qHS (7) COPD (chronic obstructive pulmonary disease) Code(s): J44.9 - Chronic obstructive pulmonary disease, unspecified Status: Chronic Plan: Chronic. Pt stable on medications. -Incentive spirometry Medications: - Duonebs q 6hrs PRN while awake - Continue taking Theophylline ER 200mg po daily (8) Hypothyroidism Code(s): E03.9 - Hypothyroidism, unspecified Status: Chronic Plan: Chronic for patient. PCP ordered TSH and T4 as outpatient. -TSH WNL at 3.1 Medications: - Continue Levothyroxine 25mcg q day (9) Hyponatremia Code(s): E87.1 - Hypo-osmolality and hyponatremia Status: Chronic Plan: Per chart review, patient with history of hyponatremia. Patient currently asymptomatic. -Continue to monitor (10) GERD without esophagitis Code(s): K21.9 - Gastro-esophageal reflux disease without esophagitis Status: Chronic Plan: Patient with history of GERD without esophagitis. Per patient report, patient on home lansoprazole daily. -Protonix 40mg daily -Calcium carbonate as needed for reflux symptoms (11) Dysuria Code(s): R30.0 - Dysuria Status: Resolved Plan: Patient reports chronic history of UTI with new dysuria over the last 24 hours. -UA: Negative -Continue to monitor (12) Nutrition, metabolism, and development symptoms Code(s): R63.8 - Other symptoms and signs concerning food and fluid intake Status: Acute Plan: - Diet: Regular as tolerated - Fluids: LR at 84 ml/hr - Electrolytes: Monitor and replace as needed - Pain management: Continue home Tramadol 50 PO QID PRN for pain - Incentive spirometry - Prophylaxis: Zofran PRN for N/V, Clonidine PRN for BP >180/110, Albuterol PRN for SOB, Tylenol PRN for fever, Calcium carbonate PRN for reflux (13) DVT prophylaxis Status: Acute Plan: - SCDs bilaterally - Avoid pharmacological prophylaxis due to hemoptysis <Gilberto Benson H - 07/22/18 14:55> - Assessment and Plan Ms. Vega is a 77 yr old female with a complicated PMH including cavitary lesions of the lung, RLL lobectomy, lupus, HTN, COPD, Alexis skin carcinoma,IBD , GERD, and hypothyroidism, presenting to the ED with two episodes of hemoptysis. On chronic medications for atypical mycoplasma infection, managed outpatient with ID, and pulmonology. Pt stable on exam, will admit to inpatient services. <Gilberto Benson - 07/22/18 10:51> - Attending Attestation Patient examined independently and case discussed with resident physician I have read the above note and agree with the assessment/plan as discussed with me I was involved in all medical decision making for this patient Sharath Suarez MD <Sharath Suarez - 07/22/18 16:08> <Gilberto Benson - Last Filed: 07/22/18 14:55> (5) Hypertension Qualifiers: Hypertension type: essential hypertension Qualified Code(s): I10 - Essential (primary) hypertension (6) Lupus (systemic lupus erythematosus) Qualifiers: Systemic lupus erythematosus type: unspecified Systemic lupus erythematosus organ involvement: unspecified Qualified Code(s): M32.9 - Systemic lupus erythematosus, unspecified (7) COPD (chronic obstructive pulmonary disease) Qualifiers: COPD type: unspecified COPD Qualified Code(s): J44.9 - Chronic obstructive pulmonary disease, unspecified (8) Hypothyroidism Qualifiers: Hypothyroidism type: unspecified Qualified Code(s): E03.9 - Hypothyroidism, unspecified <Sharath Suarez - Last Filed: 07/22/18 16:08> (5) Hypertension Qualifiers: Hypertension type: essential hypertension Qualified Code(s): I10 - Essential (primary) hypertension (6) Lupus (systemic lupus erythematosus) Qualifiers: Systemic lupus erythematosus type: unspecified Systemic lupus erythematosus organ involvement: unspecified Qualified Code(s): M32.9 - Systemic lupus erythematosus, unspecified (7) COPD (chronic obstructive pulmonary disease) Qualifiers: COPD type: unspecified COPD Qualified Code(s): J44.9 - Chronic obstructive pulmonary disease, unspecified (8) Hypothyroidism Qualifiers: Hypothyroidism type: unspecified Qualified Code(s): E03.9 - Hypothyroidism, unspecified <Gilberto Benson - Last Filed: 07/22/18 14:55> (5) Hypertension Qualifiers: Hypertension type: essential hypertension Qualified Code(s): I10 - Essential (primary) hypertension (6) Lupus (systemic lupus erythematosus) Qualifiers: Systemic lupus erythematosus type: unspecified Systemic lupus erythematosus organ involvement: unspecified Qualified Code(s): M32.9 - Systemic lupus erythematosus, unspecified (7) COPD (chronic obstructive pulmonary disease) Qualifiers: COPD type: unspecified COPD Qualified Code(s): J44.9 - Chronic obstructive pulmonary disease, unspecified (8) Hypothyroidism Qualifiers: Hypothyroidism type: unspecified Qualified Code(s): E03.9 - Hypothyroidism, unspecified <Sharath Suarez - Last Filed: 07/22/18 16:08> (5) Hypertension Qualifiers: Hypertension type: essential hypertension Qualified Code(s): I10 - Essential (primary) hypertension (6) Lupus (systemic lupus erythematosus) Qualifiers: Systemic lupus erythematosus type: unspecified Systemic lupus erythematosus organ involvement: unspecified Qualified Code(s): M32.9 - Systemic lupus erythematosus, unspecified (7) COPD (chronic obstructive pulmonary disease) Qualifiers: COPD type: unspecified COPD Qualified Code(s): J44.9 - Chronic obstructive pulmonary disease, unspecified (8) Hypothyroidism Qualifiers: Hypothyroidism type: unspecified Qualified Code(s): E03.9 - Hypothyroidism, unspecified
--- NOTE | 2018-07-22 11:18 | MR ---
cc: Xin Lauren MD DATE: 07/22/2018 PROCEDURE PERFORMED: Bronchoscopy, flexible REASON FOR BRONCHOSCOPY: Hemoptysis, rule out recurrent AMNA, rule out AMNA infection, rule out malignancy. PROCEDURE IN DETAIL Fiberoptic bronchoscopy performed via LMA. Vocal cords intact. Trachea mildly hyperemic. Sandrine sharp. Diffuse hyperemia throughout the tracheobronchial tree noted. No active bleeding noted. Right upper, middle, and lower lobe, left upper and lower lobe inspected. Washings obtained from both sides of the tracheobronchial tree. No obstruction, no mass lesion identified. Washing sent for routine TB, fungal cultures, cytological exam. Cytologic brush biopsy, left upper lobe obtained as well. The procedure well tolerated. The patient was transferred to recovery in stable condition. IMPRESSION: 1. Mild/moderate tracheobronchitis. 2. No obstruction, no mass lesion. 3. Samples obtained as above. 4. Procedure was terminated. 5. Patient was transferred to recovery in stable condition. Xin Lauren MD WWW/ , 09:10 AM , 09:16 AM
[2018-07-22] MEDS ORDERED: Lidocaine PF 1% Inj 5 ML Syringe INFILTRATN ONE (12:00)
--- NOTE | 2018-07-22 15:13 | P.DS ---
Date of admission: 07/18/18 13:47 Primary care physician: Gisella Willson MD, R2 Attending physician on discharge: Sharath Suarez Anticipated date of discharge: 07/22/18 Brief History from admission: Pt is a 77 yr old female with a PMH of cavitary lesions on her lung, RLL lobectomy, lupus, HTN, COPD, [place] skin carcinoma,IBD, GERD, hx of stroke, anemia, presenting to the ED with two episodes of hemoptysis. Pt states Thursday night she was watching tv and had an urge to cough, and a large blood clot w/ fresh blood came up. This morning she had another episode of coughing blood, and decided to come in. Both episodes stopped on their own. Pt is currently being treated by ID outpatient for an atypical mycobacteria infection with Biaxim (clarithromycin), ethambutol, and rifampin. She states during the last few months she has been feeling short of breath, and a lot of pressure, specially in her rib cage. The SOB is worse when laying down sometimes. She had a complete cardiac workup as an outpatient that was negative. She follow up with pulmonology outpatient, her last CT scan this last May showed no progression on the cavitary lesions. PT denies any fevers, but has been having chills, and night sweats (however this is not new to her), she is also having diarrhea since starting TB antibiotics, as well as nausea. She has unintentional weight loss, and chronic headaches. She denies vomiting or CP. DS: Diagnosis - Discharge Diagnosis (1) Cough with hemoptysis Status: Acute Diagnosis: Principal (2) Cavitary lesion of lung Status: Chronic Diagnosis: Principal (3) Mycobacterial infection, atypical Status: Chronic Diagnosis: Principal (4) Bradycardia Status: Acute Diagnosis: Principal (5) Hypertension Status: Chronic Diagnosis: Secondary (6) Lupus (systemic lupus erythematosus) Status: Chronic Diagnosis: Secondary (7) COPD (chronic obstructive pulmonary disease) Status: Chronic Diagnosis: Secondary (8) Hypothyroidism Status: Chronic Diagnosis: Secondary (9) Hyponatremia Status: Chronic Diagnosis: Secondary (10) GERD without esophagitis Status: Chronic Diagnosis: Secondary (11) Dysuria Status: Resolved Diagnosis: Secondary (12) Nutrition, metabolism, and development symptoms Status: Acute Diagnosis: Secondary (13) DVT prophylaxis Status: Acute Diagnosis: Secondary DS: Medications - Discharge Medications Prescriptions: clonidine HCl [Catapres] 0.1 mg PO DAILY #30 tab nystatin 5 ml SWISH-SWAL QID #120 ml DS: Summary Hospital Course: Patient was admitted for hemoptysis with suspected superinfection of the cavitary lung lesion. CTA showed new air fluid levels suggestive of superinfection at the cavitary lung lesion. Tuberculosis PCR was negative with sputum cultures being positive for acid-fast bacilli consistent with previous exams. Infectious disease was consulted who recommended continued treatment with ethambutol, rifampin, and clarithromycin at this time. Pulmonology was consulted who completed uncomplicated bronchoscopy on 06/21/18. Patient was diagnosed with tracheobronchitis and bronchial washings were obtained for culture. Patient was stable after procedure and requested to be discharged home. Patient was discharged home on with continued treatment for mycobacterium avium. Patient was also supplied nystatin swish and swallow for mild oral thrush. Otherwise all of her home medications were continued. Patient follow-up with PCP, infectious disease, and pulmonology within 1 week. Of note, on hospital day 1 patient had episode of bradycardia with a heart rate in the low 20s/ high 10s for which a CODE BLUE was called. Patient was administered atropine which normalized her heart rate throughout hospitalization. Episode was believed to be partly vasovagal versus exacerbated by night time dose of Coreg. Cardiology was consulted and Coreg was discontinued. Patient was started on clonidine 0.1 mg daily for blood pressure control. Patient to follow-up with PCP for further management at this time. - Time Spent with Patient Total time spent providing and/or coordinating discharge services: Less than 30 minutes - Quality: VTE Deep Vein Thrombosis/Pulmonary Embolism Present on Admission: No Exam Vital signs: Vital Signs 07/21/18 16:00 07/21/18 17:00 07/21/18 18:00 Temperature Pulse Rate 74 72 74 Respiratory Rate Blood Pressure Pulse Oximetry 07/21/18 18:02 07/21/18 19:00 07/21/18 20:00 Temperature 97.9 F Pulse Rate 79 72 Respiratory Rate 16 16 Blood Pressure 164/73 H Pulse Oximetry 98 98 07/21/18 21:00 07/21/18 22:00 07/22/18 00:00 Temperature 97.3 F L Pulse Rate 64 62 64 Respiratory Rate 16 Blood Pressure 159/68 H Pulse Oximetry 98 07/22/18 03:00 07/22/18 04:00 07/22/18 09:26 Temperature 98.1 F 97.9 F Pulse Rate 68 67 75 Respiratory Rate 16 21 Blood Pressure 125/59 L 173/75 H Pulse Oximetry 98 100 07/22/18 09:30 07/22/18 09:45 07/22/18 14:35 Temperature 97.9 F Pulse Rate 74 75 Respiratory Rate 16 16 Blood Pressure 158/74 H 152/72 H Pulse Oximetry 98 95 98 Intake & Output 07/21/18 07/22/18 07/22/18 18:59 06:59 18:59 Intake Total 1860 / 1860 1000 / 1000 Balance 1860 / 1860 1000 / 1000 Weight 45.5 kg Intake: IV 900 / 900 1000 / 1000 LR 1000 mL Inj 1,000 ML @ 84 900 / 900 1000 / 1000 mls/hr IV.CONT .[id number] BERTRAM Rx# :[id number] Oral 960 / 960 Other: # Voids 4 3 1 Date of Last Bowel Movement 07/20/18 07/20/18 Narrative: GENERAL: Thin appearing elderly female lying in bed in no acute distress. SKIN: Cool and dry. No rash. Pale appearing. Scar below left scapula from previous lobectomy. 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 Area of ecchymosis on right lateral degroot from fall that appears to be healing. HEENT: Atraumatic, normocephalic with extraocular motions intact. No rhinorrhea. No visible lymphadenopathy or jugulovenous distension appreciated. CARDIOVASCULAR: Regular rate and rhythm without obvious murmurs, gallops, or rubs. 2+ pulses in all four extremities. RESPIRATORY: Clear to auscultation bilaterally with no crackles, wheezes, or rhonchi. No increased work of breathing. GASTROINTESTINAL: Abdomen soft, non-tender, nondistended with positive bowel sounds. No masses appreciated. Mild suprapubic tenderness. MUSCULOSKELETAL: No cyanosis or edema. No calf tenderness. Ambulating well per report. NEURO/PSYCH: Afocal. Awake, alert, and oriented x3. Normal speech and judgement. Results Procedures completed during hospitalization: Bronchoscopy Pending studies at discharge: Pending at discharge 07/22/18 Cytology [PTH] Routine Labs on day of discharge: Labs from last 24 hours 08/23/18 05:15 WBC 5.6 RBC 4.08 Hgb 11.9 Hct 34.6 L MCV 84.8 MCH 29.1 MCHC 34.3 RDW 14.2 Plt Count 237 MPV 7.4 Neut % (Auto) 61.1 Lymph % (Auto) 19.8 [place] % (Auto) 11.2 H Eos % (Auto) 6.7 H Baso % (Auto) 1.2 Neut # (Auto) 3.4 Lymph # (Auto) 1.1 [place] # (Auto) 0.6 Eos # (Auto) 0.4 Baso # (Auto) 0.1 WBC Differential . Differential Comment Auto diff final - Impressions ITS Impressions Chest CTA 07/18/18 09:17 CONCLUSION: 1. No PE is identified. 2. Chronic cavitary lesion is present in the left upper lobe and demonstrates a new air-fluid level suggesting possible superinfection. The adjacent parenchymal changes are stable. 3. The multiple bilateral pulmonary nodules, most numerous in the left lower lobe, are stable. Suggest attention to these at follow-up imaging. Discharge Plan - Discharge Disposition Patient Disposition: 01 Discharge Home - Discharge Condition Condition: Stable - Discharge Order Discharge Orders: Discharge Order (Routine); Ordered 07/22/18 Ordered By: Gilberto Benson - Discharge Details Anticipated Discharge Date: 07/22/18 Discharge Comment: Patient to follow up with PCP, Pulmonology, and ID within one week. - Physicians Team Primary Care Provider: Gsiella Willson Attending Provider: Sharath Suarez Other Providers: Xiomara Rdud MD ; Xin Lauren MD ; Eliud Tijerina MD
== END 2018-07-22 18:22 | disposition home or self-care (01) ==
LOC: NEPC 08:54 → NEDA 13:47 → HCIS 16:23 → N06 07-21 23:19
PROVIDERS: ADMIT Family Medicine; ATTEND Family Medicine